=== PATIENT | male | born 1945 | race Caucasian/White ===

== ENCOUNTER 2024-03-16 20:40 | Inpatient (IN) | payer BC, MEDICARE ==
--- NOTE | 2024-03-16 20:56 | ED ---
Chest Pain HPI - General Stated Complaint: SOB Time Seen by Provider: 03/16/24 20:45 Source: patient Mode of arrival: EMS Limitations: no limitations - History of Present Illness Initial Comments: Patient is a 78-year-old man who states that he has not been feeling well going back probably about a week. Patient states that every year when the weather changes he tends to get sinus infection. Patient notes that about a week ago he began to have sinus drainage. Over the past 2 to 3 days he states that it felt like the drainage was going into his lungs. He has continued to have coughing. Patient also had some subjective fevers at home. Over the course of the past day he has had pains in the thoracic portion of the back on the left side. Patient was concerned because he had similar pains in the past that was diagnosed as myocardial infarction. The patient's prevailed upon him to be evaluated tonight. MD Complaint: chest pain -: days(s) Onset: during rest Pain Location: other (Left thoracic back) Pain Radiation: none Severity: moderate Quality: aching Consistency: constant Improves With: nothing Worsens With: nothing Other Symptoms: cough, fever Treatments Prior to Arrival: none - Related Data Home Medications Medication Instructions Recorded Confirmed Aspirin EC [Ecotrin Low Dose] 81 mg PO Q48H 03/17/24 03/17/24 Azelastine HCl [Astelin Nasal 1 - 2 spray EA NOSTRIL BID PRN 03/17/24 03/17/24 Ballinger] Calcium Carbonate [Calcium] 600 mg PO DAILY 03/17/24 03/17/24 Cholecalciferol (Vitamin D3) 50 mcg PO DAILY 03/17/24 03/17/24 [Vitamin D3 (50 Mcg = 2000 Iu)] Co Q-10 100mg 1 cap PO DAILY 03/17/24 03/17/24 Famotidine [Pepcid] 40 mg PO BID 03/17/24 03/17/24 Finasteride [Proscar] 5 mg PO DAILY 03/17/24 03/17/24 Loratadine [Claritin] 10 mg PO DAILY 03/17/24 03/17/24 Losartan Potassium [Cozaar] 100 mg PO DAILY 03/17/24 03/17/24 Multivitamins, Thera [Multivitamin 1 tab PO DAILY 03/17/24 03/17/24 (formulary)] Pravastatin Sodium [Pravachol] 80 mg PO DAILY 03/17/24 03/17/24 amLODIPine [Norvasc] 2.5 mg PO DAILY 03/17/24 03/17/24 Allergies Allergy/AdvReac Type Severity Reaction Status Date / Time Iodinated Contrast Media AdvReac Unknown Verified 03/20/24 13:02 iodine AdvReac Unknown Verified 03/20/24 13:02 Review of Systems ROS Statement: Those systems with pertinent positive or pertinent negative responses have been documented in the HPI. ROS Other: All systems not noted in ROS Statement are negative. Constitutional: Reports: fever. Denies: chills, weakness ENT: Reports: congestion Respiratory: Reports: as per HPI, cough, dyspnea. Denies: wheezes, hemoptysis, stridor Cardiovascular: Reports: as per HPI, chest pain. Denies: palpitations, orthopnea, edema, syncope Gastrointestinal: Denies: abdominal pain, nausea, vomiting, diarrhea Genitourinary: Denies: dysuria, hematuria Musculoskeletal: Reports: as per HPI, back pain Skin: Denies: rash Neurological: Denies: headache, weakness, numbness EKG Findings - EKG Results: EKG: interpreted by EMILED, sinus rhythm (Rate 102 bpm) EKG shows: tachycardia - Blocks, [place], Hypertrophy, ST Abn: AV and intraventricular conduction: right bundle branch block (fixed/inte rmittent, complete/incomplete) QRS axis and voltage: left axis deviation (-30 to -90) General Exam General appearance: alert, in no apparent distress Head exam: Present: atraumatic, normocephalic Eye exam: Present: normal appearance. Absent: scleral icterus, conjunctival injection ENT exam: Present: normal oropharynx Neck exam: Present: normal inspection Respiratory exam: Present: rhonchi. Absent: respiratory distress, wheezes, rales, stridor, chest wall tenderness, accessory muscle use, decreased breath sounds Cardiovascular Exam: Present: normal rhythm, tachycardia, normal heart sounds. Absent: systolic murmur, diastolic murmur, rubs, gallop GI/Abdominal exam: Present: soft. Absent: distended, tenderness, guarding, rebound, rigid, mass Extremities exam: Present: normal inspection, normal capillary refill. Absent: pedal edema, calf tenderness Back exam: Present: normal inspection. Absent: CVA tenderness (R), CVA tenderness (L) Neurological exam: Present: alert Skin exam: Present: warm, dry, intact, normal color. Absent: rash Course Vital Signs 03/16/24 03/16/24 03/17/24 20:50 21:00 00:17 Temperature 102.0 F H 97.6 F Pulse Rate 111 H 78 Respiratory 20 20 18 Rate Blood Pressure 139/70 130/69 O2 Sat by Pulse 91 L 90 L Oximetry 03/17/24 03/17/24 03/17/24 02:04 06:24 07:55 Temperature 100.3 F H 97.8 F Pulse Rate 67 55 L 48 L Respiratory 20 18 Rate Blood Pressure 124/60 104/63 O2 Sat by Pulse 96 96 Oximetry 03/17/24 03/17/24 03/17/24 07:56 07:57 08:00 Temperature 97.6 F Pulse Rate 49 L 63 Respiratory 18 17 Rate Blood Pressure 101/71 117/61 O2 Sat by Pulse 99 97 94 L Oximetry 03/17/24 03/17/24 03/17/24 08:03 10:21 11:43 Temperature Pulse Rate 53 L 55 L 52 L Respiratory 18 Rate Blood Pressure 116/60 O2 Sat by Pulse 94 L Oximetry 03/17/24 03/17/24 03/17/24 12:00 14:12 15:09 Temperature 98.8 F Pulse Rate 49 L 75 78 Respiratory 18 22 Rate Blood Pressure 132/73 141/64 O2 Sat by Pulse 92 L 98 Oximetry 03/17/24 03/17/24 03/17/24 15:36 15:46 18:31 Temperature 101.8 F H Pulse Rate 78 85 88 Respiratory 17 Rate Blood Pressure 154/72 O2 Sat by Pulse 93 L Oximetry Chest Pain MDM - MDM The patient had chest x-ray that I interpreted to show increased density left field consistent with pneumonia, no pneumothorax or congestive heart failure Was pt. sent in by a medical professional or institution (, PA, WASHER OFF, urgent care, hospital, or detention...) When possible be specific @ -[No] Did you speak to anyone other than the patient for history (EMS, parent, family, police, friend...)? What history was obtained from this source @ -[No] Did you review nursing and triage notes (agree or disagree)? Why? @ -[I reviewed and agree with nursing and triage notes] Were old charts reviewed (outside hosp., previous admission, EMS record, old EKG, old radiological studies, urgent care reports/EKG's, detention records)? Report findings @ -[No old charts were reviewed] Differential Diagnosis (chest pain, altered mental status, abdominal pain women, abdominal pain men, vaginal bleeding, weakness, fever, dyspnea, syncope, headache, dizziness, GI bleed, back pain, seizure, CVA, palpatations, mental health, musculoskeletal)? @ -[Differential Fever: Pneumonia, viral URI, endocarditis, myocarditis, pericarditis, otitis, sinusitis, peritonsillar Abscess, retropharyngeal Abscess, epiglottitis, peritonitis, appendicitis, Lisa cystitis, diverticulitis, hepatitis, colitis, UTI, PID, TOA, pyelonephritis, prostatitis, epididymitis, meningitis, encephalitis, pulmonary embolism, CVA, thyroid storm, pancreatitis, adrenal crisis, cavernous sinus thrombosis, this is not meant to be an all-inclusive list. EKG interpreted by me (3pts min.). @ -[I interpreted as above] X-rays interpreted by me (1pt min.). @ -[I interpreted as above CT interpreted by me (1pt min.). @ -[None done] U/S interpreted by me (1pt. min.). @ -[None done] What testing was considered but not performed or refused? (CT, X-rays, U/S, labs)? Why? @ -[None] What meds were considered but not given or refused? Why? @ -[None] Did you discuss the management of the patient with other professionals (professionals i.e. , PA, WASHER OFF, lab, RT, psych nurse, social insurance analyst, information management manager, teacher, us customs and border officer, family preservation caseworker)? Give summary @ -Case discussed with admitting physician and treatment recommendations incorporated Was smoking cessation discussed for >3mins.? @ -[No] Was critical care preformed (if so, how long)? @ -Yes, 30 minutes Were there social determinants of health that impacted care today? How? (Homelessness, low income, unemployed, alcoholism, drug addiction, transportation, low edu. Level, literacy, decrease access to med. care, retirement, rehab)? @ -[No] Was there de-escalation of care discussed even if they declined (Discuss DNR or withdrawal of care, Hospice)? DNR status @ -[No] What co-morbidities impacted this encounter? (DM, HTN, Smoking, COPD, CAD, Cancer, CVA, ARF, Chemo, Hep., AIDS, mental health diagnosis, sleep apnea, morbi d obesity)? @ -[None] Was patient admitted / discharged? Hospital course, mention meds given and route, prescriptions, significant lab abnormalities, going to OR and other pertinent info. @ -[Patient is 78-year-old man presenting with constellation of symptoms including fever, cough, dizziness, body aches. The patient does appear to have left-sided pneumonia. He also also has elevated D-dimer but due to acute kidney injury will not have CT to evaluate for pulmonary embolism. Patient will be admitted on antibiotic therapy with pulmonology consultation and to have VQ scan. Undiagnosed new problem with uncertain prognosis? @ -[No] Drug Therapy requiring intensive monitoring for toxicity (Heparin, Nitro, Insulin, Cardizem)? @ -[No] Were any procedures done? @ -[No] Diagnosis/symptom? @ -[ Acute pneumonia Acute kidney injury Acute, or Chronic, or Acute on Chronic? @ -[Acute Uncomplicated (without systemic symptoms) or Complicated (systemic symptoms)? @ -[Complicated by dyspnea Side effects of treatment? @ -[No] Exacerbation, Progression, or Severe Exacerbation? @ -[No] Poses a threat to life or bodily function? How? (Chest pain, [place], [place], pneumonia, PE, COPD, DKA, ARF, appy, cholecystitis, CVA, Diverticulitis, Homicidal, Suicidal, threat to staff... and all critical care pts) @ -[Yes there is risk of progression to respiratory failure/ All treatments are based on ideal body weight as in ED triage Disposition Clinical Impression: Pneumonia Disposition: ADMITTED IP TO THIS HOSP Condition: Fair Is patient prescribed a controlled substance at d/c from ED?: No
[2024-03-16 21:04] LABS: Basophils % (A) 0 %; Eosinophils # (A) 0.1 k/uL (0-0.7); Eosinophils % (A) 1 %; HCT 39.2 % (39.0-53.0); HGB 12.7 gm/dL (13.0-17.5); Lymphocytes # (A) 0.7 k/uL (1.0-4.8); Lymphocytes % (A) 8 %; MCH 29.6 pg (25.0-35.0); MCHC 32.3 g/dL (31.0-37.0); MCV 91.7 fL (80.0-100.0); Monocytes # (A) 0.4 k/uL (0-1.0); Monocytes % (A) 6 %; Neutrophils # (A) 6.5 k/uL (1.3-7.7); Neutrophils % (A) 82 %; Platelet Count 168 k/uL (150-450); RBC 4.28 m/uL (4.30-5.90); RDW 13.8 % (11.5-15.5); WBC 7.9 k/uL (3.8-10.6)
[2024-03-16 21:16] LABS: ALT 22 U/L (4-49); AST 36 U/L (17-59); African American GFR (CKD) 37 (>60 ml/min/1.73 sqM); Albumin 3.8 g/dL (3.5-5.0); Alkaline Phosphatase 113 U/L (38-126); Anion Gap 10 mmol/L; Blood Urea Nitrogen 32 mg/dL (9-20); Calcium 8.6 mg/dL (8.4-10.2); Carbon Dioxide 24 mmol/L (22-30); Chloride 102 mmol/L (98-107); Glucose 157 mg/dL (74-99); Magnesium 1.6 mg/dL (1.6-2.3); Non-African American GFR(CKD) 32 (>60 ml/min/1.73 sqM); Partial Thromboplastin Time 25.7 sec (22.0-30.0); Potassium 4.9 mmol/L (3.5-5.1); Prothrombin Time 11.4 sec (10.0-12.5); Sodium 136 mmol/L (137-145); Total Bilirubin 0.5 mg/dL (0.2-1.3); Total Protein 6.8 g/dL (6.3-8.2)
[2024-03-16] MEDS: ASPIRIN 81 MG PO STA (21:19)
--- NOTE | 2024-03-16 21:27 | XR ---
EXAMINATION TYPE: XR chest 2V DATE OF EXAM: 03/16/2024 9:21 PM COMPARISON: None. CLINICAL INDICATION: Male, 78 years old with history of Chest Pain, TECHNIQUE: Frontal and lateral views of the chest are obtained. FINDINGS: Chronic senescent parenchymal change and COPD. Reticulonodular infiltrate throughout the le ft lung may reflect atypical pneumonia. Correlate clinically. Mediastinum is unremarkable. The heart is not enlarged. IMPRESSION: Reticulonodular infiltrate throughout the left lung may reflect atypical pneumonia. Leonela elate clinically. [facility], , 03/16/2024 9:25 PM
[2024-03-16] MEDS: SODIUM CHLORIDE 0.9% 1,000 ML IV ONE (22:03)
[2024-03-16] MEDS: SODIUM CHLORIDE 0.9% 500 ML 500 ML IV STA (22:09)
[2024-03-16 22:21] LABS: Appearance,Urine Clear (Clear); Bilirubin,Urine Negative (Negative); Blood,Urine Negative (Negative); Color,Urine Yellow; Glucose,Urine (UA) Negative (Negative); Hyaline Casts,Urine 13 /lpf (0-2); Ketones,Urine Negative (Negative); Leukocyte Esterase,Urine Trace (Negative); Mucus,Urine Rare /hpf; Nitrite,Urine Negative (Negative); PH, Urine 5.5 (5.0-8.0); Protein,Urine 1+ (Negative); RBC,Urine 3 /hpf (0-5); Specific Gravity,Urine 1.025 (1.001-1.035); Urobilinogen,Urine <2.0 mg/dL (<2.0); WBC,Urine 1 /hpf (0-5)
[2024-03-17] MEDS ORDERED: ALBUTEROL NEBULIZED 2.5 MG/3 ML INHALATION PRN
[2024-03-17] MEDS ORDERED: PNEUMONIA PROTOCOL UTILIZED 1 EACH MISC PO PRN
[2024-03-17] MEDS: SODIUM CHLORIDE 0.9% 1,000 ML IV STA (00:14)
[2024-03-17] MEDS: AZITHROMYCIN 500 MG TAB PO SCH (00:14)
[2024-03-17] MEDS: ENOXAPARIN 80 MG/0.8 ML SYRINGE SQ STA ×2 (00:20→02:00)
--- NOTE | 2024-03-17 01:51 | P.HPIM ---
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 Patient reports that every year when the weather changes he tends to get sinus infections. However, previous sinus infections usually resolve on its own in 2 to 3 months and were not as severe as this time. Patient reported that about a month and half ago, he started having sinus drainage, congestion and over the past week patient started developing productive cough with clear sputum. Patient reports post- nasal drip. Earlier this evening, patient also noted chills, dizziness, lightheadedness and tremor. The patient's convinced the patient to come into the hospital for evaluation. In addition patient also reported over the past day patient has been having L sided chest pain, non-pleuritic, intermittent, with no clear alleviating or exacerbating features. Patient notes the last time this pain occured was several days ago and hasn't recurred. Sarah liu is concerned because he had similar pains in the past that was diagnosed as [place]. Patient currently endorses coughing, runny nose, sinus drainage, fever, chills. He denies shortness of breath, nausea/vomiting/diarrhea, dysuria, weakness or numbness sensation in the upper or lower extremity, no tingling. ED documentation reviewed. In the ED patient was treated with aspirin 324 mg x 1, 1 and half bolus of normal saline Vitals on admission temperature 102, heart rate 111, respiratory rate 20, blood pressure 139/70, O2 sat of 91% on nasal cannula at 3 L/min EKG independently interpreted as sinus tachycardia with a ventricular rate of 102 bpm, QTc interval of 386 ms, possible left atrial enlargement, left axis deviation, right bundle branch block CXR shows reticulonodular infiltrate throughout the left lung may reflect atypic al pneumonia Labs on admission show white blood cell count 7.9, hemoglobin 12.7, hematocrit 39.2, platelet 168, PT 11.4, PTT 25.7, INR 1.0, D-dimer 1.07, sodium 136, potassium 4.9, chloride 102, carbon dioxide 24, BUN 32, creatinine 1.97, glucose 157, troponin less than 0.012 UA shows 1+ protein, negative for nitrites, trace leukocyte esterase Review of systems: Pertinent positives and negatives as discussed in HPI, a complete review of systems was performed and all other systems are negative. PMH: Hyperlipidemia, hypertension, GERD, enlarged prostate, history of [place] in 2013 with 2 stents, peripheral neuropathy in lower extremity PSH: History of [place] in 2013 with 2 stents, meniscus surgery in left and right knee, deviated septum surgery in 2012, kyphoplasty T9-T10 in 2019, hernia surgery in 2023 FMH: Father has a history of heart disease with 5 bypass surgeries, aunt has a history of diabetes Allergies: No known drug allergies Social history: Tobacco: Former smoker, quit in 1979, used to smoke 1 and half pack a day Alcohol: Occasional alcohol use Recreational drugs: No recreational drug use Travel: No recent travel history Sick contacts: No recent sick contact Physical examination: Vital signs reviewed General: nontoxic, no distress, appears at stated age, well-appearing Derm: warm, dry, intact Head: atraumatic, normocephalic, symmetric Eyes: anicteric sclera Mouth: no lip lesion, mucus membranes moist Cardiovascular: S1 S2 reg, no murmur Lungs: Fine crackles in left upper lung field, no wheezing/stridor/rhonchi, no use of accessory muscle Abdominal: soft, non-tender to palpation, no signs of peritonitis, no rebound tenderness Extremities: No cyanosis, clubbing, or lower extremity edema. Neuro: Alert, Oriented to time/person/location, gross neurological examination did not reveal any focal deficits. Intact muscle strength in upper and lower extremity bilaterally. Intact sensation in bilateral upper and lower extremity. Cranial nerves II to XII grossly intact. Psych: well appearing, appropriate affect Assessment/Plan: Patient is a 78-year-old male with past medical history of hyperlipidemia, hype rtension, GERD, enlarged prostate, history of [place] in 2014 with 2 stents, peripheral neuropathy in lower extremity presented to the emergency department stating that he has not been feeling well over the past week. Patient will be admitted to inpatient medicine service. Active: #. Sepsis secondary to atypical pneumonia Chest x-ray shows reticulonodular infiltrate throughout the left lung which may reflect atypical pneumonia C/w normal saline at 130 cc an hour Initiate ceftriaxone 1 g IV every 24 hours C/w azithromycin 500 mg p.o. daily Obtain morning CBC Blood cultures, sputum culture, Legionella antigen and culture ordered by ED Order lactic acid #. Rule out acute coronary syndrome Troponin less than 0.012 C/w Cardiac monitoring Trend troponin x 1 Pain may be secondary to underlying pneumonia C/w home ASA dose #. Kidney injury, acute vs chronic, no baseline available for comparison BUN 32, creatinine 1.97 C/w normal saline at 130 cc an hour Obtain morning BMP #. Hyponatremia, mild Sodium 136 C/w normal saline at 130 cc an hour Monitor morning BMP #. Hyperglycemia, with no documented history of diabetes mellitus Blood sugar of 157 Initiate low-dose sliding scale insulin Obtain hemoglobin A1c #. Anemia Hemoglobin of 12.7 Recent colonoscopy was reportedly within the past 5 years with normal results Monitor morning CBC #. Rule out pulmonary embolism Elevated D-dimer at 1.07 Obtain VQ scan as patient has acute kidney injury Chronic: #. GERD Resume famotidine 40 mg twice daily #. BPH Resume finasteride 5 mg daily #. Hyperlipidemia Resume pravastatin 80 mg daily #. Hypertension Resume losartan 100 mg daily and amlodipine 2.5 mg daily #. Vitamin D deficiency Resume cholecalciferol 50 mcg daily F: No restrictions E: Replete as needed N: Heart healthy diet A: Ambulatory DVT prophylaxis: Lovenox 40 mg subcu daily as patient's calculated creatinine clearance is 34 The patient is admitted with an anticipated less than 2 midnight stay for evaluation of atypical pneumonia CODE STATUS: No code Discussed with: Patient Anticipated discharge place: Home Medications and Allergies Allergies Allergy/AdvReac Type Severity Reaction Status Date / Time No Known Allergies Allergy Verified 03/16/24 21:02 Physical Exam Vitals: Vital Signs Temp Pulse Resp BP Pulse Ox 03/16/24 20:50 102.0 F H 111 H 20 139/70 91 L Intake and Output 03/16/24 03/16/24 03/17/24 14:59 22:59 06:59 Other: Weight 74.843 kg Results CBC & Chem 7: 03/16/24 20:52 03/16/24 20:52 Labs: Abnormal Lab Results - Last 24 Hours (Table) 03/16/24 03/16/24 03/16/24 Range/Units 20:52 20:52 20:52 RBC 4.28 L (4.30-5.90) m/uL Hgb 12.7 L (13.0-17.5) gm/dL Lymphocytes # 0.7 L (1.0-4.8) k/uL D-Dimer 1.07 H (<0.60) mg/L FEU Sodium 136 L (137-145) mmol/L BUN 32 H (9-20) mg/dL Creatinine 1.97 H (0.66-1.25) mg/dL Glucose 157 H (74-99) mg/dL Urine Protein (Negative) Ur Leukocyte Esterase (Negative) Hyaline Casts (0-2) /lpf Urine Mucus (None) /hpf 03/16/24 Range/Units 22:10 RBC (4.30-5.90) m/uL Hgb (13.0-17.5) gm/dL Lymphocytes # (1.0-4.8) k/uL D-Dimer (<0.60) mg/L FEU Sodium (137-145) mmol/L BUN (9-20) mg/dL Creatinine (0.66-1.25) mg/dL Glucose (74-99) mg/dL Urine Protein 1+ H (Negative) Ur Leukocyte Esterase Trace H (Negative) Hyaline Casts 13 H (0-2) /lpf Urine Mucus Rare H (None) /hpf
[2024-03-17] MEDS: ACETAMINOPHEN TAB 500 MG TAB PO PRN (02:44)
[2024-03-17] MEDS ORDERED: DEXTROSE 50% SYRINGE 50 ML IVP PRN ×2 (02:45)
[2024-03-17 03:54] LABS: Glucose,Whole Blood 110 mg/dL (70-110)
--- NOTE | 2024-03-17 07:21 | XR ---
EXAMINATION TYPE: XR chest 2V DATE OF EXAM: 03/17/2024 6:43 AM COMPARISON: 03/16/2024 CLINICAL INDICATION: Male, 78 years old with history of pneumonia, TECHNIQUE: Frontal and lateral views of the chest are obtained. FINDINGS: Reticulonodular infiltrates throughout both lung fernandez compatible with pneumonia. Hyperinflation com patible with COPD. The cardiac silhouette size is within normal limits. The osseous structures are intact. IMPRESSION: Reticulonodular infiltrates throughout both lung fernandez compatible with pneumonia. [facility], , 03/17/2024 7:19 AM
[2024-03-17 07:39] LABS: Glucose,Whole Blood 90 mg/dL (70-110)
[2024-03-17] MEDS: INSULIN ASPART (NovoLOG) 100 UNIT/ML VIAL SQ SCH (07:39)
[2024-03-17] MEDS: IPRATROPIUM-ALBUTEROL 3 ML NEB INHALATION SCH (07:54)
[2024-03-17] MEDS: CHOLECALCIFEROL 25 MCG (1000 IU) TABLET PO SCH (08:29)
[2024-03-17] MEDS: ASPIRIN 81 MG PO SCH (08:29)
[2024-03-17] MEDS: ENOXAPARIN 40 MG/0.4 ML SYRINGE SQ SCH (08:29)
[2024-03-17] MEDS: LOSARTAN 50 MG TAB PO SCH (08:29)
[2024-03-17] MEDS: FAMOTIDINE 20 MG TAB PO SCH ×2 (08:29→20:55)
[2024-03-17] MEDS: PRAVASTATIN SODIUM 80 MG TAB PO SCH (08:29)
[2024-03-17] MEDS: amLODIPine 2.5 MG TAB PO SCH (08:30)
[2024-03-17] MEDS: FINASTERIDE 5 MG TAB PO SCH (08:30)
[2024-03-17 08:38] LABS: Basophils # (A) 0.03 X 10*3/uL (0.00-0.10); Basophils % (A) 0.5 %; Eosinophils # (A) 0.01 X 10*3/uL (0.04-0.35); Eosinophils % (A) 0.2 %; HGB 11.3 g/dL (13.0-17.0); Lymphocytes # (A) 0.91 X 10*3/uL (0.90-5.00); Lymphocytes % (A) 16.5 %; MCH 29.2 pg (27.0-32.0); MCHC 32.3 g/dL (32.0-37.0); MCV 90.4 FL (80.0-97.0); Mean Platelet Volume 8.5 FL (9.5-12.2); Monocytes # (A) 0.56 X 10*3/uL (0.20-1.00); Monocytes % (A) 10.1 %; NRBC Per 100 WBC 0 X 10*3/uL (0.00-0.01); Neutrophils % (A) 72.3 %; Platelet Count 143 X 10*3/uL (140-440); RBC 3.87 X 10*6/uL (4.40-5.60); RDW 14.7 % (11.5-14.5); WBC 5.53 X 10*3/uL (4.50-10.00)
[2024-03-17 08:53] LABS: BUN/Creat Ratio 16.06 Ratio (12.00-20.00); Blood Urea Nitrogen 28.9 mg/dL (9.0-27.0); Calcium 7.9 mg/dL (8.7-10.3); Chloride 108 mmol/L (96-109); Glucose 122 mg/dL (70-110); Potassium 4.5 mmol/L (3.5-5.5); Sodium 140 mmol/L (135-145)
[2024-03-17 11:28] LABS: Glucose,Whole Blood 92 mg/dL (70-110)
--- NOTE | 2024-03-17 12:23 | US ---
EXAMINATION TYPE: US kidneys/renal and bladder DATE OF EXAM: 03/17/2024 COMPARISON: NONE CLINICAL INDICATION: Male, 78 years old with history of josef; CKD stage 3. TECHNIQUE: Grayscale imaging of the bilateral kidneys and urinary bladder: FINDINGS: EXAM MEASUREMENTS: Right Kidney: 8.5 x 3.6 x 4.7 cm Left Kidney: 10.2 x 3.9 x 5.9 cm Right Kidney: Appears smaller in size compared to contralateral kidney. Left Kidney: No hydronephrosis or masses seen Bladder: mildly distended, anechoic Bilateral Jets not seen There is no evidence for hydronephrosis at this point in time. No nephrolithiasis is seen. No anne s are identified. The urinary bladder is anechoic. IMPRESSION: Atrophic changes right kidney. [facility], , 03/17/2024 12:21 PM
--- NOTE | 2024-03-17 14:04 | NM ---
EXAMINATION TYPE: NM pul vent and perfuse DATE OF EXAM: 03/17/2024 CLINICAL INDICATION: Male, 78 years old with history of R/O PE; COMPARISON: NONE TECHNIQUE: Utilizing inhalation of 42 mCi Tc 99m DTPA aerosol and intravenous injection of 5 mCi of Tc 99m MAA, ventilation and perfusion images are acquired post injection in multiple projections. FINDINGS: Multiple matched defects identified perfusion and ventilation imaging. No mismatch perfusion defects seen. Central accumulation likely compatible with COPD. IMPRESSION: Intermediate probability for pulmonary embolism. [facility], , 03/17/2024 2:01 PM
[2024-03-17] MEDS: LACTATED RINGERS 1,000 ML IV SCH (14:09)
[2024-03-17 18:26] LABS: Glucose,Whole Blood 106 mg/dL (70-110)
[2024-03-17 20:02] LABS: Glucose,Whole Blood 102 mg/dL (70-110)
[2024-03-18 04:29] LABS: Mycoplasma IgG Antibody (EIA) 2.79 INDEX (<=0.90); Mycoplasma IgM Antibody 0.18 INDEX (<=0.90)
[2024-03-18 06:34] LABS: Glucose,Whole Blood 95 mg/dL (70-110)
[2024-03-18 07:46] LABS: Basophils % (A) 0 %; Eosinophils # (A) 0.1 k/uL (0-0.7); Eosinophils % (A) 1 %; HCT 36.6 % (39.0-53.0); HGB 11.6 gm/dL (13.0-17.5); Hypochromasia Slight; Lymphocytes # (A) 1.2 k/uL (1.0-4.8); Lymphocytes % (A) 21 %; MCH 29.9 pg (25.0-35.0); MCHC 31.6 g/dL (31.0-37.0); MCV 94.4 fL (80.0-100.0); Mean Platelet Volume 6.8; Monocytes # (A) 0.3 k/uL (0-1.0); Monocytes % (A) 5 %; Neutrophils # (A) 3.9 k/uL (1.3-7.7); Neutrophils % (A) 71 %; Platelet Count 150 k/uL (150-450); RBC 3.88 m/uL (4.30-5.90); RDW 13.8 % (11.5-15.5); WBC 5.5 k/uL (3.8-10.6)
[2024-03-18 08:04] LABS: African American GFR (CKD) 61 (>60 ml/min/1.73 sqM); Anion Gap 5 mmol/L; Blood Urea Nitrogen 22 mg/dL (9-20); Calcium 8.1 mg/dL (8.4-10.2); Carbon Dioxide 23 mmol/L (22-30); Chloride 108 mmol/L (98-107); Glucose 92 mg/dL (74-99); Non-African American GFR(CKD) 53 (>60 ml/min/1.73 sqM); Potassium 4.6 mmol/L (3.5-5.1); Sodium 136 mmol/L (137-145)
[2024-03-18] MEDS: AZITHROMYCIN 500 MG TAB PO STA (11:59)
--- NOTE | 2024-03-18 13:21 | P.PN ---
Subjective Progress Note Date: 03/18/2403/18. Patient seen and examined at bedside. No acute events overnight. Endorses fever, cough productive of dark colored sputum, and mild dyspnea. Denies chest pain, abdominal pain, nausea/vomiting. Cepheid 4-plex: COVID-19 positive. Labs today: WBC 5.5, hemoglobin 11.6, platelets 150, sodium 136, p otassium 4.6, chloride 108, CO2 23, BUN 22, creatinine 1.3, glucose 92, calcium 8.1. Pertinent positives and negatives discussed above, a complete review of systems was performed and all the other systems were negative. Physical examination: Vital signs reviewed General: Nontoxic, no distress, appears stated age, well-appearing Derm: Warm, dry, intact Head: Atraumatic, normocephalic, symmetric Eyes: EOMI, anicteric sclera Mouth: No lip lesion, mucus membranes moist Cardiovascular: S1-S2 regular, no murmur Lungs: CTA bilateral, no rhonchi, no rales, no accessory muscle use Abdominal: Soft, non-tender to palpation Extremities: No cyanosis, clubbing, or pedal edema Neuro: Alert, oriented x 3, gross neurological examination did not reveal any focal deficits. Cranial nerves II to XII grossly intact. Psych: Appropriate affect and mood Assessment and Plan: Patient is a 78-year-old male with a past medical history of hypertension, hyperlipidemia, history of OR in 2013 with 2 stents, peripheral bilateral lower extremity neuropathy, BPH, GERD admitted for pneumonia. Active #. COVID-19 pneumonia #. Acute hypoxic respiratory failure Begin Decadron 6 mg daily IV Continue oxygen supplementation as needed to maintain oxygen saturation >94% Pulmonology consulted for possible remdesivir #. sepsis secondary to pneumonia On empiric ceftriaxone IV 1 g every 12 hours, status post azithromycin, consider discontinuing antibiotics Pending procalcitonin #. Prerenal acute kidney injury Improving with fluids, lactated Ringer 125 cc an hour Continue to monitor BMP Resolved #. Hyperglycemia Chronic #. Hypertension Hold amlodipine and losartan due to systolic blood pressures in the 110s #. History of OR in 2013 with 2 stents Aspirin 81 mg PO daily #. BPH Finasteride 5 mg PO daily F: Lactated Ringer's at 125 cc /h E: Replete if required N: Regular diet A: Ambulatory DVT prophylaxis: Lovenox 40 mg subcutaneous daily GI prophylaxis: Pepcid 20 mg twice daily Code status: No code Anticipated discharge place: Home I have seen and evaluated the patient today. Discussed with the resident and agree with the residents finding and plan as documented in the resident's note. Changes highlighted in blue font. Objective - Vital Signs Vital signs: Vital Signs Temp 98.8 F 03/18/24 06:11 Pulse 80 03/18/24 02:50 Resp 18 03/18/24 02:50 BP 115/61 03/18/24 02:50 Pulse Ox 90 L 03/18/24 02:50 FiO2 Intake & Output 03/17/24 03/18/24 03/18/24 18:59 06:59 18:59 Weight 74.843 kg Other: Voiding Method Toilet # Voids 2 - Labs CBC & Chem 7: 03/18/24 07:34 03/18/24 07:34 Labs: Abnormal Lab Results - Last 24 Hours (Table) 03/17/24 03/17/24 03/17/24 Range/Units 03:07 03:07 03:07 RBC 3.87 L (4.40-5.60) X 10*6/uL Hgb 11.3 L (13.0-17.0) g/dL Hct 35.0 L (39.6-50.0) % RDW 14.7 H (11.5-14.5) % MPV 8.5 L (9.5-12.2) FL Eosinophils # 0.01 L (0.04-0.35) X 10*3/uL Sodium (137-145) mmol/L Chloride (98-107) mmol/L Carbon Dioxide 20.0 L (21.6-31.8) mmol/L BUN 28.9 H (9.0-27.0) mg/dL Creatinine 1.8 H (0.6-1.5) mg/dL Est GFR (CKD-EPI) 39 L (>=60) Glucose 122 H (70-110) mg/dL Hemoglobin A1c 6.2 H (<=6.0) % Calcium 7.9 L (8.7-10.3) mg/dL Mycoplasma pneumon IgG (<=0.90) INDEX 03/17/24 03/18/24 03/18/24 Range/Units 11:52 07:34 07:34 RBC 3.88 L (4.40-5.60) X 10*6/uL Hgb 11.6 L (13.0-17.0) g/dL Hct 36.6 L (39.6-50.0) % RDW (11.5-14.5) % MPV (9.5-12.2) FL Eosinophils # (0.04-0.35) X 10*3/uL Sodium 136 L (137-145) mmol/L Chloride 108 H (98-107) mmol/L Carbon Dioxide (21.6-31.8) mmol/L BUN 22 H (9.0-27.0) mg/dL Creatinine 1.30 H (0.6-1.5) mg/dL Est GFR (CKD-EPI) (>=60) Glucose (70-110) mg/dL Hemoglobin A1c (<=6.0) % Calcium 8.1 L (8.7-10.3) mg/dL Mycoplasma pneumon IgG 2.79 H (<=0.90) INDEX
[2024-03-18] MEDS: DEXAMETHASONE SOD PHOSPHATE 10 MG/ML 1 ML VIAL IVP SCH (14:13)
--- NOTE | 2024-03-18 14:46 | XR ---
EXAMINATION TYPE: XR chest 1V portable DATE OF EXAM: 03/18/2024 COMPARISON: 03/17/2024 CLINICAL INDICATION: Male, 78 years old with history of SOB; TECHNIQUE: Single frontal view of the chest is obtained. FINDINGS: Patchy infiltrate throughout both lung fernandez compatible with pneumonia. Cardiomediastinal silhouette is stable. No pleural effusion. Bony thorax is intact. IMPRESSION: Patchy infiltrate throughout both lung fernandez compatible with pneumonia. [facility], , 03/18/2024 2:44 PM
[2024-03-18] MEDS ORDERED: ALBUTEROL HFA INHALER INHALATION PRN ×2 (14:59→15:00)
[2024-03-18] MEDS: ALBUTEROL HFA INHALER INHALATION SCH (15:41)
[2024-03-18] MEDS ORDERED: guaiFENesin-DM 100-10MG/5ML 10 ML CUP PO PRN (17:32)
[2024-03-18 18:27] LABS: Glucose,Whole Blood 156 mg/dL (70-110)
[2024-03-18] MEDS: methylPREDNISolone SOD SUCCI 125 MG/2 ML VIAL IV SCH (18:49)
[2024-03-18 21:26] LABS: Glucose,Whole Blood 149 mg/dL (70-110)
[2024-03-19 06:25] LABS: Glucose,Whole Blood 139 mg/dL (70-110)
[2024-03-19 10:55] LABS: Basophils # (A) 0.01 X 10*3/uL (0.00-0.10); Basophils % (A) 0.2 %; Eosinophils # (A) 0 X 10*3/uL (0.04-0.35); Eosinophils % (A) 0 %; HCT 41.8 % (39.6-50.0); HGB 12.7 g/dL (13.0-17.0); Lymphocytes # (A) 0.52 X 10*3/uL (0.90-5.00); Lymphocytes % (A) 8.9 %; MCH 28.3 pg (27.0-32.0); MCHC 30.4 g/dL (32.0-37.0); MCV 93.3 FL (80.0-97.0); Mean Platelet Volume 9.1 FL (9.5-12.2); Monocytes # (A) 0.19 X 10*3/uL (0.20-1.00); Monocytes % (A) 3.3 %; NRBC Per 100 WBC 0 X 10*3/uL (0.00-0.01); Neutrophils # (A) 5.08 X 10*3/uL (1.80-7.70); Neutrophils % (A) 87.3 %; Platelet Count 154 X 10*3/uL (140-440); RBC 4.48 X 10*6/uL (4.40-5.60); RDW 14.6 % (11.5-14.5); WBC 5.82 X 10*3/uL (4.50-10.00)
[2024-03-19 11:42] LABS: Glucose,Whole Blood 133 mg/dL (70-110)
--- NOTE | 2024-03-19 11:49 | XR ---
EXAMINATION TYPE: XR chest 1V DATE OF EXAM: 03/19/2024 10:54 AM COMPARISON: Chest radiographs from 03/18/2024 CLINICAL INDICATION: Male, 78 years old with history of COVID 19; [facility] TECHNIQUE: XR chest 1V Frontal view of the chest. FINDINGS: Lungs/Pleura: Scattered subtle reticular and hazy opacities. No evidence of pneumothorax, focal conso lidation or pleural effusion. Pulmonary vascularity: Unremarkable. Heart/mediastinum: Cardiomediastinal silhouette is unremarkable. Musculoskeletal: No acute osseous pathology. IMPRESSION: Subtle scattered opacities which may represent an atypical pneumonia. Correlate for covid 19. [facility], , 03/19/2024 11:46 AM
[2024-03-19 12:28] LABS: BUN/Creat Ratio 17.09 Ratio (12.00-20.00); Blood Urea Nitrogen 18.8 mg/dL (9.0-27.0); Calcium 8.4 mg/dL (8.7-10.3); Carbon Dioxide 22.1 mmol/L (21.6-31.8); Chloride 106 mmol/L (96-109); Glucose 171 mg/dL (70-110); Potassium 4.7 mmol/L (3.5-5.5); Sodium 139 mmol/L (135-145)
--- NOTE | 2024-03-19 13:19 | P.PN ---
Subjective Progress Note Date: 03/19/2403/18. Patient seen and examined at bedside. No acute events overnight. Endorses fever, cough productive of dark colored sputum, and mild dyspnea. Denies chest pain, abdominal pain, nausea/vomiting. Cepheid 4-plex: COVID-19 positive. Labs today: WBC 5.5, hemoglobin 11.6, platelets 150, sodium 136, p otassium 4.6, chloride 108, CO2 23, BUN 22, creatinine 1.3, glucose 92, calcium 8.1. 03/19. Patient seen laying comfortably in bed. No acute events overnight. Endorses cough minimally productive of dark-colored sputum, mild dyspnea with exertion. Denies fever, chest pain, abdominal pain, palpitations, nausea/vomiting. Labs today: WBC 5.82, hemoglobin 12.7, platelets 154, sodium 139, potassium 4.7, chloride 106, CO2 22.1, BUN 18.8, creatinine 1.1, glucose 171, LDH 600. Chest x-ray independently interpreted, shows bilateral interstitial opacities Pertinent positives and negatives discussed above, a complete review of systems was performed and all the other systems were negative. Physical examination: Vital signs reviewed. Afebrile, hypertensive, 97% O2 on Airvo 45 at 60% FiO2. General: Nontoxic, no distress, appears stated age, well-appearing Derm: Warm, dry, intact Head: Atraumatic, normocephalic, symmetric Eyes: EOMI, anicteric sclera Mouth: No lip lesion, mucus membranes moist Cardiovascular: S1-S2 regular, no murmur Lungs: Bilateral rhonchi, no rales, no accessory muscle use Abdominal: Soft, non-tender to palpation Extremities: No cyanosis, clubbing, or pedal edema Neuro: Alert, oriented x 3, gross neurological examination did not reveal any focal deficits. Cranial nerves II to XII grossly intact. Psych: Appropriate affect and mood Assessment and Plan: Patient is a 78-year-old male with a past medical history of hypertension, hyperlipidemia, history of AR in 2014 with 2 stents, peripheral bilateral lower extremity neuropathy, BPH, GERD admitted for pneumonia. Patient is severely ill, needs close monitoring. Prognosis guarded. Active #. COVID-19 pneumonia #. Acute hypoxic respiratory failure IV Solu-Medrol 60 mg every 6 hours Robitussin DM 10 ml PO every 6 hours as needed for cough Continue oxygen supplementation as needed to maintain oxygen saturation >94% Wean Airvo as tolerated Pulmonology following #. Sepsis, secondary to pneumonia On empiric ceftriaxone IV 1 g every 12 hours, status post azithromycin Procalcitonin 0.73 #. Prerenal acute kidney injury Improved with fluids Continue to monitor BMP Resolved #. Hyperglycemia Chronic #. Hypertension Hold amlodipine and losartan due to systolic blood pressures in the 110s #. History of AR in 2013 with 2 stents Aspirin 81 mg PO daily #. BPH Finasteride 5 mg PO daily F: None E: Replete if required N: Regular diet A: Ambulatory DVT prophylaxis: Lovenox 40 mg subcutaneous daily GI prophylaxis: Pepcid 20 mg twice daily Code status: No code Anticipated discharge place: Home I have seen and evaluated the patient today. Discussed with the resident and agree with the residents finding and plan as documented in the resident's note. Changes highlighted in blue font. Objective - Vital Signs Vital signs: Vital Signs Temp 97.4 F L 03/19/24 00:27 Pulse 65 03/19/24 00:27 Resp 20 03/19/24 00:27 BP 138/67 03/19/24 00:27 Pulse Ox 97 03/19/24 04:33 FiO2 60 03/19/24 04:33 Intake & Output 03/18/24 03/18/24 03/19/24 06:59 18:59 06:59 Intake Total 450 240 Balance 450 240 Intake: Intake, IV Titration 50 Amount cefTRIAXone 1 gm In 50 Sodium Chloride 0.9% 50 ml @ 100 mls/hr IVPB Q24H [facility] Rx#:[id number] Oral 400 240 Other: Voiding Method Toilet Toilet # Voids 2 3 2 - Labs CBC & Chem 7: 03/19/24 03:53 03/19/24 03:53 Labs: Abnormal Lab Results - Last 24 Hours (Table) 03/18/24 03/18/24 03/18/24 Range/Units 07:34 07:34 07:34 RBC 3.88 L (4.30-5.90) m/uL Hgb 11.6 L (13.0-17.5) gm/dL Hct 36.6 L (39.0-53.0) % Sodium 136 L (137-145) mmol/L Chloride 108 H (98-107) mmol/L BUN 22 H (9-20) mg/dL Creatinine 1.30 H (0.66-1.25) mg/dL POC Glucose (mg/dL) (70-110) mg/dL Calcium 8.1 L (8.4-10.2) mg/dL Procalcitonin 0.73 H (0.02-0.50) ng/mL SARS-CoV-2 (PCR) (Not Detectd) 03/18/24 03/18/24 03/18/24 Range/Units 11:30 18:26 21:24 RBC (4.30-5.90) m/uL Hgb (13.0-17.5) gm/dL Hct (39.0-53.0) % Sodium (137-145) mmol/L Chloride (98-107) mmol/L BUN (9-20) mg/dL Creatinine (0.66-1.25) mg/dL POC Glucose (mg/dL) 156 H 149 H (70-110) mg/dL Calcium (8.4-10.2) mg/dL Procalcitonin (0.02-0.50) ng/mL SARS-CoV-2 (PCR) Detected A (Not Detectd) 03/19/24 Range/Units 06:24 RBC (4.30-5.90) m/uL Hgb (13.0-17.5) gm/dL Hct (39.0-53.0) % Sodium (137-145) mmol/L Chloride (98-107) mmol/L BUN (9-20) mg/dL Creatinine (0.66-1.25) mg/dL POC Glucose (mg/dL) 139 H (70-110) mg/dL Calcium (8.4-10.2) mg/dL Procalcitonin (0.02-0.50) ng/mL SARS-CoV-2 (PCR) (Not Detectd) Microbiology - Last 24 Hours (Table) 03/16/24 22:25 Blood Culture - Preliminary Blood 03/16/24 22:10 Blood Culture - Preliminary Blood
--- NOTE | 2024-03-19 13:58 | US ---
EXAMINATION TYPE: US venous doppler duplex LE BI DATE OF EXAM: 03/19/2024 1:33 PM COMPARISON: NONE CLINICAL INDICATION: Male, 78 years old with history of rule out blood clot; d-dimer is positive for Covid, Pain TECHNIQUE: The lower extremity deep venous system is examined utilizing real time linear array sonog maximo with graded compression, color doppler sonography, and spectral doppler. SIDE PERFORMED: Bilateral FINDINGS: VESSELS IMAGED: Common Femoral Vein Deep Femoral Vein Greater Saphenous Vein * Femoral Vein Popliteal Vein Small Saphenous Vein * Proximal Calf Veins (* superficial vessels) Right Leg: Negative for DVT, Color Doppler imaging shows patency of the vessels. Spectral waveforms are within normal limits. Left Leg: Negative for DVT, Color Doppler imaging shows patency of the vessels. Spectral waveforms a re within normal limits. IMPRESSION: No ultrasound evidence for deep venous thrombosis. [facility], , 03/19/2024 1:56 PM
--- NOTE | 2024-03-19 14:24 | P.CNPUL ---
History of Present Illness Consult date: 03/19/24 Reason for consult: dyspnea, pneumonia History of present illness: This is a 78-year-old male patient who is currently hospitalized for an acute hypoxic respiratory failure and COVID-19 related pneumonia. The patient is currently on Airvo at 45 L with an FiO2 of 60%. I reviewed the series of chest x-ray that was done on this patient during this current admission. The patient may have underlying chronic ILD. Nevertheless, the patient developed progressive worsening in the bilateral pulmonary filtrates and the patient has developed some increased hazy opacities bilaterally consistent with COVID-19 related pneumonia. Noted his symptoms started around 2 days prior to his current admission and the patient's is also infected with the same virus. His D-dimer was mildly elevated at 1.07. Doppler of the lower extremities done today was negative. Perfusion scan was up and intermediate probability. He has seen Dr. Terrence Maynard and the patient has undergone a bronchoscopy few months back which I am assuming was done as part of investigation for chronic interstitial lung disease. The patient is on no immunosuppressant. 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 No coronary artery disease. No active smoking. The white cell count of 5.8 with a hemoglobin 12.7 and a platelet count of 154. Sodium is at 139, BUN is 18 with a creatinine of 1.1 and a potassium level of 4.7. The viral screen was positive for COVID-19. His procalcitonin level was at 0.7. His CRP is at 14.5 with an LDH of 600. The patient has received vaccination in the past. No previous history of COVID-19 infection. No reported aspiration. He is currently on IV steroids and the patient is receiving Solu-Medrol 60 mg every 6 hours. The patient is also on Lovenox 40 mg subcu for DVT prophylaxis. Antibiotic coverage is essentially empiric. He is afebrile. No significant tachycardia or tachypnea. Review of Systems Constitutional: Reports fatigue, Reports weakness Eyes: denies as per HPI, denies blurred vision, denies bulging eye, denies decreased vision, denies diplopia, denies discharge, denies dry eye, denies irritation, denies itching, denies pain, denies photophobia, denies loss of peripheral vision, denies loss of vision, denies tunnel vision/blind spots Ears: deny: decreased hearing, ear discharge, earache, tinnitus Ears, nose, mouth and throat: Reports as per HPI Breasts: absent: as per HPI, gynecomastia Cardiovascular: Reports decreased exercise tolerance, Reports dyspnea on exertion Respiratory: Reports dyspnea Gastrointestinal: Reports as per HPI Genitourinary: Reports as per HPI Musculoskeletal: Reports as per HPI Musculoskeletal: absent: ankle pain, ankle stiffness, ankle swelling, as per HPI, elbow pain, elbow stiffness, elbow swelling, foot pain, foot stiffness, foot swelling, hand pain, hand stiffness, hand swelling, hip pain, hip stiffness, hip swelling, knee pain, knee stiffness, knee swelling, shoulder pain, shoulder stiffness, shoulder swelling, wrist pain, wrist stiffness, wrist swelling Integumentary: Reports as per HPI Neurological: Reports as per HPI Endocrine: Reports as per HPI Allergic/Immunologic: Reports as per HPI Past Medical History Past Medical History: GERD/Reflux, Hyperlipidemia, Hypertension, Myocardial Infarction (SD) Last Myocardial Infarction Date:: 2021 History of Any Multi-Drug Resistant Organisms: None Reported Past Surgical History: Heart Catheterization With Stent, Orthopedic Surgery Additional Past Surgical History / Comment(s): Stent x2. Date of Last Stent Placement:: 2021 Smoking Status: Former smoker Past Alcohol Use History: Occasional Past Drug Use History: None Reported Medications and Allergies Home Medications Medication Instructions Recorded Confirmed Type Aspirin EC [Ecotrin Low Dose] 81 mg PO Q48H 03/17/24 03/17/24 History Azelastine HCl [Astelin Nasal 1 - 2 spray EA NOSTRIL BID PRN 03/17/24 03/17/24 History [place]] Calcium Carbonate [Calcium] 600 mg PO DAILY 03/17/24 03/17/24 History Cholecalciferol (Vitamin D3) 50 mcg PO DAILY 03/17/24 03/17/24 History [Vitamin D3 (50 Mcg = 2000 Iu)] Co Q-10 100mg 1 cap PO DAILY 03/17/24 03/17/24 History Famotidine [Pepcid] 40 mg PO BID 03/17/24 03/17/24 History Finasteride [Proscar] 5 mg PO DAILY 03/17/24 03/17/24 History Loratadine [Claritin] 10 mg PO DAILY 03/17/24 03/17/24 History Losartan Potassium [Cozaar] 100 mg PO DAILY 03/17/24 03/17/24 History Multivitamins, Thera [Multivitamin 1 tab PO DAILY 03/17/24 03/17/24 History (formulary)] Pravastatin Sodium [Pravachol] 80 mg PO DAILY 03/17/24 03/17/24 History amLODIPine [Norvasc] 2.5 mg PO DAILY 03/17/24 03/17/24 History Allergies Allergy/AdvReac Type Severity Reaction Status Date / Time No Known Allergies Allergy Verified 03/17/24 07:10 Physical Exam Vitals: Vital Signs Temp Pulse Pulse Resp BP Pulse Ox FiO2 03/19/24 09:35 93 L 60 03/19/24 07:15 97.5 F L 69 19 123/66 90 L 03/19/24 04:33 97 60 03/19/24 00:44 95 70 03/19/24 00:27 97.4 F L 65 20 138/67 98 03/18/24 20:50 97 70 03/18/24 19:35 98.0 F 70 18 146/68 97 03/18/24 18:00 96 03/18/24 15:45 97 70 03/18/24 14:32 98 70 03/18/24 13:53 100.3 F H 100 19 158/62 100 03/18/24 12:00 80 03/18/24 11:50 77 Intake and Output 03/18/24 03/19/24 03/19/24 22:59 06:59 14:59 Intake Total 450 240 Balance 450 240 Intake: Intake, IV Titration 50 Amount cefTRIAXone 1 gm In 50 Sodium Chloride 0.9% 50 ml @ 100 mls/hr IVPB Q24H [facility] Rx#:[id number] Oral 400 240 Other: # Voids 3 2 The patient appeared well nourished and normally developed. Vital signs as documented. The patient does not demonstrate any significant respiratory distress. The patient is currently on Airvo at 45 L with FiO2 of 60%. Head exam is unremarkable. No scleral icterus or corneal arcus noted. Neck is without jugular venous distension, thyromegaly, or carotid bruits. Carotid upstrokes are brisk bilaterally. Lungs show scattered rhonchi and crackles bilaterally.. Cardiac exam reveals the PMI to be normally sized and situated. Rhythm is regular. First and second heart sounds normal. No murmurs, rubs or gallops. Abdominal exam reveals normal bowel sounds, no masses, no organomegaly and no aortic enlargement. Extremities are nonedematous and both femoral and pedal pulses are normal. Examination of the skin revealed no evidence of significant rashes, suspicious appearing nevi or other concerning lesions. Neurologically, the patient is awake and alert and the patient does not have any focal neurological deficit. Cranial nerves are essentially intact. Results - Laboratory Findings CBC and BMP: 03/19/24 03:53 03/19/24 03:53 PT/INR, D-dimer PT 11.4 sec (10.0-12.5) 03/16/24 20:52 INR 1.0 (<1.2) 03/16/24 20:52 D-Dimer 1.07 mg/L FEU (<0.60) H 03/16/24 20:52 Abnormal lab findings: Abnormal Labs 03/16/24 03/16/24 03/16/24 20:52 20:52 20:52 RBC 4.28 L Hgb 12.7 L Hct RDW MPV Lymphocytes # 0.7 L Eosinophils # D-Dimer 1.07 H Sodium 136 L Chloride Carbon Dioxide BUN 32 H Creatinine 1.97 H Est GFR (CKD-EPI) Glucose 157 H POC Glucose (mg/dL) Hemoglobin A1c Calcium Procalcitonin Urine Protein Ur Leukocyte Esterase Hyaline Casts Urine Mucus Mycoplasma pneumon IgG SARS-CoV-2 (PCR) 03/16/24 03/17/24 03/17/24 22:10 03:07 03:07 RBC 3.87 L Hgb 11.3 L Hct 35.0 L RDW 14.7 H MPV 8.5 L Lymphocytes # Eosinophils # 0.01 L D-Dimer Sodium Chloride Carbon Dioxide 20.0 L BUN 28.9 H Creatinine 1.8 H Est GFR (CKD-EPI) 39 L Glucose 122 H POC Glucose (mg/dL) Hemoglobin A1c Calcium 7.9 L Procalcitonin Urine Protein 1+ H Ur Leukocyte Esterase Trace H Hyaline Casts 13 H Urine Mucus Rare H Mycoplasma pneumon IgG SARS-CoV-2 (PCR) 03/17/24 03/17/24 03/18/24 03:07 11:52 07:34 RBC 3.88 L Hgb 11.6 L Hct 36.6 L RDW MPV Lymphocytes # Eosinophils # D-Dimer Sodium Chloride Carbon Dioxide BUN Creatinine Est GFR (CKD-EPI) Glucose POC Glucose (mg/dL) Hemoglobin A1c 6.2 H Calcium Procalcitonin Urine Protein Ur Leukocyte Esterase Hyaline Casts Urine Mucus Mycoplasma pneumon IgG 2.79 H SARS-CoV-2 (PCR) 03/18/24 03/18/24 03/18/24 07:34 07:34 11:30 RBC Hgb Hct RDW MPV Lymphocytes # Eosinophils # D-Dimer Sodium 136 L Chloride 108 H Carbon Dioxide BUN 22 H Creatinine 1.30 H Est GFR (CKD-EPI) Glucose POC Glucose (mg/dL) Hemoglobin A1c Calcium 8.1 L Procalcitonin 0.73 H Urine Protein Ur Leukocyte Esterase Hyaline Casts Urine Mucus Mycoplasma pneumon IgG SARS-CoV-2 (PCR) Detected A 03/18/24 03/18/24 03/19/24 18:26 21:24 06:24 RBC Hgb Hct RDW MPV Lymphocytes # Eosinophils # D-Dimer Sodium Chloride Carbon Dioxide BUN Creatinine Est GFR (CKD-EPI) Glucose POC Glucose (mg/dL) 156 H 149 H 139 H Hemoglobin A1c Calcium Procalcitonin Urine Protein Ur Leukocyte Esterase Hyaline Casts Urine Mucus Mycoplasma pneumon IgG SARS-CoV-2 (PCR) - Diagnostic Findings Chest x-ray: image reviewed Assessment and Plan Plan: Acute hypoxic respiratory failure most likely secondary to COVID-19 related pneumonia. The patient may have an underlying chronic interstitial lung disease. Nevertheless, he was not oxygen dependent and his decompensation was rather acute as the patient was diagnosed having a COVID-19 infection. He is currently on Airvo 45 L with an FiO2 of 60%. He is also on IV Solu-Medrol. Acute COVID-19 infection/pneumonia. LDH is elevated. Procalcitonin is at 0.7. He has received previous vaccination. No previous COVID-19 infections. Interstitial lung disease, being worked up on an outpatient basis through [facility] under the care of Dr. Terrence Maynard. He has undergone recent bronchoscopy and bronchial lavage. No biopsies were obtained. The patient was not oxygen dependent. Shortness of breath secondary to above Hypertension Hyperlipidemia History of coronary disease with remote history of myocardial infarction. The patient has 2 coronary stents inserted post SD back in 2013 Plan Keep Airvo and titrate oxygen flow to maintain saturation above 90% Continue IV Solu-Medrol Lovenox 40 mg subcu for DVT prophylaxis Doppler of lower extremities were negative No clinical suspicion for pulmonary embolism Would like to obtain records on his previous ILD workup May be a candidate for tocilizumab or baricitinib should there be any further decompensation of respiratory status. Currently stable and the chest x-ray findings have also been stable over the past 24 hours. Will continue to follow.
[2024-03-19 16:43] LABS: Glucose,Whole Blood 155 mg/dL (70-110)
[2024-03-19 19:54] LABS: Glucose,Whole Blood 164 mg/dL (70-110)
[2024-03-20 06:19] LABS: Glucose,Whole Blood 145 mg/dL (70-110)
--- NOTE | 2024-03-20 08:21 | XR ---
EXAMINATION TYPE: XR chest 1V portable DATE OF EXAM: 03/20/2024 COMPARISON: 03/18/2024 CLINICAL INDICATION: Male, 78 years old with history of dyspnea; TECHNIQUE: Single frontal view of the chest is obtained. FINDINGS: There is diffuse interstitial and alveolar opacification. Compared to the prior study there is mild d ecrease in the right upper lobe: A marked increase in the left mid and lower lung zone. The heart size is normal. There is no pleural effusion or pneumothorax. There is been vertebroplasty of the T9 and T10 thoracic vertebral segments otherwise the osseous stru ctures are intact. IMPRESSION: Marked acute cardiopulmonary disease with mild improvement in the right upper lobe and moderate to ma rked worsening in the left mid and lower lung zone. [facility], , 03/20/2024 8:19 AM
[2024-03-20 08:44] LABS: Glucose,Whole Blood 163 mg/dL (70-110)
[2024-03-20 08:49] LABS: C Reactive Protein 6.5 mg/dL (<1.0); Magnesium 1.8 mg/dL (1.6-2.3)
[2024-03-20 09:27] LABS: HCT 37.8 % (39.6-50.0); HGB 12.2 g/dL (13.0-17.0); MCH 29.2 pg (27.0-32.0); MCHC 32.3 g/dL (32.0-37.0); MCV 90.4 FL (80.0-97.0); Mean Platelet Volume 9.2 FL (9.5-12.2); NRBC Per 100 WBC 0 X 10*3/uL (0.00-0.01); Platelet Count 162 X 10*3/uL (140-440); RBC 4.18 X 10*6/uL (4.40-5.60); RDW 14.1 % (11.5-14.5); WBC 10.19 X 10*3/uL (4.50-10.00)
[2024-03-20 09:28] LABS: Basophils # (A) 0.01 X 10*3/uL (0.00-0.10); Basophils % (A) 0.1 %; Eosinophils # (A) 0 X 10*3/uL (0.04-0.35); Eosinophils % (A) 0 %; Lymphocytes # (A) 0.59 X 10*3/uL (0.90-5.00); Lymphocytes % (A) 5.8 %; Monocytes # (A) 0.48 X 10*3/uL (0.20-1.00); Monocytes % (A) 4.7 %; Neutrophils # (A) 8.89 X 10*3/uL (1.80-7.70); Neutrophils % (A) 87.2 %
[2024-03-20] MEDS: BARICITINIB 1 MG TABLET PO SCH (09:48)
[2024-03-20 11:12] LABS: Glucose,Whole Blood 145 mg/dL (70-110)
--- NOTE | 2024-03-20 11:17 | P.PN ---
Subjective Progress Note Date: 03/20/24 This is a 78-year-old male patient who is currently hospitalized for an acute hypoxic respiratory failure and COVID-19 related pneumonia. The patient is currently on Airvo at 45 L with an FiO2 of 60%. I reviewed the series of chest x-ray that was done on this patient during this current admission. The patient may have underlying chronic ILD. Nevertheless, the patient developed progressive worsening in the bilateral pulmonary filtrates and the patient has developed some increased hazy opacities bilaterally consistent with COVID-19 related pneumonia. Noted his symptoms started around 2 days prior to his current admission and the patient's is also infected with the same virus. His D-dimer was mildly elevated at 1.07. Doppler of the lower extremities done today was negative. Perfusion scan was up and intermediate probability. He has seen Dr. Terrence Maynard and the patient has undergone a bronchoscopy few months back which I am assuming was done as part of investigation for chronic i nterstitial lung disease. The patient is on no immunosuppressant. 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 No coronary artery disease. No active smoking. The white cell count of 5.8 with a hemoglobin 12.7 and a platelet count of 154. Sodium is at 139, BUN is 18 with a creatinine of 1.1 and a potassium level of 4.7. The viral screen was positive for COVID-19. His procalcitonin level was at 0.7. His CRP is at 14.5 with an LDH of 600. The patient has received vaccination in the past. No previous history of COVID-19 infection. No reported aspiration. He is currently on IV steroids and the patient is receiving Solu-Medrol 60 mg every 6 hours. The patient is also on Lovenox 40 mg subcu for DVT prophylaxis. Antibiotic coverage is essentially empiric. He is afebrile. No significant tachycardia or tachypnea. On 03/20/2024, the patient is comfortable. Slightly more short of breath. Nevertheless, he is having episodes of oxygen desaturations with limited amount of mobility. Earlier this morning, while having his x-ray, the patient's pulse ox dropped down to the 60s. The chest x-ray showed diffuse interstitial and alveolar opacification consistent with COVID-19 related pneumonia. The patient remains on IV Solu-Medrol. The patient remains on Airvo and this was adjusted to 60 L and FiO2 of 90%. LDH level was elevated in the 600 range. Doppler of the lower extremities were negative. D-dimer is at 1.07. Electrolytes are all stable and sodium levels at 139, potassium is at 4.7, BUN is 18 with a creatinine of 1.1. The white cell count is currently at 10.1 with a hemoglobin 12.2 and a platelet count is at 162. Hemodynamically stable. Cardiac rhythm is sinus. Denies having any other significant complaints. Awake and alert and communicating. Objective - Vital Signs Vital signs: Vital Signs Temp 98.1 F 03/20/24 07:18 Pulse 85 03/20/24 07:18 Resp 22 03/20/24 07:18 BP 113/61 03/20/24 07:18 Pulse Ox 87 L 03/20/24 07:45 FiO2 90 03/20/24 07:45 Intake & Output 03/19/24 03/20/24 03/20/24 18:59 06:59 18:59 Intake Total 240 Balance 240 Intake: Oral 240 Other: # Voids 3 4 # Bowel Movements 2 - Exam The patient appeared well nourished and normally developed. Vital signs as documented. The patient does not demonstrate any significant respiratory distress. The patient is currently on Airvo at 60 L and FiO2 of 90% Head exam is unremarkable. No scleral icterus or corneal arcus noted. Neck is without jugular venous distension, thyromegaly, or carotid bruits. Carotid upstrokes are brisk bilaterally. Lungs show scattered rhonchi and crackles bilaterally.. Cardiac exam reveals the PMI to be normally sized and situated. Rhythm is regular. First and second heart sounds normal. No murmurs, rubs or gallops. Abdominal exam reveals normal bowel sounds, no masses, no organomegaly and no ao rtic enlargement. Extremities are nonedematous and both femoral and pedal pulses are normal. Examination of the skin revealed no evidence of significant rashes, suspicious appearing nevi or other concerning lesions. Neurologically, the patient is awake and alert and the patient does not have any focal neurological deficit. Cranial nerves are essentially intact. - Labs CBC & Chem 7: 03/20/24 05:57 03/19/24 03:53 Labs: Abnormal Lab Results - Last 24 Hours (Table) 03/19/24 03/19/24 03/19/24 Range/Units 03:53 03:53 11:41 Hgb 12.7 L (13.0-17.0) g/dL MCHC 30.4 L (32.0-37.0) g/dL RDW 14.6 H (11.5-14.5) % MPV 9.1 L (9.5-12.2) FL Lymphocytes # 0.52 L (0.90-5.00) X 10*3/uL Monocytes # 0.19 L (0.20-1.00) X 10*3/uL Eosinophils # 0 L (0.04-0.35) X 10*3/uL Glucose 171 H (70-110) mg/dL POC Glucose (mg/dL) 133 H (70-110) mg/dL Calcium 8.4 L (8.7-10.3) mg/dL Lactate Dehydrogenase (120-246) U/L C-Reactive Protein (<1.0) mg/dL 03/19/24 03/19/24 03/19/24 Range/Units 12:08 12:08 16:41 Hgb (13.0-17.0) g/dL MCHC (32.0-37.0) g/dL RDW (11.5-14.5) % MPV (9.5-12.2) FL Lymphocytes # (0.90-5.00) X 10*3/uL Monocytes # (0.20-1.00) X 10*3/uL Eosinophils # (0.04-0.35) X 10*3/uL Glucose (70-110) mg/dL POC Glucose (mg/dL) 155 H (70-110) mg/dL Calcium (8.7-10.3) mg/dL Lactate Dehydrogenase 600 H (120-246) U/L C-Reactive Protein 14.5 H (<1.0) mg/dL 03/19/24 03/20/24 03/20/24 Range/Units 19:53 06:18 08:06 Hgb (13.0-17.0) g/dL MCHC (32.0-37.0) g/dL RDW (11.5-14.5) % MPV (9.5-12.2) FL Lymphocytes # (0.90-5.00) X 10*3/uL Monocytes # (0.20-1.00) X 10*3/uL Eosinophils # (0.04-0.35) X 10*3/uL Glucose (70-110) mg/dL POC Glucose (mg/dL) 164 H 145 H (70-110) mg/dL Calcium (8.7-10.3) mg/dL Lactate Dehydrogenase (120-246) U/L C-Reactive Protein 6.5 H (<1.0) mg/dL 03/20/24 Range/Units 08:42 Hgb (13.0-17.0) g/dL MCHC (32.0-37.0) g/dL RDW (11.5-14.5) % MPV (9.5-12.2) FL Lymphocytes # (0.90-5.00) X 10*3/uL Monocytes # (0.20-1.00) X 10*3/uL Eosinophils # (0.04-0.35) X 10*3/uL Glucose (70-110) mg/dL POC Glucose (mg/dL) 163 H (70-110) mg/dL Calcium (8.7-10.3) mg/dL Lactate Dehydrogenase (120-246) U/L C-Reactive Protein (<1.0) mg/dL Microbiology - Last 24 Hours (Table) 03/18/24 08:46 Gram Stain - Preliminary Sputum Sputum Culture - Preliminary 03/18/24 03:05 Gram Stain - Preliminary Sputum Sputum Culture - Preliminary 03/16/24 22:25 Blood Culture - Preliminary Blood 03/16/24 22:10 Blood Culture - Preliminary Blood Assessment and Plan Plan: Acute hypoxic respiratory failure most likely secondary to COVID-19 related pneumonia. The patient may have an underlying chronic interstitial lung di sease. Nevertheless, he was not oxygen dependent and his decompensation was rather acute as the patient was diagnosed having a COVID-19 infection. He is currently on Airvo 60 L with FiO2 of 90%. There has been interval decompensation the patient's oxygenation. Based on that, transfer the patient to the ICU for closer monitoring. Chest x-ray was noted and shows diffuse interstitial and alveolar infiltrates. The patient remains on Rocephin and IV Solu-Medrol. LDH level is elevated. Acute COVID-19 infection/pneumonia. LDH is elevated. Procalcitonin is at 0.7. He has received previous vaccination. No previous COVID-19 infections. Interstitial lung disease, being worked up on an outpatient basis through [facility] under the care of Dr. Terrence Maynard. He has undergone re cent bronchoscopy and bronchial lavage. No biopsies were obtained. The patient was not oxygen dependent. Shortness of breath secondary to above Hypertension Hyperlipidemia History of coronary disease with remote history of myocardial infarction. The patient has 2 coronary stents inserted post [place] back in 2013 Plan Keep Airvo and titrate oxygen flow to maintain saturation above 90% Continue IV Solu-Medrol 60 mg IV push every 6 hours Start baricitinib 4 mg p.o. daily Lovenox 40 mg subcu for DVT prophylaxis Doppler of lower extremities were negative No clinical suspicion for pulmonary embolism Would like to obtain records on his previous ILD workup Reviewed the chest x-ray Condition is critical and the patient got moved to the intensive care unit will continue to follow.
[2024-03-20 11:58] LABS: BUN/Creat Ratio 23.27 Ratio (12.00-20.00); Blood Urea Nitrogen 25.6 mg/dL (9.0-27.0); Calcium 8.4 mg/dL (8.7-10.3); Carbon Dioxide 24.4 mmol/L (21.6-31.8); Chloride 105 mmol/L (96-109); Glucose 155 mg/dL (70-110); Potassium 4.1 mmol/L (3.5-5.5); Sodium 141 mmol/L (135-145)
--- NOTE | 2024-03-20 13:06 | P.PN ---
Subjective Progress Note Date: 03/20/24 Subjective: Patient seen and examined at bedside. Patient continued to require higher amounts of oxygen now transferred to medical ICU. Pertinent positives and negatives as discussed above, a complete review of systems was performed and all other systems are negative. Vitals Signs Reviewed. General: Nontoxic, no distress, appears at stated age Derm: Warm, dry Head: Atraumatic, normocephalic, symmetric Eyes: EOMI, no lid lag, anicteric sclera Mouth: No lip lesion, mucus membranes moist Cardiovascular: S1S2 reg, no murmur Lungs: Bilateral rhonchi, no accessory muscle use, supplemental oxygen Abdominal: Soft, nontender to palpation, no guarding, no appreciable organomegaly Ext: No gross muscle atrophy, no edema, no contractures Neuro: CN II-XI grossly intact, no focal neuro deficits Psych: Alert, oriented, appropriate affect Data Reviewed Today: Pertinent Labs: WBC 10.19, hemoglobin 12.2, creatinine 1.1, magnesium 1.8, blood sugars range between 1 45-1 64 Imaging: Chest x-ray independently interpreted, shows bilateral interstitial opacities. Lower extremity Dopplers negative for DVT Assessment and Plan: Active: Acute COVID-19 pneumonia Acute hypoxic respiratory failure Sepsis secondary to suspected bacterial pneumonia Questionable history of ILD -Pulmonology note reviewed, started on baricitinib -Continue Solu-Medrol 60 IV every 6 hours, albuterol 4 times daily as well as every 4 hours as needed, IV ceftriaxone 1 g every 24 hours, status post azithromycin Prediabetes Hyperglycemia, steroid-induced -Scale insulin, monitor for hypoglycemia Resolved: JUANCARLOS Chronic: Dyslipidemia BPH History of CAD Hypertension-holding antihypertensives DVT ppx: Lovenox Code status: Full code Anticipated discharge place: Pending clinical course Anticipated discharge time: Pending clinical course Objective - Vital Signs Vital signs: Vital Signs Temp 98.1 F 03/20/24 07:18 Pulse 70 03/20/24 11:45 Resp 16 03/20/24 11:58 BP 153/77 03/20/24 11:45 Pulse Ox 94 L 03/20/24 11:45 FiO2 90 03/20/24 11:36 Intake & Output 03/19/24 03/20/24 03/20/24 18:59 06:59 18:59 Intake Total 240 Output Total 0 Balance 240 0 Intake: Oral 240 Output: Urine 0 Other: Voiding Method External Catheter # Voids 3 4 # Bowel Movements 2 - Labs CBC & Chem 7: 03/20/24 05:57 03/20/24 05:57 Labs: Abnormal Lab Results - Last 24 Hours (Table) 03/19/24 03/19/24 03/19/24 Range/Units 12:08 16:41 19:53 WBC (4.50-10.00) X 10*3/uL RBC (4.40-5.60) X 10*6/uL Hgb (13.0-17.0) g/dL Hct (39.6-50.0) % MPV (9.5-12.2) FL Immature Gran # (0.00-0.04) X 10*3/uL Neutrophils # (1.80-7.70) X 10*3/uL Lymphocytes # (0.90-5.00) X 10*3/uL Eosinophils # (0.04-0.35) X 10*3/uL BUN/Creatinine Ratio (12.00-20.00) Ratio Glucose (70-110) mg/dL POC Glucose (mg/dL) 155 H 164 H (70-110) mg/dL Calcium (8.7-10.3) mg/dL C-Reactive Protein 14.5 H (<1.0) mg/dL 03/20/24 03/20/24 03/20/24 Range/Units 05:57 05:57 06:18 WBC 10.19 H (4.50-10.00) X 10*3/uL RBC 4.18 L (4.40-5.60) X 10*6/uL Hgb 12.2 L (13.0-17.0) g/dL Hct 37.8 L (39.6-50.0) % MPV 9.2 L (9.5-12.2) FL Immature Gran # 0.22 H (0.00-0.04) X 10*3/uL Neutrophils # 8.89 H (1.80-7.70) X 10*3/uL Lymphocytes # 0.59 L (0.90-5.00) X 10*3/uL Eosinophils # 0 L (0.04-0.35) X 10*3/uL BUN/Creatinine Ratio 23.27 H (12.00-20.00) Ratio Glucose 155 H (70-110) mg/dL POC Glucose (mg/dL) 145 H (70-110) mg/dL Calcium 8.4 L (8.7-10.3) mg/dL C-Reactive Protein (<1.0) mg/dL 03/20/24 03/20/24 03/20/24 Range/Units 08:06 08:42 11:11 WBC (4.50-10.00) X 10*3/uL RBC (4.40-5.60) X 10*6/uL Hgb (13.0-17.0) g/dL Hct (39.6-50.0) % MPV (9.5-12.2) FL Immature Gran # (0.00-0.04) X 10*3/uL Neutrophils # (1.80-7.70) X 10*3/uL Lymphocytes # (0.90-5.00) X 10*3/uL Eosinophils # (0.04-0.35) X 10*3/uL BUN/Creatinine Ratio (12.00-20.00) Ratio Glucose (70-110) mg/dL POC Glucose (mg/dL) 163 H 145 H (70-110) mg/dL Calcium (8.7-10.3) mg/dL C-Reactive Protein 6.5 H (<1.0) mg/dL Microbiology - Last 24 Hours (Table) 03/16/24 22:25 Blood Culture - Preliminary Blood 03/16/24 22:10 Blood Culture - Preliminary Blood 03/18/24 03:05 Gram Stain - Final Sputum Sputum Culture - Final 03/18/24 08:46 Gram Stain - Final Sputum Sputum Culture - Final
[2024-03-20 13:47] LABS: African American GFR (CKD) 82 (>60 ml/min/1.73 sqM); Anion Gap 5 mmol/L; Blood Urea Nitrogen 29 mg/dL (9-20); Calcium 8.6 mg/dL (8.4-10.2); Carbon Dioxide 29 mmol/L (22-30); Chloride 104 mmol/L (98-107); Glucose 171 mg/dL (74-99); Non-African American GFR(CKD) 71 (>60 ml/min/1.73 sqM); Potassium 3.8 mmol/L (3.5-5.1); Sodium 138 mmol/L (137-145)
[2024-03-20 16:31] LABS: Glucose,Whole Blood 151 mg/dL (70-110)
[2024-03-20] MEDS ORDERED: Magnesium Replacement Protocol 1 EACH MISC MISCELLANE PRN (18:45)
[2024-03-20] MEDS: MAGNESIUM SULFATE-D5W PMX 1 GM in DEXTROSE/WATER 1 100ML.BAG IVPB ONE (19:03)
[2024-03-20 20:09] LABS: Glucose,Whole Blood 166 mg/dL (70-110)
[2024-03-20] MEDS ORDERED: Potassium Replacement Protocol 1 EACH MISC MISCELLANE PRN (20:26)
[2024-03-21 06:03] LABS: Basophils % (A) 0 %; Eosinophils % (A) 0 %; HCT 35.2 % (39.0-53.0); HGB 11.6 gm/dL (13.0-17.5); Lymphocytes # (A) 0.6 k/uL (1.0-4.8); Lymphocytes % (A) 7 %; MCH 29.9 pg (25.0-35.0); MCV 90.4 fL (80.0-100.0); Mean Platelet Volume 7.6; Monocytes # (A) 0.3 k/uL (0-1.0); Monocytes % (A) 4 %; Neutrophils # (A) 7.3 k/uL (1.3-7.7); Neutrophils % (A) 89 %; Platelet Count 180 k/uL (150-450); RBC 3.89 m/uL (4.30-5.90); RDW 13.9 % (11.5-15.5); WBC 8.2 k/uL (3.8-10.6)
[2024-03-21 06:11] LABS: Glucose,Whole Blood 167 mg/dL (70-110)
[2024-03-21 06:28] LABS: African American GFR (CKD) 78 (>60 ml/min/1.73 sqM); Anion Gap 4 mmol/L; Blood Urea Nitrogen 36 mg/dL (9-20); Calcium 8.2 mg/dL (8.4-10.2); Carbon Dioxide 30 mmol/L (22-30); Chloride 105 mmol/L (98-107); Glucose 149 mg/dL (74-99); Magnesium 2.1 mg/dL (1.6-2.3); Non-African American GFR(CKD) 68 (>60 ml/min/1.73 sqM); Sodium 139 mmol/L (137-145)
--- NOTE | 2024-03-21 08:08 | XR ---
EXAMINATION TYPE: XR chest 1V portable DATE OF EXAM: 03/21/2024 5:08 AM COMPARISON: 03/20/2024 CLINICAL INDICATION: Male, 78 years old with shortness of breath, history of airvo, , FINDINGS: Heart normal size. Diffuse interstitial and patchy bilateral opacities persist without significant ch nicole. Vertebroplasty change in the lower thoracic spine. No sizable pleural effusion on the frontal v iew. IMPRESSION: Ongoing diffuse interstitial and bilateral airspace disease without significant change. [facility], , 03/21/2024 8:05 AM
[2024-03-21 11:29] LABS: Glucose,Whole Blood 202 mg/dL (70-110)
--- NOTE | 2024-03-21 11:48 | P.PN ---
Subjective Progress Note Date: 03/21/24 Principal diagnosis: Acute hypoxic respiratory failure secondary to acute COVID-19 pneumonia and underlying chronic interstitial lung disease This is a 78-year-old male patient who is currently hospitalized for an acute hypoxic respiratory failure and COVID-19 related pneumonia. The patient is currently on Airvo at 45 L with an FiO2 of 60%. I reviewed the series of chest x-ray that was done on this patient during this current admission. The patient may have underlying chronic ILD. Nevertheless, the patient developed progressive worsening in the bilateral pulmonary filtrates and the patient has developed some increased hazy opacities bilaterally consistent with COVID-19 related pneumonia. Noted his symptoms started around 2 days prior to his current admission and the patient's is also infected with the same virus. His D-dimer was mildly elevated at 1.07. Doppler of the lower extremities done today was negative. Perfusion scan was up and intermediate probability. He has seen Dr. Terrence Maynard and the patient has undergone a bronchoscopy few months back which I am assuming was done as part of investigation for chronic interstitial lung disease. The patient is on no immunosuppressant. 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 No coronary artery disease. No active smoking. The white cell count of 5.8 with a hemoglobin 12.7 and a platelet count of 154. Sodium is at 139, BUN is 18 with a creatinine of 1.1 and a potassium level of 4.7. The viral screen was positive for COVID-19. His procalcitonin level was at 0.7. His CRP is at 14.5 with an LDH of 600. The patient has received vaccination in the past. No previous history of COVID-19 infection. No reported aspiration. He is currently on IV steroids and the patient is receiving Solu-Medrol 60 mg every 6 hours. The patient is also on Lovenox 40 mg subcu for DVT prophylaxis. Antibiotic coverage is essentially empiric. He is afebrile. No significant tachycardia or tachypnea. On 03/20/2024, the patient is comfortable. Slightly more short of breath. Nevertheless, he is having episodes of oxygen desaturations with limited amount of mobility. Earlier this morning, while having his x-ray, the patient's pulse ox dropped down to the 60s. The chest x-ray showed diffuse interstitial and alveolar opacification consistent with COVID-19 related pneumonia. The patient remains on IV Solu-Medrol. The patient remains on Airvo and this was adjusted to 60 L and FiO2 of 90%. LDH level was elevated in the 600 range. Doppler of the lower extremities were negative. D-dimer is at 1.07. Electrolytes are all stable and sodium levels at 139, potassium is at 4.7, BUN is 18 with a creat inine of 1.1. The white cell count is currently at 10.1 with a hemoglobin 12.2 and a platelet count is at 162. Hemodynamically stable. Cardiac rhythm is sinus. Denies having any other significant complaints. Awake and alert and communicating. Patient was seen today on 03/21/2024, remains in the icu, remains on Airvo, patient is on 60 L flow 90% FiO2, he is also on baricitinib day #2, patient is marginal at best. O2 saturation is in the 80s and sometimes in the 70s patient is doing well, and I am aware that he may end up requiring intubation mechanical ventilation, I recommended BiPAP 03/04/100% and will transition from Airvo to BiPAP. Chest x-ray shows bilateral interstitial infiltrates. Looking at the previous CT of the chest, patient did have underlying interstitial lung disease which was relatively mild to begin with in 2019. But nonetheless he did have findings of interstitial lung disease and bronchiectasis noted on previous CT of the chest done at [facility]. His labs today WBC is 8.2 hemoglobin is 11.6, electrolytes are normal BUN is 36 creatinine 1.07, last procalcitonin was 0.41 the 1 prior was 0.73. LDH is high 600. Objective - Vital Signs Vital signs: Vital Signs Temp 97.5 F L 03/21/24 08:00 Pulse 72 03/21/24 09:00 Resp 29 H 03/21/24 09:00 BP 147/69 03/21/24 08:00 Pulse Ox 91 L 03/21/24 09:00 FiO2 100 03/21/24 11:23 Intake & Output 03/20/24 03/21/24 03/21/24 18:59 06:59 18:59 Intake Total 820 760 30 Output Total 750 800 195 Balance 70 -40 -165 Weight 79.7 kg Intake: IV 110 30 .9 kvo 110 30 Intake, IV Titration 150 Amount Magnesium Sulfate-D5w Pmx 100 1 gm In Dextrose/Water 1 100ml.bag @ 100 mls/hr IVPB ONCE ONE Rx#: [id number] cefTRIAXone 1 gm In 50 Sodium Chloride 0.9% 50 ml @ 100 mls/hr IVPB Q24H [facility] Rx#:[id number] Oral 820 500 Output: Urine 750 800 195 Other: Voiding Method External Catheter External Catheter External Catheter - Exam General: Revealed 78-year-old white male in moderate respiratory distress on Airvo Derm: Warm, dry Head: Atraumatic, normocephalic, symmetric Eyes: PERRLA, EOMI, anicteric, no JVD. Mouth: Moist mucous membranes, no thrush. Distant S1-S2, no S3 gallop, no murmur Cardiovascular: S1S2 reg, no murmur Lungs: Symmetrical expansion rhonchi noted bilaterally patient is quite tachypneic Abdominal: Soft nontender no MAG no rebound no guarding Ext: Mild clubbing no edema no cyanosis Neuro: alert oriented x 3, no gross focal neurologic deficit Psych: Normal mood, affect and no mental status examination - Labs CBC & Chem 7: 03/21/24 05:17 03/21/24 05:17 Labs: Abnormal Lab Results - Last 24 Hours (Table) 03/20/24 03/20/24 03/20/24 Range/Units 05:57 12:57 16:30 RBC (4.30-5.90) m/uL Hgb (13.0-17.5) gm/dL Hct (39.0-53.0) % Lymphocytes # (1.0-4.8) k/uL BUN 29 H (9-20) mg/dL BUN/Creatinine Ratio 23.27 H (12.00-20.00) Ratio Glucose 155 H 171 H (70-110) mg/dL POC Glucose (mg/dL) 151 H (70-110) mg/dL Calcium 8.4 L (8.7-10.3) mg/dL 03/20/24 03/21/24 03/21/24 Range/Units 20:07 05:17 05:17 RBC 3.89 L (4.30-5.90) m/uL Hgb 11.6 L (13.0-17.5) gm/dL Hct 35.2 L (39.0-53.0) % Lymphocytes # 0.6 L (1.0-4.8) k/uL BUN 36 H (9-20) mg/dL BUN/Creatinine Ratio (12.00-20.00) Ratio Glucose 149 H (70-110) mg/dL POC Glucose (mg/dL) 166 H (70-110) mg/dL Calcium 8.2 L (8.7-10.3) mg/dL 03/21/24 03/21/24 Range/Units 06:10 11:27 RBC (4.30-5.90) m/uL Hgb (13.0-17.5) gm/dL Hct (39.0-53.0) % Lymphocytes # (1.0-4.8) k/uL BUN (9-20) mg/dL BUN/Creatinine Ratio (12.00-20.00) Ratio Glucose (70-110) mg/dL POC Glucose (mg/dL) 167 H 202 H (70-110) mg/dL Calcium (8.7-10.3) mg/dL Microbiology - Last 24 Hours (Table) 03/16/24 22:25 Blood Culture - Preliminary Blood 03/16/24 22:10 Blood Culture - Preliminary Blood 03/18/24 03:05 Gram Stain - Final Sputum Sputum Culture - Final 03/18/24 08:46 Gram Stain - Final Sputum Sputum Culture - Final Assessment and Plan Assessment: Impression: Acute severe hypoxic respiratory failure most likely secondary to COVID-19 r elated pneumonia. Patient is marginal at best, not doing well with Airvo, and transitioning him to BiPAP 12/6/100% and patient made aware that his condition is critical, and he may end up requiring intubation mechanical ventilation. Acute COVID-19 infection/pneumonia. LDH is elevated. Repeat procalcitonin level is trending down. Interstitial lung disease, patient had previous CT of the chest from 2019 showing mild interstitial lung disease and bronchiectasis/traction bronchiectasis Shortness of breath secondary to above Hypertension Hyperlipidemia History of coronary disease with remote history of myocardial infarction. The patient has 2 coronary stents inserted post [place] back in 2013 Plan Change Airvo to BiPAP Continue steroids/Solu-Medrol 60 mg IV push 4 times daily Continue baricitinib Lovenox 40 mg subcu for DVT prophylaxis Doppler of lower extremities were negative Chest x-ray was reviewed and the findings were discussed with the patient CT of the chest from 2019 was noted Patient condition is critical Critical care time is over 30 minutes will continue to follow. Time with Patient: Greater than 30
--- NOTE | 2024-03-21 12:44 | P.PN ---
Subjective Progress Note Date: 03/21/2403/18. Patient seen and examined at bedside. No acute events overnight. Reports fever, cough productive of dark colored sputum, and mild dyspnea. Denies chest pain, abdominal pain, nausea/vomiting. Cepheid 4-plex: COVID-19 positive. Labs today: WBC 5.5, hemoglobin 11.6, platelets 150, sodium 136, po tassium 4.6, chloride 108, CO2 23, BUN 22, creatinine 1.3, glucose 92, calcium 8.1. 03/19. Patient seen laying comfortably in bed. No acute events overnight. Reports cough minimally productive of dark-colored sputum, mild dyspnea with exertion. Denies fever, chest pain, abdominal pain, palpitations, nausea/vomiting. Labs today: WBC 5.82, hemoglobin 12.7, platelets 154, sodium 139, potassium 4.7, chloride 106, CO2 22.1, BUN 18.8, creatinine 1.1, glucose 171, LDH 600 03/21. Patient seen and examined at bedside. Patient transferred to medical ICU yesterday due to increased oxygen requirements. Reports unchanged cough minimally productive of dark-colored sputum as well as dyspnea with exertion. Denies fever, chest pain, abdominal pain, palpitations, nausea/vomiting. Labs today: WBC 8.2, hemoglobin 11.6, platelets 180, sodium 139, potassium 4.0, chloride 105, CO2 30, BUN 36, creatinine 1.07, glucose 149, calcium 8.2, magnesium 2.1. Chest x-ray today independently interpreted: Bilateral interstitial opacities unchanged. Patient oxygen requirement has increased. Currently on BiPAP 12/6 100% FiO2. Pertinent positives and negatives discussed above, a complete review of systems was performed and all the other systems were negative. Physical examination: Vital signs reviewed. Afebrile, tachypneic, hypertensive, 96% saturation on BiPAP 12/6 100% FiO2. General: Nontoxic, no distress, appears stated age, well-appearing Derm: Warm, dry, intact Head: Atraumatic, normocephalic, symmetric Eyes: EOMI, anicteric sclera Mouth: No lip lesion, mucus membranes moist Cardiovascular: S1-S2 regular, no murmur Lungs: Bilateral rhonchi, no rales, no accessory muscle use Abdominal: Soft, non-tender to palpation Extremities: No cyanosis, clubbing, or pedal edema Neuro: Alert, oriented x 3, gross neurological examination did not reveal any focal deficits. Cranial nerves II to XII grossly intact. Psych: Appropriate affect and mood Assessment and Plan: Patient is a 78-year-old male with a past medical history of hypertension, hyperlipidemia, history of [place] in 2013 with 2 stents, peripheral bilateral lower extremity neuropathy, BPH, GERD admitted for pneumonia. Active #. COVID-19 pneumonia #. Acute hypoxic respiratory failure #. Questionable history of ILD Continue baricitinib per pulmonology IV Solu-Medrol 60 mg every 6 hours Albuterol 4 times daily and every 4 hours as needed IV ceftriaxone 1 g every 24 hours Status post azithromycin Robitussin DM 10 ml PO every 6 hours as needed for cough Continue oxygen supplementation as needed to maintain oxygen saturation >94%- currently on BiPAP 03/04 100% FiO2 Pulmonology following #. Prediabetes #. Hyperglycemia, steroid-induced Insulin sliding scale Monitor for hypoglycemia Resolved #. Prerenal acute kidney injury Chronic #. Hypertension Hold amlodipine and losartan due to systolic blood pressures in the 110s #. History of [place] in 2013 with 2 stents Aspirin 81 mg PO daily #. BPH Finasteride 5 mg PO daily F: None E: Replete if required N: Regular diet DVT prophylaxis: Lovenox 40 mg subcutaneous daily GI prophylaxis: Pepcid 20 mg twice daily Code status: Full code Anticipated discharge place: Home I have seen and evaluated the patient today. Discussed with the resident and agree with the residents finding and plan as documented in the resident's note. Changes highlighted in blue font. Objective - Vital Signs Vital signs: Vital Signs Temp 97.9 F 03/21/24 04:00 Pulse 77 03/21/24 06:00 Resp 33 H 03/21/24 06:00 BP 152/74 03/21/24 06:00 Pulse Ox 88 L 03/21/24 06:00 FiO2 90 03/21/24 06:00 Intake & Output 03/20/24 03/20/24 03/21/24 06:59 18:59 06:59 Intake Total 240 820 760 Output Total 750 800 Balance 240 70 -40 Weight 79.7 kg Intake: IV 110 .9 kvo 110 Intake, IV Titration 150 Amount Magnesium Sulfate-D5w Pmx 100 1 gm In Dextrose/Water 1 100ml.bag @ 100 mls/hr IVPB ONCE ONE Rx#: [id number] cefTRIAXone 1 gm In 50 Sodium Chloride 0.9% 50 ml @ 100 mls/hr IVPB Q24H [facility] Rx#:[id number] Oral 240 820 500 Output: Urine 750 800 Other: Voiding Method External Catheter External Catheter # Voids 4 - Labs CBC & Chem 7: 03/21/24 05:17 03/21/24 05:17 Labs: Abnormal Lab Results - Last 24 Hours (Table) 03/20/24 03/20/24 03/20/24 Range/Units 05:57 05:57 08:06 WBC 10.19 H (4.50-10.00) X 10*3/uL RBC 4.18 L (4.40-5.60) X 10*6/uL Hgb 12.2 L (13.0-17.0) g/dL Hct 37.8 L (39.6-50.0) % MPV 9.2 L (9.5-12.2) FL Immature Gran # 0.22 H (0.00-0.04) X 10*3/uL Neutrophils # 8.89 H (1.80-7.70) X 10*3/uL Lymphocytes # 0.59 L (0.90-5.00) X 10*3/uL Eosinophils # 0 L (0.04-0.35) X 10*3/uL BUN (9-20) mg/dL BUN/Creatinine Ratio 23.27 H (12.00-20.00) Ratio Glucose 155 H (70-110) mg/dL POC Glucose (mg/dL) (70-110) mg/dL Calcium 8.4 L (8.7-10.3) mg/dL C-Reactive Protein 6.5 H (<1.0) mg/dL 03/20/24 03/20/24 03/20/24 Range/Units 08:42 11:11 12:57 WBC (4.50-10.00) X 10*3/uL RBC (4.40-5.60) X 10*6/uL Hgb (13.0-17.0) g/dL Hct (39.6-50.0) % MPV (9.5-12.2) FL Immature Gran # (0.00-0.04) X 10*3/uL Neutrophils # (1.80-7.70) X 10*3/uL Lymphocytes # (0.90-5.00) X 10*3/uL Eosinophils # (0.04-0.35) X 10*3/uL BUN 29 H (9-20) mg/dL BUN/Creatinine Ratio (12.00-20.00) Ratio Glucose 171 H (70-110) mg/dL POC Glucose (mg/dL) 163 H 145 H (70-110) mg/dL Calcium (8.7-10.3) mg/dL C-Reactive Protein (<1.0) mg/dL 03/20/24 03/20/24 03/21/24 Range/Units 16:30 20:07 05:17 WBC (4.50-10.00) X 10*3/uL RBC 3.89 L (4.40-5.60) X 10*6/uL Hgb 11.6 L (13.0-17.0) g/dL Hct 35.2 L (39.6-50.0) % MPV (9.5-12.2) FL Immature Gran # (0.00-0.04) X 10*3/uL Neutrophils # (1.80-7.70) X 10*3/uL Lymphocytes # 0.6 L (0.90-5.00) X 10*3/uL Eosinophils # (0.04-0.35) X 10*3/uL BUN (9-20) mg/dL BUN/Creatinine Ratio (12.00-20.00) Ratio Glucose (70-110) mg/dL POC Glucose (mg/dL) 151 H 166 H (70-110) mg/dL Calcium (8.7-10.3) mg/dL C-Reactive Protein (<1.0) mg/dL 03/21/24 03/21/24 Range/Units 05:17 06:10 WBC (4.50-10.00) X 10*3/uL RBC (4.40-5.60) X 10*6/uL Hgb (13.0-17.0) g/dL Hct (39.6-50.0) % MPV (9.5-12.2) FL Immature Gran # (0.00-0.04) X 10*3/uL Neutrophils # (1.80-7.70) X 10*3/uL Lymphocytes # (0.90-5.00) X 10*3/uL Eosinophils # (0.04-0.35) X 10*3/uL BUN 36 H (9-20) mg/dL BUN/Creatinine Ratio (12.00-20.00) Ratio Glucose 149 H (70-110) mg/dL POC Glucose (mg/dL) 167 H (70-110) mg/dL Calcium 8.2 L (8.7-10.3) mg/dL C-Reactive Protein (<1.0) mg/dL Microbiology - Last 24 Hours (Table) 03/16/24 22:25 Blood Culture - Preliminary Blood 03/16/24 22:10 Blood Culture - Preliminary Blood 03/18/24 03:05 Gram Stain - Final Sputum Sputum Culture - Final 03/18/24 08:46 Gram Stain - Final Sputum Sputum Culture - Final
[2024-03-21 16:18] LABS: Glucose,Whole Blood 156 mg/dL (70-110)
[2024-03-21] MEDS: LOSARTAN 50 MG TAB PO SCH (19:46)
[2024-03-21] MEDS: amLODIPine 2.5 MG TAB PO SCH (19:46)
[2024-03-21 19:50] LABS: Glucose,Whole Blood 166 mg/dL (70-110)
[2024-03-22 05:43] LABS: HCT 38.8 % (39.0-53.0); MCH 28.7 pg (25.0-35.0); MCV 92.6 fL (80.0-100.0); Platelet Count 219 k/uL (150-450); RDW 13.4 % (11.5-15.5); WBC 10.4 k/uL (3.8-10.6)
[2024-03-22 05:55] LABS: African American GFR (CKD) 82 (>60 ml/min/1.73 sqM); Anion Gap 0 mmol/L; Blood Urea Nitrogen 41 mg/dL (9-20); Calcium 8.5 mg/dL (8.4-10.2); Carbon Dioxide 33 mmol/L (22-30); Chloride 106 mmol/L (98-107); Glucose 147 mg/dL (74-99); Magnesium 2.2 mg/dL (1.6-2.3); Non-African American GFR(CKD) 71 (>60 ml/min/1.73 sqM); Potassium 4.3 mmol/L (3.5-5.1); Sodium 139 mmol/L (137-145)
[2024-03-22 06:21] LABS: Glucose,Whole Blood 133 mg/dL (70-110)
[2024-03-22 06:46] LABS: Glucose,Whole Blood 143 mg/dL (70-110)
--- NOTE | 2024-03-22 08:10 | XR ---
EXAMINATION TYPE: XR chest 1V portable DATE OF EXAM: 03/22/2024 5:08 AM COMPARISON: 03/21/2024 CLINICAL INDICATION: Male, 78 years old with history of SOB on BiPap, , FINDINGS: Heart upper limits of normal in size. Diffuse interstitial and patchy bilateral airspace opacities pe rsist, similar to possibly minimally improved. No pleural effusion. Vertebroplasty change noted lower thoracic spine. IMPRESSION: Diffuse interstitial and patchy bilateral airspace disease persists, similar to minimally improved. [facility], , 03/22/2024 8:07 AM
[2024-03-22 10:58] LABS: Glucose,Whole Blood 141 mg/dL (70-110)
--- NOTE | 2024-03-22 11:20 | P.PN ---
Subjective Progress Note Date: 03/22/24 Principal diagnosis: Acute hypoxic respiratory failure secondary to acute COVID-19 pneumonia and underlying chronic interstitial lung disease This is a 78-year-old male patient who is currently hospitalized for an acute hypoxic respiratory failure and COVID-19 related pneumonia. The patient is currently on Airvo at 45 L with an FiO2 of 60%. I reviewed the series of chest x-ray that was done on this patient during this current admission. The patient may have underlying chronic ILD. Nevertheless, the patient developed progressive worsening in the bilateral pulmonary filtrates and the patient has developed some increased hazy opacities bilaterally consistent with COVID-19 related pneumonia. Noted his symptoms started around 2 days prior to his current admission and the patient's is also infected with the same virus. His D-dimer was mildly elevated at 1.07. Doppler of the lower extremities done today was negative. Perfusion scan was up and intermediate probability. He has seen Dr. Terrence Maynard and the patient has undergone a bronchoscopy few months back which I am assuming was done as part of investigation for chronic interstitial lung disease. The patient is on no immunosuppressant. 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 No coronary artery disease. No active smoking. The white cell count of 5.8 with a hemoglobin 12.7 and a platelet count of 154. Sodium is at 139, BUN is 18 with a creatinine of 1.1 and a potassium level of 4.7. The viral screen was positive for COVID-19. His procalcitonin level was at 0.7. His CRP is at 14.5 with an LDH of 600. The patient has received vaccination in the past. No previous history of COVID-19 infection. No reported aspiration. He is currently on IV steroids and the patient is receiving Solu-Medrol 60 mg every 6 hours. The patient is also on Lovenox 40 mg subcu for DVT prophylaxis. Antibiotic coverage is essentially empiric. He is afebrile. No significant tachycardia or tachypnea. On 03/20/2024, the patient is comfortable. Slightly more short of breath. Nevertheless, he is having episodes of oxygen desaturations with limited amount of mobility. Earlier this morning, while having his x-ray, the patient's pulse ox dropped down to the 60s. The chest x-ray showed diffuse interstitial and alveolar opacification consistent with COVID-19 related pneumonia. The patient remains on IV Solu-Medrol. The patient remains on Airvo and this was adjusted to 60 L and FiO2 of 90%. LDH level was elevated in the 600 range. Doppler of the lower extremities were negative. D-dimer is at 1.07. Electrolytes are all stable and sodium levels at 139, potassium is at 4.7, BUN is 18 with a creat inine of 1.1. The white cell count is currently at 10.1 with a hemoglobin 12.2 and a platelet count is at 162. Hemodynamically stable. Cardiac rhythm is sinus. Denies having any other significant complaints. Awake and alert and communicating. Patient was seen today on 03/21/2024, remains in the icu, remains on Airvo, patient is on 60 L flow 90% FiO2, he is also on baricitinib day #2, patient is marginal at best. O2 saturation is in the 80s and sometimes in the 70s patient is doing well, and I am aware that he may end up requiring intubation mechanical ventilation, I recommended BiPAP 03/04/100% and will transition from Airvo to BiPAP. Chest x-ray shows bilateral interstitial infiltrates. Looking at the previous CT of the chest, patient did have underlying interstitial lung disease which was relatively mild to begin with in 2019. But nonetheless he did have findings of interstitial lung disease and bronchiectasis noted on previous CT of the chest done at [facility]. His labs today WBC is 8.2 hemoglobin is 11.6, electrolytes are normal BUN is 36 creatinine 1.07, last procalcitonin was 0.41 the 1 prior was 0.73. LDH is high 600. Seen today on 03/22/2024, patient is feeling better today compared to yesterday, maintaining adequate O2 saturations he is on 60 L flow and 90% FiO2 he was on BiPAP last night 03/04/100%. Chest x-ray is showing improvement O2 saturation is improved he is now in the 90s remains on baricitinib day number 3 out of 14 remains on Solu-Medrol 60 every 6 remains on Lovenox. Chest x-ray is showing slight improvement clinically the patient is slightly improved hence we will continue the same and I will continue to monitor the patient in the ICU. CBC is relatively normal basic metabolic profile is normal BUN is 41 creatinine 1.03 Objective - Vital Signs Vital signs: Vital Signs Temp 97.8 F 03/22/24 08:00 Pulse 62 03/22/24 10:00 Resp 26 H 03/22/24 10:00 BP 140/76 03/22/24 10:00 Pulse Ox 96 03/22/24 10:00 FiO2 90 03/22/24 08:00 Intake & Output 03/21/24 03/22/24 03/22/24 18:59 06:59 18:59 Intake Total 330 500 500 Output Total 745 1200 300 Balance -415 -700 200 Weight 79.5 kg Intake: IV 80 0 .9 kvo 80 0 Oral 250 500 500 Output: Urine 745 1200 300 Other: Voiding Method External Catheter External Catheter External Catheter - Exam General: Revealed 78-year-old white male in no distress on Airvo Derm: Warm, dry Head: Atraumatic, normocephalic, symmetric Eyes: PERRLA, EOMI, anicteric, no JVD. Mouth: Moist mucous membranes, no thrush. Distant S1-S2, no S3 gallop, no murmur Cardiovascular: S1S2 reg, no murmur Lungs: Symmetrical expansion crackles noted bilaterally and scattered rhonchi Abdominal: Soft nontender no MAG no rebound no guarding Ext: Mild clubbing no edema no cyanosis Neuro: alert oriented x 3, no gross focal neurologic deficit Psych: Normal mood, affect and no mental status examination - Labs CBC & Chem 7: 03/22/24 05:21 03/22/24 05:21 Labs: Abnormal Lab Results - Last 24 Hours (Table) 03/21/24 03/21/24 03/21/24 Range/Units 11:27 16:17 19:48 RBC (4.30-5.90) m/uL Hgb (13.0-17.5) gm/dL Hct (39.0-53.0) % Carbon Dioxide (22-30) mmol/L BUN (9-20) mg/dL Glucose (74-99) mg/dL POC Glucose (mg/dL) 202 H 156 H 166 H (70-110) mg/dL 03/22/24 03/22/24 03/22/24 Range/Units 05:21 05:21 06:20 RBC 4.20 L (4.30-5.90) m/uL Hgb 12.0 L (13.0-17.5) gm/dL Hct 38.8 L (39.0-53.0) % Carbon Dioxide 33 H (22-30) mmol/L BUN 41 H (9-20) mg/dL Glucose 147 H (74-99) mg/dL POC Glucose (mg/dL) 133 H (70-110) mg/dL 03/22/24 03/22/24 Range/Units 06:44 10:55 RBC (4.30-5.90) m/uL Hgb (13.0-17.5) gm/dL Hct (39.0-53.0) % Carbon Dioxide (22-30) mmol/L BUN (9-20) mg/dL Glucose (74-99) mg/dL POC Glucose (mg/dL) 143 H 141 H (70-110) mg/dL Microbiology - Last 24 Hours (Table) 03/18/24 03:05 Legionella Culture - Preliminary Sputum Assessment and Plan Assessment: Impression: Acute severe hypoxic respiratory failure most likely secondary to COVID-19 related pneumonia. Improvement in the last 24 hours Acute COVID-19 infection/pneumonia. LDH is elevated. Repeat procalcitonin level is trending down. Interstitial lung disease, patient had previous CT of the chest from 2019 showing mild interstitial lung disease and bronchiectasis/traction bronchiectasis Shortness of breath secondary to above Hypertension Hyperlipidemia History of coronary disease with remote history of myocardial infarction. The patient has 2 coronary stents inserted post AR back in 2013 Plan Continue oxygen and titrate accordingly Continue steroids/Solu-Medrol 60 mg IV push 4 times daily Continue baricitinib Lovenox 40 mg subcu for DVT prophylaxis Doppler of lower extremities were negative Chest x-ray was reviewed and the findings were discussed with the patient, again slight improvement noted today Patient condition is critical Will continue to follow Time with Patient: Less than 30
--- NOTE | 2024-03-22 11:49 | P.PN ---
Subjective Progress Note Date: 03/22/24 Subjective: Patient seen and examined at bedside. No acute events overnight. Remains on high flow nasal cannula at 60 L, 90% FiO2. Pertinent positives and negatives as discussed above, a complete review of systems was performed and all other systems are negative. Vitals Signs Reviewed. General: Nontoxic, no distress, appears at stated age Derm: Warm, dry Head: Atraumatic, normocephalic, symmetric Eyes: EOMI, no lid lag, anicteric sclera Mouth: No lip lesion, mucus membranes moist Cardiovascular: S1S2 reg, no murmur Lungs: Bilateral rhonchi, no accessory muscle use, on supplemental oxygen Abdominal: Soft, nontender to palpation, no guarding, no appreciable organomegaly Ext: No gross muscle atrophy, no edema, no contractures Neuro: CN II-XI grossly intact, no focal neuro deficits Psych: Alert, oriented, appropriate affect Data Reviewed Today: Pertinent Labs: Hemoglobin 12, platelet 219, creatinine 1.03, glucose range between 1 33-1 47 Imaging: Chest x-ray independently interpreted, shows bilateral interstitial opacities Assessment and Plan: Patient is critically ill, in medical ICU. Prognosis guarded. Active #. Acute COVID-19 pneumonia #. Acute hypoxic respiratory failure #. Questionable history of ILD Continue baricitinib per pulmonology IV Solu-Medrol 60 mg every 6 hours Albuterol 4 times daily and every 4 hours as needed Status post azithromycin and ceftriaxone Robitussin DM 10 ml PO every 6 hours as needed for cough Continue oxygen supplementation as needed to maintain oxygen saturation >94%- currently on BiPAP 03/04 100% FiO2 Pulmonology following #. Prediabetes #. Hyperglycemia, steroid-induced Insulin sliding scale, q. ACHS Monitor for hypoglycemia Resolved #. Prerenal acute kidney injury Chronic #. Hypertension #. History of [place] in 2013 with 2 stents Aspirin 81 mg PO daily #. BPH Finasteride 5 mg PO daily DVT ppx: lovenox Code status: full code Anticipated discharge place: pending clinical course Anticipated discharge time: pending clinical course Objective - Vital Signs Vital signs: Vital Signs Temp 97.8 F 03/22/24 08:00 Pulse 58 L 03/22/24 11:00 Resp 22 03/22/24 11:00 BP 148/76 03/22/24 11:00 Pulse Ox 95 12/24/24 11:00 FiO2 90 03/22/24 11:35 Intake & Output 03/21/24 03/22/24 03/22/24 18:59 06:59 18:59 Intake Total 330 500 500 Output Total 745 1200 300 Balance -415 -700 200 Weight 79.5 kg Intake: IV 80 0 .9 kvo 80 0 Oral 250 500 500 Output: Urine 745 1200 300 Other: Voiding Method External Catheter External Catheter External Catheter - Labs CBC & Chem 7: 03/22/24 05:21 03/22/24 05:21 Labs: Abnormal Lab Results - Last 24 Hours (Table) 03/21/24 03/21/24 03/22/24 Range/Units 16:17 19:48 05:21 RBC 4.20 L (4.30-5.90) m/uL Hgb 12.0 L (13.0-17.5) gm/dL Hct 38.8 L (39.0-53.0) % Carbon Dioxide (22-30) mmol/L BUN (9-20) mg/dL Glucose (74-99) mg/dL POC Glucose (mg/dL) 156 H 166 H (70-110) mg/dL 03/22/24 03/22/24 03/22/24 Range/Units 05:21 06:20 06:44 RBC (4.30-5.90) m/uL Hgb (13.0-17.5) gm/dL Hct (39.0-53.0) % Carbon Dioxide 33 H (22-30) mmol/L BUN 41 H (9-20) mg/dL Glucose 147 H (74-99) mg/dL POC Glucose (mg/dL) 133 H 143 H (70-110) mg/dL 03/22/24 Range/Units 10:55 RBC (4.30-5.90) m/uL Hgb (13.0-17.5) gm/dL Hct (39.0-53.0) % Carbon Dioxide (22-30) mmol/L BUN (9-20) mg/dL Glucose (74-99) mg/dL POC Glucose (mg/dL) 141 H (70-110) mg/dL Microbiology - Last 24 Hours (Table) 03/18/24 03:05 Legionella Culture - Preliminary Sputum
[2024-03-22 16:01] LABS: Glucose,Whole Blood 190 mg/dL (70-110)
[2024-03-22 20:05] LABS: Glucose,Whole Blood 179 mg/dL (70-110)
[2024-03-23 06:19] LABS: Basophils % (A) 0 %; Eosinophils % (A) 0 %; HCT 37.6 % (39.0-53.0); HGB 11.9 gm/dL (13.0-17.5); Hypochromasia Slight; Lymphocytes # (A) 0.5 k/uL (1.0-4.8); Lymphocytes % (A) 6 %; MCH 29.3 pg (25.0-35.0); MCHC 31.6 g/dL (31.0-37.0); MCV 92.8 fL (80.0-100.0); Monocytes # (A) 0.4 k/uL (0-1.0); Monocytes % (A) 4 %; Neutrophils # (A) 8.2 k/uL (1.3-7.7); Neutrophils % (A) 89 %; Platelet Count 231 k/uL (150-450); RBC 4.06 m/uL (4.30-5.90); RDW 13.2 % (11.5-15.5); WBC 9.2 k/uL (3.8-10.6)
[2024-03-23 06:27] LABS: African American GFR (CKD) 85 (>60 ml/min/1.73 sqM); Anion Gap 4 mmol/L; Blood Urea Nitrogen 47 mg/dL (9-20); Calcium 8.3 mg/dL (8.4-10.2); Carbon Dioxide 29 mmol/L (22-30); Chloride 104 mmol/L (98-107); Glucose 145 mg/dL (74-99); Non-African American GFR(CKD) 74 (>60 ml/min/1.73 sqM); Potassium 4.2 mmol/L (3.5-5.1); Sodium 137 mmol/L (137-145)
--- NOTE | 2024-03-23 07:06 | XR ---
EXAMINATION TYPE: XR chest 1V portable DATE OF EXAM: 03/23/2024 COMPARISON: 03/22/2024 CLINICAL INDICATION: Male, 78 years old with history of COVID/SOB/on AirVo; TECHNIQUE: Single frontal view of the chest is obtained. FINDINGS: There is diffuse interstitial and fluffy airspace disease unchanged compared to the prior study. Find ings are consistent with diffuse pneumonia. There is no pleural effusion or pneumothorax. Heart size is normal. There has been vertebroplasty of 2 segments in the lower thoracic spine otherwise the osseous structu res are intact. IMPRESSION: No change in the marked acute cardiopulmonary disease most consistent with pneumonia. [facility], Workstation: [facility], 03/23/2024 7:04 AM
[2024-03-23] MEDS: BARICITINIB 1 MG TABLET PO SCH (08:57)
--- NOTE | 2024-03-23 09:36 | P.PN ---
Subjective Progress Note Date: 03/23/24 No new complaints. Oxygen slowly being weaned down. Pt reports improvement overall. Gen: In NAD, non-toxic HEENT: normocephalic, atraumatic, hearing acuity is intant, mucous membranes moist CVS: perfusing all extremities well, no pitting edema, Respiratory: symmetric chest expansion, no accessory muscle use, GI: soft, NTTP, ND, : no suprapubic tenderness, no CVA tenderness MSK/Derm: no rashes, cyanosis Neuro: CN II-XII intact, no motor weakness, Psych: cooperative, euthymic mood, judgment and insight is intact Hospital course: Assessment and Plan: Patient is critically ill, in medical ICU. Prognosis guarded. Active #. Acute COVID-19 pneumonia #. Acute hypoxic respiratory failure #. Questionable history of ILD Continue baricitinib per pulmonology IV Solu-Medrol 60 mg every 6 hours Albuterol 4 times daily and every 4 hours as needed Status post azithromycin and ceftriaxone Robitussin DM 10 ml PO every 6 hours as needed for cough Continue oxygen supplementation as needed to maintain oxygen saturation >94%- currently on AirVo Pulmonology following #. Prediabetes #. Hyperglycemia, steroid-induced Insulin sliding scale, q. ACHS Monitor for hypoglycemia Resolved #. Prerenal acute kidney injury Chronic #. Hypertension #. History of [place] in 2013 with 2 stents Aspirin 81 mg PO daily #. BPH Finasteride 5 mg PO daily DVT ppx: lovenox Code status: full code Anticipated discharge place: pending clinical course Anticipated discharge time: pending clinical course Objective - Vital Signs Vital signs: Vital Signs Temp 98.2 F 03/23/24 08:00 Pulse 65 03/23/24 08:00 Resp 24 03/23/24 08:00 BP 154/81 03/23/24 08:00 Pulse Ox 96 03/23/24 08:00 FiO2 80 03/23/24 09:06 Intake & Output 03/22/24 03/23/24 03/23/24 18:59 06:59 18:59 Intake Total 1050 640 Output Total 800 700 Balance 250 -60 Weight 80.5 kg Intake: Oral 1050 640 Output: Urine 800 700 Other: Voiding Method External Catheter External Catheter - Labs CBC & Chem 7: 03/23/24 05:46 03/23/24 05:46 Labs: Abnormal Lab Results - Last 24 Hours (Table) 03/22/24 03/22/24 03/22/24 Range/Units 10:55 15:59 20:03 RBC (4.30-5.90) m/uL Hgb (13.0-17.5) gm/dL Hct (39.0-53.0) % Neutrophils # (1.3-7.7) k/uL Lymphocytes # (1.0-4.8) k/uL BUN (9-20) mg/dL Glucose (74-99) mg/dL POC Glucose (mg/dL) 141 H 190 H 179 H (70-110) mg/dL Calcium (8.4-10.2) mg/dL 03/23/24 03/23/24 Range/Units 05:46 05:46 RBC 4.06 L (4.30-5.90) m/uL Hgb 11.9 L (13.0-17.5) gm/dL Hct 37.6 L (39.0-53.0) % Neutrophils # 8.2 H (1.3-7.7) k/uL Lymphocytes # 0.5 L (1.0-4.8) k/uL BUN 47 H (9-20) mg/dL Glucose 145 H (74-99) mg/dL POC Glucose (mg/dL) (70-110) mg/dL Calcium 8.3 L (8.4-10.2) mg/dL Microbiology - Last 24 Hours (Table) 03/16/24 22:25 Blood Culture - Final Blood 03/16/24 22:10 Blood Culture - Final Blood
--- NOTE | 2024-03-23 10:05 | P.PN ---
Subjective Progress Note Date: 03/23/24 Principal diagnosis: Acute hypoxic respiratory failure secondary to acute COVID-19 pneumonia and underlying chronic interstitial lung disease This is a 78-year-old male patient who is currently hospitalized for an acute hypoxic respiratory failure and COVID-19 related pneumonia. The patient is currently on Airvo at 45 L with an FiO2 of 60%. I reviewed the series of chest x-ray that was done on this patient during this current admission. The patient may have underlying chronic ILD. Nevertheless, the patient developed progressive worsening in the bilateral pulmonary filtrates and the patient has developed some increased hazy opacities bilaterally consistent with COVID-19 related pneumonia. Noted his symptoms started around 2 days prior to his current admission and the patient's is also infected with the same virus. His D-dimer was mildly elevated at 1.07. Doppler of the lower extremities done today was negative. Perfusion scan was up and intermediate probability. He has seen Dr. Terrence Maynard and the patient has undergone a bronchoscopy few months back which I am assuming was done as part of investigation for chronic interstitial lung disease. The patient is on no immunosuppressant. 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 No coronary artery disease. No active smoking. The white cell count of 5.8 with a hemoglobin 12.7 and a platelet count of 154. Sodium is at 139, BUN is 18 with a creatinine of 1.1 and a potassium level of 4.7. The viral screen was positive for COVID-19. His procalcitonin level was at 0.7. His CRP is at 14.5 with an LDH of 600. The patient has received vaccination in the past. No previous history of COVID-19 infection. No reported aspiration. He is currently on IV steroids and the patient is receiving Solu-Medrol 60 mg every 6 hours. The patient is also on Lovenox 40 mg subcu for DVT prophylaxis. Antibiotic coverage is essentially empiric. He is afebrile. No significant tachycardia or tachypnea. On 03/20/2024, the patient is comfortable. Slightly more short of breath. Nevertheless, he is having episodes of oxygen desaturations with limited amount of mobility. Earlier this morning, while having his x-ray, the patient's pulse ox dropped down to the 60s. The chest x-ray showed diffuse interstitial and alveolar opacification consistent with COVID-19 related pneumonia. The patient remains on IV Solu-Medrol. The patient remains on Airvo and this was adjusted to 60 L and FiO2 of 90%. LDH level was elevated in the 600 range. Doppler of the lower extremities were negative. D-dimer is at 1.07. Electrolytes are all stable and sodium levels at 139, potassium is at 4.7, BUN is 18 with a creat inine of 1.1. The white cell count is currently at 10.1 with a hemoglobin 12.2 and a platelet count is at 162. Hemodynamically stable. Cardiac rhythm is sinus. Denies having any other significant complaints. Awake and alert and communicating. Patient was seen today on 03/21/2024, remains in the icu, remains on Airvo, patient is on 60 L flow 90% FiO2, he is also on baricitinib day #2, patient is marginal at best. O2 saturation is in the 80s and sometimes in the 70s patient is doing well, and I am aware that he may end up requiring intubation mechanical ventilation, I recommended BiPAP 03/04/100% and will transition from Airvo to BiPAP. Chest x-ray shows bilateral interstitial infiltrates. Looking at the previous CT of the chest, patient did have underlying interstitial lung disease which was relatively mild to begin with in 2019. But nonetheless he did have findings of interstitial lung disease and bronchiectasis noted on previous CT of the chest done at [facility]. His labs today WBC is 8.2 hemoglobin is 11.6, electrolytes are normal BUN is 36 creatinine 1.07, last procalcitonin was 0.41 the 1 prior was 0.73. LDH is high 600. Seen today on 03/22/2024, patient is feeling better today compared to yesterday, maintaining adequate O2 saturations he is on 60 L flow and 90% FiO2 he was on BiPAP last night 03/04/100%. Chest x-ray is showing improvement O2 saturation is improved he is now in the 90s remains on baricitinib day number 3 out of 14 remains on Solu-Medrol 60 every 6 remains on Lovenox. Chest x-ray is showing slight improvement clinically the patient is slightly improved hence we will continue the same and I will continue to monitor the patient in the ICU. CBC is relatively normal basic metabolic profile is normal BUN is 41 creatinine 1.03 Patient was seen today on 03/23/2024, slight improvement clinically chest x-ray slightly improved remains on 90% FiO2 and 60 L flow via Airvo. Patient has no cough, chest pain no fever no chills no hemoptysis. Improvement clinically and radiographically noted, hence we will titrate his FiO2 down from 90% to the 80% or maybe 70% if possible. CBC is normal basic metabolic profile is normal BUN is 47 creatinine 0.99 Objective - Vital Signs Vital signs: Vital Signs Temp 98.2 F 03/23/24 08:00 Pulse 65 03/23/24 08:00 Resp 24 03/23/24 08:00 BP 154/81 03/23/24 08:00 Pulse Ox 96 03/23/24 08:00 FiO2 80 03/23/24 09:06 Intake & Output 03/22/24 03/23/24 03/23/24 18:59 06:59 18:59 Intake Total 1050 640 Output Total 800 700 Balance 250 -60 Weight 80.5 kg Intake: Oral 1050 640 Output: Urine 800 700 Other: Voiding Method External Catheter External Catheter - Exam General: Revealed 78-year-old white male in no distress on Airvo 90% FiO2 and 60 L flow hoping to titrate down today Derm: Warm, dry Head: Atraumatic, normocephalic, symmetric Eyes: PERRLA, EOMI, anicteric, no JVD. Mouth: Moist mucous membranes, no thrush. Distant S1-S2, no S3 gallop, no murmur Cardiovascular: S1S2 reg, no murmur Lungs: Symmetrical expansion crackles noted bilaterally and scattered rhonchi Abdominal: Soft nontender no megaly, no rebound no guarding Ext: Mild clubbing no edema no cyanosis Neuro: alert oriented x 3, no gross focal neurologic deficit Psych: Normal mood, affect and no mental status examination - Labs CBC & Chem 7: 03/23/24 05:46 03/23/24 05:46 Labs: Abnormal Lab Results - Last 24 Hours (Table) 03/22/24 03/22/24 03/22/24 Range/Units 10:55 15:59 20:03 RBC (4.30-5.90) m/uL Hgb (13.0-17.5) gm/dL Hct (39.0-53.0) % Neutrophils # (1.3-7.7) k/uL Lymphocytes # (1.0-4.8) k/uL BUN (9-20) mg/dL Glucose (74-99) mg/dL POC Glucose (mg/dL) 141 H 190 H 179 H (70-110) mg/dL Calcium (8.4-10.2) mg/dL 03/23/24 03/23/24 Range/Units 05:46 05:46 RBC 4.06 L (4.30-5.90) m/uL Hgb 11.9 L (13.0-17.5) gm/dL Hct 37.6 L (39.0-53.0) % Neutrophils # 8.2 H (1.3-7.7) k/uL Lymphocytes # 0.5 L (1.0-4.8) k/uL BUN 47 H (9-20) mg/dL Glucose 145 H (74-99) mg/dL POC Glucose (mg/dL) (70-110) mg/dL Calcium 8.3 L (8.4-10.2) mg/dL Microbiology - Last 24 Hours (Table) 03/16/24 22:25 Blood Culture - Final Blood 03/16/24 22:10 Blood Culture - Final Blood Assessment and Plan Assessment: Impression: Acute severe hypoxic respiratory failure most likely secondary to COVID-19 related pneumonia. Slight improvement noted continues to slightly improve hopefully we can titrate FiO2 down. Acute COVID-19 infection/pneumonia. LDH is elevated. Repeat procalcitonin level is trending down. Interstitial lung disease, patient had previous CT of the chest from 2019 showing mild interstitial lung disease and bronchiectasis/traction bronchiectas is Shortness of breath secondary to above Hypertension Hyperlipidemia History of coronary disease with remote history of myocardial infarction. The patient has 2 coronary stents inserted post [facility] back in 2013 Plan Continue present supportive care measures, continue to monitor in the ICU for now, Continue oxygen and titrate accordingly Continue steroids/Solu-Medrol 60 mg IV push 4 times daily Continue baricitinib Lovenox 40 mg subcu for DVT prophylaxis Doppler of lower extremities were negative Patient condition remains guarded Will continue to follow Time with Patient: Less than 30
[2024-03-23 11:17] LABS: Glucose,Whole Blood 245 mg/dL (70-110)
[2024-03-23 16:27] LABS: Glucose,Whole Blood 135 mg/dL (70-110)
[2024-03-23 20:15] LABS: Glucose,Whole Blood 225 mg/dL (70-110)
[2024-03-24 05:51] LABS: Basophils % (A) 0 %; Eosinophils % (A) 0 %; HCT 36.3 % (39.0-53.0); Lymphocytes # (A) 0.5 k/uL (1.0-4.8); Lymphocytes % (A) 5 %; MCH 29.7 pg (25.0-35.0); MCV 90.1 fL (80.0-100.0); Mean Platelet Volume 7.5; Monocytes # (A) 0.4 k/uL (0-1.0); Monocytes % (A) 4 %; Neutrophils # (A) 9.4 k/uL (1.3-7.7); Neutrophils % (A) 90 %; Platelet Count 261 k/uL (150-450); RBC 4.03 m/uL (4.30-5.90); RDW 13.3 % (11.5-15.5); WBC 10.4 k/uL (3.8-10.6)
[2024-03-24 05:59] LABS: African American GFR (CKD) >90 (>60 ml/min/1.73 sqM); Anion Gap 1 mmol/L; Blood Urea Nitrogen 43 mg/dL (9-20); Calcium 8.2 mg/dL (8.4-10.2); Carbon Dioxide 29 mmol/L (22-30); Chloride 103 mmol/L (98-107); Glucose 136 mg/dL (74-99); Non-African American GFR(CKD) 80 (>60 ml/min/1.73 sqM); Sodium 133 mmol/L (137-145)
[2024-03-24 06:34] LABS: Glucose,Whole Blood 130 mg/dL (70-110)
--- NOTE | 2024-03-24 07:50 | XR ---
EXAMINATION TYPE: XR chest 1V portable DATE OF EXAM: 03/24/2024 5:20 AM COMPARISON: 03/23/2024 CLINICAL INDICATION: Male, 78 years old with history of covid, , FINDINGS: Heart normal size. Diffuse medium and coarse interstitial and patchy opacities persist. Overall uncha nged. No pleural effusion. Vertebroplasty change 2 levels in the lower thoracic spine. IMPRESSION: Bilateral diffuse interstitial infiltrates persist. [facility], , 03/24/2024 7:48 AM
--- NOTE | 2024-03-24 11:02 | P.PN ---
Subjective Progress Note Date: 03/24/24 Principal diagnosis: Acute hypoxic respiratory failure secondary to acute COVID-19 pneumonia and underlying chronic interstitial lung disease This is a 78-year-old male patient who is currently hospitalized for an acute hypoxic respiratory failure and COVID-19 related pneumonia. The patient is currently on Airvo at 45 L with an FiO2 of 60%. I reviewed the series of chest x-ray that was done on this patient during this current admission. The patient may have underlying chronic ILD. Nevertheless, the patient developed progressive worsening in the bilateral pulmonary filtrates and the patient has developed some increased hazy opacities bilaterally consistent with COVID-19 related pneumonia. Noted his symptoms started around 2 days prior to his current admission and the patient's is also infected with the same virus. His D-dimer was mildly elevated at 1.07. Doppler of the lower extremities done today was negative. Perfusion scan was up and intermediate probability. He has seen Dr. Terrence Maynard and the patient has undergone a bronchoscopy few months back which I am assuming was done as part of investigation for chronic interstitial lung disease. The patient is on no immunosuppressant. 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 No coronary artery disease. No active smoking. The white cell count of 5.8 with a hemoglobin 12.7 and a platelet count of 154. Sodium is at 139, BUN is 18 with a creatinine of 1.1 and a potassium level of 4.7. The viral screen was positive for COVID-19. His procalcitonin level was at 0.7. His CRP is at 14.5 with an LDH of 600. The patient has received vaccination in the past. No previous history of COVID-19 infection. No reported aspiration. He is currently on IV steroids and the patient is receiving Solu-Medrol 60 mg every 6 hours. The patient is also on Lovenox 40 mg subcu for DVT prophylaxis. Antibiotic coverage is essentially empiric. He is afebrile. No significant tachycardia or tachypnea. On 03/20/2024, the patient is comfortable. Slightly more short of breath. Nevertheless, he is having episodes of oxygen desaturations with limited amount of mobility. Earlier this morning, while having his x-ray, the patient's pulse ox dropped down to the 60s. The chest x-ray showed diffuse interstitial and alveolar opacification consistent with COVID-19 related pneumonia. The patient remains on IV Solu-Medrol. The patient remains on Airvo and this was adjusted to 60 L and FiO2 of 90%. LDH level was elevated in the 600 range. Doppler of the lower extremities were negative. D-dimer is at 1.07. Electrolytes are all stable and sodium levels at 139, potassium is at 4.7, BUN is 18 with a creat inine of 1.1. The white cell count is currently at 10.1 with a hemoglobin 12.2 and a platelet count is at 162. Hemodynamically stable. Cardiac rhythm is sinus. Denies having any other significant complaints. Awake and alert and communicating. Patient was seen today on 03/21/2024, remains in the icu, remains on Airvo, patient is on 60 L flow 90% FiO2, he is also on baricitinib day #2, patient is marginal at best. O2 saturation is in the 80s and sometimes in the 70s patient is doing well, and I am aware that he may end up requiring intubation mechanical ventilation, I recommended BiPAP 03/04/100% and will transition from Airvo to BiPAP. Chest x-ray shows bilateral interstitial infiltrates. Looking at the previous CT of the chest, patient did have underlying interstitial lung disease which was relatively mild to begin with in 2019. But nonetheless he did have findings of interstitial lung disease and bronchiectasis noted on previous CT of the chest done at [facility]. His labs today WBC is 8.2 hemoglobin is 11.6, electrolytes are normal BUN is 36 creatinine 1.07, last procalcitonin was 0.41 the 1 prior was 0.73. LDH is high 600. Seen today on 03/22/2024, patient is feeling better today compared to yesterday, maintaining adequate O2 saturations he is on 60 L flow and 90% FiO2 he was on BiPAP last night 03/04/100%. Chest x-ray is showing improvement O2 saturation is improved he is now in the 90s remains on baricitinib day number 3 out of 14 remains on Solu-Medrol 60 every 6 remains on Lovenox. Chest x-ray is showing slight improvement clinically the patient is slightly improved hence we will continue the same and I will continue to monitor the patient in the ICU. CBC is relatively normal basic metabolic profile is normal BUN is 41 creatinine 1.03 Patient was seen today on 03/23/2024, slight improvement clinically chest x-ray slightly improved remains on 90% FiO2 and 60 L flow via Airvo. Patient has no cough, chest pain no fever no chills no hemoptysis. Improvement clinically and radiographically noted, hence we will titrate his FiO2 down from 90% to the 80% or maybe 70% if possible. CBC is normal basic metabolic profile is normal BUN is 47 creatinine 0.99 Patient was seen today on 03/24/2024, patient remains in the ICU, remains on Airvo at 70% FiO2 and 40 L flow. Remains on Solu-Medrol, he is also on baricitinib and he is on Lovenox. Slight improvement chest x-ray is basically about the same, minimal improvement clinically but nonetheless the patient is not getting any worse WBC count is 10.4 hemoglobin is 12 electrolytes are normal renal profile is normal Objective - Vital Signs Vital signs: Vital Signs Temp 97.8 F 03/24/24 08:00 Pulse 60 03/24/24 10:00 Resp 17 03/24/24 10:00 BP 165/81 03/24/24 10:00 Pulse Ox 94 L 03/24/24 10:00 FiO2 70 03/24/24 08:59 Intake & Output 03/23/24 03/24/24 03/24/24 18:59 06:59 18:59 Intake Total 1040 500 Output Total 200 850 100 Balance 840 -850 400 Weight 78.3 kg Intake: Oral 1040 500 Output: Urine 200 850 100 Other: Voiding Method External Catheter External Catheter External Catheter # Bowel Movements 1 - Exam General: Revealed 78-year-old white male in no distress on Airvo 70% FiO2 and 4 0 L flow Derm: Warm, dry Head: Atraumatic, normocephalic, symmetric Eyes: PERRLA, EOMI, anicteric, no JVD. Mouth: Moist mucous membranes, no thrush. Distant S1-S2, no S3 gallop, no murmur Cardiovascular: S1S2 reg, no murmur Lungs: Symmetrical expansion crackles persist bilaterally. Abdominal: Soft nontender no megaly, no rebound no guarding Ext: Mild clubbing no edema no cyanosis Neuro: alert oriented x 3, no gross focal neurologic deficit Psych: Normal mood, affect and no mental status examination - Labs CBC & Chem 7: 03/24/24 05:36 03/24/24 05:36 Labs: Abnormal Lab Results - Last 24 Hours (Table) 03/23/24 03/23/24 03/23/24 Range/Units 11:16 16:26 20:13 RBC (4.30-5.90) m/uL Hgb (13.0-17.5) gm/dL Hct (39.0-53.0) % Neutrophils # (1.3-7.7) k/uL Lymphocytes # (1.0-4.8) k/uL Sodium (137-145) mmol/L BUN (9-20) mg/dL Glucose (74-99) mg/dL POC Glucose (mg/dL) 245 H 135 H 225 H (70-110) mg/dL Calcium (8.4-10.2) mg/dL 03/24/24 03/24/24 03/24/24 Range/Units 05:36 05:36 06:32 RBC 4.03 L (4.30-5.90) m/uL Hgb 12.0 L (13.0-17.5) gm/dL Hct 36.3 L (39.0-53.0) % Neutrophils # 9.4 H (1.3-7.7) k/uL Lymphocytes # 0.5 L (1.0-4.8) k/uL Sodium 133 L (137-145) mmol/L BUN 43 H (9-20) mg/dL Glucose 136 H (74-99) mg/dL POC Glucose (mg/dL) 130 H (70-110) mg/dL Calcium 8.2 L (8.4-10.2) mg/dL Assessment and Plan Assessment: Impression: Acute severe hypoxic respiratory failure most likely secondary to COVID-19 related pneumonia. . Acute COVID-19 infection/pneumonia Interstitial lung disease, patient had previous CT of the chest from 2019 showing mild interstitial lung disease and bronchiectasis/traction bronchiectasi s Shortness of breath secondary to above Hypertension Hyperlipidemia History of coronary disease with remote history of myocardial infarction. The patient has 2 coronary stents inserted post CT back in 2013 Plan Continue present supportive care measures, continue to monitor in the ICU for now, patient remains very marginal Continue oxygen and titrate accordingly Continue Solu-Medrol 60 mg IV push 4 times daily Continue baricitinib, patient to receive a total of 14 days course of treatment DVT prophylaxis/Lovenox Doppler of lower extremities were negative Patient condition remains guarded Will continue to follow Time with Patient: Less than 30
--- NOTE | 2024-03-24 11:59 | P.PN ---
Subjective Progress Note Date: 03/24/2403/18. Patient seen and examined at bedside. No acute events overnight. Reports fever, cough productive of dark colored sputum, and mild dyspnea. Denies chest pain, abdominal pain, nausea/vomiting. Cepheid 4-plex: COVID-19 positive. Labs today: WBC 5.5, hemoglobin 11.6, platelets 150, sodium 136, po tassium 4.6, chloride 108, CO2 23, BUN 22, creatinine 1.3, glucose 92, calcium 8.1. 03/19. Patient seen laying comfortably in bed. No acute events overnight. Reports cough minimally productive of dark-colored sputum, mild dyspnea with exertion. Denies fever, chest pain, abdominal pain, palpitations, nausea/vomiting. Labs today: WBC 5.82, hemoglobin 12.7, platelets 154, sodium 139, potassium 4.7, chloride 106, CO2 22.1, BUN 18.8, creatinine 1.1, glucose 171, LDH 600 03/21. Patient seen and examined at bedside. Patient transferred to medical ICU yesterday due to increased oxygen requirements. Reports unchanged cough minimally productive of dark-colored sputum as well as dyspnea with exertion. Denies fever, chest pain, abdominal pain, palpitations, nausea/vomiting. Labs today: WBC 8.2, hemoglobin 11.6, platelets 180, sodium 139, potassium 4.0, chloride 105, CO2 30, BUN 36, creatinine 1.07, glucose 149, calcium 8.2, magnesium 2.1. Chest x-ray today independently interpreted: Bilateral interstitial opacities unchanged. Patient oxygen requirement has increased. Currently on BiPAP 03/04 100% FiO2. 03/24. Patient seen laying in bed. No acute events overnight. Still coughing dark-colored sputum. Denies fever, chest pain, abdominal pain, palpitaitons, nausea/vomiting. Labs today: WBC 10.4, hemoglobin 12, platelets 261, sodium 133, potassium 4, CO2 29, BUN 43, creatinine 0.93, glucose 136, calcium 8.2. Chest x-ray independently interpreted: Unchanged bilateral interstitial infiltrates. Pertinent positives and negatives discussed above, a complete review of systems was performed and all the other systems were negative. Physical examination: Vital signs reviewed. Afebrile, tachypneic, bradycardic, hypertensive, 90% saturation on high flow 40 72% FiO2. General: Nontoxic, no distress, appears stated age, well-appearing Derm: Warm, dry, intact Head: Atraumatic, normocephalic, symmetric Eyes: EOMI, anicteric sclera Mouth: No lip lesion, mucus membranes moist Cardiovascular: S1-S2 regular, no murmur Lungs: Bilateral rhonchi, no rales, no accessory muscle use Abdominal: Soft, non-tender to palpation Extremities: No cyanosis, clubbing, or pedal edema Neuro: Alert, oriented x 3, gross neurological examination did not reveal any focal deficits. Cranial nerves II to XII grossly intact. Psych: Appropriate affect and mood Assessment and Plan: Patient is a 78-year-old male with a past medical history of hypertension, hyperlipidemia, history of LA in 2013 with 2 stents, peripheral bilateral lower extremity neuropathy, BPH, GERD admitted for pneumonia. Active #. COVID-19 pneumonia #. Acute hypoxic respiratory failure #. Questionable history of ILD Baricitinib IV Solu-Medrol 60 mg every 6 hours Albuterol 4 times daily and every 4 hours as needed IV ceftriaxone 1 g every 24 hours Status post azithromycin Robitussin DM 10 ml PO every 6 hours as needed for cough Continue oxygen supplementation as needed to maintain oxygen saturation >94%-currently on high flow 40 72% FiO2 Pulmonology following #. Prediabetes #. Hyperglycemia, steroid-induced Insulin sliding scale Accu-Cheks ACHS Monitor for hypoglycemia Resolved #. Prerenal acute kidney injury Chronic #. Hypertension Amlodipine 2.5 mg PO daily Losartan 100 mg PO daily #. History of LA in 2013 with 2 stents Aspirin 81 mg PO daily Pravastatin 80 mg PO daily #. BPH Finasteride 5 mg PO daily F: None E: Replete if required N: Regular diet DVT prophylaxis: Lovenox 40 mg subcutaneous daily GI prophylaxis: Pepcid 20 mg twice daily Code status: Full code Anticipated discharge place: Home I saw and evaluated the patient during the ness and critical portions of this encounter, and discussed the case in detail with the resident author of this note, I agree with the Assessment and Plan, and my changes, if any, are highlighted in blue. Objective - Vital Signs Vital signs: Vital Signs Temp 97.6 F 03/24/24 00:00 Pulse 54 L 03/24/24 06:00 Resp 38 H 03/24/24 06:00 BP 146/89 03/24/24 06:00 Pulse Ox 89 L 03/24/24 06:00 FiO2 72 03/24/24 04:00 Intake & Output 03/23/24 03/23/24 03/24/24 06:59 18:59 06:59 Intake Total 640 1040 Output Total 700 200 850 Balance -60 840 -850 Weight 80.5 kg 78.3 kg Intake: Oral 640 1040 Output: Urine 700 200 850 Other: Voiding Method External Catheter External Catheter External Catheter # Bowel Movements 1 - Labs CBC & Chem 7: 03/24/24 05:36 03/24/24 05:36 Labs: Abnormal Lab Results - Last 24 Hours (Table) 03/23/24 03/23/24 03/23/24 Range/Units 11:16 16:26 20:13 RBC (4.30-5.90) m/uL Hgb (13.0-17.5) gm/dL Hct (39.0-53.0) % Neutrophils # (1.3-7.7) k/uL Lymphocytes # (1.0-4.8) k/uL Sodium (137-145) mmol/L BUN (9-20) mg/dL Glucose (74-99) mg/dL POC Glucose (mg/dL) 245 H 135 H 225 H (70-110) mg/dL Calcium (8.4-10.2) mg/dL 03/24/24 03/24/24 03/24/24 Range/Units 05:36 05:36 06:32 RBC 4.03 L (4.30-5.90) m/uL Hgb 12.0 L (13.0-17.5) gm/dL Hct 36.3 L (39.0-53.0) % Neutrophils # 9.4 H (1.3-7.7) k/uL Lymphocytes # 0.5 L (1.0-4.8) k/uL Sodium 133 L (137-145) mmol/L BUN 43 H (9-20) mg/dL Glucose 136 H (74-99) mg/dL POC Glucose (mg/dL) 130 H (70-110) mg/dL Calcium 8.2 L (8.4-10.2) mg/dL
[2024-03-24 12:22] LABS: Glucose,Whole Blood 139 mg/dL (70-110)
--- NOTE | 2024-03-24 15:49 | CDI ---
Documentation Clarification Form Date: 03/24/2024 03:17:57 PM From: May Wilson RN CCDS Phone: [phone] Admit Date: 03/17/2024 09:14:00 AM Patient Name: Al Gutierrez Visit Number: [id number] Discharge Date: ATTENTION: The Clinical Documentation Specialists (CDI) and [facility] Coding Staff appreciate your assistance in clarifying documentation. Please respond to the clarification below the line at the bottom and electronically sign. The CDI & [facility] Coding staff will review the response and follow-up if needed. Please note: Queries are made part of the Legal Health Record. If you have any questions, please contact the author of this message via ITS. Doctor Jose Silva MD Sepsis is documented in the HP 03/17 and Medicine progress notes 03/18 03/20 but is not noted in subsequent documentation. Clarification is requested. History/Risk Factors: 78 year old male presents to the ED for productive cough and clear sputum, it started about a month and a half ago with sinus drainage and congestion. Medical History: GERD, BPH, HTN, Vitamin D deficiency and TN. 03/19. Clinical Indicators: 03/16, VSS: B/P 139/70; HR 111; Temp 102.0F Oral; RR 20, SpO2 03/17, HP: Sepsis secondary to atypical pneumonia. 03/16, CXR: Reticulonodular infiltrate throughout the left lung may reflect atypical pneumonia 03/16, Labs: Wbc 7.9, Hgb 12.7, Lymphocytes 0.7, D dimer 1.07 03/17, Mycoplasma pneumon IgG 2.79; 03/18, SARS-CoV-2 (PCR) Detected A Treatment: Aspirin po x 1 03/16 03/17 0.9NS IV 130cc/hr, 03/16 0.9NS 1.5L IV Bolus, 03/16 Zithromax PO Daily x 2 doses, 03/16 Ceftriaxone IVPB x 1; 03/17 Vitamin D3 PO Daily, 03/17 03/20 Ceftriaxone IVPB Q24H; 03/18 Zithromax PO x 1; 03/18 Ventolin Hfa Inhaler QID GEORGINA; 03/18 Solumedrol IV Q6H; 03/20 Barictinib PO Daily Please clarify if the Sepsis is: [ x ] Sepsis confirmed, remains under treatment [ ] Sepsis confirmed, resolved [ ] Sepsis ruled out [ ] Other condition, please specify [ ] Unable to determine SIRS Criteria: 2 or more of the following may indicate SIRS Temperature < 96.8F (36C) or > 101.0F (38.3C) Heart Rate > 90 bpm Respiratory Rate > 20 breaths/min or PaCO2 < 32 mmHg White Blood Cell Count > 12,000 or < 4,000 cells/mm3 or > 10% bands (Template Last Revised: May 2020) MTDD
[2024-03-24 16:48] LABS: Glucose,Whole Blood 227 mg/dL (70-110)
[2024-03-24 19:38] LABS: LD Isoenzymes 1 22 % (18-32); LD Isoenzymes 2 30 % (29-42); LD Isoenzymes 3 24 % (14-30); LD Isoenzymes 4 12 % (6-13); LD Isoenzymes 5 12 % (5-18); Lactacte Dehydrogenase(LD) ISO 568 U/L (120-250)
[2024-03-24 19:40] LABS: Glucose,Whole Blood 159 mg/dL (70-110)
[2024-03-25 05:40] LABS: Basophils % (A) 0 %; Eosinophils % (A) 0 %; HCT 37.7 % (39.0-53.0); HGB 12.3 gm/dL (13.0-17.5); Lymphocytes # (A) 0.5 k/uL (1.0-4.8); Lymphocytes % (A) 4 %; MCH 29.3 pg (25.0-35.0); MCHC 32.5 g/dL (31.0-37.0); MCV 90.1 fL (80.0-100.0); Mean Platelet Volume 7.2; Monocytes # (A) 0.4 k/uL (0-1.0); Monocytes % (A) 4 %; Neutrophils # (A) 11.4 k/uL (1.3-7.7); Neutrophils % (A) 92 %; Platelet Count 302 k/uL (150-450); RBC 4.19 m/uL (4.30-5.90); RDW 13.4 % (11.5-15.5); WBC 12.3 k/uL (3.8-10.6)
[2024-03-25 06:00] LABS: African American GFR (CKD) 73 (>60 ml/min/1.73 sqM); Anion Gap 4 mmol/L; Blood Urea Nitrogen 45 mg/dL (9-20); Carbon Dioxide 30 mmol/L (22-30); Chloride 100 mmol/L (98-107); Glucose 149 mg/dL (74-99); Non-African American GFR(CKD) 63 (>60 ml/min/1.73 sqM); Potassium 4.3 mmol/L (3.5-5.1); Sodium 134 mmol/L (137-145)
[2024-03-25 06:05] LABS: Glucose,Whole Blood 141 mg/dL (70-110)
--- NOTE | 2024-03-25 08:30 | XR ---
EXAMINATION TYPE: XR chest 1V portable DATE OF EXAM: 03/25/2024 5:28 AM COMPARISON: 03/24/2024 CLINICAL INDICATION: Male, 78 years old with history of covid, high 02 demand, , FINDINGS: Low lung volumes with medium reticular opacities throughout the lungs persisting without significant change. Heart upper limits of normal in size. A couple levels with vertebroplasty lower thoracic spin e. IMPRESSION: Similar bilateral interstitial infiltrates. [facility], , 03/25/2024 8:27 AM
[2024-03-25] MEDS: BARICITINIB 2 MG TABLET PO SCH (09:30)
--- NOTE | 2024-03-25 11:45 | P.PN ---
Subjective Progress Note Date: 03/25/24 Principal diagnosis: Acute hypoxic respiratory failure secondary to acute COVID-19 pneumonia and underlying chronic interstitial lung disease This is a 78-year-old male patient who is currently hospitalized for an acute hypoxic respiratory failure and COVID-19 related pneumonia. The patient is currently on Airvo at 45 L with an FiO2 of 60%. I reviewed the series of chest x-ray that was done on this patient during this current admission. The patient may have underlying chronic ILD. Nevertheless, the patient developed progressive worsening in the bilateral pulmonary filtrates and the patient has developed some increased hazy opacities bilaterally consistent with COVID-19 related pneumonia. Noted his symptoms started around 2 days prior to his current admission and the patient's is also infected with the same virus. His D-dimer was mildly elevated at 1.07. Doppler of the lower extremities done today was negative. Perfusion scan was up and intermediate probability. He has seen Dr. Terrence Maynard and the patient has undergone a bronchoscopy few months back which I am assuming was done as part of investigation for chronic interstitial lung disease. The patient is on no immunosuppressant. 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 No coronary artery disease. No active smoking. The white cell count of 5.8 with a hemoglobin 12.7 and a platelet count of 154. Sodium is at 139, BUN is 18 with a creatinine of 1.1 and a potassium level of 4.7. The viral screen was positive for COVID-19. His procalcitonin level was at 0.7. His CRP is at 14.5 with an LDH of 600. The patient has received vaccination in the past. No previous history of COVID-19 infection. No reported aspiration. He is currently on IV steroids and the patient is receiving Solu-Medrol 60 mg every 6 hours. The patient is also on Lovenox 40 mg subcu for DVT prophylaxis. Antibiotic coverage is essentially empiric. He is afebrile. No significant tachycardia or tachypnea. On 03/20/2024, the patient is comfortable. Slightly more short of breath. Nevertheless, he is having episodes of oxygen desaturations with limited amount of mobility. Earlier this morning, while having his x-ray, the patient's pulse ox dropped down to the 60s. The chest x-ray showed diffuse interstitial and alveolar opacification consistent with COVID-19 related pneumonia. The patient remains on IV Solu-Medrol. The patient remains on Airvo and this was adjusted to 60 L and FiO2 of 90%. LDH level was elevated in the 600 range. Doppler of the lower extremities were negative. D-dimer is at 1.07. Electrolytes are all stable and sodium levels at 139, potassium is at 4.7, BUN is 18 with a creat inine of 1.1. The white cell count is currently at 10.1 with a hemoglobin 12.2 and a platelet count is at 162. Hemodynamically stable. Cardiac rhythm is sinus. Denies having any other significant complaints. Awake and alert and communicating. Patient was seen today on 03/21/2024, remains in the icu, remains on Airvo, patient is on 60 L flow 90% FiO2, he is also on baricitinib day #2, patient is marginal at best. O2 saturation is in the 80s and sometimes in the 70s patient is doing well, and I am aware that he may end up requiring intubation mechanical ventilation, I recommended BiPAP 03/04/100% and will transition from Airvo to BiPAP. Chest x-ray shows bilateral interstitial infiltrates. Looking at the previous CT of the chest, patient did have underlying interstitial lung disease which was relatively mild to begin with in 2019. But nonetheless he did have findings of interstitial lung disease and bronchiectasis noted on previous CT of the chest done at [facility]. His labs today WBC is 8.2 hemoglobin is 11.6, electrolytes are normal BUN is 36 creatinine 1.07, last procalcitonin was 0.41 the 1 prior was 0.73. LDH is high 600. Seen today on 03/22/2024, patient is feeling better today compared to yesterday, maintaining adequate O2 saturations he is on 60 L flow and 90% FiO2 he was on BiPAP last night 03/04/100%. Chest x-ray is showing improvement O2 saturation is improved he is now in the 90s remains on baricitinib day number 3 out of 14 remains on Solu-Medrol 60 every 6 remains on Lovenox. Chest x-ray is showing slight improvement clinically the patient is slightly improved hence we will continue the same and I will continue to monitor the patient in the ICU. CBC is relatively normal basic metabolic profile is normal BUN is 41 creatinine 1.03 Patient was seen today on 03/23/2024, slight improvement clinically chest x-ray slightly improved remains on 90% FiO2 and 60 L flow via Airvo. Patient has no cough, chest pain no fever no chills no hemoptysis. Improvement clinically and radiographically noted, hence we will titrate his FiO2 down from 90% to the 80% or maybe 70% if possible. CBC is normal basic metabolic profile is normal BUN is 47 creatinine 0.99 Patient was seen today on 03/24/2024, patient remains in the ICU, remains on Airvo at 70% FiO2 and 40 L flow. Remains on Solu-Medrol, he is also on baricitinib and he is on Lovenox. Slight improvement chest x-ray is basically about the same, minimal improvement clinically but nonetheless the patient is not getting any worse WBC count is 10.4 hemoglobin is 12 electrolytes are normal renal profile is normal Patient is was seen today on 03/25/2024, patient remains in the ICU, remains on Airvo at 80% FiO2 45 L flow, patient is noticing some improvement chest x-ray is basically about the same physical examination is about the same. Patient overall is about the same. Patient remains on baricitinib and he remains on steroids. WBC count is 12.3 hemoglobin 12.3 basic metabolic profile is normal BUN is 45 creatinine 1.13 Objective - Vital Signs Vital signs: Vital Signs Temp 97.9 F 03/25/24 08:00 Pulse 67 03/25/24 11:00 Resp 25 H 03/25/24 11:00 BP 140/71 03/25/24 11:00 Pulse Ox 92 L 03/25/24 11:00 FiO2 80 03/25/24 10:52 Intake & Output 03/24/24 03/25/24 03/25/24 18:59 06:59 18:59 Intake Total 1500 Output Total 600 1050 450 Balance 900 -1050 -450 Weight 78.3 kg 78.5 kg Intake: Oral 1000 Tube Feeding 500 Output: Urine 600 1050 450 Other: Voiding Method External Catheter External Catheter External Catheter - Exam General: Revealed 78-year-old white male in no distress on Airvo 80% FiO2 and 45 L flow Derm: Warm, dry Head: Atraumatic, normocephalic, symmetric Eyes: PERRLA, EOMI, anicteric, no JVD. Mouth: Moist mucous membranes, no thrush. Distant S1-S2, no S3 gallop, no murmur Cardiovascular: S1S2 reg, no murmur Lungs: Symmetrical expansion crackles persist bilaterally. Abdominal: Soft nontender no megaly, no rebound no guarding Ext: Mild clubbing no edema no cyanosis Neuro: alert oriented x 3, no gross focal neurologic deficit Psych: Normal mood, affect and no mental status examination - Labs CBC & Chem 7: 03/25/24 05:19 03/25/24 05:19 Labs: Abnormal Lab Results - Last 24 Hours (Table) 03/20/24 03/24/24 03/24/24 Range/Units 08:06 12:21 16:47 WBC (3.8-10.6) k/uL RBC (4.30-5.90) m/uL Hgb (13.0-17.5) gm/dL Hct (39.0-53.0) % Neutrophils # (1.3-7.7) k/uL Lymphocytes # (1.0-4.8) k/uL Sodium (137-145) mmol/L BUN (9-20) mg/dL Glucose (74-99) mg/dL POC Glucose (mg/dL) 139 H 227 H (70-110) mg/dL Calcium (8.4-10.2) mg/dL LD Isoenzymes 568 H (120-250) U/L 03/24/24 03/25/24 03/25/24 Range/Units 19:39 05:19 05:19 WBC 12.3 H (3.8-10.6) k/uL RBC 4.19 L (4.30-5.90) m/uL Hgb 12.3 L (13.0-17.5) gm/dL Hct 37.7 L (39.0-53.0) % Neutrophils # 11.4 H (1.3-7.7) k/uL Lymphocytes # 0.5 L (1.0-4.8) k/uL Sodium 134 L (137-145) mmol/L BUN 45 H (9-20) mg/dL Glucose 149 H (74-99) mg/dL POC Glucose (mg/dL) 159 H (70-110) mg/dL Calcium 8.0 L (8.4-10.2) mg/dL LD Isoenzymes (120-250) U/L 12/27/24 Range/Units 06:03 WBC (3.8-10.6) k/uL RBC (4.30-5.90) m/uL Hgb (13.0-17.5) gm/dL Hct (39.0-53.0) % Neutrophils # (1.3-7.7) k/uL Lymphocytes # (1.0-4.8) k/uL Sodium (137-145) mmol/L BUN (9-20) mg/dL Glucose (74-99) mg/dL POC Glucose (mg/dL) 141 H (70-110) mg/dL Calcium (8.4-10.2) mg/dL LD Isoenzymes (120-250) U/L Assessment and Plan Assessment: Impression: Acute severe hypoxic respiratory failure most likely secondary to COVID-19 related pneumonia. . Acute COVID-19 infection/pneumonia Interstitial lung disease, patient had previous CT of the chest from 2019 showing mild interstitial lung disease and bronchiectasis/traction bronchiectasis Shortness of breath secondary to above Hypertension Hyperlipidemia History of coronary disease with remote history of myocardial infarction. The patient has 2 coronary stents inserted post CO back in 2013 Plan Continue present supportive care measures, remains marginal at best. He will remain in the ICU Continue oxygen and titrate accordingly Continue Solu-Medrol Continue baricitinib DVT prophylaxis/Lovenox Doppler of lower extremities were negative Patient condition remains guarded Will continue to follow Time with Patient: Less than 30
[2024-03-25 11:55] LABS: Glucose,Whole Blood 140 mg/dL (70-110)
--- NOTE | 2024-03-25 12:14 | P.PN ---
Subjective Progress Note Date: 03/25/2403/18. Patient seen and examined at bedside. No acute events overnight. Reports fever, cough productive of dark colored sputum, and mild dyspnea. Denies chest pain, abdominal pain, nausea/vomiting. Cepheid 4-plex: COVID-19 positive. Labs today: WBC 5.5, hemoglobin 11.6, platelets 150, sodium 136, po tassium 4.6, chloride 108, CO2 23, BUN 22, creatinine 1.3, glucose 92, calcium 8.1. 03/19. Patient seen laying comfortably in bed. No acute events overnight. Reports cough minimally productive of dark-colored sputum, mild dyspnea with exertion. Denies fever, chest pain, abdominal pain, palpitations, nausea/vomiting. Labs today: WBC 5.82, hemoglobin 12.7, platelets 154, sodium 139, potassium 4.7, chloride 106, CO2 22.1, BUN 18.8, creatinine 1.1, glucose 171, LDH 600 03/21. Patient seen and examined at bedside. Patient transferred to medical ICU yesterday due to increased oxygen requirements. Reports unchanged cough minimally productive of dark-colored sputum as well as dyspnea with exertion. Denies fever, chest pain, abdominal pain, palpitations, nausea/vomiting. Labs today: WBC 8.2, hemoglobin 11.6, platelets 180, sodium 139, potassium 4.0, chloride 105, CO2 30, BUN 36, creatinine 1.07, glucose 149, calcium 8.2, magnesium 2.1. Chest x-ray today independently interpreted: Bilateral interstitial opacities unchanged. Patient oxygen requirement has increased. Currently on BiPAP 03/04 100% FiO2. 03/24. Patient seen laying in bed. No acute events overnight. Still coughing dark-colored sputum. Denies fever, chest pain, abdominal pain, palpitations, nausea/vomiting. Labs today: WBC 10.4, hemoglobin 12, platelets 261, sodium 133, potassium 4, CO2 29, BUN 43, creatinine 0.93, glucose 136, calcium 8.2. Chest x-ray independently interpreted: Unchanged bilateral interstitial infiltrates. 03/25. Patient seen and examined sitting up comfortably in bed. No acute events overnight. No significant complaints today. Notes improved cough productive of dark-colored sputum. Denies fever, chills, nausea/vomiting, chest pain, abdominal pain. Chest x-ray remains unchanged. Labs today: WBC 12.3, hemoglobin 12.3, platelets 302, sodium 134, potassium 4.3, chloride 100, CO2 30, BUN 45, creatinine 1.13, glucose 149, calcium 8. Pertinent positives and negatives discussed above, a complete review of systems was performed and all the other systems were negative. Physical examination: Vital signs reviewed. Afebrile, tachypneic, bradycardic, hypertensive, 92% sat uration on high flow 45 80% FiO2. General: Nontoxic, no distress, appears stated age, well-appearing Derm: Warm, dry, intact Head: Atraumatic, normocephalic, symmetric Eyes: EOMI, anicteric sclera Mouth: No lip lesion, mucus membranes moist Cardiovascular: S1-S2 regular, no murmur Lungs: Bilateral rhonchi, no rales, no accessory muscle use Abdominal: Soft, non-tender to palpation Extremities: No cyanosis, clubbing, or pedal edema Neuro: Alert, oriented x 3, gross neurological examination did not reveal any focal deficits. Cranial nerves II to XII grossly intact. Psych: Appropriate affect and mood Assessment and Plan: Patient is a 78-year-old male with a past medical history of hypertension, hyperlipidemia, history of PA in 2013 with 2 stents, peripheral bilateral lower extremity neuropathy, BPH, GERD admitted for pneumonia. Active #. COVID-19 pneumonia #. Acute hypoxic respiratory failure #. Questionable history of ILD Baricitinib IV Solu-Medrol 60 mg every 6 hours Albuterol 4 times daily and every 4 hours as needed IV ceftriaxone 1 g every 24 hours Status post azithromycin Robitussin DM 10 ml PO every 6 hours as needed for cough Continue oxygen supplementation as needed to maintain oxygen saturation >94%- currently on high flow 40 72% FiO2 Pulmonology following #. Prediabetes #. Hyperglycemia, steroid-induced Insulin sliding scale Accu-Cheks ACHS Monitor for hypoglycemia Resolved #. Prerenal acute kidney injury Chronic #. Hypertension Amlodipine 2.5 mg PO daily Losartan 100 mg PO daily #. History of PA in 2013 with 2 stents Aspirin 81 mg PO daily Pravastatin 80 mg PO daily #. BPH Finasteride 5 mg PO daily F: None E: Replete if required N: Regular diet DVT prophylaxis: Lovenox 40 mg subcutaneous daily GI prophylaxis: Pepcid 20 mg twice daily Code status: Full code Anticipated discharge place: Home I saw and evaluated the patient during the ness and critical portions of this encounter, and discussed the case in detail with the resident author of this note, I agree with the Assessment and Plan, and my changes, if any, are highlighted in blue. Objective - Vital Signs Vital signs: Vital Signs Temp 97.5 F L 03/25/24 04:00 Pulse 52 L 03/25/24 06:00 Resp 21 03/25/24 06:00 BP 154/89 03/25/24 06:00 Pulse Ox 92 L 03/25/24 06:00 FiO2 70 03/25/24 04:00 Intake & Output 03/24/24 03/24/24 03/25/24 06:59 18:59 06:59 Intake Total 1500 Output Total 709 277 6713 Balance -850 900 -1050 Weight 78.3 kg 78.3 kg 78.5 kg Intake: Oral 1000 Tube Feeding 500 Output: Urine 088 570 2190 Other: Voiding Method External Catheter External Catheter External Catheter - Labs CBC & Chem 7: 03/25/24 05:19 03/25/24 05:19 Labs: Abnormal Lab Results - Last 24 Hours (Table) 03/20/24 03/24/24 03/24/24 Range/Units 08:06 12:21 16:47 WBC (3.8-10.6) k/uL RBC (4.30-5.90) m/uL Hgb (13.0-17.5) gm/dL Hct (39.0-53.0) % Neutrophils # (1.3-7.7) k/uL Lymphocytes # (1.0-4.8) k/uL Sodium (137-145) mmol/L BUN (9-20) mg/dL Glucose (74-99) mg/dL POC Glucose (mg/dL) 139 H 227 H (70-110) mg/dL Calcium (8.4-10.2) mg/dL LD Isoenzymes 568 H (120-250) U/L 03/24/24 03/25/24 03/25/24 Range/Units 19:39 05:19 05:19 WBC 12.3 H (3.8-10.6) k/uL RBC 4.19 L (4.30-5.90) m/uL Hgb 12.3 L (13.0-17.5) gm/dL Hct 37.7 L (39.0-53.0) % Neutrophils # 11.4 H (1.3-7.7) k/uL Lymphocytes # 0.5 L (1.0-4.8) k/uL Sodium 134 L (137-145) mmol/L BUN 45 H (9-20) mg/dL Glucose 149 H (74-99) mg/dL POC Glucose (mg/dL) 159 H (70-110) mg/dL Calcium 8.0 L (8.4-10.2) mg/dL LD Isoenzymes (120-250) U/L 03/25/24 Range/Units 06:03 WBC (3.8-10.6) k/uL RBC (4.30-5.90) m/uL Hgb (13.0-17.5) gm/dL Hct (39.0-53.0) % Neutrophils # (1.3-7.7) k/uL Lymphocytes # (1.0-4.8) k/uL Sodium (137-145) mmol/L BUN (9-20) mg/dL Glucose (74-99) mg/dL POC Glucose (mg/dL) 141 H (70-110) mg/dL Calcium (8.4-10.2) mg/dL LD Isoenzymes (120-250) U/L
[2024-03-25 16:20] LABS: Glucose,Whole Blood 215 mg/dL (70-110)
[2024-03-25 19:44] LABS: Glucose,Whole Blood 163 mg/dL (70-110)
[2024-03-26 06:41] LABS: Glucose,Whole Blood 136 mg/dL (70-110)
[2024-03-26 07:12] LABS: Basophils % (A) 0 %; Eosinophils % (A) 0 %; HCT 38.8 % (39.0-53.0); HGB 12.7 gm/dL (13.0-17.5); Lymphocytes # (A) 0.4 k/uL (1.0-4.8); Lymphocytes % (A) 3 %; MCH 29.4 pg (25.0-35.0); MCHC 32.8 g/dL (31.0-37.0); MCV 89.6 fL (80.0-100.0); Mean Platelet Volume 7.1; Monocytes # (A) 0.3 k/uL (0-1.0); Monocytes % (A) 3 %; Neutrophils # (A) 11.1 k/uL (1.3-7.7); Neutrophils % (A) 94 %; Platelet Count 302 k/uL (150-450); RBC 4.33 m/uL (4.30-5.90); RDW 13.2 % (11.5-15.5); WBC 11.9 k/uL (3.8-10.6)
[2024-03-26 07:35] LABS: ALT 297 U/L (4-49); AST 138 U/L (17-59); African American GFR (CKD) 84 (>60 ml/min/1.73 sqM); Albumin 2.9 g/dL (3.5-5.0); Alkaline Phosphatase 132 U/L (38-126); Anion Gap 1 mmol/L; Bilirubin, Delta 0.2 mg/dL (0.0-0.2); Bilirubin,Unconjugated 0.9 mg/dL (0.0-1.1); Blood Urea Nitrogen 43 mg/dL (9-20); C Reactive Protein 0.7 mg/dL (<1.0); Carbon Dioxide 30 mmol/L (22-30); Chloride 101 mmol/L (98-107); Glucose 138 mg/dL (74-99); Non-African American GFR(CKD) 73 (>60 ml/min/1.73 sqM); Potassium 4.1 mmol/L (3.5-5.1); Sodium 132 mmol/L (137-145); Total Bilirubin 1.1 mg/dL (0.2-1.3); Total Protein 5.6 g/dL (6.3-8.2)
[2024-03-26 07:53] LABS: LDH 1003 U/L (120-246)
--- NOTE | 2024-03-26 09:34 | XR ---
EXAMINATION TYPE: XR chest 1V portable DATE OF EXAM: 03/26/2024 9:25 AM COMPARISON: Chest radiographs from 03/25/2024 CLINICAL INDICATION: Male, 78 years old with history of SOB/on airvo; TECHNIQUE: XR chest 1V portable Frontal view of the chest. FINDINGS: Lungs/Pleura: There is no evidence of pleural effusion, focal consolidation, or pneumothorax. Pulmonary vascularity: Unremarkable. Heart/mediastinum: Cardiomediastinal silhouette is enlarged. Musculoskeletal: No acute osseous pathology. IMPRESSION: Diffuse interstitial opacities correlate for pulmonary edema versus atypical pneumonia versus chronic changes without findings have slowly improved from 03/18/2024. [facility], , 03/26/2024 9:32 AM
--- NOTE | 2024-03-26 10:34 | P.PN ---
Subjective Progress Note Date: 03/26/2403/18. Patient seen and examined at bedside. No acute events overnight. Reports fever, cough productive of dark colored sputum, and mild dyspnea. Denies chest pain, abdominal pain, nausea/vomiting. Cepheid 4-plex: COVID-19 positive. Labs today: WBC 5.5, hemoglobin 11.6, platelets 150, sodium 136, po tassium 4.6, chloride 108, CO2 23, BUN 22, creatinine 1.3, glucose 92, calcium 8.1. 03/19. Patient seen laying comfortably in bed. No acute events overnight. Reports cough minimally productive of dark-colored sputum, mild dyspnea with exertion. Denies fever, chest pain, abdominal pain, palpitations, nausea/vomiting. Labs today: WBC 5.82, hemoglobin 12.7, platelets 154, sodium 139, potassium 4.7, chloride 106, CO2 22.1, BUN 18.8, creatinine 1.1, glucose 171, LDH 600 03/21. Patient seen and examined at bedside. Patient transferred to medical ICU yesterday due to increased oxygen requirements. Reports unchanged cough minimally productive of dark-colored sputum as well as dyspnea with exertion. Denies fever, chest pain, abdominal pain, palpitations, nausea/vomiting. Labs today: WBC 8.2, hemoglobin 11.6, platelets 180, sodium 139, potassium 4.0, chloride 105, CO2 30, BUN 36, creatinine 1.07, glucose 149, calcium 8.2, magnesium 2.1. Chest x-ray today independently interpreted: Bilateral interstitial opacities unchanged. Patient oxygen requirement has increased. Currently on BiPAP 03/04 100% FiO2. 03/24. Patient seen laying in bed. No acute events overnight. Still coughing dark-colored sputum. Denies fever, chest pain, abdominal pain, palpitations, nausea/vomiting. Labs today: WBC 10.4, hemoglobin 12, platelets 261, sodium 133, potassium 4, CO2 29, BUN 43, creatinine 0.93, glucose 136, calcium 8.2. Chest x-ray independently interpreted: Unchanged bilateral interstitial infiltrates. 03/25. Patient seen and examined sitting up comfortably in bed. No acute events overnight. No significant complaints today. Notes improved cough productive of dark-colored sputum. Denies fever, chills, nausea/vomiting, chest pain, abdominal pain. Chest x-ray remains unchanged. Labs today: WBC 12.3, hemoglobin 12.3, platelets 302, sodium 134, potassium 4.3, chloride 100, CO2 30, BUN 45, creatinine 1.13, glucose 149, calcium 8. 12/28. Patient seen sitting comfortably in bed. No acute events overnight. No significant complaints today. Chest x-ray: Diffuse interstitial opacities correlate for pulmonary edema versus atypical pneumonia versus chronic changes without findings, slowly improved from 03/18/2024. Labs today: WBC 11.9, hemoglobin 12.7, platelets 302, sodium 132, potassium 4.1, chloride 101, CO2 30, BUN 43, creatinine 1, glucose 138, AST 138, ALT 297, alkaline phosphatase 132, lactate dehydrogenase 1003, CRP 0.7. Pertinent positives and negatives discussed above, a complete review of systems was performed and all the other systems were negative. Physical examination: Vital signs reviewed. Afebrile, tachypneic, bradycardic, hypertensive, 94% saturation on high flow 40 80% FiO2. General: Nontoxic, no distress, appears stated age, well-appearing Derm: Warm, dry, intact Head: Atraumatic, normocephalic, symmetric Eyes: EOMI, anicteric sclera Mouth: No lip lesion, mucus membranes moist Cardiovascular: S1-S2 regular, no murmur Lungs: Bilateral rhonchi, no rales, no accessory muscle use Abdominal: Soft, non-tender to palpation Extremities: No cyanosis, clubbing, or pedal edema Neuro: Alert, oriented x 3, gross neurological examination did not reveal any focal deficits. Cranial nerves II to XII grossly intact. Psych: Appropriate affect and mood Assessment and Plan: Patient is a 78-year-old male with a past medical history of hypertension, hyperlipidemia, history of [place] in 2014 with 2 stents, peripheral bilateral lower extremity neuropathy, BPH, GERD admitted for pneumonia. Active #. COVID-19 pneumonia #. Acute hypoxic respiratory failure #. Questionable history of ILD Baricitinib IV Solu-Medrol 60 mg every 6 hours Albuterol 4 times daily and every 4 hours as needed Status post azithromycin, IV ceftriaxone 1 g every 24 hours Robitussin DM 10 ml PO every 6 hours as needed for cough Continue oxygen supplementation as needed to maintain oxygen saturation >94%- currently on high flow 40 80% FiO2 Pulmonology following, recommending CTA chest #. Transaminitis, possibly due to congestive hepatopathy Pending coagulation panel assembler CMP Echo ordered #. Hyponatremia, possibly due to hypervolemia Monitor electrolytes #. Prediabetes #. Hyperglycemia, steroid-induced Insulin sliding scale Accu-Cheks ACHS Monitor for hypoglycemia #. Leukocytosis, likely reactive to steroids Monitor CBC Resolved #. Prerenal acute kidney injury Chronic #. Hypertension Amlodipine 2.5 mg PO daily Losartan 100 mg PO daily #. History of TN in 2013 with 2 stents Aspirin 81 mg PO daily Pravastatin 80 mg PO daily #. BPH Finasteride 5 mg PO daily F: None E: Replete if required N: Regular diet DVT prophylaxis: Lovenox 40 mg subcutaneous daily GI prophylaxis: Pepcid 20 mg twice daily Code status: Full code Anticipated discharge place: Home Anticipated discharge time: Pending clinical course I saw and evaluated the patient during the ness and critical portions of this encounter, and discussed the case in detail with the resident author of this note, I agree with the Assessment and Plan, and my changes, if any, are highlighted in blue. Objective - Vital Signs Vital signs: Vital Signs Temp 97.7 F 03/26/24 04:00 Pulse 54 L 03/26/24 06:00 Resp 40 H 03/26/24 06:00 BP 148/71 03/26/24 06:00 Pulse Ox 94 L 03/26/24 06:00 FiO2 80 03/26/24 04:00 Intake & Output 03/25/24 03/25/24 03/26/24 06:59 18:59 06:59 Intake Total 1480 Output Total 7357 703 9833 Balance -1050 -950 -215 Weight 78.5 kg 78 kg Intake: Oral 1480 Output: Urine 3747 454 2113 Other: Voiding Method External Catheter External Catheter External Catheter # Bowel Movements 1 - Labs CBC & Chem 7: 03/26/24 06:40 03/26/24 06:40 Labs: Abnormal Lab Results - Last 24 Hours (Table) 03/25/24 03/25/24 03/25/24 Range/Units 11:54 16:18 19:43 POC Glucose (mg/dL) 140 H 215 H 163 H (70-110) mg/dL 03/26/24 Range/Units 06:40 POC Glucose (mg/dL) 136 H (70-110) mg/dL
[2024-03-26 11:01] LABS: INR 1.1 (<1.2); Partial Thromboplastin Time 23.9 sec (22.0-30.0); Prothrombin Time 11.6 sec (10.0-12.5)
[2024-03-26] MEDS: SODIUM CHLORIDE 0.9% 1,000 ML IV ONE (12:00)
--- NOTE | 2024-03-26 13:56 | P.PN ---
Subjective Progress Note Date: 03/26/24 Principal diagnosis: Acute hypoxic respiratory failure secondary to acute COVID-19 pneumonia and underlying chronic interstitial lung disease This is a 78-year-old male patient who is currently hospitalized for an acute hypoxic respiratory failure and COVID-19 related pneumonia. The patient is currently on Airvo at 45 L with an FiO2 of 60%. I reviewed the series of chest x-ray that was done on this patient during this current admission. The patient may have underlying chronic ILD. Nevertheless, the patient developed progressive worsening in the bilateral pulmonary filtrates and the patient has developed some increased hazy opacities bilaterally consistent with COVID-19 related pneumonia. Noted his symptoms started around 2 days prior to his current admission and the patient's is also infected with the same virus. His D-dimer was mildly elevated at 1.07. Doppler of the lower extremities done today was negative. Perfusion scan was up and intermediate probability. He has seen Dr. Terrence Maynard and the patient has undergone a bronchoscopy few months back which I am assuming was done as part of investigation for chronic interstitial lung disease. The patient is on no immunosuppressant. 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 No coronary artery disease. No active smoking. The white cell count of 5.8 with a hemoglobin 12.7 and a platelet count of 154. Sodium is at 139, BUN is 18 with a creatinine of 1.1 and a potassium level of 4.7. The viral screen was positive for COVID-19. His procalcitonin level was at 0.7. His CRP is at 14.5 with an LDH of 600. The patient has received vaccination in the past. No previous history of COVID-19 infection. No reported aspiration. He is currently on IV steroids and the patient is receiving Solu-Medrol 60 mg every 6 hours. The patient is also on Lovenox 40 mg subcu for DVT prophylaxis. Antibiotic coverage is essentially empiric. He is afebrile. No significant tachycardia or tachypnea. On 03/20/2024, the patient is comfortable. Slightly more short of breath. Nevertheless, he is having episodes of oxygen desaturations with limited amount of mobility. Earlier this morning, while having his x-ray, the patient's pulse ox dropped down to the 60s. The chest x-ray showed diffuse interstitial and alveolar opacification consistent with COVID-19 related pneumonia. The patient remains on IV Solu-Medrol. The patient remains on Airvo and this was adjusted to 60 L and FiO2 of 90%. LDH level was elevated in the 600 range. Doppler of the lower extremities were negative. D-dimer is at 1.07. Electrolytes are all stable and sodium levels at 139, potassium is at 4.7, BUN is 18 with a creat inine of 1.1. The white cell count is currently at 10.1 with a hemoglobin 12.2 and a platelet count is at 162. Hemodynamically stable. Cardiac rhythm is sinus. Denies having any other significant complaints. Awake and alert and communicating. Patient was seen today on 03/21/2024, remains in the icu, remains on Airvo, patient is on 60 L flow 90% FiO2, he is also on baricitinib day #2, patient is marginal at best. O2 saturation is in the 80s and sometimes in the 70s patient is doing well, and I am aware that he may end up requiring intubation mechanical ventilation, I recommended BiPAP 03/04/100% and will transition from Airvo to BiPAP. Chest x-ray shows bilateral interstitial infiltrates. Looking at the previous CT of the chest, patient did have underlying interstitial lung disease which was relatively mild to begin with in 2019. But nonetheless he did have findings of interstitial lung disease and bronchiectasis noted on previous CT of the chest done at [facility]. His labs today WBC is 8.2 hemoglobin is 11.6, electrolytes are normal BUN is 36 creatinine 1.07, last procalcitonin was 0.41 the 1 prior was 0.73. LDH is high 600. Seen today on 03/22/2024, patient is feeling better today compared to yesterday, maintaining adequate O2 saturations he is on 60 L flow and 90% FiO2 he was on BiPAP last night 03/04/100%. Chest x-ray is showing improvement O2 saturation is improved he is now in the 90s remains on baricitinib day number 3 out of 14 remains on Solu-Medrol 60 every 6 remains on Lovenox. Chest x-ray is showing slight improvement clinically the patient is slightly improved hence we will continue the same and I will continue to monitor the patient in the ICU. CBC is relatively normal basic metabolic profile is normal BUN is 41 creatinine 1.03 Patient was seen today on 03/23/2024, slight improvement clinically chest x-ray slightly improved remains on 90% FiO2 and 60 L flow via Airvo. Patient has no cough, chest pain no fever no chills no hemoptysis. Improvement clinically and radiographically noted, hence we will titrate his FiO2 down from 90% to the 80% or maybe 70% if possible. CBC is normal basic metabolic profile is normal BUN is 47 creatinine 0.99 Patient was seen today on 03/24/2024, patient remains in the ICU, remains on Airvo at 70% FiO2 and 40 L flow. Remains on Solu-Medrol, he is also on baricitinib and he is on Lovenox. Slight improvement chest x-ray is basically about the same, minimal improvement clinically but nonetheless the patient is not getting any worse WBC count is 10.4 hemoglobin is 12 electrolytes are normal renal profile is normal Patient is was seen today on 03/25/2024, patient remains in the ICU, remains on Airvo at 80% FiO2 45 L flow, patient is noticing some improvement chest x-ray is basically about the same physical examination is about the same. Patient overall is about the same. Patient remains on baricitinib and he remains on steroids. WBC count is 12.3 hemoglobin 12.3 basic metabolic profile is normal BUN is 45 creatinine 1.13 Patient seen today , still requiring relatively high FiO2 with Airvo at 75% FiO2 and 50 L flow, patient is about the same, continues to desaturate with any activity. His chest x-ray is showing slight improvement in his atypical pneumonia, hence I am recommending today a CT angiogram on this patient to rule out underlying thromboembolic disease. In the meantime patient remains on baricitinib, remains on steroids, and improvement is rather extremely minimal. Objective - Vital Signs Vital signs: Vital Signs Temp 97.8 F 03/26/24 12:00 Pulse 70 03/26/24 13:00 Resp 15 03/26/24 13:00 BP 152/80 03/26/24 13:00 Pulse Ox 94 L 03/26/24 13:00 FiO2 80 03/26/24 12:00 Intake & Output 03/25/24 03/26/24 03/26/24 18:59 06:59 18:59 Intake Total 1480 1500 Output Total 950 1695 250 Balance -950 -215 1250 Weight 78 kg Intake: IV 1000 Sodium Chloride 0.9% 1, 1000 000 ml @ 999 mls/hr IV . Q1H1M ONE Rx#:[id number] Oral 1480 500 Output: Urine 950 1695 250 Other: Voiding Method External Catheter External Catheter External Catheter # Bowel Movements 1 - Exam General: Revealed 78-year-old white male in no distress on Airvo 5% FiO2 and 50 L flow Derm: Warm, dry Head: Atraumatic, normocephalic, symmetric Eyes: PERRLA, EOMI, anicteric, no JVD. Mouth: Moist mucous membranes, no thrush. Distant S1-S2, no S3 gallop, no murmur Cardiovascular: S1S2 reg, no murmur Lungs: Symmetrical expansion crackles persist bilaterally. Abdominal: Soft nontender no megaly, no rebound no guarding Ext: Mild clubbing no edema no cyanosis Neuro: alert oriented x 3, no gross focal neurologic deficit Psych: Normal mood, affect and no mental status examination - Labs CBC & Chem 7: 03/26/24 06:40 03/26/24 06:40 Labs: Abnormal Lab Results - Last 24 Hours (Table) 03/25/24 03/25/24 03/26/24 Range/Units 16:18 19:43 06:40 WBC (3.8-10.6) k/uL Hgb (13.0-17.5) gm/dL Hct (39.0-53.0) % Neutrophils # (1.3-7.7) k/uL Lymphocytes # (1.0-4.8) k/uL Sodium 132 L (137-145) mmol/L BUN 43 H (9-20) mg/dL Glucose 138 H (74-99) mg/dL POC Glucose (mg/dL) 215 H 163 H (70-110) mg/dL Calcium 8.0 L (8.4-10.2) mg/dL Ferritin 1140.0 H (22.0-322.0) ng/mL AST 138 H (17-59) U/L ALT 297 H (4-49) U/L Alkaline Phosphatase 132 H (38-126) U/L Lactate Dehydrogenase 1003 H (120-246) U/L Total Protein 5.6 L (6.3-8.2) g/dL Albumin 2.9 L (3.5-5.0) g/dL 03/26/24 03/26/24 Range/Units 06:40 06:40 WBC 11.9 H (3.8-10.6) k/uL Hgb 12.7 L (13.0-17.5) gm/dL Hct 38.8 L (39.0-53.0) % Neutrophils # 11.1 H (1.3-7.7) k/uL Lymphocytes # 0.4 L (1.0-4.8) k/uL Sodium (137-145) mmol/L BUN (9-20) mg/dL Glucose (74-99) mg/dL POC Glucose (mg/dL) 136 H (70-110) mg/dL Calcium (8.4-10.2) mg/dL Ferritin (22.0-322.0) ng/mL AST (17-59) U/L ALT (4-49) U/L Alkaline Phosphatase (38-126) U/L Lactate Dehydrogenase (120-246) U/L Total Protein (6.3-8.2) g/dL Albumin (3.5-5.0) g/dL Assessment and Plan Assessment: Impression: Acute severe hypoxic respiratory failure most likely secondary to COVID-19 related pneumonia. . Acute COVID-19 infection/pneumonia Interstitial lung disease, patient had previous CT of the chest from 2019 showing mild interstitial lung disease and bronchiectasis/traction bronchiectasis Shortness of breath secondary to above Hypertension Hyperlipidemia History of coronary disease with remote history of myocardial infarction. The patient has 2 coronary stents inserted post NV back in 2013 Plan Continue present supportive care measures Arrange for CT angiogram of the chest, Continue oxygen and titrate accordingly Continue Solu-Medrol Continue baricitinib DVT prophylaxis/Lovenox Doppler of lower extremities were negative Patient condition remains guarded Will continue to follow Time with Patient: Less than 30
--- NOTE | 2024-03-26 19:40 | CT ---
EXAMINATION TYPE: CT angio chest DATE OF EXAM: 03/26/2024 6:40 PM COMPARISON: Chest radiograph from same day. CLINICAL INDICATION: Male, 78 years old with history of Hypoxemia, CoVID; Hypoxemia, COVID. TECHNIQUE/CONTRAST: CTA scan of the thorax is performed with IV Contrast, patient injected with 100cc mL of Isovue 370, M IP images are created and reviewed these are created on a separate workstation.. CT DLP: 475.8 mGycm, Automated exposure control for dose reduction was used. FINDINGS: Lungs/Pleura: No evidence of focal consolidation, pleural effusion or pneumothorax. Airway: Large airways are patent. Heart: Heart is within normal limits for size. Vasculature: There is no evidence for a filling defect within the pulmonary vasculature to suggest ac solomon pulmonary embolism. The pulmonary artery is of normal size. Mediastinum: No gross evidence of adenopathy. Musculoskeletal: Moderate degenerative disc disease changes are present throughout the thoracolumbar spine. Kyphoplasty changes in the midthoracic spine. Soft Tissues/lymph nodes: Unremarkable. Lower neck: No significant findings. Upper Abdomen: Scattered colonic diverticula. IMPRESSION: 1. Motion limited exam no evidence for a filling defect to suggest pulmonary embolus. Multifocal airspace opacities superimposed on emphysema. 2. Ground glass airspace and interstitial pulmonary opacities correlate for infectious/inflammatory p rocess. 3. Colonic diverticulosis. [facility], , 03/26/2024 7:38 PM
[2024-03-26] MEDS: SODIUM CHLORIDE 0.9% 1,000 ML IV SCH (21:12)
[2024-03-27 06:27] LABS: Basophils % (A) 0 %; Eosinophils % (A) 0 %; HCT 36.5 % (39.0-53.0); HGB 11.7 gm/dL (13.0-17.5); Lymphocytes # (A) 0.3 k/uL (1.0-4.8); Lymphocytes % (A) 3 %; MCHC 32.1 g/dL (31.0-37.0); MCV 90.4 fL (80.0-100.0); Mean Platelet Volume 7.2; Monocytes # (A) 0.3 k/uL (0-1.0); Monocytes % (A) 3 %; Neutrophils # (A) 11.7 k/uL (1.3-7.7); Neutrophils % (A) 95 %; Platelet Count 302 k/uL (150-450); RBC 4.04 m/uL (4.30-5.90); RDW 13.6 % (11.5-15.5); WBC 12.4 k/uL (3.8-10.6)
[2024-03-27 06:48] LABS: ALT 328 U/L (4-49); AST 149 U/L (17-59); African American GFR (CKD) 84 (>60 ml/min/1.73 sqM); Albumin 2.7 g/dL (3.5-5.0); Alkaline Phosphatase 120 U/L (38-126); Anion Gap 5 mmol/L; Blood Urea Nitrogen 44 mg/dL (9-20); Calcium 7.7 mg/dL (8.4-10.2); Carbon Dioxide 27 mmol/L (22-30); Chloride 101 mmol/L (98-107); Glucose 150 mg/dL (74-99); Non-African American GFR(CKD) 73 (>60 ml/min/1.73 sqM); Potassium 4.4 mmol/L (3.5-5.1); Sodium 133 mmol/L (137-145); Total Bilirubin 0.9 mg/dL (0.2-1.3); Total Protein 5.2 g/dL (6.3-8.2)
--- NOTE | 2024-03-27 07:37 | CA ---
Transthoracic Echo Report Name: Al Gutierrez Age: 78 Gender: M : 1945 Exam Date: 03/26/2024 16:15 Exam Location: [facility] Ht (in): 68 Wt (lb): 171 Ordering Physician: Lucina Morgan MD Attending/Referring Phys: Lottery Sales Clerk Karol Wilson RDCS Procedure CPT: Indications: LV function Cardiac Hx: Technical Quality: Technically difficult study Contrast 1: Definity Total Dose (mL): 2 Contrast 2: Total Dose (mL): MEASUREMENTS (Male / Female) Normal Values 2D ECHO LV Diastolic Diameter PLAX 4.3 cm 4.2 - 5.9 / 3.9 - 5.3 cm LV Systolic Diameter PLAX 3.7 cm IVS Diastolic Thickness 0.8 cm 0.6 - 1.0 / 0.6 - 0.9 cm LVPW Diastolic Thickness 0.9 cm 0.6 - 1.0 / 0.6 - 0.9 cm LV Relative Wall Thickness 0.4 RV Internal Dim ED PLAX 3.2 cm LA Systolic Diameter LX 3.6 cm 3.0 - 4.0 / 2.7 - 3.8 cm LA Volume 87.7 cm??? 18 - 58 / 22 - 52 cm??? LA Volume Index 45.2 cm???/m??? 16 - 28 cm???/m??? M-MODE Aortic Root Diameter MM 3.9 cm AV Cusp Separation MM 2.0 cm DOPPLER AV Peak Velocity 146.5 cm/s AV Peak Gradient 8.6 mmHg MV Area PHT 2.2 cm??? Mitral E Point Velocity 82.3 cm/s Mitral A Point Velocity 134.8 cm/s Mitral E to A Ratio 0.6 MV Deceleration Time 342.5 ms TR Peak Velocity 308.8 cm/s TR Peak Gradient 38.2 mmHg Right Ventricular Systolic Press 43.1 mmHg FINDINGS Left Ventricle Left ventricular ejection fraction is estimated at 50-55 %. Left ventricular cavity size normal. Left ventricular wall thickness normal. No obvious regional wall motion abnormalities. Right Ventricle Normal right ventricular size. Mild pulmonary hypertension. Right Atrium Right atrium not well visualized. Left Atrium Severely increased left atrial volume. Mildly increased left atrial area. Mitral Valve Structurally normal mitral valve. No mitral stenosis, regurgitation or prolapse. Aortic Valve Trileaflet aortic valve. No aortic valve stenosis or regurgitation. Tricuspid Valve Structurally normal tricuspid valve. Mild tricuspid regurgitation. Pulmonic Valve Pulmonic valve not well visualized. Pericardium No pericardial effusion. Aorta Moderate aortic dilatation at the level of the sinuses of valsalva 39 mm CONCLUSIONS LV function is normal Mild pulmonary hypertension Previewed by: Dr. Valeriy Uribe MD (Electronically Signed) Final Date: 27 March 2024 07:36
--- NOTE | 2024-03-27 10:45 | P.PN ---
Subjective Progress Note Date: 03/27/24 Subjective: Pt feels good today, no complaints. Still desats with minimal exertion, but at rest Airvo is being downtitrated. CT Chest was negative for PE, showed diffused interstitial opacities c/w infectious/inflammatory process. Echo showed mild pHTN, no reduction of EF. Hospital Course: 03/18. Patient seen and examined at bedside. No acute events overnight. Reports fever, cough productive of dark colored sputum, and mild dyspnea. Denies chest pain, abdominal pain, nausea/vomiting. Cepheid 4-plex: COVID-19 positive. Labs today: WBC 5.5, hemoglobin 11.6, platelets 150, sodium 136, p otassium 4.6, chloride 108, CO2 23, BUN 22, creatinine 1.3, glucose 92, calcium 8.1. 03/19. Patient seen laying comfortably in bed. No acute events overnight. Reports cough minimally productive of dark-colored sputum, mild dyspnea with exertion. Denies fever, chest pain, abdominal pain, palpitations, nausea/vomiting. Labs today: WBC 5.82, hemoglobin 12.7, platelets 154, sodium 139, potassium 4.7, chloride 106, CO2 22.1, BUN 18.8, creatinine 1.1, glucose 171, LDH 600 03/21. Patient seen and examined at bedside. Patient transferred to medical ICU yesterday due to increased oxygen requirements. Reports unchanged cough minimally productive of dark-colored sputum as well as dyspnea with exertion. Denies fever, chest pain, abdominal pain, palpitations, nausea/vomiting. Labs today: WBC 8.2, hemoglobin 11.6, platelets 180, sodium 139, potassium 4.0, chloride 105, CO2 30, BUN 36, creatinine 1.07, glucose 149, calcium 8.2, magnesium 2.1. Chest x-ray today independently interpreted: Bilateral interstitial opacities unchanged. Patient oxygen requirement has increased. Currently on BiPAP 03/04 100% FiO2. 03/24. Patient seen laying in bed. No acute events overnight. Still coughing dark-colored sputum. Denies fever, chest pain, abdominal pain, palpitations, nausea/vomiting. Labs today: WBC 10.4, hemoglobin 12, platelets 261, sodium 133, potassium 4, CO2 29, BUN 43, creatinine 0.93, glucose 136, calcium 8.2. Chest x-ray independently interpreted: Unchanged bilateral interstitial infiltrates. 03/25. Patient seen and examined sitting up comfortably in bed. No acute events overnight. No significant complaints today. Notes improved cough productive of dark-colored sputum. Denies fever, chills, nausea/vomiting, chest pain, abdominal pain. Chest x-ray remains unchanged. Labs today: WBC 12.3, hemoglobin 12.3, platelets 302, sodium 134, potassium 4.3, chloride 100, CO2 30, BUN 45, creatinine 1.13, glucose 149, calcium 8. 03/26. Patient seen sitting comfortably in bed. No acute events overnight. No significant complaints today. Chest x-ray: Diffuse interstitial opacities corre late for pulmonary edema versus atypical pneumonia versus chronic changes without findings, slowly improved from 03/18/2024. Labs today: WBC 11.9, hemoglobin 12.7, platelets 302, sodium 132, potassium 4.1, chloride 101, CO2 30, BUN 43, creatinine 1, glucose 138, AST 138, ALT 297, alkaline phosphatase 132, lactate dehydrogenase 1003, CRP 0.7. Physical examination: Vital signs reviewed. Afebrile, tachypneic, bradycardic, hypertensive, 94% saturation on high flow 40 80% FiO2. General: Nontoxic, no distress, appears stated age, well-appearing Derm: Warm, dry, intact Head: Atraumatic, normocephalic, symmetric Eyes: EOMI, anicteric sclera Mouth: No lip lesion, mucus membranes moist Cardiovascular: S1-S2 regular, no murmur Lungs: Bilateral rhonchi, no rales, no accessory muscle use Abdominal: Soft, non-tender to palpation Extremities: No cyanosis, clubbing, or pedal edema Neuro: Alert, oriented x 3, gross neurological examination did not reveal any focal deficits. Cranial nerves II to XII grossly intact. Psych: Appropriate affect and mood Assessment and Plan: Patient is a 78-year-old male with a past medical history of hypertension, hyperlipidemia, history of [place] in [place] with 2 stents, peripheral bilateral lower extremity neuropathy, BPH, GERD admitted for pneumonia. Active #. COVID-19 pneumonia #. Acute hypoxic respiratory failure #. Questionable history of ILD Baricitinib IV Solu-Medrol 60 mg every 6 hours Albuterol 4 times daily and every 4 hours as needed Status post azithromycin, IV ceftriaxone 1 g every 24 hours Robitussin DM 10 ml PO every 6 hours as needed for cough Continue oxygen supplementation as needed to maintain oxygen saturation >94%- currently on high flow 40 80% FiO2 Pulmonology following, recommending CTA chest, see subjective above for my interpretation #. 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 Hyponatremia, possibly due to hypervolemia Monitor electrolytes #. Prediabetes #. Hyperglycemia, steroid-induced Insulin sliding scale Accu-Cheks ACHS Monitor for hypoglycemia #. Leukocytosis, likely reactive to steroids Monitor CBC Resolved #. Prerenal acute kidney injury Chronic #. Hypertension Amlodipine 2.5 mg PO daily Losartan 100 mg PO daily #. History of [place] in 2013 with 2 stents Aspirin 81 mg PO daily Pravastatin 80 mg PO daily #. BPH Finasteride 5 mg PO daily F: None E: Replete if required N: Regular diet DVT prophylaxis: Lovenox 40 mg subcutaneous daily GI prophylaxis: Pepcid 20 mg twice daily Code status: Full code Anticipated discharge place: Home Anticipated discharge time: Pending clinical course Objective - Vital Signs Vital signs: Vital Signs Temp 97.9 F 03/27/24 04:00 Pulse 62 03/27/24 10:00 Resp 25 H 03/27/24 10:00 BP 137/70 03/27/24 10:00 Pulse Ox 95 03/27/24 10:00 FiO2 65 03/27/24 09:17 Intake & Output 03/26/24 03/27/24 03/27/24 18:59 06:59 18:59 Intake Total 1500 750 225 Output Total 800 400 100 Balance 700 350 125 Weight 77.8 kg Intake: IV 1000 750 225 Sodium Chloride 0.9% 1, 750 225 000 ml @ 10 mls/hr IV . Q24H [facility] Rx#:[id number] Sodium Chloride 0.9% 1, 1000 000 ml @ 999 mls/hr IV . Q1H1M [facility] Rx#:[id number] Oral 500 Output: Urine 800 400 100 Other: Voiding Method External Catheter External Catheter External Catheter - Labs CBC & Chem 7: 03/27/24 05:29 03/27/24 05:29 Labs: Abnormal Lab Results - Last 24 Hours (Table) 03/26/24 03/27/24 03/27/24 Range/Units 06:40 05:29 05:29 WBC 12.4 H (3.8-10.6) k/uL RBC 4.04 L (4.30-5.90) m/uL Hgb 11.7 L (13.0-17.5) gm/dL Hct 36.5 L (39.0-53.0) % Neutrophils # 11.7 H (1.3-7.7) k/uL Lymphocytes # 0.3 L (1.0-4.8) k/uL Sodium 133 L (137-145) mmol/L BUN 44 H (9-20) mg/dL Glucose 150 H (74-99) mg/dL Calcium 7.7 L (8.4-10.2) mg/dL Ferritin 1140.0 H (22.0-322.0) ng/mL AST 149 H (17-59) U/L ALT 328 H (4-49) U/L Total Protein 5.2 L (6.3-8.2) g/dL Albumin 2.7 L (3.5-5.0) g/dL
--- NOTE | 2024-03-27 12:14 | P.PN ---
Subjective Progress Note Date: 03/27/24 Principal diagnosis: Acute hypoxic respiratory failure secondary to acute COVID-19 pneumonia and underlying chronic interstitial lung disease This is a 78-year-old male patient who is currently hospitalized for an acute hypoxic respiratory failure and COVID-19 related pneumonia. The patient is currently on Airvo at 45 L with an FiO2 of 60%. I reviewed the series of chest x-ray that was done on this patient during this current admission. The patient may have underlying chronic ILD. Nevertheless, the patient developed progressive worsening in the bilateral pulmonary filtrates and the patient has developed some increased hazy opacities bilaterally consistent with COVID-19 related pneumonia. Noted his symptoms started around 2 days prior to his current admission and the patient's is also infected with the same virus. His D-dimer was mildly elevated at 1.07. Doppler of the lower extremities done today was negative. Perfusion scan was up and intermediate probability. He has seen Dr. Terrence Maynard and the patient has undergone a bronchoscopy few months back which I am assuming was done as part of investigation for chronic interstitial lung disease. The patient is on no immunosuppressant. 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 No coronary artery disease. No active smoking. The white cell count of 5.8 with a hemoglobin 12.7 and a platelet count of 154. Sodium is at 139, BUN is 18 with a creatinine of 1.1 and a potassium level of 4.7. The viral screen was positive for COVID-19. His procalcitonin level was at 0.7. His CRP is at 14.5 with an LDH of 600. The patient has received vaccination in the past. No previous history of COVID-19 infection. No reported aspiration. He is currently on IV steroids and the patient is receiving Solu-Medrol 60 mg every 6 hours. The patient is also on Lovenox 40 mg subcu for DVT prophylaxis. Antibiotic coverage is essentially empiric. He is afebrile. No significant tachycardia or tachypnea. On 03/20/2024, the patient is comfortable. Slightly more short of breath. Nevertheless, he is having episodes of oxygen desaturations with limited amount of mobility. Earlier this morning, while having his x-ray, the patient's pulse ox dropped down to the 60s. The chest x-ray showed diffuse interstitial and alveolar opacification consistent with COVID-19 related pneumonia. The patient remains on IV Solu-Medrol. The patient remains on Airvo and this was adjusted to 60 L and FiO2 of 90%. LDH level was elevated in the 600 range. Doppler of the lower extremities were negative. D-dimer is at 1.07. Electrolytes are all stable and sodium levels at 139, potassium is at 4.7, BUN is 18 with a creat inine of 1.1. The white cell count is currently at 10.1 with a hemoglobin 12.2 and a platelet count is at 162. Hemodynamically stable. Cardiac rhythm is sinus. Denies having any other significant complaints. Awake and alert and communicating. Patient was seen today on 03/21/2024, remains in the icu, remains on Airvo, patient is on 60 L flow 90% FiO2, he is also on baricitinib day #2, patient is marginal at best. O2 saturation is in the 80s and sometimes in the 70s patient is doing well, and I am aware that he may end up requiring intubation mechanical ventilation, I recommended BiPAP 03/04/100% and will transition from Airvo to BiPAP. Chest x-ray shows bilateral interstitial infiltrates. Looking at the previous CT of the chest, patient did have underlying interstitial lung disease which was relatively mild to begin with in 2019. But nonetheless he did have findings of interstitial lung disease and bronchiectasis noted on previous CT of the chest done at [facility]. His labs today WBC is 8.2 hemoglobin is 11.6, electrolytes are normal BUN is 36 creatinine 1.07, last procalcitonin was 0.41 the 1 prior was 0.73. LDH is high 600. Seen today on 03/22/2024, patient is feeling better today compared to yesterday, maintaining adequate O2 saturations he is on 60 L flow and 90% FiO2 he was on BiPAP last night 03/04/100%. Chest x-ray is showing improvement O2 saturation is improved he is now in the 90s remains on baricitinib day number 3 out of 14 remains on Solu-Medrol 60 every 6 remains on Lovenox. Chest x-ray is showing slight improvement clinically the patient is slightly improved hence we will continue the same and I will continue to monitor the patient in the ICU. CBC is relatively normal basic metabolic profile is normal BUN is 41 creatinine 1.03 Patient was seen today on 03/23/2024, slight improvement clinically chest x-ray slightly improved remains on 90% FiO2 and 60 L flow via Airvo. Patient has no cough, chest pain no fever no chills no hemoptysis. Improvement clinically and radiographically noted, hence we will titrate his FiO2 down from 90% to the 80% or maybe 70% if possible. CBC is normal basic metabolic profile is normal BUN is 47 creatinine 0.99 Patient was seen today on 03/24/2024, patient remains in the ICU, remains on Airvo at 70% FiO2 and 40 L flow. Remains on Solu-Medrol, he is also on baricitinib and he is on Lovenox. Slight improvement chest x-ray is basically about the same, minimal improvement clinically but nonetheless the patient is not getting any worse WBC count is 10.4 hemoglobin is 12 electrolytes are normal renal profile is normal Patient is was seen today on 03/25/2024, patient remains in the ICU, remains on Airvo at 80% FiO2 45 L flow, patient is noticing some improvement chest x-ray is basically about the same physical examination is about the same. Patient overall is about the same. Patient remains on baricitinib and he remains on steroids. WBC count is 12.3 hemoglobin 12.3 basic metabolic profile is normal BUN is 45 creatinine 1.13 Patient seen today , still requiring relatively high FiO2 with Airvo at 75% FiO2 and 50 L flow, patient is about the same, continues to desaturate with any activity. His chest x-ray is showing slight improvement in his atypical pneumonia, hence I am recommending today a CT angiogram on this patient to rule out underlying thromboembolic disease. In the meantime patient remains on baricitinib, remains on steroids, and improvement is rather extremely minimal. Patient was seen today on 03/27/2024, remains in the ICU, remains on Airvo at 70% FiO2 and 50 L flow O2 sat remains in the low 90s up to 95%. IV fluid is now to KVO, CT angiogram of the chest showed no evidence of pulmonary embolism. Patient remains on Solu-Medrol, Lovenox, bosutinib, and his echocardiogram showed good LV function, I plan to transfer the patient out of the ICU today to [facility]. Today showed relatively normal CBC, normal electrolytes, normal renal profile, Objective - Vital Signs Vital signs: Vital Signs Temp 97.9 F 03/27/24 04:00 Pulse 68 03/27/24 11:00 Resp 13 03/27/24 11:00 BP 148/77 03/27/24 11:00 Pulse Ox 94 L 03/27/24 11:00 FiO2 60 03/27/24 11:16 Intake & Output 03/26/24 03/27/24 03/27/24 18:59 06:59 18:59 Intake Total 1500 750 225 Output Total 800 400 100 Balance 700 350 125 Weight 77.8 kg Intake: IV 1000 750 225 Sodium Chloride 0.9% 1, 750 225 000 ml @ 10 mls/hr IV . Q24H [facility] Rx#:[id number] Sodium Chloride 0.9% 1, 1000 000 ml @ 999 mls/hr IV . Q1H1M [facility] Rx#:[id number] Oral 500 Output: Urine 800 400 100 Other: Voiding Method External Catheter External Catheter External Catheter - Exam General: Revealed 78-year-old white male in no distress on Airvo 70% FiO2 and 50 L flow Derm: Warm, dry Head: Atraumatic, normocephalic, symmetric Eyes: PERRLA, EOMI, anicteric, no JVD. Mouth: Moist mucous membranes, no thrush. Distant S1-S2, no S3 gallop, no murmur Cardiovascular: S1S2 reg, no murmur Lungs: Symmetrical expansion crackles persist bilaterally. Abdominal: Soft nontender no megaly, no rebound no guarding Ext: Mild clubbing no edema no cyanosis Neuro: alert oriented x 3, no gross focal neurologic deficit Psych: Normal mood, affect and no mental status examination - Labs CBC & Chem 7: 03/27/24 05:29 03/27/24 05:29 Labs: Abnormal Lab Results - Last 24 Hours (Table) 03/26/24 03/27/24 03/27/24 Range/Units 06:40 05:29 05:29 WBC 12.4 H (3.8-10.6) k/uL RBC 4.04 L (4.30-5.90) m/uL Hgb 11.7 L (13.0-17.5) gm/dL Hct 36.5 L (39.0-53.0) % Neutrophils # 11.7 H (1.3-7.7) k/uL Lymphocytes # 0.3 L (1.0-4.8) k/uL Sodium 133 L (137-145) mmol/L BUN 44 H (9-20) mg/dL Glucose 150 H (74-99) mg/dL Calcium 7.7 L (8.4-10.2) mg/dL Ferritin 1140.0 H (22.0-322.0) ng/mL AST 149 H (17-59) U/L ALT 328 H (4-49) U/L Total Protein 5.2 L (6.3-8.2) g/dL Albumin 2.7 L (3.5-5.0) g/dL Assessment and Plan Assessment: Impression: Acute hypoxic respiratory failure secondary to COVID-19 related pneumonia. . Acute COVID-19 infection/pneumonia Interstitial lung disease, patient had previous CT of the chest from 2019 showing mild interstitial lung disease associated with traction bronchiectasis Shortness of breath secondary to above Hypertension Hyperlipidemia History of coronary disease with remote history of myocardial infarction. The patient has 2 coronary stents inserted post MA back in 2013 Plan Bud of the chest yesterday showed no evidence of pulmonary embolism Patient remains on high flow oxygen but being titrated down, remains on baricitinib, remains on steroids/Solu-Medrol. Continue present supportive care measures Continue Solu-Medrol Continue baricitinib DVT prophylaxis/Lovenox During the improvement I will transfer the patient out of the ICU today to 3 S. Patient condition remains guarded Will continue to follow Time with Patient: Less than 30
[2024-03-27 16:41] LABS: Glucose,Whole Blood 204 mg/dL (70-110)
[2024-03-27 20:39] LABS: Glucose,Whole Blood 202 mg/dL (70-110)
[2024-03-28 06:05] LABS: Glucose,Whole Blood 174 mg/dL (70-110)
[2024-03-28 09:17] LABS: Basophils % (A) 0 %; Eosinophils % (A) 0 %; HCT 36.3 % (39.0-53.0); HGB 12.1 gm/dL (13.0-17.5); Lymphocytes # (A) 0.4 k/uL (1.0-4.8); Lymphocytes % (A) 2 %; MCHC 33.4 g/dL (31.0-37.0); MCV 89.9 fL (80.0-100.0); Mean Platelet Volume 7.4; Monocytes # (A) 0.5 k/uL (0-1.0); Monocytes % (A) 3 %; Neutrophils # (A) 15.3 k/uL (1.3-7.7); Neutrophils % (A) 95 %; Platelet Count 339 k/uL (150-450); RBC 4.04 m/uL (4.30-5.90); RDW 13.4 % (11.5-15.5); WBC 16.2 k/uL (3.8-10.6)
--- NOTE | 2024-03-28 09:20 | P.PN ---
Subjective Progress Note Date: 03/28/24 Subjective: Pt feels good today, no complaints. Still desats with minimal exertion, but at rest Airvo is being downtitrated. Hospital Course: 03/18. Patient seen and examined at bedside. No acute events overnight. Reports fever, cough productive of dark colored sputum, and mild dyspnea. De nies chest pain, abdominal pain, nausea/vomiting. Cepheid 4-plex: COVID-19 positive. Labs today: WBC 5.5, hemoglobin 11.6, platelets 150, sodium 136, potassium 4.6, chloride 108, CO2 23, BUN 22, creatinine 1.3, glucose 92, calcium 8.1. 03/19. Patient seen laying comfortably in bed. No acute events overnight. Reports cough minimally productive of dark-colored sputum, mild dyspnea with exertion. Denies fever, chest pain, abdominal pain, palpitations, nausea/vomiting. Labs today: WBC 5.82, hemoglobin 12.7, platelets 154, sodium 139, potassium 4.7, chloride 106, CO2 22.1, BUN 18.8, creatinine 1.1, glucose 171, LDH 600 03/21. Patient seen and examined at bedside. Patient transferred to medical ICU yesterday due to increased oxygen requirements. Reports unchanged cough minimally productive of dark-colored sputum as well as dyspnea with exertion. Denies fever, chest pain, abdominal pain, palpitations, nausea/vomiting. Labs today: WBC 8.2, hemoglobin 11.6, platelets 180, sodium 139, potassium 4.0, chl oride 105, CO2 30, BUN 36, creatinine 1.07, glucose 149, calcium 8.2, magnesium 2.1. Chest x-ray today independently interpreted: Bilateral interstitial opacities unchanged. Patient oxygen requirement has increased. Currently on BiPAP 03/04 100% FiO2. 03/24. Patient seen laying in bed. No acute events overnight. Still coughing dark-colored sputum. Denies fever, chest pain, abdominal pain, palpitations, nausea/vomiting. Labs today: WBC 10.4, hemoglobin 12, platelets 261, sodium 133, potassium 4, CO2 29, BUN 43, creatinine 0.93, glucose 136, calcium 8.2. Chest x-ray independently interpreted: Unchanged bilateral interstitial infiltrates. 03/25. Patient seen and examined sitting up comfortably in bed. No acute events overnight. No significant complaints today. Notes improved cough productive of dark-colored sputum. Denies fever, chills, nausea/vomiting, chest pain, abdominal pain. Chest x-ray remains unchanged. Labs today: WBC 12.3, hemoglobin 12.3, platelets 302, sodium 134, potassium 4.3, chloride 100, CO2 30, BUN 45, creatinine 1.13, glucose 149, calcium 8. 12/28. Patient seen sitting comfortably in bed. No acute events overnight. No significant complaints today. Chest x-ray: Diffuse interstitial opacities correlate for pulmonary edema versus atypical pneumonia versus chronic changes without findings, slowly improved from 03/18/2024. Labs today: WBC 11.9, hemoglobin 12.7, platelets 302, sodium 132, potassium 4.1, chloride 101, CO2 30, BUN 43, creatinine 1, glucose 138, AST 138, ALT 297, alkaline phosphatase 132, lactate dehydrogenase 1003, CRP 0.7. -CT Chest was negative for PE, showed diffused interstitial opacities c/w infectious/inflammatory process. -Echo showed mild pHTN, no reduction of EF. Physical examination: Vital signs reviewed. Afebrile, tachypneic, bradycardic, hypertensive, 94% saturation on high flow 40 80% FiO2. General: Nontoxic, no distress, appears stated age, well-appearing Derm: Warm, dry, intact Head: Atraumatic, normocephalic, symmetric Eyes: EOMI, anicteric sclera Mouth: No lip lesion, mucus membranes moist Cardiovascular: S1-S2 regular, no murmur Lungs: Bilateral rhonchi, no rales, no accessory muscle use Abdominal: Soft, non-tender to palpation Extremities: No cyanosis, clubbing, or pedal edema Neuro: Alert, oriented x 3, gross neurological examination did not reveal any focal deficits. Cranial nerves II to XII grossly intact. Psych: Appropriate affect and mood Assessment and Plan: Patient is a 78-year-old male with a past medical history of hypertension, hyperlipidemia, history of [place] in 2014 with 2 stents, peripheral bilateral lower extremity neuropathy, BPH, GERD admitted for pneumonia. Active #. COVID-19 pneumonia #. Acute hypoxic respiratory failure #. Questionable history of ILD Baricitinib IV Solu-Medrol 60 mg every 6 hours Albuterol 4 times daily and every 4 hours as needed Status post azithromycin, IV ceftriaxone 1 g every 24 hours Robitussin DM 10 ml PO every 6 hours as needed for cough Continue oxygen supplementation as needed to maintain oxygen saturation >94%- currently on high flow 40 80% FiO2 Pulmonology following, recommending CTA chest, see hospital course above for my interpretation #. 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 Hyponatremia, possibly due to hypervolemia Monitor electrolytes #. Prediabetes #. Hyperglycemia, steroid-induced Insulin sliding scale Accu-Cheks ACHS Monitor for hypoglycemia #. Leukocytosis, likely reactive to steroids Monitor CBC Resolved #. Prerenal acute kidney injury Chronic #. Hypertension Amlodipine 2.5 mg PO daily Losartan 100 mg PO daily #. History of [place] in 2013 with 2 stents Aspirin 81 mg PO daily Pravastatin 80 mg PO daily #. BPH Finasteride 5 mg PO daily F: None E: Replete if required N: Regular diet DVT prophylaxis: Lovenox 40 mg subcutaneous daily GI prophylaxis: Pepcid 20 mg twice daily Code status: Full code Anticipated discharge place: Home Anticipated discharge time: Pending clinical course Objective - Vital Signs Vital signs: Vital Signs Temp 97.7 F 03/28/24 03:15 Pulse 57 L 03/28/24 03:15 Resp 15 03/28/24 03:15 BP 134/66 03/28/24 03:15 Pulse Ox 91 L 03/28/24 09:12 FiO2 60 03/28/24 09:12 Intake & Output 03/27/24 03/28/24 03/28/24 18:59 06:59 18:59 Intake Total 225 240 Output Total 550 1200 Balance -325 -1200 240 Weight 77.2 kg Intake: IV 225 Sodium Chloride 0.9% 1, 225 000 ml @ 10 mls/hr IV . Q24H [facility] Rx#:[id number] Oral 240 Output: Urine 550 1200 Other: Voiding Method External Catheter External Catheter - Labs CBC & Chem 7: 03/28/24 08:15 03/27/24 05:29 Labs: Abnormal Lab Results - Last 24 Hours (Table) 03/27/24 03/27/24 03/28/24 Range/Units 16:40 20:38 06:03 WBC (3.8-10.6) k/uL RBC (4.30-5.90) m/uL Hgb (13.0-17.5) gm/dL Hct (39.0-53.0) % Neutrophils # (1.3-7.7) k/uL Lymphocytes # (1.0-4.8) k/uL POC Glucose (mg/dL) 204 H 202 H 174 H (70-110) mg/dL 03/28/24 Range/Units 08:15 WBC 16.2 H (3.8-10.6) k/uL RBC 4.04 L (4.30-5.90) m/uL Hgb 12.1 L (13.0-17.5) gm/dL Hct 36.3 L (39.0-53.0) % Neutrophils # 15.3 H (1.3-7.7) k/uL Lymphocytes # 0.4 L (1.0-4.8) k/uL POC Glucose (mg/dL) (70-110) mg/dL
[2024-03-28 09:30] LABS: African American GFR (CKD) 79 (>60 ml/min/1.73 sqM); Anion Gap 3 mmol/L; Blood Urea Nitrogen 43 mg/dL (9-20); Calcium 7.8 mg/dL (8.4-10.2); Carbon Dioxide 29 mmol/L (22-30); Chloride 102 mmol/L (98-107); Glucose 133 mg/dL (74-99); Non-African American GFR(CKD) 68 (>60 ml/min/1.73 sqM); Potassium 3.8 mmol/L (3.5-5.1); Sodium 134 mmol/L (137-145)
[2024-03-28 11:41] LABS: Glucose,Whole Blood 226 mg/dL (70-110)
--- NOTE | 2024-03-28 15:53 | P.PN ---
Subjective Progress Note Date: 03/28/24 This is a 78-year-old male patient who is currently hospitalized for an acute hypoxic respiratory failure and COVID-19 related pneumonia. The patient is currently on Airvo at 45 L with an FiO2 of 60%. I reviewed the series of chest x-ray that was done on this patient during this current admission. The patient may have underlying chronic ILD. Nevertheless, the patient developed progressive worsening in the bilateral pulmonary filtrates and the patient has developed some increased hazy opacities bilaterally consistent with COVID-19 related pneumonia. Noted his symptoms started around 2 days prior to his current admission and the patient's is also infected with the same virus. His D-dimer was mildly elevated at 1.07. Doppler of the lower extremities done today was negative. Perfusion scan was up and intermediate probability. He has seen Dr. Terrence Maynard and the patient has undergone a bronchoscopy few months back which I am assuming was done as part of investigation for chronic in terstitial lung disease. The patient is on no immunosuppressant. 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 No coronary artery disease. No active smoking. The white cell count of 5.8 with a hemoglobin 12.7 and a platelet count of 154. Sodium is at 139, BUN is 18 with a creatinine of 1.1 and a potassium level of 4.7. The viral screen was positive for COVID-19. His procalcitonin level was at 0.7. His CRP is at 14.5 with an LDH of 600. The patient has received vaccination in the past. No previous history of COVID-19 infection. No reported aspiration. He is currently on IV steroids and the patient is receiving Solu-Medrol 60 mg every 6 hours. The patient is also on Lovenox 40 mg subcu for DVT prophylaxis. Antibiotic coverage is essentially empiric. He is afebrile. No significant tachycardia or tachypnea. On 03/20/2024, the patient is comfortable. Slightly more short of breath. N evertheless, he is having episodes of oxygen desaturations with limited amount of mobility. Earlier this morning, while having his x-ray, the patient's pulse ox dropped down to the 60s. The chest x-ray showed diffuse interstitial and alveolar opacification consistent with COVID-19 related pneumonia. The patient remains on IV Solu-Medrol. The patient remains on Airvo and this was adjusted to 60 L and FiO2 of 90%. LDH level was elevated in the 600 range. Doppler of the lower extremities were negative. D-dimer is at 1.07. Electrolytes are all stable and sodium levels at 139, potassium is at 4.7, BUN is 18 with a creatinine of 1.1. The white cell count is currently at 10.1 with a hemoglobin 12.2 and a platelet count is at 162. Hemodynamically stable. Cardiac rhythm is sinus. Denies having any other significant complaints. Awake and alert and communicating. Patient was seen today on 03/21/2024, remains in the icu, remains on Airvo, patient is on 60 L flow 90% FiO2, he is also on baricitinib day #2, patient is marginal at best. O2 saturation is in the 80s and sometimes in the 70s patient is doing well, and I am aware that he may end up requiring intubation mechanical ventilation, I recommended BiPAP 03/04/100% and will transition from Airvo to BiPAP. Chest x-ray shows bilateral interstitial infiltrates. Looking at the previous CT of the chest, patient did have underlying interstitial lung disease which was relatively mild to begin with in 2019. But nonetheless he did have findings of interstitial lung disease and bronchiectasis noted on previous CT of the chest done at [facility]. His labs today WBC is 8.2 hemoglobin is 11.6, electrolytes are normal BUN is 36 creatinine 1.07, last procalcitonin was 0.41 the 1 prior was 0.73. LDH is high 600. Seen today on 03/22/2024, patient is feeling better today compared to yesterday, maintaining adequate O2 saturations he is on 60 L flow and 90% FiO2 he was on BiPAP last night 03/04/100%. Chest x-ray is showing improvement O2 saturation is improved he is now in the 90s remains on baricitinib day number 3 out of 14 remains on Solu-Medrol 60 every 6 remains on Lovenox. Chest x-ray is showing slight improvement clinically the patient is slightly improved hence we will continue the same and I will continue to monitor the patient in the ICU. CBC is relatively normal basic metabolic profile is normal BUN is 41 creatinine 1.03 Patient was seen today on 03/23/2024, slight improvement clinically chest x-ray slightly improved remains on 90% FiO2 and 60 L flow via Airvo. Patient has no cough, chest pain no fever no chills no hemoptysis. Improvement clinically and radiographically noted, hence we will titrate his FiO2 down from 90% to the 80% or maybe 70% if possible. CBC is normal basic metabolic profile is normal BUN is 47 creatinine 0.99 Patient was seen today on 03/24/2024, patient remains in the ICU, remains on Airvo at 70% FiO2 and 40 L flow. Remains on Solu-Medrol, he is also on russel citinib and he is on Lovenox. Slight improvement chest x-ray is basically about the same, minimal improvement clinically but nonetheless the patient is not getting any worse WBC count is 10.4 hemoglobin is 12 electrolytes are normal renal profile is normal Patient is was seen today on 03/25/2024, patient remains in the ICU, remains on Airvo at 80% FiO2 45 L flow, patient is noticing some improvement chest x-ray is basically about the same physical examination is about the same. Patient overal l is about the same. Patient remains on baricitinib and he remains on steroids. WBC count is 12.3 hemoglobin 12.3 basic metabolic profile is normal BUN is 45 creatinine 1.13 Patient seen today , still requiring relatively high FiO2 with Airvo at 75% FiO2 and 50 L flow, patient is about the same, continues to desaturate with any activity. His chest x-ray is showing slight improvement in his atypical pneumonia, hence I am recommending today a CT angiogram on this patient to rule out underlying thromboembolic disease. In the meantime patient remains on baricitinib, remains on steroids, and improvement is rather extremely minimal. Patient was seen today on 03/27/2024, remains in the ICU, remains on Airvo at 70% FiO2 and 50 L flow O2 sat remains in the low 90s up to 95%. IV fluid is now to KVO, CT angiogram of the chest showed no evidence of pulmonary embolism. Patient remains on Solu-Medrol, Lovenox, bosutinib, and his echocardiogram showed good LV function, I plan to transfer the patient out of the ICU today to 3 S. Today showed relatively normal CBC, normal electrolytes, normal renal profile, The patient is seen today March 28, 2024 in follow-up on the selective care unit. He was transferred out of the intensive care unit yesterday. He is currently sitting up in a chair at the bedside. Awake and alert in mild respiratory distress. He is continued on Airvo high flow oxygen at 50 L and 60% FiO2. He is continued on baricitinib. Remains on vitamin supplements. Lovenox for DVT prophylaxis. Remains on bronchodilators and Solu-Medrol. White count 16.2. Hemoglobin 12.1. Platelets 339. Sodium 134. Potassium 3.8. Bicarb 29. BUN 43. Creatinine 1.06. Glucose 133. Objective - Vital Signs Vital signs: Vital Signs Temp 97.6 F 03/28/24 08:00 Pulse 70 03/28/24 12:00 Resp 16 03/28/24 08:00 BP 128/59 03/28/24 12:00 Pulse Ox 92 L 03/28/24 12:00 FiO2 60 03/28/24 12:31 Intake & Output 03/27/24 03/28/24 03/28/24 18:59 06:59 18:59 Intake Total 225 480 Output Total 550 1200 600 Balance -325 -1200 -120 Weight 77.2 kg Intake: IV 225 Sodium Chloride 0.9% 1, 225 000 ml @ 10 mls/hr IV . Q24H [facility] Rx#:[id number] Oral 480 Output: Urine 550 1200 600 Other: Voiding Method External Catheter External Catheter External Catheter # Bowel Movements 1 - Exam GENERAL EXAM: Alert, pleasant 78-year-old male, up in a chair, on Airvo high flow oxygen, fairly comfortable in no apparent distress. HEAD: Normocephalic. EYES: Normal reaction of pupils, equal size. NOSE: Clear with pink turbinates. THROAT: No erythema or exudates. NECK: No masses, no JVD. CHEST: No chest wall deformity. LUNGS: Equal air entry with coarse crackles in the bilateral bases. CVS: S1 and S2 normal with no audible murmur, regular rhythm. ABDOMEN: No hepatosplenomegaly, normal bowel sounds, no guarding or rigidity. SPINE: No scoliosis or deformity SKIN: No rashes CENTRAL NERVOUS SYSTEM: No focal deficits, tone is normal in all 4 extremities. EXTREMITIES: There is no peripheral edema. No clubbing, no cyanosis. Peripheral pulses are intact. - Labs CBC & Chem 7: 03/28/24 08:15 03/28/24 08:15 Labs: Abnormal Lab Results - Last 24 Hours (Table) 03/27/24 03/27/24 03/28/24 Range/Units 16:40 20:38 06:03 WBC (3.8-10.6) k/uL RBC (4.30-5.90) m/uL Hgb (13.0-17.5) gm/dL Hct (39.0-53.0) % Neutrophils # (1.3-7.7) k/uL Lymphocytes # (1.0-4.8) k/uL Sodium (137-145) mmol/L BUN (9-20) mg/dL Glucose (74-99) mg/dL POC Glucose (mg/dL) 204 H 202 H 174 H (70-110) mg/dL Calcium (8.4-10.2) mg/dL 03/28/24 03/28/24 03/28/24 Range/Units 08:15 08:15 11:40 WBC 16.2 H (3.8-10.6) k/uL RBC 4.04 L (4.30-5.90) m/uL Hgb 12.1 L (13.0-17.5) gm/dL Hct 36.3 L (39.0-53.0) % Neutrophils # 15.3 H (1.3-7.7) k/uL Lymphocytes # 0.4 L (1.0-4.8) k/uL Sodium 134 L (137-145) mmol/L BUN 43 H (9-20) mg/dL Glucose 133 H (74-99) mg/dL POC Glucose (mg/dL) 226 H (70-110) mg/dL Calcium 7.8 L (8.4-10.2) mg/dL Assessment and Plan Assessment: Acute hypoxic respiratory failure secondary to COVID-19 related pneumonia Acute COVID-19 infection/pneumonia Interstitial lung disease, patient had previous CT of the chest from 2019 showing mild interstitial lung disease associated with traction bronchiectasis Shortness of breath secondary to above Hypertension Hyperlipidemia History of coronary disease with remote history of myocardial infarction. The patient has 2 coronary stents inserted post [place] back in 2013 Plan: The patient was seen and evaluated Labs and medications reviewed Currently on Airvo high flow oxygen at 50 L and 60% FiO2 Continue to titrate down the FiO2 as tolerated Continue to increase his activity as tolerated Continue baricitinib Continue bronchodilators and steroids Lovenox for DVT prophylaxis We will continue to follow I have personally seen and examined the patient, performed the documentation and the assessment and plan as written. Number of minutes spent on the visit: 10 Dictation was produced using [employer] dictation software. Please excuse any grammatical, word or spelling errors.
[2024-03-28 16:57] LABS: Glucose,Whole Blood 153 mg/dL (70-110)
[2024-03-28 20:09] LABS: Glucose,Whole Blood 256 mg/dL (70-110)
[2024-03-29 06:26] LABS: Glucose,Whole Blood 153 mg/dL (70-110)
[2024-03-29 11:28] LABS: Glucose,Whole Blood 139 mg/dL (70-110)
--- NOTE | 2024-03-29 15:43 | P.PN ---
Subjective Progress Note Date: 03/29/24 This is a 78-year-old male patient who is currently hospitalized for an acute hypoxic respiratory failure and COVID-19 related pneumonia. The patient is currently on Airvo at 45 L with an FiO2 of 60%. I reviewed the series of chest x-ray that was done on this patient during this current admission. The patient may have underlying chronic ILD. Nevertheless, the patient developed progressive worsening in the bilateral pulmonary filtrates and the patient has developed some increased hazy opacities bilaterally consistent with COVID-19 related pneumonia. Noted his symptoms started around 2 days prior to his current admission and the patient's is also infected with the same virus. His D-dimer was mildly elevated at 1.07. Doppler of the lower extremities done today was negative. Perfusion scan was up and intermediate probability. He has seen Dr. Terrence Maynard and the patient has undergone a bronchoscopy few months back which I am assuming was done as part of investigation for chronic in terstitial lung disease. The patient is on no immunosuppressant. 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 No coronary artery disease. No active smoking. The white cell count of 5.8 with a hemoglobin 12.7 and a platelet count of 154. Sodium is at 139, BUN is 18 with a creatinine of 1.1 and a potassium level of 4.7. The viral screen was positive for COVID-19. His procalcitonin level was at 0.7. His CRP is at 14.5 with an LDH of 600. The patient has received vaccination in the past. No previous history of COVID-19 infection. No reported aspiration. He is currently on IV steroids and the patient is receiving Solu-Medrol 60 mg every 6 hours. The patient is also on Lovenox 40 mg subcu for DVT prophylaxis. Antibiotic coverage is essentially empiric. He is afebrile. No significant tachycardia or tachypnea. On 03/20/2024, the patient is comfortable. Slightly more short of breath. N evertheless, he is having episodes of oxygen desaturations with limited amount of mobility. Earlier this morning, while having his x-ray, the patient's pulse ox dropped down to the 60s. The chest x-ray showed diffuse interstitial and alveolar opacification consistent with COVID-19 related pneumonia. The patient remains on IV Solu-Medrol. The patient remains on Airvo and this was adjusted to 60 L and FiO2 of 90%. LDH level was elevated in the 600 range. Doppler of the lower extremities were negative. D-dimer is at 1.07. Electrolytes are all stable and sodium levels at 139, potassium is at 4.7, BUN is 18 with a creatinine of 1.1. The white cell count is currently at 10.1 with a hemoglobin 12.2 and a platelet count is at 162. Hemodynamically stable. Cardiac rhythm is sinus. Denies having any other significant complaints. Awake and alert and communicating. Patient was seen today on 03/21/2024, remains in the icu, remains on Airvo, patient is on 60 L flow 90% FiO2, he is also on baricitinib day #2, patient is marginal at best. O2 saturation is in the 80s and sometimes in the 70s patient is doing well, and I am aware that he may end up requiring intubation mechanical ventilation, I recommended BiPAP 03/04/100% and will transition from Airvo to BiPAP. Chest x-ray shows bilateral interstitial infiltrates. Looking at the previous CT of the chest, patient did have underlying interstitial lung disease which was relatively mild to begin with in 2019. But nonetheless he did have findings of interstitial lung disease and bronchiectasis noted on previous CT of the chest done at [facility]. His labs today WBC is 8.2 hemoglobin is 11.6, electrolytes are normal BUN is 36 creatinine 1.07, last procalcitonin was 0.41 the 1 prior was 0.73. LDH is high 600. Seen today on 03/22/2024, patient is feeling better today compared to yesterday, maintaining adequate O2 saturations he is on 60 L flow and 90% FiO2 he was on BiPAP last night 03/04/100%. Chest x-ray is showing improvement O2 saturation is improved he is now in the 90s remains on baricitinib day number 3 out of 14 remains on Solu-Medrol 60 every 6 remains on Lovenox. Chest x-ray is showing slight improvement clinically the patient is slightly improved hence we will continue the same and I will continue to monitor the patient in the ICU. CBC is relatively normal basic metabolic profile is normal BUN is 41 creatinine 1.03 Patient was seen today on 03/23/2024, slight improvement clinically chest x-ray slightly improved remains on 90% FiO2 and 60 L flow via Airvo. Patient has no cough, chest pain no fever no chills no hemoptysis. Improvement clinically and radiographically noted, hence we will titrate his FiO2 down from 90% to the 80% or maybe 70% if possible. CBC is normal basic metabolic profile is normal BUN is 47 creatinine 0.99 Patient was seen today on 03/24/2024, patient remains in the ICU, remains on Airvo at 70% FiO2 and 40 L flow. Remains on Solu-Medrol, he is also on russel citinib and he is on Lovenox. Slight improvement chest x-ray is basically about the same, minimal improvement clinically but nonetheless the patient is not getting any worse WBC count is 10.4 hemoglobin is 12 electrolytes are normal renal profile is normal Patient is was seen today on 03/25/2024, patient remains in the ICU, remains on Airvo at 80% FiO2 45 L flow, patient is noticing some improvement chest x-ray is basically about the same physical examination is about the same. Patient overal l is about the same. Patient remains on baricitinib and he remains on steroids. WBC count is 12.3 hemoglobin 12.3 basic metabolic profile is normal BUN is 45 creatinine 1.13 Patient seen today , still requiring relatively high FiO2 with Airvo at 75% FiO2 and 50 L flow, patient is about the same, continues to desaturate with any activity. His chest x-ray is showing slight improvement in his atypical pneumonia, hence I am recommending today a CT angiogram on this patient to rule out underlying thromboembolic disease. In the meantime patient remains on baricitinib, remains on steroids, and improvement is rather extremely minimal. Patient was seen today on 03/27/2024, remains in the ICU, remains on Airvo at 70% FiO2 and 50 L flow O2 sat remains in the low 90s up to 95%. IV fluid is now to KVO, CT angiogram of the chest showed no evidence of pulmonary embolism. Patient remains on Solu-Medrol, Lovenox, bosutinib, and his echocardiogram showed good LV function, I plan to transfer the patient out of the ICU today to 3 S. Today showed relatively normal CBC, normal electrolytes, normal renal profile, The patient is seen today March 28, 2024 in follow-up on the selective care unit. He was transferred out of the intensive care unit yesterday. He is currently sitting up in a chair at the bedside. Awake and alert in mild respiratory distress. He is continued on Airvo high flow oxygen at 50 L and 60% FiO2. He is continued on baricitinib. Remains on vitamin supplements. Lovenox for DVT prophylaxis. Remains on bronchodilators and Solu-Medrol. White count 16.2. Hemoglobin 12.1. Platelets 339. Sodium 134. Potassium 3.8. Bicarb 29. BUN 43. Creatinine 1.06. Glucose 133. The patient is seen today March 29, 2024 in follow-up on the selective care unit. He is currently sitting up in a chair. Awake and alert in no acute distress. Feeling a bit better each day. He has been slow to progress. He is still on Airvo high flow oxygen at 50 L and 60% FiO2. He remains on baricitinib. Blood and sputum cultures remained with no growth. Glucose 139. On albuterol and Solu-Medrol. Lovenox for DVT prophylaxis. Objective - Vital Signs Vital signs: Vital Signs Temp 97.9 F 03/29/24 15:20 Pulse 81 03/29/24 15:20 Resp 22 03/29/24 15:20 BP 145/67 03/29/24 15:20 Pulse Ox 96 03/29/24 15:20 FiO2 60 03/29/24 15:20 Intake & Output 03/28/24 03/29/24 03/29/24 18:59 06:59 18:59 Intake Total 598 236 Output Total 600 800 600 Balance -2 -800 -364 Weight 77.2 kg Intake: Oral 598 236 Output: Urine 600 800 600 Other: Voiding Method External Catheter External Catheter External Catheter # Bowel Movements 1 - Exam GENERAL EXAM: Alert, 78-year-old male, up in a chair, having breakfast, on Airvo high flow oxygen, currently 50 L and 60% FiO2, comfortable in no apparent distress. HEAD: Normocephalic. EYES: Normal reaction of pupils, equal size. NOSE: Clear with pink turbinates. THROAT: No erythema or exudates. NECK: No masses, no JVD. CHEST: No chest wall deformity. LUNGS: Equal air entry with coarse crackles in the bilateral bases. CVS: S1 and S2 normal with no audible murmur, regular rhythm. ABDOMEN: No hepatosplenomegaly, normal bowel sounds, no guarding or rigidity. SPINE: No scoliosis or deformity SKIN: No rashes CENTRAL NERVOUS SYSTEM: No focal deficits, tone is normal in all 4 extremities. EXTREMITIES: There is no peripheral edema. No clubbing, no cyanosis. Per ipheral pulses are intact. - Labs CBC & Chem 7: 03/28/24 08:15 03/28/24 08:15 Labs: Abnormal Lab Results - Last 24 Hours (Table) 03/28/24 03/28/24 03/29/24 Range/Units 16:55 20:07 06:23 POC Glucose (mg/dL) 153 H 256 H 153 H (70-110) mg/dL 03/29/24 Range/Units 11:27 POC Glucose (mg/dL) 139 H (70-110) mg/dL Assessment and Plan Assessment: Acute hypoxic respiratory failure secondary to COVID-19 related pneumonia Acute COVID-19 infection/pneumonia Interstitial lung disease, patient had previous CT of the chest from 2019 showing mild interstitial lung disease associated with traction bronchiectasis Shortness of breath secondary to above Hypertension Hyperlipidemia History of coronary disease with remote history of myocardial infarction. The p nahun has 2 coronary stents inserted post [place] back in 2013 Plan: The patient was seen and evaluated Medications reviewed Currently on Airvo high flow oxygen at 50 L and 60% FiO2 Continue to titrate down the FiO2 as tolerated Continue the current treatment plan We will continue to follow I have personally seen and examined the patient, performed the documentation and the assessment and plan as written. Dictation was produced using [employer] dictation software. Please excuse any grammatical, word or spelling errors. This patient was seen in coordination with the pulmonary/critical care physi gabrielleDr. Diana junior. He did spend greater than 50% of the time evaluating, examining and developing the plan of care. He agrees to the above HPI, physical exam, assessment and plan of care as dictated by the nurse practitioner.
--- NOTE | 2024-03-29 15:44 | P.PN ---
Subjective Progress Note Date: 03/29/24 78 year old M with PMH of pulmonary fibrosis, GERD, BPH, HLD, HTN, CAD with stent presented to the ED on 03/16 for URI symptoms. In the ED he underwent extensive evaluation. T 102F, BP 139/70, HR 111, RR 20, 91% on 3L NC. Labs on admission show white blood cell count 7.9, hemoglobin 12.7, hematocrit 39.2, platelet 168, PT 11.4, PTT 25.7, INR 1.0, D-dimer 1.07, sodium 136, potassium 4.9, chloride 102, carbon dioxide 24, BUN 32, creatinine 1.97, glucose 157, troponin less than 0.012. EKG showed sinus tachycardia with a ventricular rate of 102 bpm, QTc interval of 386 ms, possible left atrial enlargement, left axis deviation, right bundle branch block. CXR showed reticulonodular infiltrate throughout the left lung may reflect atypical pneumonia. UA showed 1+ protein, negative for nitrites, trace leukocyte esterase. Initially admitted for sepsis due to atypical PNA, started on Rocephin/Azithromycin. COVID 19 test was positive. Started on Decadron. Pulmonary consulted, started on Baricitinib. Res piratory status worsened and he was transferred to ICU on BiPAP which was eventually transitioned to AirVo. Echo showed EF 50-55% with no regional wall motion abnormalities. CTA chest shows no PE, multifocal airspace opacities. 03/29 Patient was seen and examined. Patient reports improved breathing. He is on 50L NFNC FiO2 60. No new labs done today. General: not toxic, no distress, appears at stated age Derm: warm, dry Head: atraumatic, normocephalic, symmetric Eyes: EOMI, no lid lag, anicteric sclera Mouth: no lip lesion, mucus membranes moist Cardiovascular: S1S2 reg, no murmur Lungs: Decreased BS BL Ext: no gross muscle atrophy, no edema, no contractures Neuro: no focal neuro deficits Psych: Alert, oriented, appropriate affect Based on my assessment of this patient, this patient meets a high complexity level of care. Acute hypoxic respiratory failure secondary to COVID 19 PNA with history of pulmonary fibrosis: Completed course of Rocephin/Azithromycin. Albuterol INH QID + Q4H PRN. Baricitinib 4 mg PO QD. Robitussin DM 10 cc PO Q6H PRN. SoluMedrol 60 mg IV Q6H. Sepsis secondary to above Steroid induced hyperglycemia with Pre-DM: ISS. Accuchecks ACHS. Hypoglycemic precautions. Transaminitis: Possible related to COVID? Monitor. Recommend outpatient workup. Prerenal azotemia: Improved. Encourage hydration by mouth. Normocytic anemia: Stable with no signs of bleeding. Monitor. GERD: Pepcid 20 mg PO BID. BPH: Proscar 5 mg PO QD. Hypertenion: Amlodipine 2.5 mg PO QD. Losartan 100 mg PO QD. CAD: ASA 81 mg PO QD. Pravastatin 80 mg PO QD. CODE STATUS: FULL CODE DVT Prophylaxis: Lovenox SQ GI Prophylaxis: Pepcid BID Designated medical POA if patient is not able to make medical decisions for themselves: I have reviewed the following home care consultant notes: I have reviewed the results of the following tests: I have ordered the following tests: I have discussed the care of this patient with the following independent historian: I have independently interpreted the following test below: I have discussed the management of this patient with the following physician: Objective - Vital Signs Vital signs: Vital Signs Temp 97.9 F 03/29/24 15:20 Pulse 81 03/29/24 15:20 Resp 22 03/29/24 15:20 BP 145/67 03/29/24 15:20 Pulse Ox 96 03/29/24 15:20 FiO2 60 03/29/24 15:20 Intake & Output 03/28/24 03/29/24 03/29/24 18:59 06:59 18:59 Intake Total 598 236 Output Total 600 800 600 Balance -2 -800 -364 Weight 77.2 kg Intake: Oral 598 236 Output: Urine 600 800 600 Other: Voiding Method External Catheter External Catheter External Catheter # Bowel Movements 1 - Labs CBC & Chem 7: 03/28/24 08:15 03/28/24 08:15 Labs: Abnormal Lab Results - Last 24 Hours (Table) 03/28/24 03/28/24 03/29/24 Range/Units 16:55 20:07 06:23 POC Glucose (mg/dL) 153 H 256 H 153 H (70-110) mg/dL 03/29/24 Range/Units 11:27 POC Glucose (mg/dL) 139 H (70-110) mg/dL
[2024-03-29 16:52] LABS: Glucose,Whole Blood 261 mg/dL (70-110)
[2024-03-29 20:20] LABS: Glucose,Whole Blood 231 mg/dL (70-110)
[2024-03-30 05:53] LABS: Glucose,Whole Blood 158 mg/dL (70-110)
[2024-03-30 08:47] LABS: HCT 34.5 % (39.0-53.0); HGB 11.2 gm/dL (13.0-17.5); MCH 29.4 pg (25.0-35.0); MCHC 32.4 g/dL (31.0-37.0); Mean Platelet Volume 7.3; Platelet Count 328 k/uL (150-450); RDW 13.6 % (11.5-15.5); WBC 15.1 k/uL (3.8-10.6)
[2024-03-30 08:52] LABS: ALT 231 U/L (4-49); AST 70 U/L (17-59); African American GFR (CKD) 79 (>60 ml/min/1.73 sqM); Albumin 2.6 g/dL (3.5-5.0); Alkaline Phosphatase 121 U/L (38-126); Anion Gap 3 mmol/L; Blood Urea Nitrogen 42 mg/dL (9-20); Calcium 7.7 mg/dL (8.4-10.2); Carbon Dioxide 29 mmol/L (22-30); Chloride 102 mmol/L (98-107); Glucose 141 mg/dL (74-99); Non-African American GFR(CKD) 68 (>60 ml/min/1.73 sqM); Potassium 4.6 mmol/L (3.5-5.1); Sodium 134 mmol/L (137-145); Total Bilirubin 0.9 mg/dL (0.2-1.3); Total Protein 4.9 g/dL (6.3-8.2)
--- NOTE | 2024-03-30 10:21 | P.PN ---
Subjective Progress Note Date: 03/30/24 78 year old M with PMH of pulmonary fibrosis, GERD, BPH, HLD, HTN, CAD with stent presented to the ED on 03/16 for URI symptoms. In the ED he underwent extensive evaluation. T 102F, BP 139/70, HR 111, RR 20, 91% on 3L NC. Labs on admission show white blood cell count 7.9, hemoglobin 12.7, hematocrit 39.2, platelet 168, PT 11.4, PTT 25.7, INR 1.0, D-dimer 1.07, sodium 136, potassium 4.9, chloride 102, carbon dioxide 24, BUN 32, creatinine 1.97, glucose 157, troponin less than 0.012. EKG showed sinus tachycardia with a ventricular rate of 102 bpm, QTc interval of 386 ms, possible left atrial enlargement, left axis deviation, right bundle branch block. CXR showed reticulonodular infiltrate throughout the left lung may reflect atypical pneumonia. UA showed 1+ protein, negative for nitrites, trace leukocyte esterase. Initially admitted for sepsis due to atypical PNA, started on Rocephin/Azithromycin. COVID 19 test was positive. Started on Decadron. Pulmonary consulted, started on Baricitinib. Res piratory status worsened and he was transferred to ICU on BiPAP which was eventually transitioned to AirVo. Echo showed EF 50-55% with no regional wall motion abnormalities. CTA chest shows no PE, multifocal airspace opacities. 03/29 Patient was seen and examined. Patient reports improved breathing. He is on 50L NFNC FiO2 60. No new labs done today. 03/30 Patient was seen and examined. Breathing is stable. He is on 50L Airvo FiO2 60%. CBC and CMP significant for WBC 15.1, RBC 3.8, Hg 11.2, Hct 34.5, Na 134, BUN 42, glu 141, Ca 7.7, AST 70, ALT 231, alb 2.6. General: not toxic, no distress, appears at stated age Derm: warm, dry Head: atraumatic, normocephalic, symmetric Eyes: EOMI, no lid lag, anicteric sclera Mouth: no lip lesion, mucus membranes moist Cardiovascular: S1S2 reg, no murmur Lungs: Decreased BS BL Ext: no gross muscle atrophy, no edema, no contractures Neuro: no focal neuro deficits Psych: Alert, oriented, appropriate affect Based on my assessment of this patient, this patient meets a high complexity level of care. Acute hypoxic respiratory failure secondary to COVID 19 PNA with history of pulmonary fibrosis: Completed course of Rocephin/Azithromycin. Albuterol INH QID + Q4H PRN. Baricitinib 4 mg PO QD (09/05). Robitussin DM 10 cc PO Q6H PRN. SoluMedrol 60 mg IV Q6H. Sepsis secondary to above Steroid induced hyperglycemia with Pre-DM: ISS. Accuchecks ACHS. Hypoglycemic precautions. Transaminitis: Possible related to COVID? Monitor. Recommend outpatient workup. Prerenal azotemia: Improved. Encourage hydration by mouth. Normocytic anemia: Stable with no signs of bleeding. Monitor. GERD: Pepcid 20 mg PO BID. BPH: Proscar 5 mg PO QD. Hypertenion: Amlodipine 2.5 mg PO QD. Losartan 100 mg PO QD. CAD: ASA 81 mg PO QD. Pravastatin 80 mg PO QD. CODE STATUS: FULL CODE DVT Prophylaxis: Lovenox SQ GI Prophylaxis: Pepcid BID Designated medical POA if patient is not able to make medical decisions for themselves: I have reviewed the following provider relations consultant notes: Pulmonary note. I have reviewed the results of the following tests: CBC, CMP. I have ordered the following tests: I have discussed the care of this patient with the following independent historian: I have independently interpreted the following test below: I have discussed the management of this patient with the following physician: Objective - Vital Signs Vital signs: Vital Signs Temp 97.8 F 03/30/24 07:34 Pulse 61 03/30/24 07:34 Resp 24 03/30/24 07:34 BP 161/76 03/30/24 07:34 Pulse Ox 94 L 03/30/24 07:34 FiO2 60 03/30/24 07:58 Intake & Output 03/29/24 03/30/24 03/30/24 18:59 06:59 18:59 Intake Total 354 120 Output Total 600 1300 450 Balance -246 1180 -450 Weight 77.2 kg Intake: Oral 354 120 Output: Urine 600 1300 450 Other: Voiding Method External Catheter External Catheter External Catheter - Labs CBC & Chem 7: 03/30/24 07:12 03/30/24 07:12 Labs: Abnormal Lab Results - Last 24 Hours (Table) 12/31/24 12/31/24 12/31/24 Range/Units 11:27 16:48 20:18 WBC (3.8-10.6) k/uL RBC (4.30-5.90) m/uL Hgb (13.0-17.5) gm/dL Hct (39.0-53.0) % Sodium (137-145) mmol/L BUN (9-20) mg/dL Glucose (74-99) mg/dL POC Glucose (mg/dL) 139 H 261 H 231 H (70-110) mg/dL Calcium (8.4-10.2) mg/dL AST (17-59) U/L ALT (4-49) U/L Total Protein (6.3-8.2) g/dL Albumin (3.5-5.0) g/dL 03/30/24 03/30/24 03/30/24 Range/Units 05:51 07:12 07:12 WBC 15.1 H (3.8-10.6) k/uL RBC 3.80 L (4.30-5.90) m/uL Hgb 11.2 L (13.0-17.5) gm/dL Hct 34.5 L (39.0-53.0) % Sodium 134 L (137-145) mmol/L BUN 42 H (9-20) mg/dL Glucose 141 H (74-99) mg/dL POC Glucose (mg/dL) 158 H (70-110) mg/dL Calcium 7.7 L (8.4-10.2) mg/dL AST 70 H (17-59) U/L ALT 231 H (4-49) U/L Total Protein 4.9 L (6.3-8.2) g/dL Albumin 2.6 L (3.5-5.0) g/dL
[2024-03-30 11:39] LABS: Glucose,Whole Blood 284 mg/dL (70-110)
--- NOTE | 2024-03-30 14:47 | P.PN ---
Subjective Progress Note Date: 03/30/24 Principal diagnosis: Pneumonia. This is a 78-year-old male patient who is currently hospitalized for an acute hypoxic respiratory failure and COVID-19 related pneumonia. The patient is currently on Airvo at 45 L with an FiO2 of 60%. I reviewed the series of chest x-ray that was done on this patient during this current admission. The patient may have underlying chronic ILD. Nevertheless, the patient developed progressive worsening in the bilateral pulmonary filtrates and the patient has developed some increased hazy opacities bilaterally consistent with COVID-19 related pneumonia. Noted his symptoms started around 2 days prior to his current admission and the patient's is also infected with the same virus. His D-dimer was mildly elevated at 1.07. Doppler of the lower extremities done today was negative. Perfusion scan was up and intermediate probability. He has seen Dr. Terrence Maynard and the patient has undergone a bronchoscopy few months back which I am assuming was done as part of investigation for chronic interstitial lung disease. The patient is on no immunosuppressant. 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 No coronary artery disease. No active smoking. The white cell count of 5.8 with a hemoglobin 12.7 and a platelet count of 154. Sodium is at 139, BUN is 18 with a creatinine of 1.1 and a potassium level of 4.7. The viral screen was positive for COVID-19. His procalcitonin level was at 0.7. His CRP is at 14.5 with an LDH of 600. The patient has received vaccination in the past. No previous history of COVID-19 infection. No rep orted aspiration. He is currently on IV steroids and the patient is receiving Solu-Medrol 60 mg every 6 hours. The patient is also on Lovenox 40 mg subcu for DVT prophylaxis. Antibiotic coverage is essentially empiric. He is afebrile. No significant tachycardia or tachypnea. On 03/20/2024, the patient is comfortable. Slightly more short of breath. Nevertheless, he is having episodes of oxygen desaturations with limited amount of mobility. Earlier this morning, while having his x-ray, the patient's pulse ox dropped down to the 60s. The chest x-ray showed diffuse interstitial and alveolar opacification consistent with COVID-19 related pneumonia. The patient remains on IV Solu-Medrol. The patient remains on Airvo and this was adjusted to 60 L and FiO2 of 90%. LDH level was elevated in the 600 range. Doppler of the lower extremities were negative. D-dimer is at 1.07. Electrolytes are all stable and sodium levels at 139, potassium is at 4.7, BUN is 18 with a creatinine of 1.1. The white cell count is currently at 10.1 with a hemoglobin 12.2 and a platelet count is at 162. Hemodynamically stable. Cardiac rhythm is sinus. Denies having any other significant complaints. Awake and alert and communicating. Patient was seen today on 03/21/2024, remains in the icu, remains on Airvo, patient is on 60 L flow 90% FiO2, he is also on baricitinib day #2, patient is marginal at best. O2 saturation is in the 80s and sometimes in the 70s patient is doing well, and I am aware that he may end up requiring intubation mechanical ventilation, I recommended BiPAP 03/04/100% and will transition from Airvo to BiPAP. Chest x-ray shows bilateral interstitial infiltrates. Looking at the previous CT of the chest, patient did have underlying interstitial lung disease which was relatively mild to begin with in 2019. But nonetheless he did have findings of interstitial lung disease and bronchiectasis noted on previous CT of the chest done at [facility]. His labs today WBC is 8.2 hemoglobin is 11.6, electrolytes are normal BUN is 36 creatinine 1.07, last procalcitonin was 0.41 the 1 prior was 0.73. LDH is high 600. Seen today on 03/22/2024, patient is feeling better today compared to yesterday, maintaining adequate O2 saturations he is on 60 L flow and 90% FiO2 he was on BiPAP last night 03/04/100%. Chest x-ray is showing improvement O2 saturation is improved he is now in the 90s remains on baricitinib day number 3 out of 14 remains on Solu-Medrol 60 every 6 remains on Lovenox. Chest x-ray is showing slight improvement clinically the patient is slightly improved hence we will continue the same and I will continue to monitor the patient in the ICU. CBC is relatively normal basic metabolic profile is normal BUN is 41 creatinine 1.03 Patient was seen today on 03/23/2024, slight improvement clinically chest x-ray slightly improved remains on 90% FiO2 and 60 L flow via Airvo. Patient has no cough, chest pain no fever no chills no hemoptysis. Improvement clinically and radiographically noted, hence we will titrate his FiO2 down from 90% to the 80% or maybe 70% if possible. CBC is normal basic metabolic profile is normal BUN is 47 creatinine 0.99 Patient was seen today on 03/24/2024, patient remains in the ICU, remains on Airvo at 70% FiO2 and 40 L flow. Remains on Solu-Medrol, he is also on baricitinib and he is on Lovenox. Slight improvement chest x-ray is basically about the same, minimal improvement clinically but nonetheless the patient is not getting any worse WBC count is 10.4 hemoglobin is 12 electrolytes are normal renal profile is normal Patient is was seen today on 03/25/2024, patient remains in the ICU, remains on Airvo at 80% FiO2 45 L flow, patient is noticing some improvement chest x-ray is basically about the same physical examination is about the same. Patient overall is about the same. Patient remains on baricitinib and he remains on steroids. WBC count is 12.3 hemoglobin 12.3 basic metabolic profile is normal BUN is 45 creatinine 1.13 Patient seen today , still requiring relatively high FiO2 with Airvo at 75% FiO2 and 50 L flow, patient is about the same, continues to desaturate with any activity. His chest x-ray is showing slight improvement in his atypical pneumonia, hence I am recommending today a CT angiogram on this patient to rule out underlying thromboembolic disease. In the meantime patient remains on baricitinib, remains on steroids, and improvement is rather extremely minimal. Patient was seen today on 03/27/2024, remains in the ICU, remains on Airvo at 70% FiO2 and 50 L flow O2 sat remains in the low 90s up to 95%. IV fluid is now to KVO, CT angiogram of the chest showed no evidence of pulmonary embolism. Patient remains on Solu-Medrol, Lovenox, bosutinib, and his echocardiogram showed good LV function, I plan to transfer the patient out of the ICU today to 3 S. Today showed relatively normal CBC, normal electrolytes, normal renal profile, The patient is seen today March 28, 2024 in follow-up on the selective care unit. He was transferred out of the intensive care unit yesterday. He is currently sitting up in a chair at the bedside. Awake and alert in mild respiratory distress. He is continued on Airvo high flow oxygen at 50 L and 60% FiO2. He is continued on baricitinib. Remains on vitamin supplements. Lovenox for DVT prophylaxis. Remains on bronchodilators and Solu-Medrol. White count 16.2. Hemoglobin 12.1. Platelets 339. Sodium 134. Potassium 3.8. Bicarb 29. BUN 43. Creatinine 1.06. Glucose 133. The patient is seen today March 29, 2024 in follow-up on the selective care unit. He is currently sitting up in a chair. Awake and alert in no acute distress. Feeling a bit better each day. He has been slow to progress. He is still on Airvo high flow oxygen at 50 L and 60% FiO2. He remains on baricitinib. Blood and sputum cultures remained with no growth. Glucose 139. On albuterol and Solu-Medrol. Lovenox for DVT prophylaxis. Progress note dated March 30, 2024. 78-year-old male seen today in room 381. The patient was admitted with the diagnosis of pneumonia. The patient is currently on Airvo, at 50 L/min with an FiO2 of 55%. He is not receiving any IV fluids. He is resting comfortably in the room, sitting in the chair next to his hospital bed. The patient states that he is doing better. He denies any significant or worsening shortness of breath, cough, wheezing, chest tightness, or phlegm production. Current laboratory data includes a white count 15.1, hemoglobin 9.2, hematocrit 34.5, p latelet count of 328,000. Sodium 134, potassium 4.6, chlorides 102, CO2 29, BUN 42, creatinine 1.06. Glucose 284. Calcium 7.7. Albumin 2.6. Him and blood sampling, has been negative. Objective - Vital Signs Vital signs: Vital Signs Temp 97.8 F 03/30/24 07:34 Pulse 77 03/30/24 13:14 Resp 22 03/30/24 11:31 BP 139/63 03/30/24 11:31 Pulse Ox 90 L 03/30/24 11:41 FiO2 55 03/30/24 11:41 Intake & Output 03/29/24 03/30/24 03/30/24 18:59 06:59 18:59 Intake Total 354 120 118 Output Total 600 1300 450 Balance -308 -1180 -332 Weight 77.2 kg Intake: Oral 354 120 118 Output: Urine 600 1300 450 Other: Voiding Method External Catheter External Catheter External Catheter - Exam No acute distress, oriented 3. Airvo in place. HEENT examination is grossly unremarkable. Mucous membranes are moist. No oral lesions. Neck supple. Full range of motion. No adenopathy thyromegaly or neck vein distention. Cardiovascular examination reveals regular rhythm rate. S1-S2 normal. No S3 or S4. No discernible murmur noted. Lungs reveal basilar rhonchi and crackles. No wheezes. Breath sounds equal bilaterally. Abdomen soft bowel sounds are heard. No masses or tenderness. Extremities are intact. No cyanosis clubbing or edema. Skin is without rash or lesion. Neurologic examination is brief but nonfocal. - Labs CBC & Chem 7: 03/30/24 07:12 03/30/24 07:12 Labs: Abnormal Lab Results - Last 24 Hours (Table) 03/29/24 03/29/24 03/30/24 Range/Units 16:48 20:18 05:51 WBC (3.8-10.6) k/uL RBC (4.30-5.90) m/uL Hgb (13.0-17.5) gm/dL Hct (39.0-53.0) % Sodium (137-145) mmol/L BUN (9-20) mg/dL Glucose (74-99) mg/dL POC Glucose (mg/dL) 261 H 231 H 158 H (70-110) mg/dL Calcium (8.4-10.2) mg/dL AST (17-59) U/L ALT (4-49) U/L Total Protein (6.3-8.2) g/dL Albumin (3.5-5.0) g/dL 03/30/24 03/30/24 03/30/24 Range/Units 07:12 07:12 11:31 WBC 15.1 H (3.8-10.6) k/uL RBC 3.80 L (4.30-5.90) m/uL Hgb 11.2 L (13.0-17.5) gm/dL Hct 34.5 L (39.0-53.0) % Sodium 134 L (137-145) mmol/L BUN 42 H (9-20) mg/dL Glucose 141 H (74-99) mg/dL POC Glucose (mg/dL) 284 H (70-110) mg/dL Calcium 7.7 L (8.4-10.2) mg/dL AST 70 H (17-59) U/L ALT 231 H (4-49) U/L Total Protein 4.9 L (6.3-8.2) g/dL Albumin 2.6 L (3.5-5.0) g/dL Assessment and Plan Assessment: Acute hypoxic respiratory failure secondary to COVID-19 related pneumonia. Acute COVID-19 infection/pneumonia. Interstitial lung disease, patient had previous CT of the chest from 2019 showing mild interstitial lung disease associated with traction bronchiectasis. Shortness of breath secondary to above. Hypertension. Hyperlipidemia. Prior history of PCI/stents. History of coronary disease with remote history of myocardial infarction. Plan: Plan dated March 30, 2024. The patient is seen today in room 381. Labs, x-rays, and medications are reviewed. The patient continues on Airvo, with settings of 50 L/min and an FiO2 of 55%. He is not receiving any IV fluids. Labs, x-rays, and all medications are reviewed. The patient continues on albuterol inhaler, as well as corticosteroids. We will continue to follow. Prognosis is guarded. The patient remains a full code. Time with Patient: Less than 30
[2024-03-30 16:21] LABS: Glucose,Whole Blood 142 mg/dL (70-110)
[2024-03-30 20:01] LABS: Glucose,Whole Blood 267 mg/dL (70-110)
[2024-03-31 05:42] LABS: Glucose,Whole Blood 181 mg/dL (70-110)
[2024-03-31 11:21] LABS: Glucose,Whole Blood 190 mg/dL (70-110)
--- NOTE | 2024-03-31 13:11 | P.PN ---
Subjective Progress Note Date: 03/31/24 78 year old M with PMH of pulmonary fibrosis, GERD, BPH, HLD, HTN, CAD with stent presented to the ED on 03/16 for URI symptoms. In the ED he underwent extensive evaluation. T 102F, BP 139/70, HR 111, RR 20, 91% on 3L NC. Labs on admission show white blood cell count 7.9, hemoglobin 12.7, hematocrit 39.2, platelet 168, PT 11.4, PTT 25.7, INR 1.0, D-dimer 1.07, sodium 136, potassium 4.9, chloride 102, carbon dioxide 24, BUN 32, creatinine 1.97, glucose 157, troponin less than 0.012. EKG showed sinus tachycardia with a ventricular rate of 102 bpm, QTc interval of 386 ms, possible left atrial enlargement, left axis deviation, right bundle branch block. CXR showed reticulonodular infiltrate throughout the left lung may reflect atypical pneumonia. UA showed 1+ protein, negative for nitrites, trace leukocyte esterase. Initially admitted for sepsis due to atypical PNA, started on Rocephin/Azithromycin. COVID 19 test was positive. Started on Decadron. Pulmonary consulted, started on Baricitinib. Res piratory status worsened and he was transferred to ICU on BiPAP which was eventually transitioned to AirVo. Echo showed EF 50-55% with no regional wall motion abnormalities. CTA chest shows no PE, multifocal airspace opacities. 03/29 Patient was seen and examined. Patient reports improved breathing. He is on 50L NFNC FiO2 60. No new labs done today. 03/30 Patient was seen and examined. Breathing is stable. He is on 50L Airvo FiO2 60%. CBC and CMP significant for WBC 15.1, RBC 3.8, Hg 11.2, Hct 34.5, Na 134, BUN 42, glu 141, Ca 7.7, AST 70, ALT 231, alb 2.6. 03/31 Patient was seen and examined. Breathing is stable. He is on 50L Airvo FiO2 45%. POC glucose 142-284 over the past 24H. No new labs done today. General: not toxic, no distress, appears at stated age Derm: warm, dry Head: atraumatic, normocephalic, symmetric Eyes: EOMI, no lid lag, anicteric sclera Mouth: no lip lesion, mucus membranes moist Cardiovascular: S1S2 reg, no murmur Lungs: Decreased BS BL Ext: no gross muscle atrophy, no edema, no contractures Neuro: no focal neuro deficits Psych: Alert, oriented, appropriate affect Based on my assessment of this patient, this patient meets a high complexity level of care. Acute hypoxic respiratory failure secondary to COVID 19 PNA with history of pulmonary fibrosis: Completed course of Rocephin/Azithromycin. Albuterol INH QID + Q4H PRN. Baricitinib 4 mg PO QD (10/05). Robitussin DM 10 cc PO Q6H PRN. SoluMedrol 60 mg IV Q6H. Sepsis secondary to above Steroid induced hyperglycemia with Pre-DM: ISS. Accuchecks ACHS. Hypoglycemic precautions. Transaminitis: Possible related to COVID? Monitor. Recommend outpatient workup. Prerenal azotemia: Improved. Encourage hydration by mouth. Normocytic anemia: Stable with no signs of bleeding. Monitor. GERD: Pepcid 20 mg PO BID. BPH: Proscar 5 mg PO QD. Hypertenion: Amlodipine 2.5 mg PO QD. Losartan 100 mg PO QD. CAD: ASA 81 mg PO QD. Pravastatin 80 mg PO QD. CODE STATUS: FULL CODE DVT Prophylaxis: Lovenox SQ GI Prophylaxis: Pepcid BID Designated medical POA if patient is not able to make medical decisions for themselves: I have reviewed the following publicity consultant notes: Pulmonary note. I have reviewed the results of the following tests: POC glucose. I have ordered the following tests: I have discussed the care of this patient with the following independent historian: I have independently interpreted the following test below: I have discussed the management of this patient with the following physician: Objective - Vital Signs Vital signs: Vital Signs Temp 97.9 F 03/31/24 09:27 Pulse 93 03/31/24 12:21 Resp 25 H 03/31/24 12:21 BP 175/79 03/31/24 12:21 Pulse Ox 90 L 03/31/24 12:21 FiO2 45 03/31/24 12:21 Intake & Output 03/30/24 03/31/24 03/31/24 18:59 06:59 18:59 Intake Total 354 120 180 Output Total 1016 203 4214 Balance - Weight 77.4 kg Intake: Oral 354 120 180 Output: Urine 8254 260 7193 Other: Voiding Method External Catheter External Catheter External Catheter # Bowel Movements 1 1 - Labs CBC & Chem 7: 03/30/24 07:12 03/30/24 07:12 Labs: Abnormal Lab Results - Last 24 Hours (Table) 03/30/24 03/30/24 03/31/24 Range/Units 16:19 19:57 05:40 POC Glucose (mg/dL) 142 H 267 H 181 H (70-110) mg/dL 03/31/24 Range/Units 11:20 POC Glucose (mg/dL) 190 H (70-110) mg/dL
--- NOTE | 2024-03-31 14:17 | P.PN ---
Subjective Progress Note Date: 03/31/24 Principal diagnosis: Pneumonia. This is a 78-year-old male patient who is currently hospitalized for an acute hypoxic respiratory failure and COVID-19 related pneumonia. The patient is currently on Airvo at 45 L with an FiO2 of 60%. I reviewed the series of chest x-ray that was done on this patient during this current admission. The patient may have underlying chronic ILD. Nevertheless, the patient developed progressive worsening in the bilateral pulmonary filtrates and the patient has developed some increased hazy opacities bilaterally consistent with COVID-19 related pneumonia. Noted his symptoms started around 2 days prior to his current admission and the patient's is also infected with the same virus. His D-dimer was mildly elevated at 1.07. Doppler of the lower extremities done today was negative. Perfusion scan was up and intermediate probability. He has seen Dr. Terrence Maynard and the patient has undergone a bronchoscopy few months back which I am assuming was done as part of investigation for chronic interstitial lung disease. The patient is on no immunosuppressant. 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 No coronary artery disease. No active smoking. The white cell count of 5.8 with a hemoglobin 12.7 and a platelet count of 154. Sodium is at 139, BUN is 18 with a creatinine of 1.1 and a potassium level of 4.7. The viral screen was positive for COVID-19. His procalcitonin level was at 0.7. His CRP is at 14.5 with an LDH of 600. The patient has received vaccination in the past. No previous history of COVID-19 infection. No rep orted aspiration. He is currently on IV steroids and the patient is receiving Solu-Medrol 60 mg every 6 hours. The patient is also on Lovenox 40 mg subcu for DVT prophylaxis. Antibiotic coverage is essentially empiric. He is afebrile. No significant tachycardia or tachypnea. On 03/20/2024, the patient is comfortable. Slightly more short of breath. Nevertheless, he is having episodes of oxygen desaturations with limited amount of mobility. Earlier this morning, while having his x-ray, the patient's pulse ox dropped down to the 60s. The chest x-ray showed diffuse interstitial and alveolar opacification consistent with COVID-19 related pneumonia. The patient remains on IV Solu-Medrol. The patient remains on Airvo and this was adjusted to 60 L and FiO2 of 90%. LDH level was elevated in the 600 range. Doppler of the lower extremities were negative. D-dimer is at 1.07. Electrolytes are all stable and sodium levels at 139, potassium is at 4.7, BUN is 18 with a creatinine of 1.1. The white cell count is currently at 10.1 with a hemoglobin 12.2 and a platelet count is at 162. Hemodynamically stable. Cardiac rhythm is sinus. Denies having any other significant complaints. Awake and alert and communicating. Patient was seen today on 03/21/2024, remains in the icu, remains on Airvo, patient is on 60 L flow 90% FiO2, he is also on baricitinib day #2, patient is marginal at best. O2 saturation is in the 80s and sometimes in the 70s patient is doing well, and I am aware that he may end up requiring intubation mechanical ventilation, I recommended BiPAP 03/04/100% and will transition from Airvo to BiPAP. Chest x-ray shows bilateral interstitial infiltrates. Looking at the previous CT of the chest, patient did have underlying interstitial lung disease which was relatively mild to begin with in 2019. But nonetheless he did have findings of interstitial lung disease and bronchiectasis noted on previous CT of the chest done at [facility]. His labs today WBC is 8.2 hemoglobin is 11.6, electrolytes are normal BUN is 36 creatinine 1.07, last procalcitonin was 0.41 the 1 prior was 0.73. LDH is high 600. Seen today on 03/22/2024, patient is feeling better today compared to yesterday, maintaining adequate O2 saturations he is on 60 L flow and 90% FiO2 he was on BiPAP last night 03/04/100%. Chest x-ray is showing improvement O2 saturation is improved he is now in the 90s remains on baricitinib day number 3 out of 14 remains on Solu-Medrol 60 every 6 remains on Lovenox. Chest x-ray is showing slight improvement clinically the patient is slightly improved hence we will continue the same and I will continue to monitor the patient in the ICU. CBC is relatively normal basic metabolic profile is normal BUN is 41 creatinine 1.03 Patient was seen today on 03/23/2024, slight improvement clinically chest x-ray slightly improved remains on 90% FiO2 and 60 L flow via Airvo. Patient has no cough, chest pain no fever no chills no hemoptysis. Improvement clinically and radiographically noted, hence we will titrate his FiO2 down from 90% to the 80% or maybe 70% if possible. CBC is normal basic metabolic profile is normal BUN is 47 creatinine 0.99 Patient was seen today on 03/24/2024, patient remains in the ICU, remains on Airvo at 70% FiO2 and 40 L flow. Remains on Solu-Medrol, he is also on baricitinib and he is on Lovenox. Slight improvement chest x-ray is basically about the same, minimal improvement clinically but nonetheless the patient is not getting any worse WBC count is 10.4 hemoglobin is 12 electrolytes are normal renal profile is normal Patient is was seen today on 03/25/2024, patient remains in the ICU, remains on Airvo at 80% FiO2 45 L flow, patient is noticing some improvement chest x-ray is basically about the same physical examination is about the same. Patient overall is about the same. Patient remains on baricitinib and he remains on steroids. WBC count is 12.3 hemoglobin 12.3 basic metabolic profile is normal BUN is 45 creatinine 1.13 Patient seen today , still requiring relatively high FiO2 with Airvo at 75% FiO2 and 50 L flow, patient is about the same, continues to desaturate with any activity. His chest x-ray is showing slight improvement in his atypical pneumonia, hence I am recommending today a CT angiogram on this patient to rule out underlying thromboembolic disease. In the meantime patient remains on baricitinib, remains on steroids, and improvement is rather extremely minimal. Patient was seen today on 03/27/2024, remains in the ICU, remains on Airvo at 70% FiO2 and 50 L flow O2 sat remains in the low 90s up to 95%. IV fluid is now to KVO, CT angiogram of the chest showed no evidence of pulmonary embolism. Patient remains on Solu-Medrol, Lovenox, bosutinib, and his echocardiogram showed good LV function, I plan to transfer the patient out of the ICU today to 3 S. Today showed relatively normal CBC, normal electrolytes, normal renal profile, The patient is seen today March 28, 2024 in follow-up on the selective care unit. He was transferred out of the intensive care unit yesterday. He is currently sitting up in a chair at the bedside. Awake and alert in mild respiratory distress. He is continued on Airvo high flow oxygen at 50 L and 60% FiO2. He is continued on baricitinib. Remains on vitamin supplements. Lovenox for DVT prophylaxis. Remains on bronchodilators and Solu-Medrol. White count 16.2. Hemoglobin 12.1. Platelets 339. Sodium 134. Potassium 3.8. Bicarb 29. BUN 43. Creatinine 1.06. Glucose 133. The patient is seen today March 29, 2024 in follow-up on the selective care unit. He is currently sitting up in a chair. Awake and alert in no acute distress. Feeling a bit better each day. He has been slow to progress. He is still on Airvo high flow oxygen at 50 L and 60% FiO2. He remains on baricitinib. Blood and sputum cultures remained with no growth. Glucose 139. On albuterol and Solu-Medrol. Lovenox for DVT prophylaxis. Progress note dated March 30, 2024. 78-year-old male seen today in room 381. The patient was admitted with the diagnosis of pneumonia. The patient is currently on Airvo, at 50 L/min with an FiO2 of 55%. He is not receiving any IV fluids. He is resting comfortably in the room, sitting in the chair next to his hospital bed. The patient states that he is doing better. He denies any significant or worsening shortness of breath, cough, wheezing, chest tightness, or phlegm production. Current laboratory data includes a white count 15.1, hemoglobin 9.2, hematocrit 34.5, p latelet count of 328,000. Sodium 134, potassium 4.6, chlorides 102, CO2 29, BUN 42, creatinine 1.06. Glucose 284. Calcium 7.7. Albumin 2.6. Him and blood sampling, has been negative. Progress note dated March 31, 2024. 78-year-old male seen today in room 381. The patient is sitting in a chair next to the hospital bed. He remains on Airvo. He is at 50 L/min with an FiO2 50%. He is not receiving any IV fluids. His Solu-Medrol can be converted to prednisone 40 mg today. He continues on baricitinib at 4 mg a day. No new labs today other than a glucose of 190. Objective - Vital Signs Vital signs: Vital Signs Temp 97.9 F 03/31/24 09:27 Pulse 93 03/31/24 12:21 Resp 25 H 03/31/24 12:21 BP 175/79 03/31/24 12:21 Pulse Ox 90 L 03/31/24 12:21 FiO2 45 03/31/24 12:21 Intake & Output 03/30/24 03/31/24 03/31/24 18:59 06:59 18:59 Intake Total 354 120 360 Output Total 0485 724 8966 Balance -996 -80 -840 Weight 77.4 kg Intake: Oral 354 120 360 Output: Urine 9267 108 9296 Other: Voiding Method External Catheter External Catheter External Catheter # Bowel Movements 1 1 - Exam No acute distress, oriented 3. Airvo in place. HEENT examination is grossly unremarkable. Mucous membranes are moist. No oral lesions. Neck supple. Full range of motion. No adenopathy thyromegaly or neck vein distention. Cardiovascular examination reveals regular rhythm rate. S1-S2 normal. No S3 or S4. No discernible murmur noted. Lungs reveal basilar rhonchi and crackles. No wheezes. Breath sounds equal bilaterally. Abdomen soft bowel sounds are heard. No masses or tenderness. Extremities are intact. No cyanosis clubbing or edema. Skin is without rash or lesion. Neurologic examination is brief but nonfocal. - Labs CBC & Chem 7: 03/30/24 07:12 03/30/24 07:12 Labs: Abnormal Lab Results - Last 24 Hours (Table) 03/30/24 03/30/24 03/31/24 Range/Units 16:19 19:57 05:40 POC Glucose (mg/dL) 142 H 267 H 181 H (70-110) mg/dL 03/31/24 Range/Units 11:20 POC Glucose (mg/dL) 190 H (70-110) mg/dL Assessment and Plan Assessment: Acute hypoxic respiratory failure secondary to COVID-19 related pneumonia. Acute COVID-19 infection/pneumonia. Interstitial lung disease, patient had previous CT of the chest from 2019 showing mild interstitial lung disease associated with traction bronchiectasis. Shortness of breath secondary to above. Hypertension. Hyperlipidemia. Prior history of PCI/stents. History of coronary disease with remote history of myocardial infarction. Plan: Plan dated March 30, 2024. The patient is seen today in room 381. Labs, x-rays, and medications are reviewed. The patient continues on Airvo, with settings of 50 L/min and an FiO2 of 55%. He is not receiving any IV fluids. Labs, x-rays, and all medications are reviewed. The patient continues on albuterol inhaler, as well as co rticosteroids. We will continue to follow. Prognosis is guarded. The patient remains a full code. Plan dated March 31, 2024. The patient is seen today in room 381. He is sitting in a chair next to his hospital bed. The patient continues on Airvo. His settings include 50 L/min with an FiO2 of 45%. He is not receiving any IV fluids. We switch his Solu- Medrol to prednisone 40 mg a day. He continues on baricitinib 4 mg a day. Labs, x-rays, and medications are reviewed. Clinically, the patient appears to be improving. We will continue to follow the patient, and make recommendations where appropriate. Time with Patient: Less than 30
[2024-03-31 16:22] LABS: Glucose,Whole Blood 222 mg/dL (70-110)
[2024-03-31 20:16] LABS: Glucose,Whole Blood 203 mg/dL (70-110)
[2024-04-01 06:17] LABS: Glucose,Whole Blood 168 mg/dL (70-110)
[2024-04-01 07:09] LABS: African American GFR (CKD) 72 (>60 ml/min/1.73 sqM); Non-African American GFR(CKD) 63 (>60 ml/min/1.73 sqM)
[2024-04-01] MEDS: predniSONE 20 MG TAB PO SCH (09:14)
[2024-04-01 11:33] LABS: Glucose,Whole Blood 123 mg/dL (70-110)
--- NOTE | 2024-04-01 13:55 | P.PN ---
Subjective Progress Note Date: 04/01/24 78 year old M with PMH of pulmonary fibrosis, GERD, BPH, HLD, HTN, CAD with stent presented to the ED on 03/16 for URI symptoms. In the ED he underwent extensive evaluation. T 102F, BP 139/70, HR 111, RR 20, 91% on 3L NC. Labs on admission show white blood cell count 7.9, hemoglobin 12.7, hematocrit 39.2, platelet 168, PT 11.4, PTT 25.7, INR 1.0, D-dimer 1.07, sodium 136, potassium 4.9, chloride 102, carbon dioxide 24, BUN 32, creatinine 1.97, glucose 157, troponin less than 0.012. EKG showed sinus tachycardia with a ventricular rate of 102 bpm, QTc interval of 386 ms, possible left atrial enlargement, left axis deviation, right bundle branch block. CXR showed reticulonodular infiltrate throughout the left lung may reflect atypical pneumonia. UA showed 1+ protein, negative for nitrites, trace leukocyte esterase. Initially admitted for sepsis due to atypical PNA, started on Rocephin/Azithromycin. COVID 19 test was positive. Started on Decadron. Pulmonary consulted, started on Baricitinib. Res piratory status worsened and he was transferred to ICU on BiPAP which was eventually transitioned to AirVo. Echo showed EF 50-55% with no regional wall motion abnormalities. CTA chest shows no PE, multifocal airspace opacities. 03/29 Patient was seen and examined. Patient reports improved breathing. He is on 50L NFNC FiO2 60. No new labs done today. 03/30 Patient was seen and examined. Breathing is stable. He is on 50L Airvo FiO2 60%. CBC and CMP significant for WBC 15.1, RBC 3.8, Hg 11.2, Hct 34.5, Na 134, BUN 42, glu 141, Ca 7.7, AST 70, ALT 231, alb 2.6. 03/31 Patient was seen and examined. Breathing is stable. He is on 50L Airvo FiO2 45%. POC glucose 142-284 over the past 24H. No new labs done today. 04/01 Patient was seen and examined. Breathing is stable. He is on 45L Airvo FiO2 45%. POC glucose 123-222 over the past 24H. Renal function is within normal limits. General: not toxic, no distress, appears at stated age Derm: warm, dry Head: atraumatic, normocephalic, symmetric Eyes: EOMI, no lid lag, anicteric sclera Mouth: no lip lesion, mucus membranes moist Cardiovascular: S1S2 reg, no murmur Lungs: Decreased BS BL Ext: no gross muscle atrophy, no edema, no contractures Neuro: no focal neuro deficits Psych: Alert, oriented, appropriate affect Based on my assessment of this patient, this patient meets a high complexity level of care. Acute hypoxic respiratory failure secondary to COVID 19 PNA with history of pulmonary fibrosis: Completed course of Rocephin/Azithromycin. Albuterol INH QID + Q4H PRN. Baricitinib 4 mg PO QD (11/05). Robitussin DM 10 cc PO Q6H PRN. SoluMedrol switched to Prednisone 40 mg PO QD. Sepsis secondary to above Steroid induced hyperglycemia with Pre-DM: ISS. Accuchecks ACHS. Hypoglycemic precautions. Transaminitis: Possible related to COVID? Monitor. Recommend outpatient workup. Prerenal azotemia: Improved. Encourage hydration by mouth. Normocytic anemia: Stable with no signs of bleeding. Monitor. GERD: Pepcid 20 mg PO BID. BPH: Proscar 5 mg PO QD. Hypertenion: Amlodipine 2.5 mg PO QD. Losartan 100 mg PO QD. CAD: ASA 81 mg PO QD. Pravastatin 80 mg PO QD. CODE STATUS: FULL CODE DVT Prophylaxis: Lovenox SQ GI Prophylaxis: Pepcid BID Designated medical POA if patient is not able to make medical decisions for themselves: I have reviewed the following travel consultant notes: Pulmonary note. I have reviewed the results of the following tests: POC glucose. Renal function. I have ordered the following tests: I have discussed the care of this patient with the following independent historian: I have independently interpreted the following test below: I have discussed the management of this patient with the following physician: Objective - Vital Signs Vital signs: Vital Signs Temp 97.9 F 04/01/24 11:55 Pulse 65 04/01/24 11:55 Resp 18 04/01/24 11:55 BP 146/70 04/01/24 11:55 Pulse Ox 100 04/01/24 11:55 FiO2 45 04/01/24 12:58 Intake & Output 03/31/24 04/01/24 04/01/24 18:59 06:59 18:59 Intake Total 540 1140 476 Output Total 1999 1100 800 Balance -1460 40 -324 Weight 77.5 kg Intake: Oral 540 1140 476 Output: Urine 1999 1100 800 Other: Voiding Method External Catheter External Catheter External Catheter # Bowel Movements 1 - Labs CBC & Chem 7: 03/30/24 07:12 04/01/24 06:30 Labs: Abnormal Lab Results - Last 24 Hours (Table) 03/31/24 03/31/24 04/01/24 Range/Units 16:21 20:14 06:15 POC Glucose (mg/dL) 222 H 203 H 168 H (70-110) mg/dL 04/01/24 Range/Units 11:29 POC Glucose (mg/dL) 123 H (70-110) mg/dL
--- NOTE | 2024-04-01 15:12 | P.PN ---
Subjective Progress Note Date: 04/01/24 Principal diagnosis: Pneumonia. This is a 78-year-old male patient who is currently hospitalized for an acute hypoxic respiratory failure and COVID-19 related pneumonia. The patient is currently on Airvo at 45 L with an FiO2 of 60%. I reviewed the series of chest x-ray that was done on this patient during this current admission. The patient may have underlying chronic ILD. Nevertheless, the patient developed progressive worsening in the bilateral pulmonary filtrates and the patient has developed some increased hazy opacities bilaterally consistent with COVID-19 related pneumonia. Noted his symptoms started around 2 days prior to his current admission and the patient's is also infected with the same virus. His D-dimer was mildly elevated at 1.07. Doppler of the lower extremities done today was negative. Perfusion scan was up and intermediate probability. He has seen Dr. Terrence Maynard and the patient has undergone a bronchoscopy few months back which I am assuming was done as part of investigation for chronic interstitial lung disease. The patient is on no immunosuppressant. 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 No coronary artery disease. No active smoking. The white cell count of 5.8 with a hemoglobin 12.7 and a platelet count of 154. Sodium is at 139, BUN is 18 with a creatinine of 1.1 and a potassium level of 4.7. The viral screen was positive for COVID-19. His procalcitonin level was at 0.7. His CRP is at 14.5 with an LDH of 600. The patient has received vaccination in the past. No previous history of COVID-19 infection. No rep orted aspiration. He is currently on IV steroids and the patient is receiving Solu-Medrol 60 mg every 6 hours. The patient is also on Lovenox 40 mg subcu for DVT prophylaxis. Antibiotic coverage is essentially empiric. He is afebrile. No significant tachycardia or tachypnea. On 03/20/2024, the patient is comfortable. Slightly more short of breath. Nevertheless, he is having episodes of oxygen desaturations with limited amount of mobility. Earlier this morning, while having his x-ray, the patient's pulse ox dropped down to the 60s. The chest x-ray showed diffuse interstitial and alveolar opacification consistent with COVID-19 related pneumonia. The patient remains on IV Solu-Medrol. The patient remains on Airvo and this was adjusted to 60 L and FiO2 of 90%. LDH level was elevated in the 600 range. Doppler of the lower extremities were negative. D-dimer is at 1.07. Electrolytes are all stable and sodium levels at 139, potassium is at 4.7, BUN is 18 with a creatinine of 1.1. The white cell count is currently at 10.1 with a hemoglobin 12.2 and a platelet count is at 162. Hemodynamically stable. Cardiac rhythm is sinus. Denies having any other significant complaints. Awake and alert and communicating. Patient was seen today on 03/21/2024, remains in the icu, remains on Airvo, patient is on 60 L flow 90% FiO2, he is also on baricitinib day #2, patient is marginal at best. O2 saturation is in the 80s and sometimes in the 70s patient is doing well, and I am aware that he may end up requiring intubation mechanical ventilation, I recommended BiPAP 03/04/100% and will transition from Airvo to BiPAP. Chest x-ray shows bilateral interstitial infiltrates. Looking at the previous CT of the chest, patient did have underlying interstitial lung disease which was relatively mild to begin with in 2019. But nonetheless he did have findings of interstitial lung disease and bronchiectasis noted on previous CT of the chest done at [facility]. His labs today WBC is 8.2 hemoglobin is 11.6, electrolytes are normal BUN is 36 creatinine 1.07, last procalcitonin was 0.41 the 1 prior was 0.73. LDH is high 600. Seen today on 03/22/2024, patient is feeling better today compared to yesterday, maintaining adequate O2 saturations he is on 60 L flow and 90% FiO2 he was on BiPAP last night 03/04/100%. Chest x-ray is showing improvement O2 saturation is improved he is now in the 90s remains on baricitinib day number 3 out of 14 remains on Solu-Medrol 60 every 6 remains on Lovenox. Chest x-ray is showing slight improvement clinically the patient is slightly improved hence we will continue the same and I will continue to monitor the patient in the ICU. CBC is relatively normal basic metabolic profile is normal BUN is 41 creatinine 1.03 Patient was seen today on 03/23/2024, slight improvement clinically chest x-ray slightly improved remains on 90% FiO2 and 60 L flow via Airvo. Patient has no cough, chest pain no fever no chills no hemoptysis. Improvement clinically and radiographically noted, hence we will titrate his FiO2 down from 90% to the 80% or maybe 70% if possible. CBC is normal basic metabolic profile is normal BUN is 47 creatinine 0.99 Patient was seen today on 03/24/2024, patient remains in the ICU, remains on Airvo at 70% FiO2 and 40 L flow. Remains on Solu-Medrol, he is also on baricitinib and he is on Lovenox. Slight improvement chest x-ray is basically about the same, minimal improvement clinically but nonetheless the patient is not getting any worse WBC count is 10.4 hemoglobin is 12 electrolytes are normal renal profile is normal Patient is was seen today on 03/25/2024, patient remains in the ICU, remains on Airvo at 80% FiO2 45 L flow, patient is noticing some improvement chest x-ray is basically about the same physical examination is about the same. Patient overall is about the same. Patient remains on baricitinib and he remains on steroids. WBC count is 12.3 hemoglobin 12.3 basic metabolic profile is normal BUN is 45 creatinine 1.13 Patient seen today , still requiring relatively high FiO2 with Airvo at 75% FiO2 and 50 L flow, patient is about the same, continues to desaturate with any activity. His chest x-ray is showing slight improvement in his atypical pneumonia, hence I am recommending today a CT angiogram on this patient to rule out underlying thromboembolic disease. In the meantime patient remains on baricitinib, remains on steroids, and improvement is rather extremely minimal. Patient was seen today on 03/27/2024, remains in the ICU, remains on Airvo at 70% FiO2 and 50 L flow O2 sat remains in the low 90s up to 95%. IV fluid is now to KVO, CT angiogram of the chest showed no evidence of pulmonary embolism. Patient remains on Solu-Medrol, Lovenox, bosutinib, and his echocardiogram showed good LV function, I plan to transfer the patient out of the ICU today to 3 S. Today showed relatively normal CBC, normal electrolytes, normal renal profile, The patient is seen today March 28, 2024 in follow-up on the selective care unit. He was transferred out of the intensive care unit yesterday. He is currently sitting up in a chair at the bedside. Awake and alert in mild respiratory distress. He is continued on Airvo high flow oxygen at 50 L and 60% FiO2. He is continued on baricitinib. Remains on vitamin supplements. Lovenox for DVT prophylaxis. Remains on bronchodilators and Solu-Medrol. White count 16.2. Hemoglobin 12.1. Platelets 339. Sodium 134. Potassium 3.8. Bicarb 29. BUN 43. Creatinine 1.06. Glucose 133. The patient is seen today March 29, 2024 in follow-up on the selective care unit. He is currently sitting up in a chair. Awake and alert in no acute distress. Feeling a bit better each day. He has been slow to progress. He is still on Airvo high flow oxygen at 50 L and 60% FiO2. He remains on baricitinib. Blood and sputum cultures remained with no growth. Glucose 139. On albuterol and Solu-Medrol. Lovenox for DVT prophylaxis. Progress note dated March 30, 2024. 78-year-old male seen today in room 381. The patient was admitted with the diagnosis of pneumonia. The patient is currently on Airvo, at 50 L/min with an FiO2 of 55%. He is not receiving any IV fluids. He is resting comfortably in the room, sitting in the chair next to his hospital bed. The patient states that he is doing better. He denies any significant or worsening shortness of breath, cough, wheezing, chest tightness, or phlegm production. Current laboratory data includes a white count 15.1, hemoglobin 9.2, hematocrit 34.5, p latelet count of 328,000. Sodium 134, potassium 4.6, chlorides 102, CO2 29, BUN 42, creatinine 1.06. Glucose 284. Calcium 7.7. Albumin 2.6. Him and blood sampling, has been negative. Progress note dated March 31, 2024. 78-year-old male seen today in room 381. The patient is sitting in a chair next to the hospital bed. He remains on Airvo. He is at 50 L/min with an FiO2 50%. He is not receiving any IV fluids. His Solu-Medrol can be converted to prednisone 40 mg today. He continues on baricitinib at 4 mg a day. No new labs today other than a glucose of 190. Progress note dated April 01, 2024. 78-year-old male who is seen again in room 381. The patient continues on Airvo at 45 L/min, with an FiO2 45%. He is not receiving any IV fluids. Each day when he asked the patient how he is doing, he states that he is doing fine, and feeling better. No new labs today other than a glucose of 123, and a creatinine of 1.14. Objective - Vital Signs Vital signs: Vital Signs Temp 97.9 F 04/01/24 11:55 Pulse 65 04/01/24 11:55 Resp 18 04/01/24 11:55 BP 146/70 04/01/24 11:55 Pulse Ox 100 04/01/24 11:55 FiO2 45 04/01/24 12:58 Intake & Output 03/31/24 04/01/24 04/01/24 18:59 06:59 18:59 Intake Total 540 1140 476 Output Total 2000 1100 800 Balance -1460 40 -324 Weight 77.5 kg Intake: Oral 540 1140 476 Output: Urine 1999 1100 800 Other: Voiding Method External Catheter External Catheter External Catheter # Bowel Movements 1 - Exam No acute distress, oriented 3. Airvo in place. HEENT examination is grossly unremarkable. Mucous membranes are moist. No oral lesions. Neck supple. Full range of motion. No adenopathy thyromegaly or neck vein distention. Cardiovascular examination reveals regular rhythm rate. S1-S2 normal. No S3 or S4. No discernible murmur noted. Lungs reveal basilar rhonchi and crackles. No wheezes. Breath sounds equal bilaterally. Abdomen soft bowel sounds are heard. No masses or tenderness. Extremities are intact. No cyanosis clubbing or edema. Skin is without rash or lesion. Neurologic examination is brief but nonfocal. - Labs CBC & Chem 7: 03/30/24 07:12 04/01/24 06:30 Labs: Abnormal Lab Results - Last 24 Hours (Table) 03/31/24 03/31/24 04/01/24 Range/Units 16:21 20:14 06:15 POC Glucose (mg/dL) 222 H 203 H 168 H (70-110) mg/dL 04/01/24 Range/Units 11:29 POC Glucose (mg/dL) 123 H (70-110) mg/dL Microbiology - Last 24 Hours (Table) 03/18/24 03:05 Legionella Culture - Final Sputum Assessment and Plan Assessment: Acute hypoxic respiratory failure secondary to COVID-19 related pneumonia. Acute COVID-19 infection/pneumonia. Interstitial lung disease, patient had previous CT of the chest from 2019 showing mild interstitial lung disease associated with traction bronchiectasis. Shortness of breath secondary to above. Hypertension. Hyperlipidemia. Prior history of PCI/stents. History of coronary disease with remote history of myocardial infarction. Plan: Plan dated March 30, 2024. The patient is seen today in room 381. Labs, x-rays, and medications are reviewed. The patient continues on Airvo, with settings of 50 L/min and an FiO2 of 55%. He is not receiving any IV fluids. Labs, x-rays, and all medications are reviewed. The patient continues on albuterol inhaler, as well as corticosteroids. We will continue to follow. Prognosis is guarded. The patient remains a full code. Plan dated March 31, 2024. The patient is seen today in room 381. He is sitting in a chair next to his hospital bed. The patient continues on Airvo. His settings include 50 L/min with an FiO2 of 45%. He is not receiving any IV fluids. We switch his Solu- Medrol to prednisone 40 mg a day. He continues on baricitinib 4 mg a day. Labs, x-rays, and medications are reviewed. Clinically, the patient appears to be improving. We will continue to follow the patient, and make recommendations where appropriate. Plan dated April 01, 2024. The patient appears to be doing relatively well. He continues on Airvo. He is down to 45% oxygen. Labs, x-rays, and medications are reviewed. The patient is overall prognosis remains guarded. His Solu-Medrol was changed to prednisone 40 mg a day. He continues on baricitinib, 4 mg a day. We will continue to follow make recommendations along the way. Prognosis is guarded but clinically, speaking, the patient is doing much better. Time with Patient: Less than 30
[2024-04-01 16:29] LABS: Glucose,Whole Blood 250 mg/dL (70-110)
[2024-04-01 19:57] LABS: Glucose,Whole Blood 271 mg/dL (70-110)
[2024-04-02 06:21] LABS: Glucose,Whole Blood 228 mg/dL (70-110)
[2024-04-02 11:34] LABS: Glucose,Whole Blood 217 mg/dL (70-110)
--- NOTE | 2024-04-02 12:38 | P.PN ---
Subjective Progress Note Date: 04/02/24 78 year old M with PMH of pulmonary fibrosis, GERD, BPH, HLD, HTN, CAD with stent presented to the ED on 03/16 for URI symptoms. In the ED he underwent extensive evaluation. T 102F, BP 139/70, HR 111, RR 20, 91% on 3L NC. Labs on admission show white blood cell count 7.9, hemoglobin 12.7, hematocrit 39.2, platelet 168, PT 11.4, PTT 25.7, INR 1.0, D-dimer 1.07, sodium 136, potassium 4.9, chloride 102, carbon dioxide 24, BUN 32, creatinine 1.97, glucose 157, troponin less than 0.012. EKG showed sinus tachycardia with a ventricular rate of 102 bpm, QTc interval of 386 ms, possible left atrial enlargement, left axis deviation, right bundle branch block. CXR showed reticulonodular infiltrate throughout the left lung may reflect atypical pneumonia. UA showed 1+ protein, negative for nitrites, trace leukocyte esterase. Initially admitted for sepsis due to atypical PNA, started on Rocephin/Azithromycin. COVID 19 test was positive. Started on Decadron. Pulmonary consulted, started on Baricitinib. Res piratory status worsened and he was transferred to ICU on BiPAP which was eventually transitioned to AirVo. Echo showed EF 50-55% with no regional wall motion abnormalities. CTA chest shows no PE, multifocal airspace opacities. 03/29 Patient was seen and examined. Patient reports improved breathing. He is on 50L NFNC FiO2 60. No new labs done today. 03/30 Patient was seen and examined. Breathing is stable. He is on 50L Airvo FiO2 60%. CBC and CMP significant for WBC 15.1, RBC 3.8, Hg 11.2, Hct 34.5, Na 134, BUN 42, glu 141, Ca 7.7, AST 70, ALT 231, alb 2.6. 03/31 Patient was seen and examined. Breathing is stable. He is on 50L Airvo FiO2 45%. POC glucose 142-284 over the past 24H. No new labs done today. 04/01 Patient was seen and examined. Breathing is stable. He is on 45L Airvo FiO2 45%. POC glucose 123-222 over the past 24H. Renal function is within normal limits. 04/02 Patient was seen and examined. Breathing is stable. He is on 40L Airvo FiO2 40%. POC glucose 123-271 over the past 24H. No new labs done today. BP 133/74, HR 66, RR 16, 93% on 40L Airvo FiO2 40. General: not toxic, no distress, appears at stated age Derm: warm, dry Head: atraumatic, normocephalic, symmetric Eyes: EOMI, no lid lag, anicteric sclera Mouth: no lip lesion, mucus membranes moist Cardiovascular: S1S2 reg, no murmur Lungs: Decreased BS BL Ext: no gross muscle atrophy, no edema, no contractures Neuro: no focal neuro deficits Psych: Alert, oriented, appropriate affect Based on my assessment of this patient, this patient meets a high complexity level of care. Acute hypoxic respiratory failure secondary to COVID 19 PNA with history of pulmonary fibrosis: Completed course of Rocephin/Azithromycin. Albuterol INH QID + Q4H PRN. Completed course of Baricitinib. Robitussin DM 10 cc PO Q6H PRN. Prednisone 40 mg PO QD. Pulmonary on board. Sepsis secondary to above Steroid induced hyperglycemia with Pre-DM: A1c 6.2. ISS. Accuchecks ACHS. Hypoglycemic precautions. Transaminitis: Possible related to COVID or use of Baricitinib? Monitor. Recommend outpatient workup. Prerenal azotemia: Improved. Encourage hydration by mouth. Normocytic anemia: Stable with no signs of bleeding. Monitor. GERD: Pepcid 20 mg PO BID. BPH: Proscar 5 mg PO QD. Hypertenion: Amlodipine 2.5 mg PO QD. Losartan 100 mg PO QD. CAD: ASA 81 mg PO QD. Pravastatin 80 mg PO QD. CODE STATUS: FULL CODE DVT Prophylaxis: Lovenox SQ GI Prophylaxis: Pepcid BID Designated medical POA if patient is not able to make medical decisions for themselves: I have reviewed the following small business consultant notes: Pulmonary note. I have reviewed the results of the following tests: POC glucose. I have ordered the following tests: I have discussed the care of this patient with the following independent historian: I have independently interpreted the following test below: I have discussed the management of this patient with the following physician: Objective - Vital Signs Vital signs: Vital Signs Temp 98.1 F 04/01/24 20:00 Pulse 66 04/02/24 04:00 Resp 16 04/02/24 04:00 BP 133/74 04/02/24 04:00 Pulse Ox 93 L 04/02/24 04:00 FiO2 45 04/02/24 04:06 Intake & Output 04/01/24 04/02/24 04/02/24 18:59 06:59 18:59 Intake Total 716 350 Output Total 1100 1000 Balance -384 -1000 350 Weight 76.8 kg Intake: Oral 716 350 Output: Urine 1100 1000 Other: Voiding Method External Catheter External Catheter - Labs CBC & Chem 7: 03/30/24 07:12 04/01/24 06:30 Labs: Abnormal Lab Results - Last 24 Hours (Table) 04/01/24 04/01/24 04/01/24 Range/Units 11:29 16:24 19:55 POC Glucose (mg/dL) 123 H 250 H 271 H (70-110) mg/dL 04/02/24 Range/Units 06:20 POC Glucose (mg/dL) 228 H (70-110) mg/dL Microbiology - Last 24 Hours (Table) 03/18/24 03:05 Legionella Culture - Final Sputum
--- NOTE | 2024-04-02 13:44 | P.PN ---
Subjective Progress Note Date: 04/02/24 Principal diagnosis: Pneumonia. This is a 78-year-old male patient who is currently hospitalized for an acute hypoxic respiratory failure and COVID-19 related pneumonia. The patient is currently on Airvo at 45 L with an FiO2 of 60%. I reviewed the series of chest x-ray that was done on this patient during this current admission. The patient may have underlying chronic ILD. Nevertheless, the patient developed progressive worsening in the bilateral pulmonary filtrates and the patient has developed some increased hazy opacities bilaterally consistent with COVID-19 related pneumonia. Noted his symptoms started around 2 days prior to his current admission and the patient's is also infected with the same virus. His D-dimer was mildly elevated at 1.07. Doppler of the lower extremities done today was negative. Perfusion scan was up and intermediate probability. He has seen Dr. Terrence Maynard and the patient has undergone a bronchoscopy few months back which I am assuming was done as part of investigation for chronic interstitial lung disease. The patient is on no immunosuppressant. 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 No coronary artery disease. No active smoking. The white cell count of 5.8 with a hemoglobin 12.7 and a platelet count of 154. Sodium is at 139, BUN is 18 with a creatinine of 1.1 and a potassium level of 4.7. The viral screen was positive for COVID-19. His procalcitonin level was at 0.7. His CRP is at 14.5 with an LDH of 600. The patient has received vaccination in the past. No previous history of COVID-19 infection. No rep orted aspiration. He is currently on IV steroids and the patient is receiving Solu-Medrol 60 mg every 6 hours. The patient is also on Lovenox 40 mg subcu for DVT prophylaxis. Antibiotic coverage is essentially empiric. He is afebrile. No significant tachycardia or tachypnea. On 03/20/2024, the patient is comfortable. Slightly more short of breath. Nevertheless, he is having episodes of oxygen desaturations with limited amount of mobility. Earlier this morning, while having his x-ray, the patient's pulse ox dropped down to the 60s. The chest x-ray showed diffuse interstitial and alveolar opacification consistent with COVID-19 related pneumonia. The patient remains on IV Solu-Medrol. The patient remains on Airvo and this was adjusted to 60 L and FiO2 of 90%. LDH level was elevated in the 600 range. Doppler of the lower extremities were negative. D-dimer is at 1.07. Electrolytes are all stable and sodium levels at 139, potassium is at 4.7, BUN is 18 with a creatinine of 1.1. The white cell count is currently at 10.1 with a hemoglobin 12.2 and a platelet count is at 162. Hemodynamically stable. Cardiac rhythm is sinus. Denies having any other significant complaints. Awake and alert and communicating. Patient was seen today on 03/21/2024, remains in the icu, remains on Airvo, patient is on 60 L flow 90% FiO2, he is also on baricitinib day #2, patient is marginal at best. O2 saturation is in the 80s and sometimes in the 70s patient is doing well, and I am aware that he may end up requiring intubation mechanical ventilation, I recommended BiPAP 03/04/100% and will transition from Airvo to BiPAP. Chest x-ray shows bilateral interstitial infiltrates. Looking at the previous CT of the chest, patient did have underlying interstitial lung disease which was relatively mild to begin with in 2019. But nonetheless he did have findings of interstitial lung disease and bronchiectasis noted on previous CT of the chest done at [facility]. His labs today WBC is 8.2 hemoglobin is 11.6, electrolytes are normal BUN is 36 creatinine 1.07, last procalcitonin was 0.41 the 1 prior was 0.73. LDH is high 600. Seen today on 03/22/2024, patient is feeling better today compared to yesterday, maintaining adequate O2 saturations he is on 60 L flow and 90% FiO2 he was on BiPAP last night 03/04/100%. Chest x-ray is showing improvement O2 saturation is improved he is now in the 90s remains on baricitinib day number 3 out of 14 remains on Solu-Medrol 60 every 6 remains on Lovenox. Chest x-ray is showing slight improvement clinically the patient is slightly improved hence we will continue the same and I will continue to monitor the patient in the ICU. CBC is relatively normal basic metabolic profile is normal BUN is 41 creatinine 1.03 Patient was seen today on 03/23/2024, slight improvement clinically chest x-ray slightly improved remains on 90% FiO2 and 60 L flow via Airvo. Patient has no cough, chest pain no fever no chills no hemoptysis. Improvement clinically and radiographically noted, hence we will titrate his FiO2 down from 90% to the 80% or maybe 70% if possible. CBC is normal basic metabolic profile is normal BUN is 47 creatinine 0.99 Patient was seen today on 03/24/2024, patient remains in the ICU, remains on Airvo at 70% FiO2 and 40 L flow. Remains on Solu-Medrol, he is also on baricitinib and he is on Lovenox. Slight improvement chest x-ray is basically about the same, minimal improvement clinically but nonetheless the patient is not getting any worse WBC count is 10.4 hemoglobin is 12 electrolytes are normal renal profile is normal Patient is was seen today on 03/25/2024, patient remains in the ICU, remains on Airvo at 80% FiO2 45 L flow, patient is noticing some improvement chest x-ray is basically about the same physical examination is about the same. Patient overall is about the same. Patient remains on baricitinib and he remains on steroids. WBC count is 12.3 hemoglobin 12.3 basic metabolic profile is normal BUN is 45 creatinine 1.13 Patient seen today , still requiring relatively high FiO2 with Airvo at 75% FiO2 and 50 L flow, patient is about the same, continues to desaturate with any activity. His chest x-ray is showing slight improvement in his atypical pneumonia, hence I am recommending today a CT angiogram on this patient to rule out underlying thromboembolic disease. In the meantime patient remains on baricitinib, remains on steroids, and improvement is rather extremely minimal. Patient was seen today on 03/27/2024, remains in the ICU, remains on Airvo at 70% FiO2 and 50 L flow O2 sat remains in the low 90s up to 95%. IV fluid is now to KVO, CT angiogram of the chest showed no evidence of pulmonary embolism. Patient remains on Solu-Medrol, Lovenox, bosutinib, and his echocardiogram showed good LV function, I plan to transfer the patient out of the ICU today to 3 S. Today showed relatively normal CBC, normal electrolytes, normal renal profile, The patient is seen today March 28, 2024 in follow-up on the selective care unit. He was transferred out of the intensive care unit yesterday. He is currently sitting up in a chair at the bedside. Awake and alert in mild respiratory distress. He is continued on Airvo high flow oxygen at 50 L and 60% FiO2. He is continued on baricitinib. Remains on vitamin supplements. Lovenox for DVT prophylaxis. Remains on bronchodilators and Solu-Medrol. White count 16.2. Hemoglobin 12.1. Platelets 339. Sodium 134. Potassium 3.8. Bicarb 29. BUN 43. Creatinine 1.06. Glucose 133. The patient is seen today March 29, 2024 in follow-up on the selective care unit. He is currently sitting up in a chair. Awake and alert in no acute distress. Feeling a bit better each day. He has been slow to progress. He is still on Airvo high flow oxygen at 50 L and 60% FiO2. He remains on baricitinib. Blood and sputum cultures remained with no growth. Glucose 139. On albuterol and Solu-Medrol. Lovenox for DVT prophylaxis. Progress note dated March 30, 2024. 78-year-old male seen today in room 381. The patient was admitted with the diagnosis of pneumonia. The patient is currently on Airvo, at 50 L/min with an FiO2 of 55%. He is not receiving any IV fluids. He is resting comfortably in the room, sitting in the chair next to his hospital bed. The patient states that he is doing better. He denies any significant or worsening shortness of breath, cough, wheezing, chest tightness, or phlegm production. Current laboratory data includes a white count 15.1, hemoglobin 9.2, hematocrit 34.5, p latelet count of 328,000. Sodium 134, potassium 4.6, chlorides 102, CO2 29, BUN 42, creatinine 1.06. Glucose 284. Calcium 7.7. Albumin 2.6. Him and blood sampling, has been negative. Progress note dated March 31, 2024. 78-year-old male seen today in room 381. The patient is sitting in a chair next to the hospital bed. He remains on Airvo. He is at 50 L/min with an FiO2 50%. He is not receiving any IV fluids. His Solu-Medrol can be converted to prednisone 40 mg today. He continues on baricitinib at 4 mg a day. No new labs today other than a glucose of 190. Progress note dated April 01, 2024. 78-year-old male who is seen again in room 381. The patient continues on Airvo at 45 L/min, with an FiO2 45%. He is not receiving any IV fluids. Each day when he asked the patient how he is doing, he states that he is doing fine, and feeling better. No new labs today other than a glucose of 123, and a creatinine of 1.14. Progress note dated April 02, 2024. 78-year-old male seen in room 381. The patient continues on Airvo, with settings of 40 L/min, and FiO2 40%. The patient is not receiving any IV fluids. The patient is sitting up in a chair next to his hospital bed. The patient states that he feels great. No new labs today other than a glucose of 217. Objective - Vital Signs Vital signs: Vital Signs Temp 97.6 F 04/02/24 11:58 Pulse 68 04/02/24 11:58 Resp 16 04/02/24 11:58 BP 133/66 04/02/24 11:58 Pulse Ox 92 L 04/02/24 13:03 FiO2 40 04/02/24 09:08 Intake & Output 04/01/24 04/02/24 04/02/24 18:59 06:59 18:59 Intake Total 716 750 Output Total 1100 1000 1200 Balance -384 -1000 -450 Weight 76.8 kg Intake: Oral 716 750 Output: Urine 1100 1000 1200 Other: Voiding Method External Catheter External Catheter External Catheter # Bowel Movements 1 - Exam No acute distress, oriented 3. Airvo in place. HEENT examination is grossly unremarkable. Mucous membranes are moist. No oral lesions. Neck supple. Full range of motion. No adenopathy thyromegaly or neck vein distention. Cardiovascular examination reveals regular rhythm rate. S1-S2 normal. No S3 or S4. No discernible murmur noted. Lungs reveal basilar rhonchi and crackles. No wheezes. Breath sounds equal bilaterally. Abdomen soft bowel sounds are heard. No masses or tenderness. Extremities are intact. No cyanosis clubbing or edema. Skin is without rash or lesion. Neurologic examination is brief but nonfocal. - Labs CBC & Chem 7: 03/30/24 07:12 04/01/24 06:30 Labs: Abnormal Lab Results - Last 24 Hours (Table) 04/01/24 04/01/24 04/02/24 Range/Units 16:24 19:55 06:20 POC Glucose (mg/dL) 250 H 271 H 228 H (70-110) mg/dL 04/02/24 Range/Units 11:33 POC Glucose (mg/dL) 217 H (70-110) mg/dL Microbiology - Last 24 Hours (Table) 03/18/24 03:05 Legionella Culture - Final Sputum Assessment and Plan Assessment: Acute hypoxic respiratory failure secondary to COVID-19 related pneumonia. Acute COVID-19 infection/pneumonia. Interstitial lung disease, patient had previous CT of the chest from 2019 showing mild interstitial lung disease associated with traction bronchiectasis. Shortness of breath secondary to above. Hypertension. Hyperlipidemia. Prior history of PCI/stents. History of coronary disease with remote history of myocardial infarction. Plan: Plan dated March 30, 2024. The patient is seen today in room 381. Labs, x-rays, and medications are rev iewed. The patient continues on Airvo, with settings of 50 L/min and an FiO2 of 55%. He is not receiving any IV fluids. Labs, x-rays, and all medications are reviewed. The patient continues on albuterol inhaler, as well as corticosteroids. We will continue to follow. Prognosis is guarded. The patient remains a full code. Plan dated March 31, 2024. The patient is seen today in room 381. He is sitting in a chair next to his hospital bed. The patient continues on Airvo. His settings include 50 L/min with an FiO2 of 45%. He is not receiving any IV fluids. We switch his Solu- Medrol to prednisone 40 mg a day. He continues on baricitinib 4 mg a day. Labs, x-rays, and medications are reviewed. Clinically, the patient appears to be improving. We will continue to follow the patient, and make recommendations where appropriate. Plan dated April 01, 2024. The patient appears to be doing relatively well. He continues on Airvo. He is down to 45% oxygen. Labs, x-rays, and medications are reviewed. The patient is overall prognosis remains guarded. His Solu-Medrol was changed to prednisone 40 mg a day. He continues on baricitinib, 4 mg a day. We will continue to follow make recommendations along the way. Prognosis is guarded but clinically, speaking, the patient is doing much better. Plan dated April 02, 2024. The patient is seen again in room 381. Clinically, the patient appears to be doing well. He is sitting in the chair next to his hospital bed. He continues on Airvo at 40 L/min with an FiO2 40%. He is not receiving any IV fluids. When asked how he is feeling, the patient states that he is feeling "very good". Labs, x-rays, and all medications are reviewed. The only lab today was a glucose of 217. We will continue to follow make recommendations. Time with Patient: Less than 30
[2024-04-02 16:42] LABS: Glucose,Whole Blood 221 mg/dL (70-110)
[2024-04-02 20:30] LABS: Glucose,Whole Blood 207 mg/dL (70-110)
[2024-04-03 06:22] LABS: Glucose,Whole Blood 87 mg/dL (70-110)
[2024-04-03 11:32] LABS: Glucose,Whole Blood 113 mg/dL (70-110)
--- NOTE | 2024-04-03 11:46 | P.PN ---
Subjective Progress Note Date: 04/03/24 78 year old M with PMH of pulmonary fibrosis, GERD, BPH, HLD, HTN, CAD with stent presented to the ED on 03/16 for URI symptoms. In the ED he underwent extensive evaluation. T 102F, BP 139/70, HR 111, RR 20, 91% on 3L NC. Labs on admission show white blood cell count 7.9, hemoglobin 12.7, hematocrit 39.2, platelet 168, PT 11.4, PTT 25.7, INR 1.0, D-dimer 1.07, sodium 136, potassium 4.9, chloride 102, carbon dioxide 24, BUN 32, creatinine 1.97, glucose 157, troponin less than 0.012. EKG showed sinus tachycardia with a ventricular rate of 102 bpm, QTc interval of 386 ms, possible left atrial enlargement, left axis deviation, right bundle branch block. CXR showed reticulonodular infiltrate throughout the left lung may reflect atypical pneumonia. UA showed 1+ protein, negative for nitrites, trace leukocyte esterase. Initially admitted for sepsis due to atypical PNA, started on Rocephin/Azithromycin. COVID 19 test was positive. Started on Decadron. Pulmonary consulted, started on Baricitinib. Res piratory status worsened and he was transferred to ICU on BiPAP which was eventually transitioned to AirVo. Echo showed EF 50-55% with no regional wall motion abnormalities. CTA chest shows no PE, multifocal airspace opacities. 03/29 Patient was seen and examined. Patient reports improved breathing. He is on 50L NFNC FiO2 60. No new labs done today. 03/30 Patient was seen and examined. Breathing is stable. He is on 50L Airvo FiO2 60%. CBC and CMP significant for WBC 15.1, RBC 3.8, Hg 11.2, Hct 34.5, Na 134, BUN 42, glu 141, Ca 7.7, AST 70, ALT 231, alb 2.6. 03/31 Patient was seen and examined. Breathing is stable. He is on 50L Airvo FiO2 45%. POC glucose 142-284 over the past 24H. No new labs done today. 04/01 Patient was seen and examined. Breathing is stable. He is on 45L Airvo FiO2 45%. POC glucose 123-222 over the past 24H. Renal function is within normal limits. 04/02 Patient was seen and examined. Breathing is stable. He is on 40L Airvo FiO2 40%. POC glucose 123-271 over the past 24H. No new labs done today. 04/03 Patient was seen and examined. Breathing is stable. Currently on 10L HFNC saturating 95%. Feels winded walking short distances. POC glucose 87-228 over the past 24H. No new labs done today. BP 148/68, HR 75, RR 14, 95% on 10L HFNC. General: not toxic, no distress, appears at stated age Derm: warm, dry Head: atraumatic, normocephalic, symmetric Eyes: EOMI, no lid lag, anicteric sclera Mouth: no lip lesion, mucus membranes moist Cardiovascular: S1S2 reg, no murmur Lungs: Decreased BS BL Ext: no gross muscle atrophy, no edema, no contractures Neuro: no focal neuro deficits Psych: Alert, oriented, appropriate affect Based on my assessment of this patient, this patient meets a high complexity level of care. Acute hypoxic respiratory failure secondary to COVID 19 PNA with history of pulmonary fibrosis: Completed course of Rocephin/Azithromycin. Albuterol INH QID + Q4H PRN. Completed course of Baricitinib. Robitussin DM 10 cc PO Q6H PRN. Prednisone 40 mg PO QD. Pulmonary on board. Sepsis secondary to above Steroid induced hyperglycemia with Pre-DM: A1c 6.2. ISS. Accuchecks ACHS. Hypoglycemic precautions. Transaminitis: Possible related to COVID or use of Baricitinib? Monitor. Recommend outpatient workup. Prerenal azotemia: Improved. Encourage hydration by mouth. Normocytic anemia: Stable with no signs of bleeding. Monitor. GERD: Pepcid 20 mg PO BID. BPH: Proscar 5 mg PO QD. Hypertenion: Amlodipine 2.5 mg PO QD. Losartan 100 mg PO QD. CAD: ASA 81 mg PO QD. Pravastatin 80 mg PO QD. CODE STATUS: FULL CODE DVT Prophylaxis: Lovenox SQ GI Prophylaxis: Pepcid BID Designated medical POA if patient is not able to make medical decisions for themselves: I have reviewed the following diet consultant notes: Pulmonary note. I have reviewed the results of the following tests: POC glucose. I have ordered the following tests: I have discussed the care of this patient with the following independent historian: I have independently interpreted the following test below: I have discussed the management of this patient with the following physician: Objective - Vital Signs Vital signs: Vital Signs Temp 97.9 F 04/03/24 08:37 Pulse 75 04/03/24 08:37 Resp 14 04/03/24 08:37 BP 148/68 04/03/24 08:37 Pulse Ox 95 04/03/24 08:37 FiO2 40 04/02/24 09:08 Intake & Output 04/02/24 04/03/24 04/03/24 18:59 06:59 18:59 Intake Total 1300 250 Output Total 1200 1850 Balance 100 -1850 250 Weight 76.7 kg Intake: Oral 1300 250 Output: Urine 1200 1850 Other: Voiding Method External Catheter External Catheter # Bowel Movements 1 - Labs CBC & Chem 7: 03/30/24 07:12 04/01/24 06:30 Labs: Abnormal Lab Results - Last 24 Hours (Table) 04/02/24 04/02/24 04/02/24 Range/Units 11:33 16:41 20:28 POC Glucose (mg/dL) 217 H 221 H 207 H (70-110) mg/dL
--- NOTE | 2024-04-03 13:18 | P.PN ---
Subjective Progress Note Date: 04/03/24 Principal diagnosis: Pneumonia. This is a 78-year-old male patient who is currently hospitalized for an acute hypoxic respiratory failure and COVID-19 related pneumonia. The patient is currently on Airvo at 45 L with an FiO2 of 60%. I reviewed the series of chest x-ray that was done on this patient during this current admission. The patient may have underlying chronic ILD. Nevertheless, the patient developed progressive worsening in the bilateral pulmonary filtrates and the patient has developed some increased hazy opacities bilaterally consistent with COVID-19 related pneumonia. Noted his symptoms started around 2 days prior to his current admission and the patient's is also infected with the same virus. His D-dimer was mildly elevated at 1.07. Doppler of the lower extremities done today was negative. Perfusion scan was up and intermediate probability. He has seen Dr. Terrence Maynard and the patient has undergone a bronchoscopy few months back which I am assuming was done as part of investigation for chronic interstitial lung disease. The patient is on no immunosuppressant. 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 No coronary artery disease. No active smoking. The white cell count of 5.8 with a hemoglobin 12.7 and a platelet count of 154. Sodium is at 139, BUN is 18 with a creatinine of 1.1 and a potassium level of 4.7. The viral screen was positive for COVID-19. His procalcitonin level was at 0.7. His CRP is at 14.5 with an LDH of 600. The patient has received vaccination in the past. No previous history of COVID-19 infection. No rep orted aspiration. He is currently on IV steroids and the patient is receiving Solu-Medrol 60 mg every 6 hours. The patient is also on Lovenox 40 mg subcu for DVT prophylaxis. Antibiotic coverage is essentially empiric. He is afebrile. No significant tachycardia or tachypnea. On 03/20/2024, the patient is comfortable. Slightly more short of breath. Nevertheless, he is having episodes of oxygen desaturations with limited amount of mobility. Earlier this morning, while having his x-ray, the patient's pulse ox dropped down to the 60s. The chest x-ray showed diffuse interstitial and alveolar opacification consistent with COVID-19 related pneumonia. The patient remains on IV Solu-Medrol. The patient remains on Airvo and this was adjusted to 60 L and FiO2 of 90%. LDH level was elevated in the 600 range. Doppler of the lower extremities were negative. D-dimer is at 1.07. Electrolytes are all stable and sodium levels at 139, potassium is at 4.7, BUN is 18 with a creatinine of 1.1. The white cell count is currently at 10.1 with a hemoglobin 12.2 and a platelet count is at 162. Hemodynamically stable. Cardiac rhythm is sinus. Denies having any other significant complaints. Awake and alert and communicating. Patient was seen today on 03/21/2024, remains in the icu, remains on Airvo, patient is on 60 L flow 90% FiO2, he is also on baricitinib day #2, patient is marginal at best. O2 saturation is in the 80s and sometimes in the 70s patient is doing well, and I am aware that he may end up requiring intubation mechanical ventilation, I recommended BiPAP 03/04/100% and will transition from Airvo to BiPAP. Chest x-ray shows bilateral interstitial infiltrates. Looking at the previous CT of the chest, patient did have underlying interstitial lung disease which was relatively mild to begin with in 2019. But nonetheless he did have findings of interstitial lung disease and bronchiectasis noted on previous CT of the chest done at [facility]. His labs today WBC is 8.2 hemoglobin is 11.6, electrolytes are normal BUN is 36 creatinine 1.07, last procalcitonin was 0.41 the 1 prior was 0.73. LDH is high 600. Seen today on 03/22/2024, patient is feeling better today compared to yesterday, maintaining adequate O2 saturations he is on 60 L flow and 90% FiO2 he was on BiPAP last night 03/04/100%. Chest x-ray is showing improvement O2 saturation is improved he is now in the 90s remains on baricitinib day number 3 out of 14 remains on Solu-Medrol 60 every 6 remains on Lovenox. Chest x-ray is showing slight improvement clinically the patient is slightly improved hence we will continue the same and I will continue to monitor the patient in the ICU. CBC is relatively normal basic metabolic profile is normal BUN is 41 creatinine 1.03 Patient was seen today on 03/23/2024, slight improvement clinically chest x-ray slightly improved remains on 90% FiO2 and 60 L flow via Airvo. Patient has no cough, chest pain no fever no chills no hemoptysis. Improvement clinically and radiographically noted, hence we will titrate his FiO2 down from 90% to the 80% or maybe 70% if possible. CBC is normal basic metabolic profile is normal BUN is 47 creatinine 0.99 Patient was seen today on 03/24/2024, patient remains in the ICU, remains on Airvo at 70% FiO2 and 40 L flow. Remains on Solu-Medrol, he is also on baricitinib and he is on Lovenox. Slight improvement chest x-ray is basically about the same, minimal improvement clinically but nonetheless the patient is not getting any worse WBC count is 10.4 hemoglobin is 12 electrolytes are normal renal profile is normal Patient is was seen today on 03/25/2024, patient remains in the ICU, remains on Airvo at 80% FiO2 45 L flow, patient is noticing some improvement chest x-ray is basically about the same physical examination is about the same. Patient overall is about the same. Patient remains on baricitinib and he remains on steroids. WBC count is 12.3 hemoglobin 12.3 basic metabolic profile is normal BUN is 45 creatinine 1.13 Patient seen today , still requiring relatively high FiO2 with Airvo at 75% FiO2 and 50 L flow, patient is about the same, continues to desaturate with any activity. His chest x-ray is showing slight improvement in his atypical pneumonia, hence I am recommending today a CT angiogram on this patient to rule out underlying thromboembolic disease. In the meantime patient remains on baricitinib, remains on steroids, and improvement is rather extremely minimal. Patient was seen today on 03/27/2024, remains in the ICU, remains on Airvo at 70% FiO2 and 50 L flow O2 sat remains in the low 90s up to 95%. IV fluid is now to KVO, CT angiogram of the chest showed no evidence of pulmonary embolism. Patient remains on Solu-Medrol, Lovenox, bosutinib, and his echocardiogram showed good LV function, I plan to transfer the patient out of the ICU today to 3 S. Today showed relatively normal CBC, normal electrolytes, normal renal profile, The patient is seen today March 28, 2024 in follow-up on the selective care unit. He was transferred out of the intensive care unit yesterday. He is currently sitting up in a chair at the bedside. Awake and alert in mild respiratory distress. He is continued on Airvo high flow oxygen at 50 L and 60% FiO2. He is continued on baricitinib. Remains on vitamin supplements. Lovenox for DVT prophylaxis. Remains on bronchodilators and Solu-Medrol. White count 16.2. Hemoglobin 12.1. Platelets 339. Sodium 134. Potassium 3.8. Bicarb 29. BUN 43. Creatinine 1.06. Glucose 133. The patient is seen today March 29, 2024 in follow-up on the selective care unit. He is currently sitting up in a chair. Awake and alert in no acute distress. Feeling a bit better each day. He has been slow to progress. He is still on Airvo high flow oxygen at 50 L and 60% FiO2. He remains on baricitinib. Blood and sputum cultures remained with no growth. Glucose 139. On albuterol and Solu-Medrol. Lovenox for DVT prophylaxis. Progress note dated March 30, 2024. 78-year-old male seen today in room 381. The patient was admitted with the diagnosis of pneumonia. The patient is currently on Airvo, at 50 L/min with an FiO2 of 55%. He is not receiving any IV fluids. He is resting comfortably in the room, sitting in the chair next to his hospital bed. The patient states that he is doing better. He denies any significant or worsening shortness of breath, cough, wheezing, chest tightness, or phlegm production. Current laboratory data includes a white count 15.1, hemoglobin 9.2, hematocrit 34.5, p latelet count of 328,000. Sodium 134, potassium 4.6, chlorides 102, CO2 29, BUN 42, creatinine 1.06. Glucose 284. Calcium 7.7. Albumin 2.6. Him and blood sampling, has been negative. Progress note dated March 31, 2024. 78-year-old male seen today in room 381. The patient is sitting in a chair next to the hospital bed. He remains on Airvo. He is at 50 L/min with an FiO2 50%. He is not receiving any IV fluids. His Solu-Medrol can be converted to prednisone 40 mg today. He continues on baricitinib at 4 mg a day. No new labs today other than a glucose of 190. Progress note dated April 01, 2024. 78-year-old male who is seen again in room 381. The patient continues on Airvo at 45 L/min, with an FiO2 45%. He is not receiving any IV fluids. Each day when he asked the patient how he is doing, he states that he is doing fine, and feeling better. No new labs today other than a glucose of 123, and a creatinine of 1.14. Progress note dated April 02, 2024. 78-year-old male seen in room 381. The patient continues on Airvo, with settings of 40 L/min, and FiO2 40%. The patient is not receiving any IV fluids. The patient is sitting up in a chair next to his hospital bed. The patient states that he feels great. No new labs today other than a glucose of 217. Progress note dated April 03, 2024. 78-year-old male seen today in room 381. The patient had been on Airvo, but today, he is on 9 L high flow O2. He is not receiving any IV fluids. He is sitting in a chair next to his hospital bed. The patient is feeling much better. Glucose is 113 today. No additional labs are noted. Objective - Vital Signs Vital signs: Vital Signs Temp 98.9 F 04/03/24 12:23 Pulse 75 04/03/24 12:23 Resp 14 04/03/24 12:23 BP 145/69 04/03/24 12:23 Pulse Ox 93 L 04/03/24 12:23 FiO2 40 04/02/24 09:08 Intake & Output 04/02/24 04/03/24 04/03/24 18:59 06:59 18:59 Intake Total 1300 250 Output Total 1200 1850 900 Balance 100 -1850 -650 Weight 76.7 kg Intake: Oral 1300 250 Output: Urine 1200 1850 900 Other: Voiding Method External Catheter External Catheter External Catheter # Bowel Movements 1 - Exam No acute distress, oriented 3. Currently on high flow nasal O2 at 9 L. HEENT examination is grossly unremarkable. Mucous membranes are moist. No oral lesions. Neck supple. Full range of motion. No adenopathy thyromegaly or neck vein distention. Cardiovascular examination reveals regular rhythm rate. S1-S2 normal. No S3 or S4. No discernible murmur noted. Lungs reveal basilar rhonchi and crackles. No wheezes. Breath sounds equal bilaterally. Abdomen soft bowel sounds are heard. No masses or tenderness. Extremities are intact. No cyanosis clubbing or edema. Skin is without rash or lesion. Neurologic examination is brief but nonfocal. - Labs CBC & Chem 7: 03/30/24 07:12 04/01/24 06:30 Labs: Abnormal Lab Results - Last 24 Hours (Table) 04/02/24 04/02/24 04/03/24 Range/Units 16:41 20:28 11:31 POC Glucose (mg/dL) 221 H 207 H 113 H (70-110) mg/dL Assessment and Plan Assessment: Acute hypoxic respiratory failure secondary to COVID-19 related pneumonia. Acute COVID-19 infection/pneumonia. Interstitial lung disease, patient had previous CT of the chest from 2019 showing mild interstitial lung disease associated with traction bronchiectasis. Shortness of breath secondary to above. Hypertension. Hyperlipidemia. Prior history of PCI/stents. History of coronary disease with remote history of myocardial infarction. Plan: Plan dated March 30, 2024. The patient is seen today in room 381. Labs, x-rays, and medications are reviewed. The patient continues on Airvo, with settings of 50 L/min and an FiO2 of 55%. He is not receiving any IV fluids. Labs, x-rays, and all medications are reviewed. The patient continues on albuterol inhaler, as well as corticosteroids. We will continue to follow. Prognosis is guarded. The patient remains a full code. Plan dated March 31, 2024. The patient is seen today in room 381. He is sitting in a chair next to his hospital bed. The patient continues on Airvo. His settings include 50 L/min with an FiO2 of 45%. He is not receiving any IV fluids. We switch his Solu- Medrol to prednisone 40 mg a day. He continues on baricitinib 4 mg a day. Labs, x-rays, and medications are reviewed. Clinically, the patient appears to be improving. We will continue to follow the patient, and make recommendations where appropriate. Plan dated April 01, 2024. The patient appears to be doing relatively well. He continues on Airvo. He is down to 45% oxygen. Labs, x-rays, and medications are reviewed. The patient is overall prognosis remains guarded. His Solu-Medrol was changed to prednisone 40 mg a day. He continues on baricitinib, 4 mg a day. We will continue to follow make recommendations along the way. Prognosis is guarded but clinically, speaking, the patient is doing much better. Plan dated April 02, 2024. The patient is seen again in room 381. Clinically, the patient appears to be doing well. He is sitting in the chair next to his hospital bed. He continues on Airvo at 40 L/min with an FiO2 40%. He is not receiving any IV fluids. When asked how he is feeling, the patient states that he is feeling "very good". Labs, x-rays, and all medications are reviewed. The only lab today was a glucose of 217. We will continue to follow make recommendations. Plan dated April 03, 2024. The patient appears to be doing relatively well. He is currently on high flow nasal O2 at 9 L. Prior to this, he had been on Airvo. He is sitting in the chair next to his hospital bed. He denies any worsening or more severe shortness of breath, cough, wheezing, chest tightness, or phlegm production. All in all, he is feeling generally well. Labs, x-rays, and medications are reviewed. We will continue to follow the patient. Prognosis is still guarded though. Time with Patient: Less than 30
[2024-04-03 16:59] LABS: Glucose,Whole Blood 158 mg/dL (70-110)
[2024-04-03 21:03] LABS: Glucose,Whole Blood 189 mg/dL (70-110)
[2024-04-04 06:30] LABS: Glucose,Whole Blood 102 mg/dL (70-110)
[2024-04-04 11:29] LABS: Glucose,Whole Blood 123 mg/dL (70-110)
--- NOTE | 2024-04-04 12:54 | P.PN ---
Subjective Progress Note Date: 04/04/24 78 year old M with PMH of pulmonary fibrosis, GERD, BPH, HLD, HTN, CAD with stent presented to the ED on 03/16 for URI symptoms. In the ED he underwent extensive evaluation. T 102F, BP 139/70, HR 111, RR 20, 91% on 3L NC. Labs on admission show white blood cell count 7.9, hemoglobin 12.7, hematocrit 39.2, platelet 168, PT 11.4, PTT 25.7, INR 1.0, D-dimer 1.07, sodium 136, potassium 4.9, chloride 102, carbon dioxide 24, BUN 32, creatinine 1.97, glucose 157, troponin less than 0.012. EKG showed sinus tachycardia with a ventricular rate of 102 bpm, QTc interval of 386 ms, possible left atrial enlargement, left axis deviation, right bundle branch block. CXR showed reticulonodular infiltrate throughout the left lung may reflect atypical pneumonia. UA showed 1+ protein, negative for nitrites, trace leukocyte esterase. Initially admitted for sepsis due to atypical PNA, started on Rocephin/Azithromycin. COVID 19 test was positive. Started on Decadron. Pulmonary consulted, started on Baricitinib. Res piratory status worsened and he was transferred to ICU on BiPAP which was eventually transitioned to AirVo. Echo showed EF 50-55% with no regional wall motion abnormalities. CTA chest shows no PE, multifocal airspace opacities. 03/29 Patient was seen and examined. Patient reports improved breathing. He is on 50L NFNC FiO2 60. No new labs done today. 03/30 Patient was seen and examined. Breathing is stable. He is on 50L Airvo FiO2 60%. CBC and CMP significant for WBC 15.1, RBC 3.8, Hg 11.2, Hct 34.5, Na 134, BUN 42, glu 141, Ca 7.7, AST 70, ALT 231, alb 2.6. 03/31 Patient was seen and examined. Breathing is stable. He is on 50L Airvo FiO2 45%. POC glucose 142-284 over the past 24H. No new labs done today. 04/01 Patient was seen and examined. Breathing is stable. He is on 45L Airvo FiO2 45%. POC glucose 123-222 over the past 24H. Renal function is within normal limits. 04/02 Patient was seen and examined. Breathing is stable. He is on 40L Airvo FiO2 40%. POC glucose 123-271 over the past 24H. No new labs done today. 04/03 Patient was seen and examined. Breathing is stable. Currently on 10L HFNC saturating 95%. Feels winded walking short distances. POC glucose 87-228 over the past 24H. No new labs done today. 04/04 Patient was seen and examined. Breathing is stable. Currently on 7L HFNC saturating 91%. Feels winded using the washroom. POC glucose 102-189 over the past 24H. No new labs done today. BP 140/68, HR 87, RR 20, 91% on 7L HFNC. General: not toxic, no distress, appears at stated age Derm: warm, dry Head: atraumatic, normocephalic, symmetric Eyes: EOMI, no lid lag, anicteric sclera Mouth: no lip lesion, mucus membranes moist Cardiovascular: Good distal perfusion in all 4 extremities Lungs: Breathing comfortably Ext: no gross muscle atrophy, no edema, no contractures Neuro: no focal neuro deficits Psych: Alert, oriented, appropriate affect Based on my assessment of this patient, this patient meets a high complexity level of care. Acute hypoxic respiratory failure secondary to COVID 19 PNA with history of pulmonary fibrosis: Completed course of Rocephin/Azithromycin. Albuterol INH QID + Q4H PRN. Completed course of Baricitinib. Robitussin DM 10 cc PO Q6H PRN. Pre dnisone 40 mg PO QD. Pulmonary on board. Sepsis secondary to above Steroid induced hyperglycemia with Pre-DM: A1c 6.2. ISS. Accuchecks ACHS. Hypoglycemic precautions. Transaminitis: Possible related to COVID or use of Baricitinib? Monitor. Recommend outpatient workup. Prerenal azotemia: Improved. Encourage hydration by mouth. Normocytic anemia: Stable with no signs of bleeding. Monitor. GERD: Pepcid 20 mg PO BID. BPH: Proscar 5 mg PO QD. Hypertenion: Amlodipine 2.5 mg PO QD. Losartan 100 mg PO QD. CAD: ASA 81 mg PO QD. Pravastatin 80 mg PO QD. CODE STATUS: FULL CODE DVT Prophylaxis: Lovenox SQ GI Prophylaxis: Pepcid BID Designated medical POA if patient is not able to make medical decisions for themselves: I have reviewed the following admissions consultant notes: Pulmonary note. I have reviewed the results of the following tests: POC glucose. I have ordered the following tests: CBC, CMP, CXR in the AM. I have discussed the care of this patient with the following independent historian: SU. I have independently interpreted the following test below: I have discussed the management of this patient with the following physician: Objective - Vital Signs Vital signs: Vital Signs Temp 98.2 F 04/04/24 08:00 Pulse 87 04/04/24 08:00 Resp 20 04/04/24 12:38 BP 140/68 04/04/24 08:00 Pulse Ox 91 L 04/04/24 08:12 FiO2 40 04/02/24 09:08 Intake & Output 04/03/24 04/04/24 04/04/24 18:59 06:59 18:59 Intake Total 400 Output Total 2100 2200 Balance -1700 -2200 Weight 75.3 kg Intake: Oral 400 Output: Urine 2100 2200 Other: Voiding Method External Catheter External Catheter External Catheter - Labs CBC & Chem 7: 03/30/24 07:12 04/01/24 06:30 Labs: Abnormal Lab Results - Last 24 Hours (Table) 04/03/24 04/03/24 04/04/24 Range/Units 16:58 20:59 11:28 POC Glucose (mg/dL) 158 H 189 H 123 H (70-110) mg/dL
--- NOTE | 2024-04-04 16:28 | P.PN ---
Subjective Progress Note Date: 04/04/24 This is a 78-year-old male patient who is currently hospitalized for an acute hypoxic respiratory failure and COVID-19 related pneumonia. The patient is currently on Airvo at 45 L with an FiO2 of 60%. I reviewed the series of chest x-ray that was done on this patient during this current admission. The patient may have underlying chronic ILD. Nevertheless, the patient developed progressive worsening in the bilateral pulmonary filtrates and the patient has developed some increased hazy opacities bilaterally consistent with COVID-19 related pneumonia. Noted his symptoms started around 2 days prior to his current admission and the patient's is also infected with the same virus. His D-dimer was mildly elevated at 1.07. Doppler of the lower extremities done today was negative. Perfusion scan was up and intermediate probability. He has seen Dr. Terrence Maynard and the patient has undergone a bronchoscopy few months back which I am assuming was done as part of investigation for chronic interstitial lung disease. The patient is on no immunosuppressant. 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 No coronary artery disease. No active smoking. The white cell count of 5.8 with a hemoglobin 12.7 and a platelet count of 154. Sodium is at 139, BUN is 18 with a creatinine of 1.1 and a potassium level of 4.7. The viral screen was positive for COVID-19. His procalcitonin level was at 0.7. His CRP is at 14.5 with an LDH of 600. The patient has received vaccination in the past. No previous history of COVID-19 infection. No reported aspiration. He is currently on IV steroids and the patient is receiving Solu-Medrol 60 mg every 6 hours. The patient is also on Lovenox 40 mg subcu for DVT prophylaxis. Antibiotic coverage is essentially empiric. He is afebrile. No significant tachycardia or tachypnea. On 03/20/2024, the patient is comfortable. Slightly more short of breath. Nevertheless, he is having episodes of oxygen desaturations with limited amount of mobility. Earlier this morning, while having his x-ray, the patient's pulse ox dropped down to the 60s. The chest x-ray showed diffuse interstitial and alveolar opacification consistent with COVID-19 related pneumonia. The patient remains on IV Solu-Medrol. The patient remains on Airvo and this was adjusted t o 60 L and FiO2 of 90%. LDH level was elevated in the 600 range. Doppler of the lower extremities were negative. D-dimer is at 1.07. Electrolytes are all stable and sodium levels at 139, potassium is at 4.7, BUN is 18 with a creatinine of 1.1. The white cell count is currently at 10.1 with a hemoglobin 12.2 and a platelet count is at 162. Hemodynamically stable. Cardiac rhythm is sinus. Denies having any other significant complaints. Awake and alert and communicating. Patient was seen today on 03/21/2024, remains in the icu, remains on Airvo, patient is on 60 L flow 90% FiO2, he is also on baricitinib day #2, patient is marginal at best. O2 saturation is in the 80s and sometimes in the 70s patient is doing well, and I am aware that he may end up requiring intubation mechanical ventilation, I recommended BiPAP 03/04/100% and will transition from Airvo to BiPAP. Chest x-ray shows bilateral interstitial infiltrates. Looking at the previous CT of the chest, patient did have underlying interstitial lung disease which was relatively mild to begin with in 2019. But nonetheless he did have findings of interstitial lung disease and bronchiectasis noted on previous CT of the chest done at [facility]. His labs today WBC is 8.2 hemoglobin is 11.6, electrolytes are normal BUN is 36 creatinine 1.07, last procalcitonin was 0.41 the 1 prior was 0.73. LDH is high 600. Seen today on 03/22/2024, patient is feeling better today compared to yesterday, maintaining adequate O2 saturations he is on 60 L flow and 90% FiO2 he was on BiPAP last night 100%. Chest x-ray is showing improvement O2 saturation is improved he is now in the 90s remains on baricitinib day number 3 out of 14 remains on Solu-Medrol 60 every 6 remains on Lovenox. Chest x-ray is showing slight improvement clinically the patient is slightly improved hence we will continue the same and I will continue to monitor the patient in the ICU. CBC is relatively normal basic metabolic profile is normal BUN is 41 creatinine 1.03 Patient was seen today on 03/23/2024, slight improvement clinically chest x-ray slightly improved remains on 90% FiO2 and 60 L flow via Airvo. Patient has no cough, chest pain no fever no chills no hemoptysis. Improvement clinically and radiographically noted, hence we will titrate his FiO2 down from 90% to the 80% or maybe 70% if possible. CBC is normal basic metabolic profile is normal BUN is 47 creatinine 0.99 Patient was seen today on 03/24/2024, patient remains in the ICU, remains on Airvo at 70% FiO2 and 40 L flow. Remains on Solu-Medrol, he is also on baricitinib and he is on Lovenox. Slight improvement chest x-ray is basically about the same, minimal improvement clinically but nonetheless the patient is not getting any worse WBC count is 10.4 hemoglobin is 12 electrolytes are normal renal profile is normal Patient is was seen today on 03/25/2024, patient remains in the ICU, remains on Airvo at 80% FiO2 45 L flow, patient is noticing some improvement chest x-ray is basically about the same physical examination is about the same. Patient ov erall is about the same. Patient remains on baricitinib and he remains on steroids. WBC count is 12.3 hemoglobin 12.3 basic metabolic profile is normal BUN is 45 creatinine 1.13 Patient seen today , still requiring relatively high FiO2 with Airvo at 75% FiO2 and 50 L flow, patient is about the same, continues to desaturate with any activity. His chest x-ray is showing slight improvement in his atypical pneumonia, hence I am recommending today a CT angiogram on this patient to rule out underlying thromboembolic disease. In the meantime patient remains on baricitinib, remains on steroids, and improvement is rather extremely minimal. Patient was seen today on 03/27/2024, remains in the ICU, remains on Airvo at 70% FiO2 and 50 L flow O2 sat remains in the low 90s up to 95%. IV fluid is now to KVO, CT angiogram of the chest showed no evidence of pulmonary embolism. Patient remains on Solu-Medrol, Lovenox, bosutinib, and his echocardiogram showed good LV function, I plan to transfer the patient out of the ICU today to 3 S. Today showed relatively normal CBC, normal electrolytes, normal renal profile, The patient is seen today March 28, 2024 in follow-up on the selective care unit. He was transferred out of the intensive care unit yesterday. He is currently sitting up in a chair at the bedside. Awake and alert in mild respiratory distress. He is continued on Airvo high flow oxygen at 50 L and 60% FiO2. He is continued on baricitinib. Remains on vitamin supplements. Lovenox for DVT prophylaxis. Remains on bronchodilators and Solu-Medrol. White count 16.2. Hemoglobin 12.1. Platelets 339. Sodium 134. Potassium 3.8. Bicarb 29. BUN 43. Creatinine 1.06. Glucose 133. The patient is seen today March 29, 2024 in follow-up on the selective care unit. He is currently sitting up in a chair. Awake and alert in no acute distress. Feeling a bit better each day. He has been slow to progress. He is still on Airvo high flow oxygen at 50 L and 60% FiO2. He remains on baricitinib. Blood and sputum cultures remained with no growth. Glucose 139. On albuterol and Solu-Medrol. Lovenox for DVT prophylaxis. Progress note dated March 30, 2024. 78-year-old male seen today in room 381. The patient was admitted with the diagnosis of pneumonia. The patient is currently on Airvo, at 50 L/min with an FiO2 of 55%. He is not receiving any IV fluids. He is resting comfortably in the room, sitting in the chair next to his hospital bed. The patient states that he is doing better. He denies any significant or worsening shortness of breath, cough, wheezing, chest tightness, or phlegm production. Current laboratory data includes a white count 15.1, hemoglobin 9.2, hematocrit 34.5, platelet count of 328,000. Sodium 134, potassium 4.6, chlorides 102, CO2 29, BUN 42, creatinine 1.06. Glucose 284. Calcium 7.7. Albumin 2.6. Him and bl ood sampling, has been negative. Progress note dated March 31, 2024. 78-year-old male seen today in room 381. The patient is sitting in a chair next to the hospital bed. He remains on Airvo. He is at 50 L/min with an FiO2 50%. He is not receiving any IV fluids. His Solu-Medrol can be converted to prednisone 40 mg today. He continues on baricitinib at 4 mg a day. No new labs today other than a glucose of 190. Progress note dated April 01, 2024. 78-year-old male who is seen again in room 381. The patient continues on Airvo at 45 L/min, with an FiO2 45%. He is not receiving any IV fluids. Each day when he asked the patient how he is doing, he states that he is doing fine, and feeling better. No new labs today other than a glucose of 123, and a creatinine of 1.14. Progress note dated April 02, 2024. 78-year-old male seen in room 381. The patient continues on Airvo, with settings of 40 L/min, and FiO2 40%. The patient is not receiving any IV fluids. The patient is sitting up in a chair next to his hospital bed. The patient states that he feels great. No new labs today other than a glucose of 217. Progress note dated April 03, 2024. 78-year-old male seen today in room 381. The patient had been on Airvo, but today, he is on 9 L high flow O2. He is not receiving any IV fluids. He is sitting in a chair next to his hospital bed. The patient is feeling much better. Glucose is 113 today. No additional labs are noted. On 04/04/2024, the patient is being seen for a follow-up. The patient is doing well and the patient is gradually improving. Oxygen requirements have aggressively improved and the patient is currently on 8 L of oxygen by nasal cannula with a pulse ox of 93%. The patient completed a course of baricitinib and the patient is currently on prednisone at a dose of 40 mg p.o. daily. Minimal cough. No significant sputum production. No chest tightness. No wheezing. The patient completed a course of baricitinib on 04/02/2024. No new labs from today. No altered mentation. No nausea or emesis. Able to sit up in a chair. Calm and comfortable. No other significant complaints otherwise for now. Objective - Vital Signs Vital signs: Vital Signs Temp 98.2 F 04/04/24 08:00 Pulse 87 04/04/24 08:00 Resp 20 04/04/24 12:38 BP 140/68 04/04/24 08:00 Pulse Ox 91 L 04/04/24 08:12 FiO2 40 04/02/24 09:08 Intake & Output 04/03/24 04/04/24 04/04/24 18:59 06:59 18:59 Intake Total 400 285 Output Total 2100 2200 Balance -1700 -2200 285 Weight 75.3 kg Intake: Oral 400 285 Output: Urine 20990 Other: Voiding Method External Catheter External Catheter External Catheter - Exam The patient appeared well nourished and normally developed. Vital signs as documented. The patient does not demonstrate any significant respiratory distress. The patient is currently on 7 L of oxygen by nasal cannula Head exam is unremarkable. No scleral icterus or corneal arcus noted. Neck is without jugular venous distension, thyromegaly, or carotid bruits. Carotid upstrokes are brisk bilaterally. Lungs show scattered rhonchi and crackles bilaterally.. Cardiac exam reveals the PMI to be normally sized and situated. Rhythm is regular. First and second heart sounds normal. No murmurs, rubs or gallops. Abdominal exam reveals normal bowel sounds, no masses, no organomegaly and no aortic enlargement. Extremities are nonedematous and both femoral and pedal pulses are normal. Examination of the skin revealed no evidence of significant rashes, suspicious appearing nevi or other concerning lesions. Neurologically, the patient is awake and alert and the patient does not have any focal neurological deficit. Cranial nerves are essentially intact. - Labs CBC & Chem 7: 03/30/24 07:12 04/01/24 06:30 Labs: Abnormal Lab Results - Last 24 Hours (Table) 04/03/24 04/03/24 04/04/24 Range/Units 16:58 20:59 11:28 POC Glucose (mg/dL) 158 H 189 H 123 H (70-110) mg/dL Assessment and Plan Plan: Acute hypoxic respiratory failure most likely secondary to COVID-19 related pneumonia. The patient may have an underlying chronic interstitial lung dise ase. The patient is oxygenation gradually improved. The patient is currently off Airvo and FiO2 is being gradually weaned off and currently he is on 7 L of oxygen by nasal cannula. Completed a course of baricitinib on 04/02/2024 and the patient is currently on prednisone 40 mg p.o. daily. Acute COVID-19 infection/pneumonia. He has received previous vaccination. No previous COVID-19 infections. Interstitial lung disease, being worked up on an outpatient basis through [facility] under the care of Dr. Terrence Maynard. He has undergone recent bronchoscopy and bronchial lavage. No biopsies were obtained. The patient was not oxygen dependent. Shortness of breath secondary to above, improving Hypertension Hyperlipidemia History of coronary disease with remote history of myocardial infarction. The patient has 2 coronary stents inserted post [place] back in 2013 Plan titrate oxygen flow to maintain saturation above 90%, currently on 7 L Completed a course of baricitinib on 04/02/2024 Prednisone 40 mg p.o. daily as part of a taper Lovenox 40 mg subcu for DVT prophylaxis Doppler of lower extremities were negative No clinical suspicion for pulmonary embolism Would like to obtain records on his previous ILD workup Reviewed the chest x-ray Increase mobility as tolerated Repeat labs in a.m. Repeat chest x-ray in a.m. will continue to follow.
[2024-04-04 16:39] LABS: Glucose,Whole Blood 225 mg/dL (70-110)
[2024-04-04 20:46] LABS: Glucose,Whole Blood 160 mg/dL (70-110)
[2024-04-05 03:40] LABS: Glucose,Whole Blood 143 mg/dL (70-110)
[2024-04-05 03:40] LABS: Glucose,Whole Blood 357 mg/dL (70-110)
[2024-04-05 03:40] LABS: Glucose,Whole Blood 172 mg/dL (70-110)
[2024-04-05 03:40] LABS: Glucose,Whole Blood 337 mg/dL (70-110)
[2024-04-05 03:40] LABS: Glucose,Whole Blood 211 mg/dL (70-110)
[2024-04-05 03:40] LABS: Glucose,Whole Blood 140 mg/dL (70-110)
[2024-04-05 03:40] LABS: Glucose,Whole Blood 256 mg/dL (70-110)
[2024-04-05 06:15] LABS: Glucose,Whole Blood 88 mg/dL (70-110)
[2024-04-05 08:06] LABS: HCT 36.8 % (39.0-53.0); HGB 11.6 gm/dL (13.0-17.5); MCH 29.1 pg (25.0-35.0); MCHC 31.6 g/dL (31.0-37.0); MCV 92.1 fL (80.0-100.0); Platelet Count 222 k/uL (150-450); RBC 3.99 m/uL (4.30-5.90); RDW 14.1 % (11.5-15.5); WBC 17.7 k/uL (3.8-10.6)
--- NOTE | 2024-04-05 08:15 | XR ---
EXAMINATION TYPE: XR chest 1V DATE OF EXAM: 04/05/2024 CLINICAL HISTORY: COVID pneumonia. TECHNIQUE: Single AP portable upright view of the chest is obtained. COMPARISON: Chest CT and chest x-ray from March 26, 2024 FINDINGS: Diffuse bilateral increased opacities redemonstrated. Cardiac silhouette size is stable an d within normal limits. There is vertebroplasty at 2 levels in the lower thoracic spine again seen. IMPRESSION: Bilateral multifocal acute infiltrates and/or edema on background chronic parenchymal fib rosis remains present. No significant change from most recent studies. [facility], , 04/05/2024 8:13 AM
[2024-04-05 08:28] LABS: ALT 125 U/L (4-49); AST 40 U/L (17-59); African American GFR (CKD) 68 (>60 ml/min/1.73 sqM); Alkaline Phosphatase 110 U/L (38-126); Anion Gap 0 mmol/L; Blood Urea Nitrogen 33 mg/dL (9-20); Calcium 8.6 mg/dL (8.4-10.2); Carbon Dioxide 36 mmol/L (22-30); Chloride 100 mmol/L (98-107); Glucose 78 mg/dL (74-99); Non-African American GFR(CKD) 59 (>60 ml/min/1.73 sqM); Potassium 4.6 mmol/L (3.5-5.1); Sodium 136 mmol/L (137-145); Total Bilirubin 1.2 mg/dL (0.2-1.3); Total Protein 5.6 g/dL (6.3-8.2)
[2024-04-05 11:34] LABS: Glucose,Whole Blood 113 mg/dL (70-110)
--- NOTE | 2024-04-05 16:12 | P.PN ---
Subjective Progress Note Date: 04/05/24 Hospital Course: 78 year old M with PMH of pulmonary fibrosis, GERD, BPH, HLD, HTN, CAD with s tent presented to the ED on 03/16 for URI symptoms. In the ED he underwent extensive evaluation. T 102F, BP 139/70, HR 111, RR 20, 91% on 3L NC. Labs on admission show white blood cell count 7.9, hemoglobin 12.7, hematocrit 39.2, platelet 168, PT 11.4, PTT 25.7, INR 1.0, D-dimer 1.07, sodium 136, potassium 4.9, chloride 102, carbon dioxide 24, BUN 32, creatinine 1.97, glucose 157, troponin less than 0.012. EKG showed sinus tachycardia with a ventricular rate of 102 bpm, QTc interval of 386 ms, possible left atrial enlargement, left axis deviation, right bundle branch block. CXR showed reticulonodular infiltrate throughout the left lung may reflect atypical pneumonia. UA showed 1+ protein, negative for nitrites, trace leukocyte esterase. Initially admitted for sepsis due to atypical PNA, started on Rocephin/Azithromycin. COVID 19 test was positive. Started on Decadron. Pulmonary consulted, started on Baricitinib. Respiratory status worsened and he was transferred to ICU on BiPAP which was eventually transitioned to AirVo. Echo showed EF 50-55% with no regional wall motion abnormalities. CTA chest shows no PE, multifocal airspace opacities. Respiratory function improved, patient now titrated down to 7 L high flow nasal cannula. Subjective: Patient seen and examined at bedside. No acute events overnight. Still getting short of breath when doing any activity. Pertinent positives and negatives as discussed above, a complete review of systems was performed and all other systems are negative. Vitals Signs Reviewed. General: Nontoxic, no distress, appears at stated age Derm: Warm, dry Head: Atraumatic, normocephalic, symmetric Eyes: EOMI, no lid lag, anicteric sclera Mouth: No lip lesion, mucus membranes moist Cardiovascular: S1S2 reg, no murmur Lungs: CTA bilateral, no rhonchi, no rales, no accessory muscle use, supplemental oxygen Abdominal: Soft, nontender to palpation, no guarding, no appreciable organomegaly Ext: No gross muscle atrophy, no edema, no contractures Neuro: CN II-XI grossly intact, no focal neuro deficits Psych: Alert, oriented, appropriate affect Data Reviewed Today: Pertinent Labs: WBC 17.7, hemoglobin 11.6, bicarb 36, creatinine 1.19, blood sugars range between 1 13-1 89 Imaging: Chest x-ray independently interpreted, bilateral interstitial opacities unchanged from prior Assessment and Plan: Patient is severely ill, needs close monitoring. Prognosis guarded. Acute hypoxic respiratory failure secondary to COVID 19 PNA with history of pulmonary fibrosis: Completed course of Rocephin/Azithromycin. Albuterol INH QID + Q4H PRN. Completed course of Baricitinib. Robitussin DM 10 cc PO Q6H PRN. Prednisone 40 mg PO QD. Pulmonary on board. Sepsis secondary to above Steroid induced hyperglycemia with Pre-DM: A1c 6.2. ISS. Accuchecks ACHS. Monitor for hypoglycemia Transaminitis, resolving: Possible related to COVID or use of Baricitinib? Monitor Prerenal azotemia, resolving: Improved. Encourage hydration by mouth Normocytic anemia: Stable with no signs of bleeding. Hemoglobin stable, continue to monitor GERD: Pepcid 20 mg PO BID. BPH: Proscar 5 mg PO QD. Hypertenion: Amlodipine 2.5 mg PO QD. Losartan 100 mg PO QD. CAD: ASA 81 mg PO QD. Pravastatin 80 mg PO QD. DVT ppx: Lovenox Code status: Full code Anticipated discharge place: Pending clinical course Anticipated discharge time: Pending clinical course Objective - Vital Signs Vital signs: Vital Signs Temp 97.5 F L 04/05/24 15:39 Pulse 85 04/05/24 15:39 Resp 20 04/05/24 15:39 BP 132/60 04/05/24 15:39 Pulse Ox 93 L 04/05/24 15:39 FiO2 40 04/02/24 09:08 Intake & Output 04/04/24 04/05/24 04/05/24 18:59 06:59 18:59 Intake Total 535 1060 Output Total 1950 800 Balance 535 -1950 260 Weight 73.4 kg Intake: Oral 535 1060 Output: Urine 1950 800 Other: Voiding Method External Catheter External Catheter Bedside Commode Urinal # Voids 1 # Bowel Movements 1 - Labs CBC & Chem 7: 04/05/24 07:32 04/05/24 07:32 Labs: Abnormal Lab Results - Last 24 Hours (Table) 03/26/24 03/26/24 03/26/24 Range/Units 11:13 11:27 16:15 WBC (3.8-10.6) k/uL RBC (4.30-5.90) m/uL Hgb (13.0-17.5) gm/dL Hct (39.0-53.0) % Sodium (137-145) mmol/L Carbon Dioxide (22-30) mmol/L BUN (9-20) mg/dL POC Glucose (mg/dL) 337 H 357 H 143 H (70-110) mg/dL ALT (4-49) U/L Total Protein (6.3-8.2) g/dL Albumin (3.5-5.0) g/dL 03/26/24 03/26/24 03/27/24 Range/Units 18:15 19:40 06:06 WBC (3.8-10.6) k/uL RBC (4.30-5.90) m/uL Hgb (13.0-17.5) gm/dL Hct (39.0-53.0) % Sodium (137-145) mmol/L Carbon Dioxide (22-30) mmol/L BUN (9-20) mg/dL POC Glucose (mg/dL) 256 H 211 H 172 H (70-110) mg/dL ALT (4-49) U/L Total Protein (6.3-8.2) g/dL Albumin (3.5-5.0) g/dL 03/27/24 04/04/24 04/04/24 Range/Units 11:15 16:38 20:45 WBC (3.8-10.6) k/uL RBC (4.30-5.90) m/uL Hgb (13.0-17.5) gm/dL Hct (39.0-53.0) % Sodium (137-145) mmol/L Carbon Dioxide (22-30) mmol/L BUN (9-20) mg/dL POC Glucose (mg/dL) 140 H 225 H 160 H (70-110) mg/dL ALT (4-49) U/L Total Protein (6.3-8.2) g/dL Albumin (3.5-5.0) g/dL 04/05/24 04/05/24 04/05/24 Range/Units 07:32 07:32 11:31 WBC 17.7 H (3.8-10.6) k/uL RBC 3.99 L (4.30-5.90) m/uL Hgb 11.6 L (13.0-17.5) gm/dL Hct 36.8 L (39.0-53.0) % Sodium 136 L (137-145) mmol/L Carbon Dioxide 36 H (22-30) mmol/L BUN 33 H (9-20) mg/dL POC Glucose (mg/dL) 113 H (70-110) mg/dL ALT 125 H (4-49) U/L Total Protein 5.6 L (6.3-8.2) g/dL Albumin 3.0 L (3.5-5.0) g/dL
[2024-04-05 16:45] LABS: Glucose,Whole Blood 167 mg/dL (70-110)
[2024-04-05 20:26] LABS: Glucose,Whole Blood 152 mg/dL (70-110)
--- NOTE | 2024-04-05 22:08 | P.PN ---
Subjective Progress Note Date: 04/05/24 This is a 78-year-old male patient who is currently hospitalized for an acute hypoxic respiratory failure and COVID-19 related pneumonia. The patient is currently on Airvo at 45 L with an FiO2 of 60%. I reviewed the series of chest x-ray that was done on this patient during this current admission. The patient may have underlying chronic ILD. Nevertheless, the patient developed progressive worsening in the bilateral pulmonary filtrates and the patient has developed some increased hazy opacities bilaterally consistent with COVID-19 related pneumonia. Noted his symptoms started around 2 days prior to his current admission and the patient's is also infected with the same virus. His D-dimer was mildly elevated at 1.07. Doppler of the lower extremities done today was negative. Perfusion scan was up and intermediate probability. He has seen Dr. Terrence Maynard and the patient has undergone a bronchoscopy few months back which I am assuming was done as part of investigation for chronic interstitial lung disease. The patient is on no immunosuppressant. 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 No coronary artery disease. No active smoking. The white cell count of 5.8 with a hemoglobin 12.7 and a platelet count of 154. Sodium is at 139, BUN is 18 with a creatinine of 1.1 and a potassium level of 4.7. The viral screen was positive for COVID-19. His procalcitonin level was at 0.7. His CRP is at 14.5 with an LDH of 600. The patient has received vaccination in the past. No previous history of COVID-19 infection. No reported aspiration. He is currently on IV steroids and the patient is receiving Solu-Medrol 60 mg every 6 hours. The patient is also on Lovenox 40 mg subcu for DVT prophylaxis. Antibiotic coverage is essentially empiric. He is afebrile. No significant tachycardia or tachypnea. On 03/20/2024, the patient is comfortable. Slightly more short of breath. Nevertheless, he is having episodes of oxygen desaturations with limited amount of mobility. Earlier this morning, while having his x-ray, the patient's pulse ox dropped down to the 60s. The chest x-ray showed diffuse interstitial and alveolar opacification consistent with COVID-19 related pneumonia. The patient remains on IV Solu-Medrol. The patient remains on Airvo and this was adjusted t o 60 L and FiO2 of 90%. LDH level was elevated in the 600 range. Doppler of the lower extremities were negative. D-dimer is at 1.07. Electrolytes are all stable and sodium levels at 139, potassium is at 4.7, BUN is 18 with a creatinine of 1.1. The white cell count is currently at 10.1 with a hemoglobin 12.2 and a platelet count is at 162. Hemodynamically stable. Cardiac rhythm is sinus. Denies having any other significant complaints. Awake and alert and communicating. Patient was seen today on 03/21/2024, remains in the icu, remains on Airvo, patient is on 60 L flow 90% FiO2, he is also on baricitinib day #2, patient is marginal at best. O2 saturation is in the 80s and sometimes in the 70s patient is doing well, and I am aware that he may end up requiring intubation mechanical ventilation, I recommended BiPAP 03/04/100% and will transition from Airvo to BiPAP. Chest x-ray shows bilateral interstitial infiltrates. Looking at the previous CT of the chest, patient did have underlying interstitial lung disease which was relatively mild to begin with in 2019. But nonetheless he did have findings of interstitial lung disease and bronchiectasis noted on previous CT of the chest done at [facility]. His labs today WBC is 8.2 hemoglobin is 11.6, electrolytes are normal BUN is 36 creatinine 1.07, last procalcitonin was 0.41 the 1 prior was 0.73. LDH is high 600. Seen today on 03/22/2024, patient is feeling better today compared to yesterday, maintaining adequate O2 saturations he is on 60 L flow and 90% FiO2 he was on BiPAP last night 100%. Chest x-ray is showing improvement O2 saturation is improved he is now in the 90s remains on baricitinib day number 3 out of 14 remains on Solu-Medrol 60 every 6 remains on Lovenox. Chest x-ray is showing slight improvement clinically the patient is slightly improved hence we will continue the same and I will continue to monitor the patient in the ICU. CBC is relatively normal basic metabolic profile is normal BUN is 41 creatinine 1.03 Patient was seen today on 03/23/2024, slight improvement clinically chest x-ray slightly improved remains on 90% FiO2 and 60 L flow via Airvo. Patient has no cough, chest pain no fever no chills no hemoptysis. Improvement clinically and radiographically noted, hence we will titrate his FiO2 down from 90% to the 80% or maybe 70% if possible. CBC is normal basic metabolic profile is normal BUN is 47 creatinine 0.99 Patient was seen today on 03/24/2024, patient remains in the ICU, remains on Airvo at 70% FiO2 and 40 L flow. Remains on Solu-Medrol, he is also on baricitinib and he is on Lovenox. Slight improvement chest x-ray is basically about the same, minimal improvement clinically but nonetheless the patient is not getting any worse WBC count is 10.4 hemoglobin is 12 electrolytes are normal renal profile is normal Patient is was seen today on 03/25/2024, patient remains in the ICU, remains on Airvo at 80% FiO2 45 L flow, patient is noticing some improvement chest x-ray is basically about the same physical examination is about the same. Patient ov erall is about the same. Patient remains on baricitinib and he remains on steroids. WBC count is 12.3 hemoglobin 12.3 basic metabolic profile is normal BUN is 45 creatinine 1.13 Patient seen today , still requiring relatively high FiO2 with Airvo at 75% FiO2 and 50 L flow, patient is about the same, continues to desaturate with any activity. His chest x-ray is showing slight improvement in his atypical pneumonia, hence I am recommending today a CT angiogram on this patient to rule out underlying thromboembolic disease. In the meantime patient remains on baricitinib, remains on steroids, and improvement is rather extremely minimal. Patient was seen today on 03/27/2024, remains in the ICU, remains on Airvo at 70% FiO2 and 50 L flow O2 sat remains in the low 90s up to 95%. IV fluid is now to KVO, CT angiogram of the chest showed no evidence of pulmonary embolism. Patient remains on Solu-Medrol, Lovenox, bosutinib, and his echocardiogram showed good LV function, I plan to transfer the patient out of the ICU today to 3 S. Today showed relatively normal CBC, normal electrolytes, normal renal profile, The patient is seen today March 28, 2024 in follow-up on the selective care unit. He was transferred out of the intensive care unit yesterday. He is currently sitting up in a chair at the bedside. Awake and alert in mild respiratory distress. He is continued on Airvo high flow oxygen at 50 L and 60% FiO2. He is continued on baricitinib. Remains on vitamin supplements. Lovenox for DVT prophylaxis. Remains on bronchodilators and Solu-Medrol. White count 16.2. Hemoglobin 12.1. Platelets 339. Sodium 134. Potassium 3.8. Bicarb 29. BUN 43. Creatinine 1.06. Glucose 133. The patient is seen today March 29, 2024 in follow-up on the selective care unit. He is currently sitting up in a chair. Awake and alert in no acute distress. Feeling a bit better each day. He has been slow to progress. He is still on Airvo high flow oxygen at 50 L and 60% FiO2. He remains on baricitinib. Blood and sputum cultures remained with no growth. Glucose 139. On albuterol and Solu-Medrol. Lovenox for DVT prophylaxis. Progress note dated March 30, 2024. 78-year-old male seen today in room 381. The patient was admitted with the diagnosis of pneumonia. The patient is currently on Airvo, at 50 L/min with an FiO2 of 55%. He is not receiving any IV fluids. He is resting comfortably in the room, sitting in the chair next to his hospital bed. The patient states that he is doing better. He denies any significant or worsening shortness of breath, cough, wheezing, chest tightness, or phlegm production. Current laboratory data includes a white count 15.1, hemoglobin 9.2, hematocrit 34.5, platelet count of 328,000. Sodium 134, potassium 4.6, chlorides 102, CO2 29, BUN 42, creatinine 1.06. Glucose 284. Calcium 7.7. Albumin 2.6. Him and bl ood sampling, has been negative. Progress note dated March 31, 2024. 78-year-old male seen today in room 381. The patient is sitting in a chair next to the hospital bed. He remains on Airvo. He is at 50 L/min with an FiO2 50%. He is not receiving any IV fluids. His Solu-Medrol can be converted to prednisone 40 mg today. He continues on baricitinib at 4 mg a day. No new labs today other than a glucose of 190. Progress note dated April 01, 2024. 78-year-old male who is seen again in room 381. The patient continues on Airvo at 45 L/min, with an FiO2 45%. He is not receiving any IV fluids. Each day when he asked the patient how he is doing, he states that he is doing fine, and feeling better. No new labs today other than a glucose of 123, and a creatinine of 1.14. Progress note dated April 02, 2024. 78-year-old male seen in room 381. The patient continues on Airvo, with settings of 40 L/min, and FiO2 40%. The patient is not receiving any IV fluids. The patient is sitting up in a chair next to his hospital bed. The patient states that he feels great. No new labs today other than a glucose of 217. Progress note dated April 03, 2024. 78-year-old male seen today in room 381. The patient had been on Airvo, but today, he is on 9 L high flow O2. He is not receiving any IV fluids. He is sitting in a chair next to his hospital bed. The patient is feeling much better. Glucose is 113 today. No additional labs are noted. On 04/04/2024, the patient is being seen for a follow-up. The patient is doing well and the patient is gradually improving. Oxygen requirements have aggressively improved and the patient is currently on 8 L of oxygen by nasal cannula with a pulse ox of 93%. The patient completed a course of baricitinib and the patient is currently on prednisone at a dose of 40 mg p.o. daily. Minimal cough. No significant sputum production. No chest tightness. No wheezing. The patient completed a course of baricitinib on 04/02/2024. No new labs from today. No altered mentation. No nausea or emesis. Able to sit up in a chair. Calm and comfortable. No other significant complaints otherwise for now. On 04/05/2024, the patient has no specific complaints. Oxygenation is stable and the patient remains on 7 L of oxygen nasal cannula. White cell count is at 17 with a hemoglobin of 1.6 and a platelet count of 222. Sodium is 136 with a BUN of 33 and a creatinine of 1.1. Chest x-ray from today shows diffuse multifocal pulmonary infiltrates with background pulmonary fibrosis. No nausea. No emesis. No chest pain. No fever. No chills. No other new complaints for now. The patient is currently on 40 mg of prednisone on a daily basis. Objective - Vital Signs Vital signs: Vital Signs Temp 97.5 F L 04/05/24 08:00 Pulse 78 04/05/24 11:33 Resp 22 04/05/24 11:33 BP 142/60 04/05/24 11:33 Pulse Ox 90 L 04/05/24 11:33 FiO2 40 04/02/24 09:08 Intake & Output 04/04/24 04/05/24 04/05/24 18:59 06:59 18:59 Intake Total 535 598 Output Total 1950 500 Balance 535 -1950 98 Weight 73.4 kg Intake: Oral 535 598 Output: Urine 1950 500 Other: Voiding Method External Catheter External Catheter External Catheter - Exam The patient appeared well nourished and normally developed. Vital signs as documented. The patient does not demonstrate any significant respiratory distress. The patient is currently on 7 L of oxygen by nasal cannula Head exam is unremarkable. No scleral icterus or corneal arcus noted. Neck is without jugular venous distension, thyromegaly, or carotid bruits. Carotid upstrokes are brisk bilaterally. Lungs show scattered rhonchi and crackles bilaterally.. Cardiac exam reveals the PMI to be normally sized and situated. Rhythm is regular. First and second heart sounds normal. No murmurs, rubs or gallops. Abdominal exam reveals normal bowel sounds, no masses, no organomegaly and no aortic enlargement. Extremities are nonedematous and both femoral and pedal pulses are normal. Examination of the skin revealed no evidence of significant rashes, suspicious appearing nevi or other concerning lesions. Neurologically, the patient is awake and alert and the patient does not have any focal neurological deficit. Cranial nerves are essentially intact. - Labs CBC & Chem 7: 04/05/24 07:32 04/05/24 07:32 Labs: Abnormal Lab Results - Last 24 Hours (Table) 03/26/24 03/26/24 03/26/24 Range/Units 11:13 11:27 16:15 WBC (3.8-10.6) k/uL RBC (4.30-5.90) m/uL Hgb (13.0-17.5) gm/dL Hct (39.0-53.0) % Sodium (137-145) mmol/L Carbon Dioxide (22-30) mmol/L BUN (9-20) mg/dL POC Glucose (mg/dL) 337 H 357 H 143 H (70-110) mg/dL ALT (4-49) U/L Total Protein (6.3-8.2) g/dL Albumin (3.5-5.0) g/dL 03/26/24 03/26/24 03/27/24 Range/Units 18:15 19:40 06:06 WBC (3.8-10.6) k/uL RBC (4.30-5.90) m/uL Hgb (13.0-17.5) gm/dL Hct (39.0-53.0) % Sodium (137-145) mmol/L Carbon Dioxide (22-30) mmol/L BUN (9-20) mg/dL POC Glucose (mg/dL) 256 H 211 H 172 H (70-110) mg/dL ALT (4-49) U/L Total Protein (6.3-8.2) g/dL Albumin (3.5-5.0) g/dL 03/27/24 04/04/24 04/04/24 Range/Units 11:15 16:38 20:45 WBC (3.8-10.6) k/uL RBC (4.30-5.90) m/uL Hgb (13.0-17.5) gm/dL Hct (39.0-53.0) % Sodium (137-145) mmol/L Carbon Dioxide (22-30) mmol/L BUN (9-20) mg/dL POC Glucose (mg/dL) 140 H 225 H 160 H (70-110) mg/dL ALT (4-49) U/L Total Protein (6.3-8.2) g/dL Albumin (3.5-5.0) g/dL 04/05/24 04/05/24 04/05/24 Range/Units 07:32 07:32 11:31 WBC 17.7 H (3.8-10.6) k/uL RBC 3.99 L (4.30-5.90) m/uL Hgb 11.6 L (13.0-17.5) gm/dL Hct 36.8 L (39.0-53.0) % Sodium 136 L (137-145) mmol/L Carbon Dioxide 36 H (22-30) mmol/L BUN 33 H (9-20) mg/dL POC Glucose (mg/dL) 113 H (70-110) mg/dL ALT 125 H (4-49) U/L Total Protein 5.6 L (6.3-8.2) g/dL Albumin 3.0 L (3.5-5.0) g/dL Assessment and Plan Plan: Acute hypoxic respiratory failure most likely secondary to COVID-19 related pneumonia. The patient may have an underlying chronic interstitial lung disease. The patient is oxygenation gradually improved. The patient is curren tly off Airvo and FiO2 is being gradually weaned off and currently he is on 7 L of oxygen by nasal cannula. Completed a course of baricitinib on 04/02/2024 and the patient is currently on prednisone 40 mg p.o. daily. Acute COVID-19 infection/pneumonia. He has received previous vaccination. No previous COVID-19 infections. Interstitial lung disease, being worked up on an outpatient basis through [facility] under the care of Dr. Terrence Maynard. He has undergone recent bronchoscopy and bronchial lavage. No biopsies were obtained. The patient was not oxygen dependent. Shortness of breath secondary to above, improving Hypertension Hyperlipidemia History of coronary disease with remote history of myocardial infarction. The patient has 2 coronary stents inserted post MT back in 2013 Plan Clinically stable titrate oxygen flow to maintain saturation above 90%, currently on 7 L Completed a course of baricitinib on 04/02/2024 Prednisone to be continued and will cut down the dose of 30 mg p.o. daily Chest x-ray findings were noted Lovenox 40 mg subcu for DVT prophylaxis Doppler of lower extremities were negative No clinical suspicion for pulmonary embolism Maintain adequate mobility Will discharge the patient was oxygen requirements drop under 5 L/min nasal cannula. will continue to follow.
[2024-04-06 05:51] LABS: Glucose,Whole Blood 110 mg/dL (70-110)
[2024-04-06 08:08] LABS: Basophils % (A) 0 %; Eosinophils # (A) 0.2 k/uL (0-0.7); Eosinophils % (A) 1 %; HCT 34.6 % (39.0-53.0); HGB 11.2 gm/dL (13.0-17.5); Lymphocytes # (A) 0.9 k/uL (1.0-4.8); Lymphocytes % (A) 7 %; MCH 29.5 pg (25.0-35.0); MCHC 32.4 g/dL (31.0-37.0); MCV 90.9 fL (80.0-100.0); Mean Platelet Volume 8.3; Monocytes # (A) 0.4 k/uL (0-1.0); Monocytes % (A) 3 %; Neutrophils # (A) 12.2 k/uL (1.3-7.7); Neutrophils % (A) 89 %; Platelet Count 211 k/uL (150-450); RBC 3.81 m/uL (4.30-5.90); RDW 14.4 % (11.5-15.5); WBC 13.7 k/uL (3.8-10.6)
[2024-04-06 08:18] LABS: ALT 102 U/L (4-49); AST 33 U/L (17-59); African American GFR (CKD) 54 (>60 ml/min/1.73 sqM); Albumin 2.8 g/dL (3.5-5.0); Alkaline Phosphatase 104 U/L (38-126); Anion Gap 1 mmol/L; Blood Urea Nitrogen 34 mg/dL (9-20); Calcium 8.5 mg/dL (8.4-10.2); Carbon Dioxide 35 mmol/L (22-30); Chloride 100 mmol/L (98-107); Glucose 90 mg/dL (74-99); Non-African American GFR(CKD) 46 (>60 ml/min/1.73 sqM); Potassium 4.2 mmol/L (3.5-5.1); Sodium 136 mmol/L (137-145); Total Bilirubin 1.1 mg/dL (0.2-1.3); Total Protein 5.2 g/dL (6.3-8.2)
[2024-04-06] MEDS: predniSONE 10 MG TAB PO SCH (08:43)
--- NOTE | 2024-04-06 11:19 | P.PN ---
Subjective Progress Note Date: 04/06/24 Hospital Course: 78 year old M with PMH of pulmonary fibrosis, GERD, BPH, HLD, HTN, CAD with s tent presented to the ED on 03/16 for URI symptoms. In the ED he underwent extensive evaluation. T 102F, BP 139/70, HR 111, RR 20, 91% on 3L NC. Labs on admission show white blood cell count 7.9, hemoglobin 12.7, hematocrit 39.2, platelet 168, PT 11.4, PTT 25.7, INR 1.0, D-dimer 1.07, sodium 136, potassium 4.9, chloride 102, carbon dioxide 24, BUN 32, creatinine 1.97, glucose 157, troponin less than 0.012. EKG showed sinus tachycardia with a ventricular rate of 102 bpm, QTc interval of 386 ms, possible left atrial enlargement, left axis deviation, right bundle branch block. CXR showed reticulonodular infiltrate throughout the left lung may reflect atypical pneumonia. UA showed 1+ protein, negative for nitrites, trace leukocyte esterase. Initially admitted for sepsis due to atypical PNA, started on Rocephin/Azithromycin. COVID 19 test was positive. Started on Decadron. Pulmonary consulted, started on Baricitinib. Respiratory status worsened and he was transferred to ICU on BiPAP which was eventually transitioned to AirVo. Echo showed EF 50-55% with no regional wall motion abnormalities. CTA chest shows no PE, multifocal airspace opacities. Respiratory function improved, patient now titrated down to 7 L high flow nasal cannula. Subjective: Patient seen and examined at bedside. No acute events overnight. Still getting short of breath when doing any activity. Pertinent positives and negatives as discussed above, a complete review of systems was performed and all other systems are negative. Vitals Signs Reviewed. General: Nontoxic, no distress, appears at stated age Derm: Warm, dry Head: Atraumatic, normocephalic, symmetric Eyes: EOMI, no lid lag, anicteric sclera Mouth: No lip lesion, mucus membranes moist Cardiovascular: S1S2 reg, no murmur Lungs: CTA bilateral, no rhonchi, no rales, no accessory muscle use, supplemental oxygen Abdominal: Soft, nontender to palpation, no guarding, no appreciable organomegaly Ext: No gross muscle atrophy, no edema, no contractures Neuro: CN II-XI grossly intact, no focal neuro deficits Psych: Alert, oriented, appropriate affect Data Reviewed Today: Pertinent Labs: WBC 13.7, hemoglobin 11.2, bicarb 35, creatinine 1.45 Imaging: Chest x-ray independently interpreted, bilateral interstitial opacities unchanged from prior Assessment and Plan: Patient is severely ill, needs close monitoring. Prognosis guarded. Acute hypoxic respiratory failure secondary to COVID 19 PNA with history of pulmonary fibrosis: Completed course of Rocephin/Azithromycin. Albuterol INH QID + Q4H PRN. Completed course of Baricitinib. Robitussin DM 10 cc PO Q6H PRN. Prednisone 40 mg PO QD. Pulmonary on board. Wean oxygen Sepsis secondary to above Steroid induced hyperglycemia with Pre-DM: A1c 6.2. ISS. Accuchecks ACHS. Monitor for hypoglycemia Transaminitis, resolving: Possible related to COVID or use of Baricitinib? Monitor Prerenal azotemia, resolving: Improved. Encourage hydration by mouth Normocytic anemia: Stable with no signs of bleeding. Hemoglobin stable, continue to monitor GERD: Pepcid 20 mg PO BID. BPH: Proscar 5 mg PO QD. Hypertenion: Amlodipine 2.5 mg PO QD. Losartan 100 mg PO QD. CAD: ASA 81 mg PO QD. Pravastatin 80 mg PO QD. Creatinine slightly worsened, repeat BMP tomorrow DVT ppx: Lovenox Code status: Full code Anticipated discharge place: Pending clinical course Anticipated discharge time: Pending clinical course Objective - Vital Signs Vital signs: Vital Signs Temp 97.4 F L 04/06/24 08:38 Pulse 88 04/06/24 08:38 Resp 16 04/06/24 08:38 BP 135/60 04/06/24 08:38 Pulse Ox 90 L 04/06/24 08:38 FiO2 40 04/02/24 09:08 Intake & Output 04/05/24 04/06/24 04/06/24 18:59 06:59 18:59 Intake Total 1282 20 240 Output Total 800 1375 300 Balance 482 -8335 -60 Weight 72.5 kg Intake: IV 20 Invasive Line 7 20 Oral 1282 240 Output: Urine 800 1375 300 Other: Voiding Method Bedside Commode Bedside Commode Bedside Commode Urinal Urinal Urinal # Voids 1 # Bowel Movements 1 1 - Labs CBC & Chem 7: 04/06/24 07:15 04/06/24 07:15 Labs: Abnormal Lab Results - Last 24 Hours (Table) 04/05/24 04/05/24 04/05/24 Range/Units 11:31 16:43 20:24 WBC (3.8-10.6) k/uL RBC (4.30-5.90) m/uL Hgb (13.0-17.5) gm/dL Hct (39.0-53.0) % Neutrophils # (1.3-7.7) k/uL Lymphocytes # (1.0-4.8) k/uL Sodium (137-145) mmol/L Carbon Dioxide (22-30) mmol/L BUN (9-20) mg/dL Creatinine (0.66-1.25) mg/dL POC Glucose (mg/dL) 113 H 167 H 152 H (70-110) mg/dL ALT (4-49) U/L Total Protein (6.3-8.2) g/dL Albumin (3.5-5.0) g/dL 04/06/24 04/06/24 Range/Units 07:15 07:15 WBC 13.7 H (3.8-10.6) k/uL RBC 3.81 L (4.30-5.90) m/uL Hgb 11.2 L (13.0-17.5) gm/dL Hct 34.6 L (39.0-53.0) % Neutrophils # 12.2 H (1.3-7.7) k/uL Lymphocytes # 0.9 L (1.0-4.8) k/uL Sodium 136 L (137-145) mmol/L Carbon Dioxide 35 H (22-30) mmol/L BUN 34 H (9-20) mg/dL Creatinine 1.45 H (0.66-1.25) mg/dL POC Glucose (mg/dL) (70-110) mg/dL ALT 102 H (4-49) U/L Total Protein 5.2 L (6.3-8.2) g/dL Albumin 2.8 L (3.5-5.0) g/dL
[2024-04-06 11:50] LABS: Glucose,Whole Blood 196 mg/dL (70-110)
--- NOTE | 2024-04-06 14:06 | P.PN ---
Subjective Progress Note Date: 04/06/24 This is a 78-year-old male patient who is currently hospitalized for an acute hypoxic respiratory failure and COVID-19 related pneumonia. The patient is currently on Airvo at 45 L with an FiO2 of 60%. I reviewed the series of chest x-ray that was done on this patient during this current admission. The patient may have underlying chronic ILD. Nevertheless, the patient developed progressive worsening in the bilateral pulmonary filtrates and the patient has developed some increased hazy opacities bilaterally consistent with COVID-19 related pneumonia. Noted his symptoms started around 2 days prior to his current admission and the patient's is also infected with the same virus. His D-dimer was mildly elevated at 1.07. Doppler of the lower extremities done today was negative. Perfusion scan was up and intermediate probability. He has seen Dr. Terrence Maynard and the patient has undergone a bronchoscopy few months back which I am assuming was done as part of investigation for chronic interstitial lung disease. The patient is on no immunosuppressant. 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 No coronary artery disease. No active smoking. The white cell count of 5.8 with a hemoglobin 12.7 and a platelet count of 154. Sodium is at 139, BUN is 18 with a creatinine of 1.1 and a potassium level of 4.7. The viral screen was positive for COVID-19. His procalcitonin level was at 0.7. His CRP is at 14.5 with an LDH of 600. The patient has received vaccination in the past. No previous history of COVID-19 infection. No reported aspiration. He is currently on IV steroids and the patient is receiving Solu-Medrol 60 mg every 6 hours. The patient is also on Lovenox 40 mg subcu for DVT prophylaxis. Antibiotic coverage is essentially empiric. He is afebrile. No significant tachycardia or tachypnea. On 03/20/2024, the patient is comfortable. Slightly more short of breath. Nevertheless, he is having episodes of oxygen desaturations with limited amount of mobility. Earlier this morning, while having his x-ray, the patient's pulse ox dropped down to the 60s. The chest x-ray showed diffuse interstitial and alveolar opacification consistent with COVID-19 related pneumonia. The patient remains on IV Solu-Medrol. The patient remains on Airvo and this was adjusted t o 60 L and FiO2 of 90%. LDH level was elevated in the 600 range. Doppler of the lower extremities were negative. D-dimer is at 1.07. Electrolytes are all stable and sodium levels at 139, potassium is at 4.7, BUN is 18 with a creatinine of 1.1. The white cell count is currently at 10.1 with a hemoglobin 12.2 and a platelet count is at 162. Hemodynamically stable. Cardiac rhythm is sinus. Denies having any other significant complaints. Awake and alert and communicating. Patient was seen today on 03/21/2024, remains in the icu, remains on Airvo, patient is on 60 L flow 90% FiO2, he is also on baricitinib day #2, patient is marginal at best. O2 saturation is in the 80s and sometimes in the 70s patient is doing well, and I am aware that he may end up requiring intubation mechanical ventilation, I recommended BiPAP 03/04/100% and will transition from Airvo to BiPAP. Chest x-ray shows bilateral interstitial infiltrates. Looking at the previous CT of the chest, patient did have underlying interstitial lung disease which was relatively mild to begin with in 2019. But nonetheless he did have findings of interstitial lung disease and bronchiectasis noted on previous CT of the chest done at [facility]. His labs today WBC is 8.2 hemoglobin is 11.6, electrolytes are normal BUN is 36 creatinine 1.07, last procalcitonin was 0.41 the 1 prior was 0.73. LDH is high 600. Seen today on 03/22/2024, patient is feeling better today compared to yesterday, maintaining adequate O2 saturations he is on 60 L flow and 90% FiO2 he was on BiPAP last night 100%. Chest x-ray is showing improvement O2 saturation is improved he is now in the 90s remains on baricitinib day number 3 out of 14 remains on Solu-Medrol 60 every 6 remains on Lovenox. Chest x-ray is showing slight improvement clinically the patient is slightly improved hence we will continue the same and I will continue to monitor the patient in the ICU. CBC is relatively normal basic metabolic profile is normal BUN is 41 creatinine 1.03 Patient was seen today on 03/23/2024, slight improvement clinically chest x-ray slightly improved remains on 90% FiO2 and 60 L flow via Airvo. Patient has no cough, chest pain no fever no chills no hemoptysis. Improvement clinically and radiographically noted, hence we will titrate his FiO2 down from 90% to the 80% or maybe 70% if possible. CBC is normal basic metabolic profile is normal BUN is 47 creatinine 0.99 Patient was seen today on 03/24/2024, patient remains in the ICU, remains on Airvo at 70% FiO2 and 40 L flow. Remains on Solu-Medrol, he is also on baricitinib and he is on Lovenox. Slight improvement chest x-ray is basically about the same, minimal improvement clinically but nonetheless the patient is not getting any worse WBC count is 10.4 hemoglobin is 12 electrolytes are normal renal profile is normal Patient is was seen today on 03/25/2024, patient remains in the ICU, remains on Airvo at 80% FiO2 45 L flow, patient is noticing some improvement chest x-ray is basically about the same physical examination is about the same. Patient ov erall is about the same. Patient remains on baricitinib and he remains on steroids. WBC count is 12.3 hemoglobin 12.3 basic metabolic profile is normal BUN is 45 creatinine 1.13 Patient seen today , still requiring relatively high FiO2 with Airvo at 75% FiO2 and 50 L flow, patient is about the same, continues to desaturate with any activity. His chest x-ray is showing slight improvement in his atypical pneumonia, hence I am recommending today a CT angiogram on this patient to rule out underlying thromboembolic disease. In the meantime patient remains on baricitinib, remains on steroids, and improvement is rather extremely minimal. Patient was seen today on 03/27/2024, remains in the ICU, remains on Airvo at 70% FiO2 and 50 L flow O2 sat remains in the low 90s up to 95%. IV fluid is now to KVO, CT angiogram of the chest showed no evidence of pulmonary embolism. Patient remains on Solu-Medrol, Lovenox, bosutinib, and his echocardiogram showed good LV function, I plan to transfer the patient out of the ICU today to 3 S. Today showed relatively normal CBC, normal electrolytes, normal renal profile, The patient is seen today March 28, 2024 in follow-up on the selective care unit. He was transferred out of the intensive care unit yesterday. He is currently sitting up in a chair at the bedside. Awake and alert in mild respiratory distress. He is continued on Airvo high flow oxygen at 50 L and 60% FiO2. He is continued on baricitinib. Remains on vitamin supplements. Lovenox for DVT prophylaxis. Remains on bronchodilators and Solu-Medrol. White count 16.2. Hemoglobin 12.1. Platelets 339. Sodium 134. Potassium 3.8. Bicarb 29. BUN 43. Creatinine 1.06. Glucose 133. The patient is seen today March 29, 2024 in follow-up on the selective care unit. He is currently sitting up in a chair. Awake and alert in no acute distress. Feeling a bit better each day. He has been slow to progress. He is still on Airvo high flow oxygen at 50 L and 60% FiO2. He remains on baricitinib. Blood and sputum cultures remained with no growth. Glucose 139. On albuterol and Solu-Medrol. Lovenox for DVT prophylaxis. Progress note dated March 30, 2024. 78-year-old male seen today in room 381. The patient was admitted with the diagnosis of pneumonia. The patient is currently on Airvo, at 50 L/min with an FiO2 of 55%. He is not receiving any IV fluids. He is resting comfortably in the room, sitting in the chair next to his hospital bed. The patient states that he is doing better. He denies any significant or worsening shortness of breath, cough, wheezing, chest tightness, or phlegm production. Current laboratory data includes a white count 15.1, hemoglobin 9.2, hematocrit 34.5, platelet count of 328,000. Sodium 134, potassium 4.6, chlorides 102, CO2 29, BUN 42, creatinine 1.06. Glucose 284. Calcium 7.7. Albumin 2.6. Him and bl ood sampling, has been negative. Progress note dated March 31, 2024. 78-year-old male seen today in room 381. The patient is sitting in a chair next to the hospital bed. He remains on Airvo. He is at 50 L/min with an FiO2 50%. He is not receiving any IV fluids. His Solu-Medrol can be converted to prednisone 40 mg today. He continues on baricitinib at 4 mg a day. No new labs today other than a glucose of 190. Progress note dated April 01, 2024. 78-year-old male who is seen again in room 381. The patient continues on Airvo at 45 L/min, with an FiO2 45%. He is not receiving any IV fluids. Each day when he asked the patient how he is doing, he states that he is doing fine, and feeling better. No new labs today other than a glucose of 123, and a creatinine of 1.14. Progress note dated April 02, 2024. 78-year-old male seen in room 381. The patient continues on Airvo, with settings of 40 L/min, and FiO2 40%. The patient is not receiving any IV fluids. The patient is sitting up in a chair next to his hospital bed. The patient states that he feels great. No new labs today other than a glucose of 217. Progress note dated April 03, 2024. 78-year-old male seen today in room 381. The patient had been on Airvo, but today, he is on 9 L high flow O2. He is not receiving any IV fluids. He is sitting in a chair next to his hospital bed. The patient is feeling much better. Glucose is 113 today. No additional labs are noted. On 04/04/2024, the patient is being seen for a follow-up. The patient is doing well and the patient is gradually improving. Oxygen requirements have aggressively improved and the patient is currently on 8 L of oxygen by nasal cannula with a pulse ox of 93%. The patient completed a course of baricitinib and the patient is currently on prednisone at a dose of 40 mg p.o. daily. Minimal cough. No significant sputum production. No chest tightness. No wheezing. The patient completed a course of baricitinib on 04/02/2024. No new labs from today. No altered mentation. No nausea or emesis. Able to sit up in a chair. Calm and comfortable. No other significant complaints otherwise for now. On 04/05/2024, the patient has no specific complaints. Oxygenation is stable and the patient remains on 7 L of oxygen nasal cannula. White cell count is at 17 with a hemoglobin of 1.6 and a platelet count of 222. Sodium is 136 with a BUN of 33 and a creatinine of 1.1. Chest x-ray from today shows diffuse multifocal pulmonary infiltrates with background pulmonary fibrosis. No nausea. No emesis. No chest pain. No fever. No chills. No other new complaints for now. The patient is currently on 40 mg of prednisone on a daily basis. On 04/06/2023, the patient is being seen for a follow-up. Overall condition is stable and unchanged compared to yesterday. The patient remains on 7 L of oxygen by nasal cannula. No interval worsening shortness of breath. CAT scan of the chest x-ray was performed on 04/05/2024 and the findings are essentially unchanged with chronic ILD and superimposed viral interstitial pneumonia secondary to COVID-19. I have dropped the patient's prednisone down to 20 mg p.o. daily. Patient remains on Lovenox for DVT prophylaxis. Rest of the medications are unchanged. He is sitting up in a chair. No chest pain. No altered mentation. White cell count of 13.7 with a hemoglobin of 11 and a platelet count of 211. BUN 34 with a creatinine of 1.45 and a sodium level is at 136. Objective - Vital Signs Vital signs: Vital Signs Temp 98 F 04/06/24 11:39 Pulse 86 04/06/24 11:39 Resp 14 04/06/24 11:39 BP 121/57 04/06/24 11:39 Pulse Ox 89 L 04/06/24 11:39 FiO2 40 04/02/24 09:08 Intake & Output 04/05/24 04/06/24 04/06/24 18:59 06:59 18:59 Intake Total 1282 20 240 Output Total 800 1375 300 Balance 482 -1355 -60 Weight 72.5 kg Intake: IV 20 Invasive Line 7 20 Oral 1282 240 Output: Urine 800 1375 300 Other: Voiding Method Bedside Commode Bedside Commode Bedside Commode Urinal Urinal Urinal # Voids 1 # Bowel Movements 1 1 - Exam The patient appeared well nourished and normally developed. Vital signs as documented. The patient does not demonstrate any significant respiratory distress. The patient is currently on 7 L of oxygen by nasal cannula Head exam is unremarkable. No scleral icterus or corneal arcus noted. Neck is without jugular venous distension, thyromegaly, or carotid bruits. C arotid upstrokes are brisk bilaterally. Lungs show scattered rhonchi and crackles bilaterally.. Cardiac exam reveals the PMI to be normally sized and situated. Rhythm is regular. First and second heart sounds normal. No murmurs, rubs or gallops. Abdominal exam reveals normal bowel sounds, no masses, no organomegaly and no aortic enlargement. Extremities are nonedematous and both femoral and pedal pulses are normal. Examination of the skin revealed no evidence of significant rashes, suspicious appearing nevi or other concerning lesions. Neurologically, the patient is awake and alert and the patient does not have any focal neurological deficit. Cranial nerves are essentially intact. - Labs CBC & Chem 7: 04/06/24 07:15 04/06/24 07:15 Labs: Abnormal Lab Results - Last 24 Hours (Table) 04/05/24 04/05/24 04/06/24 Range/Units 16:43 20:24 07:15 WBC 13.7 H (3.8-10.6) k/uL RBC 3.81 L (4.30-5.90) m/uL Hgb 11.2 L (13.0-17.5) gm/dL Hct 34.6 L (39.0-53.0) % Neutrophils # 12.2 H (1.3-7.7) k/uL Lymphocytes # 0.9 L (1.0-4.8) k/uL Sodium (137-145) mmol/L Carbon Dioxide (22-30) mmol/L BUN (9-20) mg/dL Creatinine (0.66-1.25) mg/dL POC Glucose (mg/dL) 167 H 152 H (70-110) mg/dL ALT (4-49) U/L Total Protein (6.3-8.2) g/dL Albumin (3.5-5.0) g/dL 04/06/24 04/06/24 Range/Units 07:15 11:48 WBC (3.8-10.6) k/uL RBC (4.30-5.90) m/uL Hgb (13.0-17.5) gm/dL Hct (39.0-53.0) % Neutrophils # (1.3-7.7) k/uL Lymphocytes # (1.0-4.8) k/uL Sodium 136 L (137-145) mmol/L Carbon Dioxide 35 H (22-30) mmol/L BUN 34 H (9-20) mg/dL Creatinine 1.45 H (0.66-1.25) mg/dL POC Glucose (mg/dL) 196 H (70-110) mg/dL ALT 102 H (4-49) U/L Total Protein 5.2 L (6.3-8.2) g/dL Albumin 2.8 L (3.5-5.0) g/dL Assessment and Plan Plan: Acute hypoxic respiratory failure most likely secondary to COVID-19 related p neumonia. The patient may have an underlying chronic interstitial lung disease. The patient is oxygenation gradually improved. The patient is currently off Airvo and FiO2 is being gradually weaned off and currently he is on 7 L of oxygen by nasal cannula. Completed a course of baricitinib on 04/02/2024 and the patient is currently on prednisone 30 mg of prednisone on a daily basis Acute COVID-19 infection/pneumonia. He has received previous vaccination. No previous COVID-19 infections. Interstitial lung disease, being worked up on an outpatient basis through [facility] under the care of Dr. Terrence Maynard. He has undergone recent bronchoscopy and bronchial lavage. No biopsies were obtained. The patient was not oxygen dependent. Shortness of breath secondary to above, improving Hypertension Hyperlipidemia History of coronary disease with remote history of myocardial infarction. The patient has 2 coronary stents inserted post [place] back in 2013 Plan Clinically stable Awaiting further improvement in the patient's oxygenation and the patient is currently on 7 L of oxygen by nasal cannula titrate oxygen flow to maintain saturation above 90%, currently on 7 L Completed a course of baricitinib on 04/02/2024 Prednisone 30 mg p.o. daily as part of a burst taper Chest x-ray findings were noted Lovenox 40 mg subcu for DVT prophylaxis Doppler of lower extremities were negative No clinical suspicion for pulmonary embolism Maintain adequate mobility Will discharge the patient was oxygen requirements drop under 5 L/min nasal cannula. will continue to follow.
[2024-04-06 16:23] LABS: Glucose,Whole Blood 182 mg/dL (70-110)
[2024-04-06 20:13] LABS: Glucose,Whole Blood 254 mg/dL (70-110)
[2024-04-07 06:01] LABS: Glucose,Whole Blood 108 mg/dL (70-110)
[2024-04-07 07:11] LABS: Basophils % (A) 0 %; Eosinophils # (A) 0.2 k/uL (0-0.7); Eosinophils % (A) 2 %; HGB 10.6 gm/dL (13.0-17.5); Lymphocytes # (A) 0.9 k/uL (1.0-4.8); Lymphocytes % (A) 7 %; MCV 90.7 fL (80.0-100.0); Mean Platelet Volume 8.4; Monocytes # (A) 0.3 k/uL (0-1.0); Monocytes % (A) 2 %; Neutrophils # (A) 10.9 k/uL (1.3-7.7); Neutrophils % (A) 88 %; Platelet Count 182 k/uL (150-450); RBC 3.53 m/uL (4.30-5.90); RDW 14.6 % (11.5-15.5); WBC 12.4 k/uL (3.8-10.6)
[2024-04-07 07:31] LABS: ALT 79 U/L (4-49); AST 30 U/L (17-59); African American GFR (CKD) 60 (>60 ml/min/1.73 sqM); Albumin 2.6 g/dL (3.5-5.0); Alkaline Phosphatase 88 U/L (38-126); Anion Gap 1 mmol/L; Blood Urea Nitrogen 39 mg/dL (9-20); Calcium 8.3 mg/dL (8.4-10.2); Carbon Dioxide 32 mmol/L (22-30); Chloride 103 mmol/L (98-107); Glucose 82 mg/dL (74-99); Non-African American GFR(CKD) 52 (>60 ml/min/1.73 sqM); Potassium 4.6 mmol/L (3.5-5.1); Sodium 136 mmol/L (137-145); Total Bilirubin 0.9 mg/dL (0.2-1.3)
--- NOTE | 2024-04-07 11:26 | P.PN ---
Subjective Progress Note Date: 04/07/24 Hospital Course: 78 year old M with PMH of pulmonary fibrosis, GERD, BPH, HLD, HTN, CAD with s tent presented to the ED on 03/16 for URI symptoms. In the ED he underwent extensive evaluation. T 102F, BP 139/70, HR 111, RR 20, 91% on 3L NC. Labs on admission show white blood cell count 7.9, hemoglobin 12.7, hematocrit 39.2, platelet 168, PT 11.4, PTT 25.7, INR 1.0, D-dimer 1.07, sodium 136, potassium 4.9, chloride 102, carbon dioxide 24, BUN 32, creatinine 1.97, glucose 157, troponin less than 0.012. EKG showed sinus tachycardia with a ventricular rate of 102 bpm, QTc interval of 386 ms, possible left atrial enlargement, left axis deviation, right bundle branch block. CXR showed reticulonodular infiltrate throughout the left lung may reflect atypical pneumonia. UA showed 1+ protein, negative for nitrites, trace leukocyte esterase. Initially admitted for sepsis due to atypical PNA, started on Rocephin/Azithromycin. COVID 19 test was positive. Started on Decadron. Pulmonary consulted, started on Baricitinib. Respiratory status worsened and he was transferred to ICU on BiPAP which was eventually transitioned to AirVo. Echo showed EF 50-55% with no regional wall motion abnormalities. CTA chest shows no PE, multifocal airspace opacities. Respiratory function improved, patient now titrated down to 7 L high flow nasal cannula. Subjective: Patient seen and examined at bedside. No acute events overnight. Still getting short of breath when doing any activity. Pertinent positives and negatives as discussed above, a complete review of systems was performed and all other systems are negative. Vitals Signs Reviewed. General: Nontoxic, no distress, appears at stated age Derm: Warm, dry Head: Atraumatic, normocephalic, symmetric Eyes: EOMI, no lid lag, anicteric sclera Mouth: No lip lesion, mucus membranes moist Cardiovascular: S1S2 reg, no murmur Lungs: CTA bilateral, no rhonchi, no rales, no accessory muscle use, supplemental oxygen Abdominal: Soft, nontender to palpation, no guarding, no appreciable organomegaly Ext: No gross muscle atrophy, no edema, no contractures Neuro: CN II-XI grossly intact, no focal neuro deficits Psych: Alert, oriented, appropriate affect Data Reviewed Today: Pertinent Labs: WBC 12.4, hemoglobin 10.6, creatinine 1.33, sodium 136, bicarb 32, glucose range between 82-2 54 Imaging: No new imaging Assessment and Plan: Patient is severely ill, needs close monitoring. Prognosis guarded. Acute hypoxic respiratory failure secondary to COVID 19 PNA with history of pulmonary fibrosis: Completed course of Rocephin/Azithromycin. Albuterol INH QID + Q4H PRN. Completed course of Baricitinib. Robitussin DM 10 cc PO Q6H PRN. Prednisone 40 mg PO QD. Pulmonary on board. Wean oxygen Sepsis secondary to above Steroid induced hyperglycemia with Pre-DM: A1c 6.2. ISS. Accuchecks ACHS. Monitor for hypoglycemia Transaminitis, resolving: Possible related to COVID or use of Baricitinib? Monitor Prerenal azotemia, resolving: Improved. Encourage hydration by mouth Normocytic anemia: Stable with no signs of bleeding. Hemoglobin stable, c ontinue to monitor GERD: Pepcid 20 mg PO BID. BPH: Proscar 5 mg PO QD. Hypertenion: Amlodipine 2.5 mg PO QD. Losartan 100 mg PO QD. CAD: ASA 81 mg PO QD. Pravastatin 80 mg PO QD. DVT ppx: Lovenox Code status: Full code Anticipated discharge place: Pending clinical course Anticipated discharge time: Pending clinical course Objective - Vital Signs Vital signs: Vital Signs Temp 97.9 F 04/07/24 08:48 Pulse 84 04/07/24 08:48 Resp 14 04/07/24 08:48 BP 142/66 04/07/24 08:48 Pulse Ox 85 L 04/07/24 10:43 FiO2 40 04/02/24 09:08 Intake & Output 04/06/24 04/07/24 04/07/24 18:59 06:59 18:59 Intake Total 358 Output Total 700 950 300 Balance -342 -950 -300 Weight 73.8 kg Intake: Oral 358 Output: Urine 700 950 300 Other: Voiding Method Bedside Commode Bedside Commode Urinal Urinal - Labs CBC & Chem 7: 04/07/24 05:41 04/07/24 05:41 Labs: Abnormal Lab Results - Last 24 Hours (Table) 04/06/24 04/06/24 04/06/24 Range/Units 11:48 16:22 20:12 WBC (3.8-10.6) k/uL RBC (4.30-5.90) m/uL Hgb (13.0-17.5) gm/dL Hct (39.0-53.0) % Neutrophils # (1.3-7.7) k/uL Lymphocytes # (1.0-4.8) k/uL Sodium (137-145) mmol/L Carbon Dioxide (22-30) mmol/L BUN (9-20) mg/dL Creatinine (0.66-1.25) mg/dL POC Glucose (mg/dL) 196 H 182 H 254 H (70-110) mg/dL Calcium (8.4-10.2) mg/dL ALT (4-49) U/L Total Protein (6.3-8.2) g/dL Albumin (3.5-5.0) g/dL 04/07/24 04/07/24 Range/Units 05:41 05:41 WBC 12.4 H (3.8-10.6) k/uL RBC 3.53 L (4.30-5.90) m/uL Hgb 10.6 L (13.0-17.5) gm/dL Hct 32.0 L (39.0-53.0) % Neutrophils # 10.9 H (1.3-7.7) k/uL Lymphocytes # 0.9 L (1.0-4.8) k/uL Sodium 136 L (137-145) mmol/L Carbon Dioxide 32 H (22-30) mmol/L BUN 39 H (9-20) mg/dL Creatinine 1.33 H (0.66-1.25) mg/dL POC Glucose (mg/dL) (70-110) mg/dL Calcium 8.3 L (8.4-10.2) mg/dL ALT 79 H (4-49) U/L Total Protein 5.0 L (6.3-8.2) g/dL Albumin 2.6 L (3.5-5.0) g/dL
[2024-04-07 11:46] LABS: Glucose,Whole Blood 121 mg/dL (70-110)
[2024-04-07 12:39] VITALS: BMI 24.7
[2024-04-07 16:49] LABS: Glucose,Whole Blood 189 mg/dL (70-110)
--- NOTE | 2024-04-07 17:29 | P.PN ---
Subjective Progress Note Date: 04/07/24 This is a 78-year-old male patient who is currently hospitalized for an acute hypoxic respiratory failure and COVID-19 related pneumonia. The patient is currently on Airvo at 45 L with an FiO2 of 60%. I reviewed the series of chest x-ray that was done on this patient during this current admission. The patient may have underlying chronic ILD. Nevertheless, the patient developed progressive worsening in the bilateral pulmonary filtrates and the patient has developed some increased hazy opacities bilaterally consistent with COVID-19 related pneumonia. Noted his symptoms started around 2 days prior to his current admission and the patient's is also infected with the same virus. His D-dimer was mildly elevated at 1.07. Doppler of the lower extremities done today was negative. Perfusion scan was up and intermediate probability. He has seen Dr. Terrence Maynard and the patient has undergone a bronchoscopy few months back which I am assuming was done as part of investigation for chronic interstitial lung disease. The patient is on no immunosuppressant. 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 No coronary artery disease. No active smoking. The white cell count of 5.8 with a hemoglobin 12.7 and a platelet count of 154. Sodium is at 139, BUN is 18 with a creatinine of 1.1 and a potassium level of 4.7. The viral screen was positive for COVID-19. His procalcitonin level was at 0.7. His CRP is at 14.5 with an LDH of 600. The patient has received vaccination in the past. No previous history of COVID-19 infection. No reported aspiration. He is currently on IV steroids and the patient is receiving Solu-Medrol 60 mg every 6 hours. The patient is also on Lovenox 40 mg subcu for DVT prophylaxis. Antibiotic coverage is essentially empiric. He is afebrile. No significant tachycardia or tachypnea. On 03/20/2024, the patient is comfortable. Slightly more short of breath. Nevertheless, he is having episodes of oxygen desaturations with limited amount of mobility. Earlier this morning, while having his x-ray, the patient's pulse ox dropped down to the 60s. The chest x-ray showed diffuse interstitial and alveolar opacification consistent with COVID-19 related pneumonia. The patient remains on IV Solu-Medrol. The patient remains on Airvo and this was adjusted t o 60 L and FiO2 of 90%. LDH level was elevated in the 600 range. Doppler of the lower extremities were negative. D-dimer is at 1.07. Electrolytes are all stable and sodium levels at 139, potassium is at 4.7, BUN is 18 with a creatinine of 1.1. The white cell count is currently at 10.1 with a hemoglobin 12.2 and a platelet count is at 162. Hemodynamically stable. Cardiac rhythm is sinus. Denies having any other significant complaints. Awake and alert and communicating. Patient was seen today on 03/21/2024, remains in the icu, remains on Airvo, patient is on 60 L flow 90% FiO2, he is also on baricitinib day #2, patient is marginal at best. O2 saturation is in the 80s and sometimes in the 70s patient is doing well, and I am aware that he may end up requiring intubation mechanical ventilation, I recommended BiPAP 03/04/100% and will transition from Airvo to BiPAP. Chest x-ray shows bilateral interstitial infiltrates. Looking at the previous CT of the chest, patient did have underlying interstitial lung disease which was relatively mild to begin with in 2019. But nonetheless he did have findings of interstitial lung disease and bronchiectasis noted on previous CT of the chest done at [facility]. His labs today WBC is 8.2 hemoglobin is 11.6, electrolytes are normal BUN is 36 creatinine 1.07, last procalcitonin was 0.41 the 1 prior was 0.73. LDH is high 600. Seen today on 03/22/2024, patient is feeling better today compared to yesterday, maintaining adequate O2 saturations he is on 60 L flow and 90% FiO2 he was on BiPAP last night 100%. Chest x-ray is showing improvement O2 saturation is improved he is now in the 90s remains on baricitinib day number 3 out of 14 remains on Solu-Medrol 60 every 6 remains on Lovenox. Chest x-ray is showing slight improvement clinically the patient is slightly improved hence we will continue the same and I will continue to monitor the patient in the ICU. CBC is relatively normal basic metabolic profile is normal BUN is 41 creatinine 1.03 Patient was seen today on 03/23/2024, slight improvement clinically chest x-ray slightly improved remains on 90% FiO2 and 60 L flow via Airvo. Patient has no cough, chest pain no fever no chills no hemoptysis. Improvement clinically and radiographically noted, hence we will titrate his FiO2 down from 90% to the 80% or maybe 70% if possible. CBC is normal basic metabolic profile is normal BUN is 47 creatinine 0.99 Patient was seen today on 03/24/2024, patient remains in the ICU, remains on Airvo at 70% FiO2 and 40 L flow. Remains on Solu-Medrol, he is also on baricitinib and he is on Lovenox. Slight improvement chest x-ray is basically about the same, minimal improvement clinically but nonetheless the patient is not getting any worse WBC count is 10.4 hemoglobin is 12 electrolytes are normal renal profile is normal Patient is was seen today on 03/25/2024, patient remains in the ICU, remains on Airvo at 80% FiO2 45 L flow, patient is noticing some improvement chest x-ray is basically about the same physical examination is about the same. Patient ov erall is about the same. Patient remains on baricitinib and he remains on steroids. WBC count is 12.3 hemoglobin 12.3 basic metabolic profile is normal BUN is 45 creatinine 1.13 Patient seen today , still requiring relatively high FiO2 with Airvo at 75% FiO2 and 50 L flow, patient is about the same, continues to desaturate with any activity. His chest x-ray is showing slight improvement in his atypical pneumonia, hence I am recommending today a CT angiogram on this patient to rule out underlying thromboembolic disease. In the meantime patient remains on baricitinib, remains on steroids, and improvement is rather extremely minimal. Patient was seen today on 03/27/2024, remains in the ICU, remains on Airvo at 70% FiO2 and 50 L flow O2 sat remains in the low 90s up to 95%. IV fluid is now to KVO, CT angiogram of the chest showed no evidence of pulmonary embolism. Patient remains on Solu-Medrol, Lovenox, bosutinib, and his echocardiogram showed good LV function, I plan to transfer the patient out of the ICU today to 3 S. Today showed relatively normal CBC, normal electrolytes, normal renal profile, The patient is seen today March 28, 2024 in follow-up on the selective care unit. He was transferred out of the intensive care unit yesterday. He is currently sitting up in a chair at the bedside. Awake and alert in mild respiratory distress. He is continued on Airvo high flow oxygen at 50 L and 60% FiO2. He is continued on baricitinib. Remains on vitamin supplements. Lovenox for DVT prophylaxis. Remains on bronchodilators and Solu-Medrol. White count 16.2. Hemoglobin 12.1. Platelets 339. Sodium 134. Potassium 3.8. Bicarb 29. BUN 43. Creatinine 1.06. Glucose 133. The patient is seen today March 29, 2024 in follow-up on the selective care unit. He is currently sitting up in a chair. Awake and alert in no acute distress. Feeling a bit better each day. He has been slow to progress. He is still on Airvo high flow oxygen at 50 L and 60% FiO2. He remains on baricitinib. Blood and sputum cultures remained with no growth. Glucose 139. On albuterol and Solu-Medrol. Lovenox for DVT prophylaxis. Progress note dated March 30, 2024. 78-year-old male seen today in room 381. The patient was admitted with the diagnosis of pneumonia. The patient is currently on Airvo, at 50 L/min with an FiO2 of 55%. He is not receiving any IV fluids. He is resting comfortably in the room, sitting in the chair next to his hospital bed. The patient states that he is doing better. He denies any significant or worsening shortness of breath, cough, wheezing, chest tightness, or phlegm production. Current laboratory data includes a white count 15.1, hemoglobin 9.2, hematocrit 34.5, platelet count of 328,000. Sodium 134, potassium 4.6, chlorides 102, CO2 29, BUN 42, creatinine 1.06. Glucose 284. Calcium 7.7. Albumin 2.6. Him and bl ood sampling, has been negative. Progress note dated March 31, 2024. 78-year-old male seen today in room 381. The patient is sitting in a chair next to the hospital bed. He remains on Airvo. He is at 50 L/min with an FiO2 50%. He is not receiving any IV fluids. His Solu-Medrol can be converted to prednisone 40 mg today. He continues on baricitinib at 4 mg a day. No new labs today other than a glucose of 190. Progress note dated April 01, 2024. 78-year-old male who is seen again in room 381. The patient continues on Airvo at 45 L/min, with an FiO2 45%. He is not receiving any IV fluids. Each day when he asked the patient how he is doing, he states that he is doing fine, and feeling better. No new labs today other than a glucose of 123, and a creatinine of 1.14. Progress note dated April 02, 2024. 78-year-old male seen in room 381. The patient continues on Airvo, with settings of 40 L/min, and FiO2 40%. The patient is not receiving any IV fluids. The patient is sitting up in a chair next to his hospital bed. The patient states that he feels great. No new labs today other than a glucose of 217. Progress note dated April 03, 2024. 78-year-old male seen today in room 381. The patient had been on Airvo, but today, he is on 9 L high flow O2. He is not receiving any IV fluids. He is sitting in a chair next to his hospital bed. The patient is feeling much better. Glucose is 113 today. No additional labs are noted. On 04/04/2024, the patient is being seen for a follow-up. The patient is doing well and the patient is gradually improving. Oxygen requirements have aggressively improved and the patient is currently on 8 L of oxygen by nasal cannula with a pulse ox of 93%. The patient completed a course of baricitinib and the patient is currently on prednisone at a dose of 40 mg p.o. daily. Minimal cough. No significant sputum production. No chest tightness. No wheezing. The patient completed a course of baricitinib on 04/02/2024. No new labs from today. No altered mentation. No nausea or emesis. Able to sit up in a chair. Calm and comfortable. No other significant complaints otherwise for now. On 04/05/2024, the patient has no specific complaints. Oxygenation is stable and the patient remains on 7 L of oxygen nasal cannula. White cell count is at 17 with a hemoglobin of 1.6 and a platelet count of 222. Sodium is 136 with a BUN of 33 and a creatinine of 1.1. Chest x-ray from today shows diffuse multifocal pulmonary infiltrates with background pulmonary fibrosis. No nausea. No emesis. No chest pain. No fever. No chills. No other new complaints for now. The patient is currently on 40 mg of prednisone on a daily basis. On 04/06/2023, the patient is being seen for a follow-up. Overall condition is stable and unchanged compared to yesterday. The patient remains on 7 L of oxygen by nasal cannula. No interval worsening shortness of breath. CAT scan of the chest x-ray was performed on 04/05/2024 and the findings are essentially unchanged with chronic ILD and superimposed viral interstitial pneumonia secondary to COVID-19. I have dropped the patient's prednisone down to 20 mg p.o. daily. Patient remains on Lovenox for DVT prophylaxis. Rest of the medications are unchanged. He is sitting up in a chair. No chest pain. No altered mentation. White cell count of 13.7 with a hemoglobin of 11 and a platelet count of 211. BUN 34 with a creatinine of 1.45 and a sodium level is at 136. On 04/07/2024, the patient remains on 7 L of oxygen. Unable to wean down the oxygen and further because of development of hypoxemia. Despite all this, the patient denies having any worsening shortness of breath. His overall respiratory status remains stable. White cell count of 12.5 with a hemoglobin 10.6 and a platelet count of 182. The patient is currently on prednisone at a dose of 30 mg p.o. daily as part of his burst taper. BUN 39 with a creatinine of 1.3 and a sodium levels at 136. Rest of the medications remain unchanged. Remains on Lovenox for DVT prophylaxis 40 mg SQ daily. Remains on IV fluids at KVO. No altered mentation. Using incentive spirometer. Active. Desaturates with minimal amount of activity and sometimes with talking. Objective - Vital Signs Vital signs: Vital Signs Temp 97.9 F 04/07/24 08:48 Pulse 84 04/07/24 08:48 Resp 14 04/07/24 08:48 BP 142/66 04/07/24 08:48 Pulse Ox 85 L 04/07/24 10:43 FiO2 40 04/02/24 09:08 Intake & Output 04/06/24 04/07/24 04/07/24 18:59 06:59 18:59 Intake Total 358 Output Total 700 950 300 Balance -342 -950 -300 Weight 73.8 kg Intake: Oral 358 Output: Urine 700 950 300 Other: Voiding Method Bedside Commode Bedside Commode Urinal Urinal - Exam The patient appeared well nourished and normally developed. Vital signs as documented. The patient does not demonstrate any significant respiratory distress. The patient is currently on 7 L of oxygen by nasal cannula Head exam is unremarkable. No scleral icterus or corneal arcus noted. Neck is without jugular venous distension, thyromegaly, or carotid bruits. Carotid upstrokes are brisk bilaterally. Lungs show scattered rhonchi and crackles bilaterally.. Cardiac exam reveals the PMI to be normally sized and situated. Rhythm is regular. First and second heart sounds normal. No murmurs, rubs or gallops. Abdominal exam reveals normal bowel sounds, no masses, no organomegaly and no aortic enlargement. Extremities are nonedematous and both femoral and pedal pulses are normal. Examination of the skin revealed no evidence of significant rashes, suspicious appearing nevi or other concerning lesions. Neurologically, the patient is awake and alert and the patient does not have any focal neurological deficit. Cranial nerves are essentially intact. - Labs CBC & Chem 7: 04/07/24 05:41 04/07/24 05:41 Labs: Abnormal Lab Results - Last 24 Hours (Table) 04/06/24 04/06/24 04/06/24 Range/Units 11:48 16:22 20:12 WBC (3.8-10.6) k/uL RBC (4.30-5.90) m/uL Hgb (13.0-17.5) gm/dL Hct (39.0-53.0) % Neutrophils # (1.3-7.7) k/uL Lymphocytes # (1.0-4.8) k/uL Sodium (137-145) mmol/L Carbon Dioxide (22-30) mmol/L BUN (9-20) mg/dL Creatinine (0.66-1.25) mg/dL POC Glucose (mg/dL) 196 H 182 H 254 H (70-110) mg/dL Calcium (8.4-10.2) mg/dL ALT (4-49) U/L Total Protein (6.3-8.2) g/dL Albumin (3.5-5.0) g/dL 04/07/24 04/07/24 Range/Units 05:41 05:41 WBC 12.4 H (3.8-10.6) k/uL RBC 3.53 L (4.30-5.90) m/uL Hgb 10.6 L (13.0-17.5) gm/dL Hct 32.0 L (39.0-53.0) % Neutrophils # 10.9 H (1.3-7.7) k/uL Lymphocytes # 0.9 L (1.0-4.8) k/uL Sodium 136 L (137-145) mmol/L Carbon Dioxide 32 H (22-30) mmol/L BUN 39 H (9-20) mg/dL Creatinine 1.33 H (0.66-1.25) mg/dL POC Glucose (mg/dL) (70-110) mg/dL Calcium 8.3 L (8.4-10.2) mg/dL ALT 79 H (4-49) U/L Total Protein 5.0 L (6.3-8.2) g/dL Albumin 2.6 L (3.5-5.0) g/dL Assessment and Plan Plan: Acute hypoxic respiratory failure most likely secondary to COVID-19 related pneumonia. The patient may have an underlying chronic interstitial lung disease. The patient is oxygenation gradually improved. The patient is currently off Airvo and FiO2 is being gradually weaned off and currently he is on 7 L of oxygen by nasal cannula. Completed a course of baricitinib on 04/02/2024 and the patient is currently on prednisone 30 mg of prednisone on a daily basis Acute COVID-19 infection/pneumonia. He has received previous vaccination. No previous COVID-19 infections. Interstitial lung disease, being worked up on an outpatient basis through [facility] under the care of Dr. Terrence Maynard. He has undergone recent bronchoscopy and bronchial lavage. No biopsies were obtained. The patient was not oxygen dependent. Shortness of breath secondary to above, improving Hypertension Hyperlipidemia History of coronary disease with remote history of myocardial infarction. The patient has 2 coronary stents inserted post [place] back in 2013 Plan Clinically stable Continues to have impaired oxygenation and the patient is essentially stuck at 7 L/min nasal cannula, unable to wean any further. Continues incentive spirometer Awaiting further improvement in the patient's oxygenation and the patient is currently on 7 L of oxygen by nasal cannula titrate oxygen flow to maintain saturation above 90%, currently on 7 L Completed a course of baricitinib on 04/02/2024 Prednisone 30 mg p.o. daily as part of a burst taper Chest x-ray findings were noted Lovenox 40 mg subcu for DVT prophylaxis Doppler of lower extremities were negative No clinical suspicion for pulmonary embolism Maintain adequate mobility Will discharge the patient was oxygen requirements drop under 5 L/min nasal cannula. will continue to follow.
[2024-04-07 20:28] LABS: Glucose,Whole Blood 177 mg/dL (70-110)
[2024-04-08 06:07] LABS: Glucose,Whole Blood 91 mg/dL (70-110)
[2024-04-08 07:47] LABS: African American GFR (CKD) 59 (>60 ml/min/1.73 sqM); Anion Gap 1 mmol/L; Blood Urea Nitrogen 38 mg/dL (9-20); Calcium 8.8 mg/dL (8.4-10.2); Carbon Dioxide 33 mmol/L (22-30); Chloride 102 mmol/L (98-107); Glucose 82 mg/dL (74-99); Non-African American GFR(CKD) 51 (>60 ml/min/1.73 sqM); Potassium 4.6 mmol/L (3.5-5.1); Sodium 136 mmol/L (137-145)
[2024-04-08 08:12] LABS: Basophils % (A) 0 %; Eosinophils # (A) 0.3 k/uL (0-0.7); Eosinophils % (A) 3 %; HCT 34.5 % (39.0-53.0); HGB 11.1 gm/dL (13.0-17.5); Lymphocytes # (A) 1.1 k/uL (1.0-4.8); Lymphocytes % (A) 9 %; MCH 29.2 pg (25.0-35.0); MCHC 32.3 g/dL (31.0-37.0); MCV 90.4 fL (80.0-100.0); Mean Platelet Volume 8.2; Monocytes # (A) 0.3 k/uL (0-1.0); Monocytes % (A) 2 %; Neutrophils # (A) 9.9 k/uL (1.3-7.7); Neutrophils % (A) 85 %; Platelet Count 167 k/uL (150-450); RBC 3.82 m/uL (4.30-5.90); RDW 14.8 % (11.5-15.5); WBC 11.7 k/uL (3.8-10.6)
[2024-04-08 11:52] LABS: Glucose,Whole Blood 111 mg/dL (70-110)
--- NOTE | 2024-04-08 14:29 | P.PN ---
Subjective Progress Note Date: 04/08/24 No new complaints. Ongoing titration of O2, presently on 7L NC with plans to d/c once at 5L NC. Gen: In NAD, non-toxic HEENT: normocephalic, atraumatic, hearing acuity is intant, mucous membranes moist CVS: perfusing all extremities well, no pitting edema, Respiratory: symmetric chest expansion, no accessory muscle use, GI: soft, NTTP, ND, : no suprapubic tenderness, no CVA tenderness MSK/Derm: no rashes, cyanosis Neuro: CN II-XII intact, no motor weakness, Psych: cooperative, euthymic mood, judgment and insight is intact Hospital Course: 78 year old M with PMH of pulmonary fibrosis, GERD, BPH, HLD, HTN, CAD with stent presented to the ED on 03/16 for URI symptoms. In the ED he underwent extensive evaluation. T 102F, BP 139/70, HR 111, RR 20, 91% on 3L NC. Labs on admission show white blood cell count 7.9, hemoglobin 12.7, hematocrit 39.2, platelet 168, PT 11.4, PTT 25.7, INR 1.0, D-dimer 1.07, sodium 136, potassium 4.9, chloride 102, carbon dioxide 24, BUN 32, creatinine 1.97, glucose 157, troponin less than 0.012. EKG showed sinus tachycardia with a ventricular rate of 102 bpm, QTc interval of 386 ms, possible left atrial enlargement, left axis deviation, right bundle branch block. CXR showed reticulonodular infiltrate throughout the left lung may reflect atypical pneumonia. UA showed 1+ protein, negative for nitrites, trace leukocyte esterase. Initially admitted for sepsis due to atypical PNA, started on Rocephin/Azithromycin. COVID 19 test was positive. Started on Decadron. Pulmonary consulted, started on Baricitinib. Respiratory status worsened and he was transferred to ICU on BiPAP which was eventually transitioned to AirVo. Echo showed EF 50-55% with no regional wall motion abnormalities. CTA chest shows no PE, multifocal airspace opacities. Respiratory function improved, patient now titrated down to 7 L high flow nasal cannula. Assessment and Plan: Patient is severely ill, needs close monitoring. Prognosis guarded. Acute hypoxic respiratory failure secondary to COVID 19 PNA with history of pulmonary fibrosis: Completed course of Rocephin/Azithromycin. Albuterol INH QID + Q4H PRN. Completed course of Baricitinib. Robitussin DM 10 cc PO Q6H PRN. Prednisone 40 mg PO QD. Pulmonary on board. Wean oxygen Sepsis secondary to above Steroid induced hyperglycemia with Pre-DM: A1c 6.2. ISS. Accuchecks ACHS. Monitor for hypoglycemia Transaminitis, resolving: Possible related to COVID or use of Baricitinib? Monitor Prerenal azotemia, resolving: Improved. Encourage hydration by mouth Normocytic anemia: Stable with no signs of bleeding. Hemoglobin stable, continue to monitor GERD: Pepcid 20 mg PO BID. BPH: Proscar 5 mg PO QD. Hypertenion: Amlodipine 2.5 mg PO QD. Losartan 100 mg PO QD. CAD: ASA 81 mg PO QD. Pravastatin 80 mg PO QD. DVT ppx: Lovenox Code status: Full code Anticipated discharge place: Pending clinical course Anticipated discharge time: Pending clinical course Objective - Vital Signs Vital signs: Vital Signs Temp 97.4 F L 04/08/24 11:22 Pulse 80 04/08/24 11:22 Resp 20 04/08/24 11:22 BP 131/59 04/08/24 11:22 Pulse Ox 100 04/08/24 12:27 FiO2 40 04/02/24 09:08 Intake & Output 04/07/24 04/08/24 04/08/24 18:59 06:59 18:59 Intake Total 220 490 Output Total 1210 600 650 Balance -1210 -380 -160 Weight 73.8 kg Intake: IV 20 10 Invasive Line 7 20 10 Oral 200 480 Output: Urine 1210 600 650 Other: Voiding Method Bedside Commode Bedside Commode Bedside Commode Urinal Urinal Urinal - Labs CBC & Chem 7: 04/08/24 06:55 04/08/24 06:55 Labs: Abnormal Lab Results - Last 24 Hours (Table) 04/07/24 04/07/24 04/08/24 Range/Units 16:47 20:26 06:55 WBC 11.7 H (3.8-10.6) k/uL RBC 3.82 L (4.30-5.90) m/uL Hgb 11.1 L (13.0-17.5) gm/dL Hct 34.5 L (39.0-53.0) % Neutrophils # 9.9 H (1.3-7.7) k/uL Sodium (137-145) mmol/L Carbon Dioxide (22-30) mmol/L BUN (9-20) mg/dL Creatinine (0.66-1.25) mg/dL POC Glucose (mg/dL) 189 H 177 H (70-110) mg/dL 04/08/24 04/08/24 Range/Units 06:55 11:51 WBC (3.8-10.6) k/uL RBC (4.30-5.90) m/uL Hgb (13.0-17.5) gm/dL Hct (39.0-53.0) % Neutrophils # (1.3-7.7) k/uL Sodium 136 L (137-145) mmol/L Carbon Dioxide 33 H (22-30) mmol/L BUN 38 H (9-20) mg/dL Creatinine 1.35 H (0.66-1.25) mg/dL POC Glucose (mg/dL) 111 H (70-110) mg/dL
--- NOTE | 2024-04-08 15:46 | P.PN ---
Subjective Progress Note Date: 04/08/24 This is a 78-year-old male patient who is currently hospitalized for an acute hypoxic respiratory failure and COVID-19 related pneumonia. The patient is currently on Airvo at 45 L with an FiO2 of 60%. I reviewed the series of chest x-ray that was done on this patient during this current admission. The patient may have underlying chronic ILD. Nevertheless, the patient developed progressive worsening in the bilateral pulmonary filtrates and the patient has developed some increased hazy opacities bilaterally consistent with COVID-19 related pneumonia. Noted his symptoms started around 2 days prior to his current admission and the patient's is also infected with the same virus. His D-dimer was mildly elevated at 1.07. Doppler of the lower extremities done today was negative. Perfusion scan was up and intermediate probability. He has seen Dr. Terrence Maynard and the patient has undergone a bronchoscopy few months back which I am assuming was done as part of investigation for chronic interstitial lung disease. The patient is on no immunosuppressant. The patient is a retired [employer]. No coronary artery disease. No active smoking. The white cell count of 5.8 with a hemoglobin 12.7 and a platelet count of 154. Sodium is at 139, BUN is 18 with a creatinine of 1.1 and a potassium level of 4.7. The viral screen was positive for COVID-19. His procalcitonin level was at 0.7. His CRP is at 14.5 with an LDH of 600. The patient has received vaccination in the past. No previous history of COVID-19 infection. No reported aspiration. He is currently on IV steroids and the patient is receiving Solu-Medrol 60 mg every 6 hours. The patient is also on Lovenox 40 mg subcu for DVT prophylaxis. Antibiotic coverage is essentially empiric. He is afebrile. No significant tachycardia or tachypnea. On 03/20/2024, the patient is comfortable. Slightly more short of breath. Nevertheless, he is having episodes of oxygen desaturations with limited amount of mobility. Earlier this morning, while having his x-ray, the patient's pulse ox dropped down to the 60s. The chest x-ray showed diffuse interstitial and alveolar opacification consistent with COVID-19 related pneumonia. The patient remains on IV Solu-Medrol. The patient remains on Airvo and this was adjusted t o 60 L and FiO2 of 90%. LDH level was elevated in the 600 range. Doppler of the lower extremities were negative. D-dimer is at 1.07. Electrolytes are all stable and sodium levels at 139, potassium is at 4.7, BUN is 18 with a creatinine of 1.1. The white cell count is currently at 10.1 with a hemoglobin 12.2 and a platelet count is at 162. Hemodynamically stable. Cardiac rhythm is sinus. Denies having any other significant complaints. Awake and alert and communicating. Patient was seen today on 03/21/2024, remains in the icu, remains on Airvo, patient is on 60 L flow 90% FiO2, he is also on baricitinib day #2, patient is marginal at best. O2 saturation is in the 80s and sometimes in the 70s patient is doing well, and I am aware that he may end up requiring intubation mechanical ventilation, I recommended BiPAP 03/04/100% and will transition from Airvo to BiPAP. Chest x-ray shows bilateral interstitial infiltrates. Looking at the previous CT of the chest, patient did have underlying interstitial lung disease which was relatively mild to begin with in 2019. But nonetheless he did have findings of interstitial lung disease and bronchiectasis noted on previous CT of the chest done at [facility]. His labs today WBC is 8.2 hemoglobin is 11.6, electrolytes are normal BUN is 36 creatinine 1.07, last procalcitonin was 0.41 the 1 prior was 0.73. LDH is high 600. Seen today on 03/22/2024, patient is feeling better today compared to yesterday, maintaining adequate O2 saturations he is on 60 L flow and 90% FiO2 he was on BiPAP last night 100%. Chest x-ray is showing improvement O2 saturation is improved he is now in the 90s remains on baricitinib day number 3 out of 14 remains on Solu-Medrol 60 every 6 remains on Lovenox. Chest x-ray is showing slight improvement clinically the patient is slightly improved hence we will continue the same and I will continue to monitor the patient in the ICU. CBC is relatively normal basic metabolic profile is normal BUN is 41 creatinine 1.03 Patient was seen today on 03/23/2024, slight improvement clinically chest x-ray slightly improved remains on 90% FiO2 and 60 L flow via Airvo. Patient has no cough, chest pain no fever no chills no hemoptysis. Improvement clinically and radiographically noted, hence we will titrate his FiO2 down from 90% to the 80% or maybe 70% if possible. CBC is normal basic metabolic profile is normal BUN is 47 creatinine 0.99 Patient was seen today on 03/24/2024, patient remains in the ICU, remains on Airvo at 70% FiO2 and 40 L flow. Remains on Solu-Medrol, he is also on baricitinib and he is on Lovenox. Slight improvement chest x-ray is basically about the same, minimal improvement clinically but nonetheless the patient is not getting any worse WBC count is 10.4 hemoglobin is 12 electrolytes are normal renal profile is normal Patient is was seen today on 03/25/2024, patient remains in the ICU, remains on Airvo at 80% FiO2 45 L flow, patient is noticing some improvement chest x-ray is basically about the same physical examination is about the same. Patient ov erall is about the same. Patient remains on baricitinib and he remains on steroids. WBC count is 12.3 hemoglobin 12.3 basic metabolic profile is normal BUN is 45 creatinine 1.13 Patient seen today , still requiring relatively high FiO2 with Airvo at 75% FiO2 and 50 L flow, patient is about the same, continues to desaturate with any activity. His chest x-ray is showing slight improvement in his atypical pneumonia, hence I am recommending today a CT angiogram on this patient to rule out underlying thromboembolic disease. In the meantime patient remains on baricitinib, remains on steroids, and improvement is rather extremely minimal. Patient was seen today on 03/27/2024, remains in the ICU, remains on Airvo at 70% FiO2 and 50 L flow O2 sat remains in the low 90s up to 95%. IV fluid is now to KVO, CT angiogram of the chest showed no evidence of pulmonary embolism. Patient remains on Solu-Medrol, Lovenox, bosutinib, and his echocardiogram showed good LV function, I plan to transfer the patient out of the ICU today to 3 S. Today showed relatively normal CBC, normal electrolytes, normal renal profile, The patient is seen today March 28, 2024 in follow-up on the selective care unit. He was transferred out of the intensive care unit yesterday. He is currently sitting up in a chair at the bedside. Awake and alert in mild respiratory distress. He is continued on Airvo high flow oxygen at 50 L and 60% FiO2. He is continued on baricitinib. Remains on vitamin supplements. Lovenox for DVT prophylaxis. Remains on bronchodilators and Solu-Medrol. White count 16.2. Hemoglobin 12.1. Platelets 339. Sodium 134. Potassium 3.8. Bicarb 29. BUN 43. Creatinine 1.06. Glucose 133. The patient is seen today March 29, 2024 in follow-up on the selective care unit. He is currently sitting up in a chair. Awake and alert in no acute distress. Feeling a bit better each day. He has been slow to progress. He is still on Airvo high flow oxygen at 50 L and 60% FiO2. He remains on baricitinib. Blood and sputum cultures remained with no growth. Glucose 139. On albuterol and Solu-Medrol. Lovenox for DVT prophylaxis. Progress note dated March 30, 2024. 78-year-old male seen today in room 381. The patient was admitted with the diagnosis of pneumonia. The patient is currently on Airvo, at 50 L/min with an FiO2 of 55%. He is not receiving any IV fluids. He is resting comfortably in the room, sitting in the chair next to his hospital bed. The patient states that he is doing better. He denies any significant or worsening shortness of breath, cough, wheezing, chest tightness, or phlegm production. Current laboratory data includes a white count 15.1, hemoglobin 9.2, hematocrit 34.5, platelet count of 328,000. Sodium 134, potassium 4.6, chlorides 102, CO2 29, BUN 42, creatinine 1.06. Glucose 284. Calcium 7.7. Albumin 2.6. Him and bl ood sampling, has been negative. Progress note dated March 31, 2024. 78-year-old male seen today in room 381. The patient is sitting in a chair next to the hospital bed. He remains on Airvo. He is at 50 L/min with an FiO2 50%. He is not receiving any IV fluids. His Solu-Medrol can be converted to prednisone 40 mg today. He continues on baricitinib at 4 mg a day. No new labs today other than a glucose of 190. Progress note dated April 01, 2024. 78-year-old male who is seen again in room 381. The patient continues on Airvo at 45 L/min, with an FiO2 45%. He is not receiving any IV fluids. Each day when he asked the patient how he is doing, he states that he is doing fine, and feeling better. No new labs today other than a glucose of 123, and a creatinine of 1.14. Progress note dated April 02, 2024. 78-year-old male seen in room 381. The patient continues on Airvo, with settings of 40 L/min, and FiO2 40%. The patient is not receiving any IV fluids. The patient is sitting up in a chair next to his hospital bed. The patient states that he feels great. No new labs today other than a glucose of 217. Progress note dated April 03, 2024. 78-year-old male seen today in room 381. The patient had been on Airvo, but today, he is on 9 L high flow O2. He is not receiving any IV fluids. He is sitting in a chair next to his hospital bed. The patient is feeling much better. Glucose is 113 today. No additional labs are noted. On 04/04/2024, the patient is being seen for a follow-up. The patient is doing well and the patient is gradually improving. Oxygen requirements have aggressively improved and the patient is currently on 8 L of oxygen by nasal cannula with a pulse ox of 93%. The patient completed a course of baricitinib and the patient is currently on prednisone at a dose of 40 mg p.o. daily. Minimal cough. No significant sputum production. No chest tightness. No wheezing. The patient completed a course of baricitinib on 04/02/2024. No new labs from today. No altered mentation. No nausea or emesis. Able to sit up in a chair. Calm and comfortable. No other significant complaints otherwise for now. On 04/05/2024, the patient has no specific complaints. Oxygenation is stable and the patient remains on 7 L of oxygen nasal cannula. White cell count is at 17 with a hemoglobin of 1.6 and a platelet count of 222. Sodium is 136 with a BUN of 33 and a creatinine of 1.1. Chest x-ray from today shows diffuse multifocal pulmonary infiltrates with background pulmonary fibrosis. No nausea. No emesis. No chest pain. No fever. No chills. No other new complaints for now. The patient is currently on 40 mg of prednisone on a daily basis. On 04/06/2023, the patient is being seen for a follow-up. Overall condition is stable and unchanged compared to yesterday. The patient remains on 7 L of oxygen by nasal cannula. No interval worsening shortness of breath. CAT scan of the chest x-ray was performed on 04/05/2024 and the findings are essentially unchanged with chronic ILD and superimposed viral interstitial pneumonia secondary to COVID-19. I have dropped the patient's prednisone down to 20 mg p.o. daily. Patient remains on Lovenox for DVT prophylaxis. Rest of the medications are unchanged. He is sitting up in a chair. No chest pain. No altered mentation. White cell count of 13.7 with a hemoglobin of 11 and a platelet count of 211. BUN 34 with a creatinine of 1.45 and a sodium level is at 136. On 04/07/2024, the patient remains on 7 L of oxygen. Unable to wean down the oxygen and further because of development of hypoxemia. Despite all this, the patient denies having any worsening shortness of breath. His overall respiratory status remains stable. White cell count of 12.5 with a hemoglobin 10.6 and a platelet count of 182. The patient is currently on prednisone at a dose of 30 mg p.o. daily as part of his burst taper. BUN 39 with a creatinine of 1.3 and a sodium levels at 136. Rest of the medications remain unchanged. Remains on Lovenox for DVT prophylaxis 40 mg SQ daily. Remains on IV fluids at KVO. No altered mentation. Using incentive spirometer. Active. Desaturates with minimal amount of activity and sometimes with talking. On 04/08/2024, patient remains on 7 L of oxygen by nasal cannula. Unable to wean the FiO2 any further. I am looking to the possibility of discharging this pat ient on a concentrator that provides high flow of oxygen. Will talk to case management. Labs are all stable. Hemoglobin 11, white cell count 11, platelet count is 167, BUN is 38 with a creatinine 1.35 and a sodium level is at 136. No other significant events. Tolerating diet. Sitting up in a chair. Remains on Lovenox. Remains on prednisone 30 mg p.o. daily. Objective - Vital Signs Vital signs: Vital Signs Temp 97.4 F L 04/08/24 11:22 Pulse 80 04/08/24 11:22 Resp 20 04/08/24 11:22 BP 131/59 04/08/24 11:22 Pulse Ox 92 L 04/08/24 11:22 FiO2 40 04/02/24 09:08 Intake & Output 04/07/24 04/08/24 04/08/24 18:59 06:59 18:59 Intake Total 220 250 Output Total 1210 600 650 Balance -1210 -380 -400 Weight 73.8 kg Intake: IV 20 10 Invasive Line 7 20 10 Oral 200 240 Output: Urine 1210 600 650 Other: Voiding Method Bedside Commode Bedside Commode Bedside Commode Urinal Urinal Urinal - Exam The patient appeared well nourished and normally developed. Vital signs as documented. The patient does not demonstrate any significant respiratory distress. The patient is currently on 7 L of oxygen by nasal cannula Head exam is unremarkable. No scleral icterus or corneal arcus noted. Neck is without jugular venous distension, thyromegaly, or carotid bruits. Carotid upstrokes are brisk bilaterally. Lungs show scattered rhonchi and crackles bilaterally.. Cardiac exam reveals the PMI to be normally sized and situated. Rhythm is regular. First and second heart sounds normal. No murmurs, rubs or gallops. Abdominal exam reveals normal bowel sounds, no masses, no organomegaly and no aortic enlargement. Extremities are nonedematous and both femoral and pedal pulses are normal. Examination of the skin revealed no evidence of significant rashes, suspicious appearing nevi or other concerning lesions. Neurologically, the patient is awake and alert and the patient does not have any focal neurological deficit. Cranial nerves are essentially intact. - Labs CBC & Chem 7: 04/08/24 06:55 04/08/24 06:55 Labs: Abnormal Lab Results - Last 24 Hours (Table) 04/07/24 04/07/24 04/07/24 Range/Units 11:44 16:47 20:26 WBC (3.8-10.6) k/uL RBC (4.30-5.90) m/uL Hgb (13.0-17.5) gm/dL Hct (39.0-53.0) % Neutrophils # (1.3-7.7) k/uL Sodium (137-145) mmol/L Carbon Dioxide (22-30) mmol/L BUN (9-20) mg/dL Creatinine (0.66-1.25) mg/dL POC Glucose (mg/dL) 121 H 189 H 177 H (70-110) mg/dL 04/08/24 04/08/24 Range/Units 06:55 06:55 WBC 11.7 H (3.8-10.6) k/uL RBC 3.82 L (4.30-5.90) m/uL Hgb 11.1 L (13.0-17.5) gm/dL Hct 34.5 L (39.0-53.0) % Neutrophils # 9.9 H (1.3-7.7) k/uL Sodium 136 L (137-145) mmol/L Carbon Dioxide 33 H (22-30) mmol/L BUN 38 H (9-20) mg/dL Creatinine 1.35 H (0.66-1.25) mg/dL POC Glucose (mg/dL) (70-110) mg/dL Assessment and Plan Plan: Acute hypoxic respiratory failure most likely secondary to COVID-19 related pneumonia. The patient may have an underlying chronic interstitial lung disease. The patient is oxygenation gradually improved. The patient is currently off Airvo and FiO2 is being gradually weaned off and currently he is on 7 L of oxygen by nasal cannula. Completed a course of baricitinib on 04/02/2024 and the patient is currently on prednisone 30 mg of prednisone on a daily basis Acute COVID-19 infection/pneumonia. He has received previous vaccination. No previous COVID-19 infections. Interstitial lung disease, being worked up on an outpatient basis through [facility] under the care of Dr. Terrence Maynard. He has undergone recent bronchoscopy and bronchial lavage. No biopsies were obtained. The patient was not oxygen dependent. Shortness of breath secondary to above, improving Hypertension Hyperlipidemia History of coronary disease with remote history of myocardial infarction. The patient has 2 coronary stents inserted post ND back in 2013 Plan Clinically stable Unable to wean down FiO2 any further currently at 7 L nasal cannula We will look at the possibility of discharging this patient home with a concentrator that delivers higher flow of oxygen up to 10 L titrate oxygen flow to maintain saturation above 90%, currently on 7 L Completed a course of baricitinib on 04/02/2024 Prednisone 30 mg p.o. daily as part of a burst taper Chest x-ray findings were noted Lovenox 40 mg subcu for DVT prophylaxis Doppler of lower extremities were negative No clinical suspicion for pulmonary embolism Maintain adequate mobility will continue to follow.
[2024-04-08 17:10] LABS: Glucose,Whole Blood 148 mg/dL (70-110)
[2024-04-08 21:32] LABS: Glucose,Whole Blood 162 mg/dL (70-110)
[2024-04-09 06:26] LABS: Glucose,Whole Blood 93 mg/dL (70-110)
[2024-04-09 08:14] LABS: Basophils % (A) 0 %; Eosinophils # (A) 0.4 k/uL (0-0.7); Eosinophils % (A) 3 %; HCT 35.4 % (39.0-53.0); HGB 11.3 gm/dL (13.0-17.5); Lymphocytes % (A) 8 %; MCH 29.3 pg (25.0-35.0); MCHC 31.9 g/dL (31.0-37.0); MCV 91.9 fL (80.0-100.0); Mean Platelet Volume 7.4; Monocytes # (A) 0.3 k/uL (0-1.0); Monocytes % (A) 3 %; Neutrophils # (A) 10.6 k/uL (1.3-7.7); Neutrophils % (A) 86 %; Platelet Count 135 k/uL (150-450); RBC 3.85 m/uL (4.30-5.90); RDW 14.7 % (11.5-15.5); WBC 12.4 k/uL (3.8-10.6)
[2024-04-09 08:47] LABS: African American GFR (CKD) 60 (>60 ml/min/1.73 sqM); Anion Gap 4 mmol/L; Blood Urea Nitrogen 42 mg/dL (9-20); Calcium 8.9 mg/dL (8.4-10.2); Carbon Dioxide 30 mmol/L (22-30); Chloride 103 mmol/L (98-107); Glucose 84 mg/dL (74-99); Magnesium 1.8 mg/dL (1.6-2.3); Non-African American GFR(CKD) 52 (>60 ml/min/1.73 sqM); Potassium 4.4 mmol/L (3.5-5.1); Sodium 137 mmol/L (137-145)
[2024-04-09 11:23] LABS: Glucose,Whole Blood 186 mg/dL (70-110)
--- NOTE | 2024-04-09 12:49 | P.PN ---
Subjective Progress Note Date: 04/09/24 This is a 78-year-old male patient who is currently hospitalized for an acute hypoxic respiratory failure and COVID-19 related pneumonia. The patient is currently on Airvo at 45 L with an FiO2 of 60%. I reviewed the series of chest x-ray that was done on this patient during this current admission. The patient may have underlying chronic ILD. Nevertheless, the patient developed progressive worsening in the bilateral pulmonary filtrates and the patient has developed some increased hazy opacities bilaterally consistent with COVID-19 related pneumonia. Noted his symptoms started around 2 days prior to his current admission and the patient's is also infected with the same virus. His D-dimer was mildly elevated at 1.07. Doppler of the lower extremities done today was negative. Perfusion scan was up and intermediate probability. He has seen Dr. Terrence Maynard and the patient has undergone a bronchoscopy few months back which I am assuming was done as part of investigation for chronic interstitial lung disease. The patient is on no immunosuppressant. 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 No coronary artery disease. No active smoking. The white cell count of 5.8 with a hemoglobin 12.7 and a platelet count of 154. Sodium is at 139, BUN is 18 with a creatinine of 1.1 and a potassium level of 4.7. The viral screen was positive for COVID-19. His procalcitonin level was at 0.7. His CRP is at 14.5 with an LDH of 600. The patient has received vaccination in the past. No previous history of COVID-19 infection. No reported aspiration. He is currently on IV steroids and the patient is receiving Solu-Medrol 60 mg every 6 hours. The patient is also on Lovenox 40 mg subcu for DVT prophylaxis. Antibiotic coverage is essentially empiric. He is afebrile. No significant tachycardia or tachypnea. On 03/20/2024, the patient is comfortable. Slightly more short of breath. Nevertheless, he is having episodes of oxygen desaturations with limited amount of mobility. Earlier this morning, while having his x-ray, the patient's pulse ox dropped down to the 60s. The chest x-ray showed diffuse interstitial and alveolar opacification consistent with COVID-19 related pneumonia. The patient remains on IV Solu-Medrol. The patient remains on Airvo and this was adjusted t o 60 L and FiO2 of 90%. LDH level was elevated in the 600 range. Doppler of the lower extremities were negative. D-dimer is at 1.07. Electrolytes are all stable and sodium levels at 139, potassium is at 4.7, BUN is 18 with a creatinine of 1.1. The white cell count is currently at 10.1 with a hemoglobin 12.2 and a platelet count is at 162. Hemodynamically stable. Cardiac rhythm is sinus. Denies having any other significant complaints. Awake and alert and communicating. Patient was seen today on 03/21/2024, remains in the icu, remains on Airvo, patient is on 60 L flow 90% FiO2, he is also on baricitinib day #2, patient is marginal at best. O2 saturation is in the 80s and sometimes in the 70s patient is doing well, and I am aware that he may end up requiring intubation mechanical ventilation, I recommended BiPAP 03/04/100% and will transition from Airvo to BiPAP. Chest x-ray shows bilateral interstitial infiltrates. Looking at the previous CT of the chest, patient did have underlying interstitial lung disease which was relatively mild to begin with in 2019. But nonetheless he did have findings of interstitial lung disease and bronchiectasis noted on previous CT of the chest done at [facility]. His labs today WBC is 8.2 hemoglobin is 11.6, electrolytes are normal BUN is 36 creatinine 1.07, last procalcitonin was 0.41 the 1 prior was 0.73. LDH is high 600. Seen today on 03/22/2024, patient is feeling better today compared to yesterday, maintaining adequate O2 saturations he is on 60 L flow and 90% FiO2 he was on BiPAP last night 100%. Chest x-ray is showing improvement O2 saturation is improved he is now in the 90s remains on baricitinib day number 3 out of 14 remains on Solu-Medrol 60 every 6 remains on Lovenox. Chest x-ray is showing slight improvement clinically the patient is slightly improved hence we will continue the same and I will continue to monitor the patient in the ICU. CBC is relatively normal basic metabolic profile is normal BUN is 41 creatinine 1.03 Patient was seen today on 03/23/2024, slight improvement clinically chest x-ray slightly improved remains on 90% FiO2 and 60 L flow via Airvo. Patient has no cough, chest pain no fever no chills no hemoptysis. Improvement clinically and radiographically noted, hence we will titrate his FiO2 down from 90% to the 80% or maybe 70% if possible. CBC is normal basic metabolic profile is normal BUN is 47 creatinine 0.99 Patient was seen today on 03/24/2024, patient remains in the ICU, remains on Airvo at 70% FiO2 and 40 L flow. Remains on Solu-Medrol, he is also on baricitinib and he is on Lovenox. Slight improvement chest x-ray is basically about the same, minimal improvement clinically but nonetheless the patient is not getting any worse WBC count is 10.4 hemoglobin is 12 electrolytes are normal renal profile is normal Patient is was seen today on 03/25/2024, patient remains in the ICU, remains on Airvo at 80% FiO2 45 L flow, patient is noticing some improvement chest x-ray is basically about the same physical examination is about the same. Patient ov erall is about the same. Patient remains on baricitinib and he remains on steroids. WBC count is 12.3 hemoglobin 12.3 basic metabolic profile is normal BUN is 45 creatinine 1.13 Patient seen today , still requiring relatively high FiO2 with Airvo at 75% FiO2 and 50 L flow, patient is about the same, continues to desaturate with any activity. His chest x-ray is showing slight improvement in his atypical pneumonia, hence I am recommending today a CT angiogram on this patient to rule out underlying thromboembolic disease. In the meantime patient remains on baricitinib, remains on steroids, and improvement is rather extremely minimal. Patient was seen today on 03/27/2024, remains in the ICU, remains on Airvo at 70% FiO2 and 50 L flow O2 sat remains in the low 90s up to 95%. IV fluid is now to KVO, CT angiogram of the chest showed no evidence of pulmonary embolism. Patient remains on Solu-Medrol, Lovenox, bosutinib, and his echocardiogram showed good LV function, I plan to transfer the patient out of the ICU today to 3 S. Today showed relatively normal CBC, normal electrolytes, normal renal profile, The patient is seen today March 28, 2024 in follow-up on the selective care unit. He was transferred out of the intensive care unit yesterday. He is currently sitting up in a chair at the bedside. Awake and alert in mild respiratory distress. He is continued on Airvo high flow oxygen at 50 L and 60% FiO2. He is continued on baricitinib. Remains on vitamin supplements. Lovenox for DVT prophylaxis. Remains on bronchodilators and Solu-Medrol. White count 16.2. Hemoglobin 12.1. Platelets 339. Sodium 134. Potassium 3.8. Bicarb 29. BUN 43. Creatinine 1.06. Glucose 133. The patient is seen today March 29, 2024 in follow-up on the selective care unit. He is currently sitting up in a chair. Awake and alert in no acute distress. Feeling a bit better each day. He has been slow to progress. He is still on Airvo high flow oxygen at 50 L and 60% FiO2. He remains on baricitinib. Blood and sputum cultures remained with no growth. Glucose 139. On albuterol and Solu-Medrol. Lovenox for DVT prophylaxis. Progress note dated March 30, 2024. 78-year-old male seen today in room 381. The patient was admitted with the diagnosis of pneumonia. The patient is currently on Airvo, at 50 L/min with an FiO2 of 55%. He is not receiving any IV fluids. He is resting comfortably in the room, sitting in the chair next to his hospital bed. The patient states that he is doing better. He denies any significant or worsening shortness of breath, cough, wheezing, chest tightness, or phlegm production. Current laboratory data includes a white count 15.1, hemoglobin 9.2, hematocrit 34.5, platelet count of 328,000. Sodium 134, potassium 4.6, chlorides 102, CO2 29, BUN 42, creatinine 1.06. Glucose 284. Calcium 7.7. Albumin 2.6. Him and bl ood sampling, has been negative. Progress note dated March 31, 2024. 78-year-old male seen today in room 381. The patient is sitting in a chair next to the hospital bed. He remains on Airvo. He is at 50 L/min with an FiO2 50%. He is not receiving any IV fluids. His Solu-Medrol can be converted to prednisone 40 mg today. He continues on baricitinib at 4 mg a day. No new labs today other than a glucose of 190. Progress note dated April 01, 2024. 78-year-old male who is seen again in room 381. The patient continues on Airvo at 45 L/min, with an FiO2 45%. He is not receiving any IV fluids. Each day when he asked the patient how he is doing, he states that he is doing fine, and feeling better. No new labs today other than a glucose of 123, and a creatinine of 1.14. Progress note dated April 02, 2024. 78-year-old male seen in room 381. The patient continues on Airvo, with settings of 40 L/min, and FiO2 40%. The patient is not receiving any IV fluids. The patient is sitting up in a chair next to his hospital bed. The patient states that he feels great. No new labs today other than a glucose of 217. Progress note dated April 03, 2024. 78-year-old male seen today in room 381. The patient had been on Airvo, but today, he is on 9 L high flow O2. He is not receiving any IV fluids. He is sitting in a chair next to his hospital bed. The patient is feeling much better. Glucose is 113 today. No additional labs are noted. On 04/04/2024, the patient is being seen for a follow-up. The patient is doing well and the patient is gradually improving. Oxygen requirements have aggressively improved and the patient is currently on 8 L of oxygen by nasal cannula with a pulse ox of 93%. The patient completed a course of baricitinib and the patient is currently on prednisone at a dose of 40 mg p.o. daily. Minimal cough. No significant sputum production. No chest tightness. No wheezing. The patient completed a course of baricitinib on 04/02/2024. No new labs from today. No altered mentation. No nausea or emesis. Able to sit up in a chair. Calm and comfortable. No other significant complaints otherwise for now. On 04/05/2024, the patient has no specific complaints. Oxygenation is stable and the patient remains on 7 L of oxygen nasal cannula. White cell count is at 17 with a hemoglobin of 1.6 and a platelet count of 222. Sodium is 136 with a BUN of 33 and a creatinine of 1.1. Chest x-ray from today shows diffuse multifocal pulmonary infiltrates with background pulmonary fibrosis. No nausea. No emesis. No chest pain. No fever. No chills. No other new complaints for now. The patient is currently on 40 mg of prednisone on a daily basis. On 04/06/2023, the patient is being seen for a follow-up. Overall condition is stable and unchanged compared to yesterday. The patient remains on 7 L of oxygen by nasal cannula. No interval worsening shortness of breath. CAT scan of the chest x-ray was performed on 04/05/2024 and the findings are essentially unchanged with chronic ILD and superimposed viral interstitial pneumonia secondary to COVID-19. I have dropped the patient's prednisone down to 20 mg p.o. daily. Patient remains on Lovenox for DVT prophylaxis. Rest of the medications are unchanged. He is sitting up in a chair. No chest pain. No altered mentation. White cell count of 13.7 with a hemoglobin of 11 and a platelet count of 211. BUN 34 with a creatinine of 1.45 and a sodium level is at 136. On 04/07/2024, the patient remains on 7 L of oxygen. Unable to wean down the oxygen and further because of development of hypoxemia. Despite all this, the patient denies having any worsening shortness of breath. His overall respiratory status remains stable. White cell count of 12.5 with a hemoglobin 10.6 and a platelet count of 182. The patient is currently on prednisone at a dose of 30 mg p.o. daily as part of his burst taper. BUN 39 with a creatinine of 1.3 and a sodium levels at 136. Rest of the medications remain unchanged. Remains on Lovenox for DVT prophylaxis 40 mg SQ daily. Remains on IV fluids at KVO. No altered mentation. Using incentive spirometer. Active. Desaturates with minimal amount of activity and sometimes with talking. On 04/08/2024, patient remains on 7 L of oxygen by nasal cannula. Unable to wean the FiO2 any further. I am looking to the possibility of discharging this pat ient on a concentrator that provides high flow of oxygen. Will talk to case management. Labs are all stable. Hemoglobin 11, white cell count 11, platelet count is 167, BUN is 38 with a creatinine 1.35 and a sodium level is at 136. No other significant events. Tolerating diet. Sitting up in a chair. Remains on Lovenox. Remains on prednisone 30 mg p.o. daily. On 04/09/2024, the patient is being seen for a follow-up. Remains on 7 L of oxygen by nasal cannula. Will try to make arranges for this patient for a home concentrator that delivers higher flow of oxygen. The white cell count of 12 with a hemoglobin on of 11 and a platelet count of 135. BUN is 43 with a creatinine of 1.32. The patient remains on 30 mg of prednisone on a daily basis. Remains on Lovenox for DVT prophylaxis. He has no complaints. Clinically unchanged. Objective - Vital Signs Vital signs: Vital Signs Temp 97.5 F L 04/09/24 09:00 Pulse 99 04/09/24 09:00 Resp 18 04/09/24 09:00 BP 129/56 04/09/24 09:00 Pulse Ox 90 L 04/09/24 09:00 FiO2 40 04/02/24 09:08 Intake & Output 04/08/24 04/09/24 04/09/24 18:59 06:59 18:59 Intake Total 730 236 Output Total 1000 1100 300 Balance -270 -1100 -64 Weight 70.3 kg Intake: IV 10 Invasive Line 7 10 Oral 720 236 Output: Urine 1000 1100 300 Other: Voiding Method Bedside Commode Bedside Commode Urinal Urinal # Voids 1 # Bowel Movements 1 - Exam The patient appeared well nourished and normally developed. Vital signs as documented. The patient does not demonstrate any significant respiratory distress. The patient is currently on 7 L of oxygen by nasal cannula Head exam is unremarkable. No scleral icterus or corneal arcus noted. Neck is without jugular venous distension, thyromegaly, or carotid bruits. Carotid upstrokes are brisk bilaterally. Lungs show scattered rhonchi and crackles bilaterally.. Cardiac exam reveals the PMI to be normally sized and situated. Rhythm is regular. First and second heart sounds normal. No murmurs, rubs or gallops. Abdominal exam reveals normal bowel sounds, no masses, no organomegaly and no aortic enlargement. Extremities are nonedematous and both femoral and pedal pulses are normal. Examination of the skin revealed no evidence of significant rashes, suspicious appearing nevi or other concerning lesions. Neurologically, the patient is awake and alert and the patient does not have any focal neurological deficit. Cranial nerves are essentially intact. - Labs CBC & Chem 7: 04/09/24 07:19 04/09/24 07:19 Labs: Abnormal Lab Results - Last 24 Hours (Table) 04/08/24 04/08/24 04/08/24 Range/Units 11:51 17:09 21:16 WBC (3.8-10.6) k/uL RBC (4.30-5.90) m/uL Hgb (13.0-17.5) gm/dL Hct (39.0-53.0) % Plt Count (150-450) k/uL Neutrophils # (1.3-7.7) k/uL BUN (9-20) mg/dL Creatinine (0.66-1.25) mg/dL POC Glucose (mg/dL) 111 H 148 H 162 H (70-110) mg/dL 04/09/24 04/09/24 Range/Units 07:19 07:19 WBC 12.4 H (3.8-10.6) k/uL RBC 3.85 L (4.30-5.90) m/uL Hgb 11.3 L (13.0-17.5) gm/dL Hct 35.4 L (39.0-53.0) % Plt Count 135 L (150-450) k/uL Neutrophils # 10.6 H (1.3-7.7) k/uL BUN 42 H (9-20) mg/dL Creatinine 1.32 H (0.66-1.25) mg/dL POC Glucose (mg/dL) (70-110) mg/dL Assessment and Plan Plan: Acute hypoxic respiratory failure most likely secondary to COVID-19 related pneumonia. The patient may have an underlying chronic interstitial lung disease. The patient is oxygenation gradually improved. The patient is currently off Airvo and FiO2 is being gradually weaned off and currently he is on 7 L of oxygen by nasal cannula. Completed a course of baricitinib on 04/02/2024 and the patient is currently on prednisone 30 mg of prednisone on a daily basis. Clinically unchanged on today's evaluation of 04/09/2024. Acute COVID-19 infection/pneumonia. He has received previous vaccination. No previous COVID-19 infections. Interstitial lung disease, being worked up on an outpatient basis through [facility] under the care of Dr. Terrence Maynard. He has undergone recent bronchoscopy and bronchial lavage. No biopsies were obtained. The patient was not oxygen dependent. Shortness of breath secondary to above, improving Hypertension Hyperlipidemia History of coronary disease with remote history of myocardial infarction. The patient has 2 coronary stents inserted post AR back in 2013 Plan Clinically stable Unable to wean down FiO2 any further currently at 7 L nasal cannula We will look at the possibility of discharging this patient home with a concentrator that delivers higher flow of oxygen up to 10 L titrate oxygen flow to maintain saturation above 90%, currently on 7 L Completed a course of baricitinib on 04/02/2024 Prednisone 30 mg p.o. daily as part of a burst taper Chest x-ray findings were noted Lovenox 40 mg subcu for DVT prophylaxis Doppler of lower extremities were negative No clinical suspicion for pulmonary embolism Maintain adequate mobility will continue to follow.
--- NOTE | 2024-04-09 15:10 | P.PN ---
Subjective Progress Note Date: 04/09/24 (Deleyed charting seen at 1045) 78-year-old male with prolonged hospitalization secondary to acute COVID 19 pneumonia. Currently hospital day 23. Patient seen and examined at bedside.. Denies any chest pain or shortness of breath. No nausea or vomiting. 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 He notes he is extremely winded when attempting to ambulate. He does think he can survive at home. He is interested in home health. Daughter is able to help with meals. Vital signs reviewed General: Nontoxic, no distress, appears at stated age Cardiovascular: S1S2 reg, no murmur Lungs: Decreased breath sounds bilateral, no rhonchi, no rales, no accessory muscle use Abdominal: Soft, nontender to palpation, no guarding Ext: No gross muscle atrophy, no edema b/l lower extremities, no contractures Neuro: CN II-XI grossly intact, no focal neuro deficits Psych: Alert, oriented, appropriate affect Assessment/Plan: Acute hypoxic respiratory failure secondary to COVID 19 PNA with history of pulmonary fibrosis with sepsis: Completed course of Rocephin/Azithromycin and Baricitinib. Albuterol INH QID + Q4H PRN. Prednisone 30 mg PO QD. Pulmonary following. - Plan is home on Thursday will need concentrator for Oxygen that can do greater than 5L. HH with RN,PT,OT. Consider meals on wheels. Steroid induced hyperglycemia with Pre-DM: A1c 6.2. improved d/c insulin and accuchecks. On steroid wean. Transaminitis, resolving: Repeat as outpatient Prerenal azotemia, resolved. Normocytic anemia: Stable with no signs of bleeding. Hemoglobin stable, continue to monitor GERD: Pepcid 20 mg BID. BPH: Proscar 5 mg QD. Hypertenion: Amlodipine 2.5 mg qd . Losartan 100 mg qd CAD: ASA, statin Imaging: New Data Review: Remarkable for WBC 12.4, hemoglobin 11.3, platelet count 135, BUN 42, creatinine 1.32, magnesium 1.8 DVT prophylaxis: Lovenox Barries to discharge: Needs home O2 at 7L arranged and home health. Anticipate home on 04/11/24 This dictation was prepared using [employer] voice recognition software. Though every attempt is made to correct errors during dictation some may still exist. Objective - Vital Signs Vital signs: Vital Signs Temp 97.5 F L 04/09/24 09:00 Pulse 91 04/09/24 11:53 Resp 18 04/09/24 11:53 BP 111/67 04/09/24 11:53 Pulse Ox 93 L 04/09/24 11:53 FiO2 40 04/02/24 09:08 Intake & Output 04/08/24 04/09/24 04/09/24 18:59 06:59 18:59 Intake Total 730 476 Output Total 1000 1100 900 Balance -270 -1100 -424 Weight 70.3 kg Intake: IV 10 Invasive Line 7 10 Oral 720 476 Output: Urine 1000 1100 900 Other: Voiding Method Bedside Commode Bedside Commode Bedside Commode Urinal Urinal Urinal # Voids 1 # Bowel Movements 1 - Labs CBC & Chem 7: 04/09/24 07:19 04/09/24 07:19 Labs: Abnormal Lab Results - Last 24 Hours (Table) 04/08/24 04/08/24 04/09/24 Range/Units 17:09 21:16 07:19 WBC 12.4 H (3.8-10.6) k/uL RBC 3.85 L (4.30-5.90) m/uL Hgb 11.3 L (13.0-17.5) gm/dL Hct 35.4 L (39.0-53.0) % Plt Count 135 L (150-450) k/uL Neutrophils # 10.6 H (1.3-7.7) k/uL BUN (9-20) mg/dL Creatinine (0.66-1.25) mg/dL POC Glucose (mg/dL) 148 H 162 H (70-110) mg/dL 04/09/24 04/09/24 Range/Units 07:19 11:18 WBC (3.8-10.6) k/uL RBC (4.30-5.90) m/uL Hgb (13.0-17.5) gm/dL Hct (39.0-53.0) % Plt Count (150-450) k/uL Neutrophils # (1.3-7.7) k/uL BUN 42 H (9-20) mg/dL Creatinine 1.32 H (0.66-1.25) mg/dL POC Glucose (mg/dL) 186 H (70-110) mg/dL
[2024-04-09 16:19] LABS: Glucose,Whole Blood 183 mg/dL (70-110)
[2024-04-09 20:57] LABS: Glucose,Whole Blood 141 mg/dL (70-110)
--- NOTE | 2024-04-10 12:24 | P.PN ---
Subjective Progress Note Date: 04/10/24 No new complaints. Ongoing titration of O2, presently on 7L NC, plans to dc on Thursday if no further improvement Gen: In NAD, non-toxic HEENT: normocephalic, atraumatic, hearing acuity is intant, mucous membranes moist CVS: perfusing all extremities well, no pitting edema, Respiratory: symmetric chest expansion, no accessory muscle use, GI: soft, NTTP, ND, : no suprapubic tenderness, no CVA tenderness MSK/Derm: no rashes, cyanosis Neuro: CN II-XII intact, no motor weakness, Psych: cooperative, euthymic mood, judgment and insight is intact Hospital Course: 78 year old M with PMH of pulmonary fibrosis, GERD, BPH, HLD, HTN, CAD with stent presented to the ED on 03/16 for URI symptoms. In the ED he underwent extensive evaluation. T 102F, BP 139/70, HR 111, RR 20, 91% on 3L NC. Labs on admission show white blood cell count 7.9, hemoglobin 12.7, hematocrit 39.2, platelet 168, PT 11.4, PTT 25.7, INR 1.0, D-dimer 1.07, sodium 136, potassium 4.9, chloride 102, carbon dioxide 24, BUN 32, creatinine 1.97, glucose 157, troponin less than 0.012. EKG showed sinus tachycardia with a ventricular rate of 102 bpm, QTc interval of 386 ms, possible left atrial enlargement, left axis deviation, right bundle branch block. CXR showed reticulonodular infiltrate throughout the left lung may reflect atypical pneumonia. UA showed 1+ protein, negative for nitrites, trace leukocyte esterase. Initially admitted for sepsis due to atypical PNA, started on Rocephin/Azithromycin. COVID 19 test was positi ve. Started on Decadron. Pulmonary consulted, started on Baricitinib. Respiratory status worsened and he was transferred to ICU on BiPAP which was eventually transitioned to AirVo. Echo showed EF 50-55% with no regional wall motion abnormalities. CTA chest shows no PE, multifocal airspace opacities. Respiratory function improved, patient now titrated down to 7 L high flow nasal cannula. Assessment and Plan: Patient is severely ill, needs close monitoring. Prognosis guarded. Acute hypoxic respiratory failure secondary to COVID 19 PNA with history of pulmonary fibrosis: Completed course of Rocephin/Azithromycin. Albuterol INH QID + Q4H PRN. Completed course of Baricitinib. Robitussin DM 10 cc PO Q6H PRN. Prednisone 40 mg PO QD. Pulmonary on board. Wean oxygen Sepsis secondary to above Steroid induced hyperglycemia with Pre-DM: A1c 6.2. ISS. Accuchecks ACHS. Monitor for hypoglycemia Transaminitis, resolving: Possible related to COVID or use of Baricitinib? Monitor Prerenal azotemia, resolving: Improved. Encourage hydration by mouth Normocytic anemia: Stable with no signs of bleeding. Hemoglobin stable, continue to monitor GERD: Pepcid 20 mg PO BID. BPH: Proscar 5 mg PO QD. Hypertenion: Amlodipine 2.5 mg PO QD. Losartan 100 mg PO QD. CAD: ASA 81 mg PO QD. Pravastatin 80 mg PO QD. DVT ppx: Lovenox Code status: Full code Anticipated discharge place: Pending clinical course Anticipated discharge time: Pending clinical course Objective - Vital Signs Vital signs: Vital Signs Temp 97.8 F 04/10/24 07:59 Pulse 91 04/10/24 11:52 Resp 20 04/10/24 11:52 BP 123/58 04/10/24 11:52 Pulse Ox 91 L 04/10/24 11:52 FiO2 40 04/02/24 09:08 Intake & Output 04/09/24 04/10/24 04/10/24 18:59 06:59 18:59 Intake Total 716 236 Output Total 900 1000 200 Balance -184 -1000 36 Weight 69.3 kg Intake: Oral 716 236 Output: Urine 900 1000 200 Other: Voiding Method Bedside Commode Bedside Commode Bedside Commode Urinal Urinal Urinal - Labs CBC & Chem 7: 04/09/24 07:19 04/09/24 07:19 Labs: Abnormal Lab Results - Last 24 Hours (Table) 04/09/24 04/09/24 Range/Units 16:16 20:56 POC Glucose (mg/dL) 183 H 141 H (70-110) mg/dL
--- NOTE | 2024-04-10 13:02 | P.PN ---
Subjective Progress Note Date: 04/10/24 This is a 78-year-old male patient who is currently hospitalized for an acute hypoxic respiratory failure and COVID-19 related pneumonia. The patient is currently on Airvo at 45 L with an FiO2 of 60%. I reviewed the series of chest x-ray that was done on this patient during this current admission. The patient may have underlying chronic ILD. Nevertheless, the patient developed progressive worsening in the bilateral pulmonary filtrates and the patient has developed some increased hazy opacities bilaterally consistent with COVID-19 related pneumonia. Noted his symptoms started around 2 days prior to his current admission and the patient's is also infected with the same virus. His D-dimer was mildly elevated at 1.07. Doppler of the lower extremities done today was negative. Perfusion scan was up and intermediate probability. He has seen Dr. Terrence Maynard and the patient has undergone a bronchoscopy few months back which I am assuming was done as part of investigation for chronic interstitial lung disease. The patient is on no immunosuppressant. 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 No coronary artery disease. No active smoking. The white cell count of 5.8 with a hemoglobin 12.7 and a platelet count of 154. Sodium is at 139, BUN is 18 with a creatinine of 1.1 and a potassium level of 4.7. The viral screen was positive for COVID-19. His procalcitonin level was at 0.7. His CRP is at 14.5 with an LDH of 600. The patient has received vaccination in the past. No previous history of COVID-19 infection. No reported aspiration. He is currently on IV steroids and the patient is receiving Solu-Medrol 60 mg every 6 hours. The patient is also on Lovenox 40 mg subcu for DVT prophylaxis. Antibiotic coverage is essentially empiric. He is afebrile. No significant tachycardia or tachypnea. On 03/20/2024, the patient is comfortable. Slightly more short of breath. Nevertheless, he is having episodes of oxygen desaturations with limited amount of mobility. Earlier this morning, while having his x-ray, the patient's pulse ox dropped down to the 60s. The chest x-ray showed diffuse interstitial and alveolar opacification consistent with COVID-19 related pneumonia. The patient remains on IV Solu-Medrol. The patient remains on Airvo and this was adjusted t o 60 L and FiO2 of 90%. LDH level was elevated in the 600 range. Doppler of the lower extremities were negative. D-dimer is at 1.07. Electrolytes are all stable and sodium levels at 139, potassium is at 4.7, BUN is 18 with a creatinine of 1.1. The white cell count is currently at 10.1 with a hemoglobin 12.2 and a platelet count is at 162. Hemodynamically stable. Cardiac rhythm is sinus. Denies having any other significant complaints. Awake and alert and communicating. Patient was seen today on 03/21/2024, remains in the icu, remains on Airvo, patient is on 60 L flow 90% FiO2, he is also on baricitinib day #2, patient is marginal at best. O2 saturation is in the 80s and sometimes in the 70s patient is doing well, and I am aware that he may end up requiring intubation mechanical ventilation, I recommended BiPAP 03/04/100% and will transition from Airvo to BiPAP. Chest x-ray shows bilateral interstitial infiltrates. Looking at the previous CT of the chest, patient did have underlying interstitial lung disease which was relatively mild to begin with in 2019. But nonetheless he did have findings of interstitial lung disease and bronchiectasis noted on previous CT of the chest done at [facility]. His labs today WBC is 8.2 hemoglobin is 11.6, electrolytes are normal BUN is 36 creatinine 1.07, last procalcitonin was 0.41 the 1 prior was 0.73. LDH is high 600. Seen today on 03/22/2024, patient is feeling better today compared to yesterday, maintaining adequate O2 saturations he is on 60 L flow and 90% FiO2 he was on BiPAP last night 100%. Chest x-ray is showing improvement O2 saturation is improved he is now in the 90s remains on baricitinib day number 3 out of 14 remains on Solu-Medrol 60 every 6 remains on Lovenox. Chest x-ray is showing slight improvement clinically the patient is slightly improved hence we will continue the same and I will continue to monitor the patient in the ICU. CBC is relatively normal basic metabolic profile is normal BUN is 41 creatinine 1.03 Patient was seen today on 03/23/2024, slight improvement clinically chest x-ray slightly improved remains on 90% FiO2 and 60 L flow via Airvo. Patient has no cough, chest pain no fever no chills no hemoptysis. Improvement clinically and radiographically noted, hence we will titrate his FiO2 down from 90% to the 80% or maybe 70% if possible. CBC is normal basic metabolic profile is normal BUN is 47 creatinine 0.99 Patient was seen today on 03/24/2024, patient remains in the ICU, remains on Airvo at 70% FiO2 and 40 L flow. Remains on Solu-Medrol, he is also on baricitinib and he is on Lovenox. Slight improvement chest x-ray is basically about the same, minimal improvement clinically but nonetheless the patient is not getting any worse WBC count is 10.4 hemoglobin is 12 electrolytes are normal renal profile is normal Patient is was seen today on 03/25/2024, patient remains in the ICU, remains on Airvo at 80% FiO2 45 L flow, patient is noticing some improvement chest x-ray is basically about the same physical examination is about the same. Patient ov erall is about the same. Patient remains on baricitinib and he remains on steroids. WBC count is 12.3 hemoglobin 12.3 basic metabolic profile is normal BUN is 45 creatinine 1.13 Patient seen today , still requiring relatively high FiO2 with Airvo at 75% FiO2 and 50 L flow, patient is about the same, continues to desaturate with any activity. His chest x-ray is showing slight improvement in his atypical pneumonia, hence I am recommending today a CT angiogram on this patient to rule out underlying thromboembolic disease. In the meantime patient remains on baricitinib, remains on steroids, and improvement is rather extremely minimal. Patient was seen today on 03/27/2024, remains in the ICU, remains on Airvo at 70% FiO2 and 50 L flow O2 sat remains in the low 90s up to 95%. IV fluid is now to KVO, CT angiogram of the chest showed no evidence of pulmonary embolism. Patient remains on Solu-Medrol, Lovenox, bosutinib, and his echocardiogram showed good LV function, I plan to transfer the patient out of the ICU today to 3 S. Today showed relatively normal CBC, normal electrolytes, normal renal profile, The patient is seen today March 28, 2024 in follow-up on the selective care unit. He was transferred out of the intensive care unit yesterday. He is currently sitting up in a chair at the bedside. Awake and alert in mild respiratory distress. He is continued on Airvo high flow oxygen at 50 L and 60% FiO2. He is continued on baricitinib. Remains on vitamin supplements. Lovenox for DVT prophylaxis. Remains on bronchodilators and Solu-Medrol. White count 16.2. Hemoglobin 12.1. Platelets 339. Sodium 134. Potassium 3.8. Bicarb 29. BUN 43. Creatinine 1.06. Glucose 133. The patient is seen today March 29, 2024 in follow-up on the selective care unit. He is currently sitting up in a chair. Awake and alert in no acute distress. Feeling a bit better each day. He has been slow to progress. He is still on Airvo high flow oxygen at 50 L and 60% FiO2. He remains on baricitinib. Blood and sputum cultures remained with no growth. Glucose 139. On albuterol and Solu-Medrol. Lovenox for DVT prophylaxis. Progress note dated March 30, 2024. 78-year-old male seen today in room 381. The patient was admitted with the diagnosis of pneumonia. The patient is currently on Airvo, at 50 L/min with an FiO2 of 55%. He is not receiving any IV fluids. He is resting comfortably in the room, sitting in the chair next to his hospital bed. The patient states that he is doing better. He denies any significant or worsening shortness of breath, cough, wheezing, chest tightness, or phlegm production. Current laboratory data includes a white count 15.1, hemoglobin 9.2, hematocrit 34.5, platelet count of 328,000. Sodium 134, potassium 4.6, chlorides 102, CO2 29, BUN 42, creatinine 1.06. Glucose 284. Calcium 7.7. Albumin 2.6. Him and bl ood sampling, has been negative. Progress note dated March 31, 2024. 78-year-old male seen today in room 381. The patient is sitting in a chair next to the hospital bed. He remains on Airvo. He is at 50 L/min with an FiO2 50%. He is not receiving any IV fluids. His Solu-Medrol can be converted to prednisone 40 mg today. He continues on baricitinib at 4 mg a day. No new labs today other than a glucose of 190. Progress note dated April 01, 2024. 78-year-old male who is seen again in room 381. The patient continues on Airvo at 45 L/min, with an FiO2 45%. He is not receiving any IV fluids. Each day when he asked the patient how he is doing, he states that he is doing fine, and feeling better. No new labs today other than a glucose of 123, and a creatinine of 1.14. Progress note dated April 02, 2024. 78-year-old male seen in room 381. The patient continues on Airvo, with settings of 40 L/min, and FiO2 40%. The patient is not receiving any IV fluids. The patient is sitting up in a chair next to his hospital bed. The patient states that he feels great. No new labs today other than a glucose of 217. Progress note dated April 03, 2024. 78-year-old male seen today in room 381. The patient had been on Airvo, but today, he is on 9 L high flow O2. He is not receiving any IV fluids. He is sitting in a chair next to his hospital bed. The patient is feeling much better. Glucose is 113 today. No additional labs are noted. On 04/04/2024, the patient is being seen for a follow-up. The patient is doing well and the patient is gradually improving. Oxygen requirements have aggressively improved and the patient is currently on 8 L of oxygen by nasal cannula with a pulse ox of 93%. The patient completed a course of baricitinib and the patient is currently on prednisone at a dose of 40 mg p.o. daily. Minimal cough. No significant sputum production. No chest tightness. No wheezing. The patient completed a course of baricitinib on 04/02/2024. No new labs from today. No altered mentation. No nausea or emesis. Able to sit up in a chair. Calm and comfortable. No other significant complaints otherwise for now. On 04/05/2024, the patient has no specific complaints. Oxygenation is stable and the patient remains on 7 L of oxygen nasal cannula. White cell count is at 17 with a hemoglobin of 1.6 and a platelet count of 222. Sodium is 136 with a BUN of 33 and a creatinine of 1.1. Chest x-ray from today shows diffuse multifocal pulmonary infiltrates with background pulmonary fibrosis. No nausea. No emesis. No chest pain. No fever. No chills. No other new complaints for now. The patient is currently on 40 mg of prednisone on a daily basis. On 04/06/2023, the patient is being seen for a follow-up. Overall condition is stable and unchanged compared to yesterday. The patient remains on 7 L of oxygen by nasal cannula. No interval worsening shortness of breath. CAT scan of the chest x-ray was performed on 04/05/2024 and the findings are essentially unchanged with chronic ILD and superimposed viral interstitial pneumonia secondary to COVID-19. I have dropped the patient's prednisone down to 20 mg p.o. daily. Patient remains on Lovenox for DVT prophylaxis. Rest of the medications are unchanged. He is sitting up in a chair. No chest pain. No altered mentation. White cell count of 13.7 with a hemoglobin of 11 and a platelet count of 211. BUN 34 with a creatinine of 1.45 and a sodium level is at 136. On 04/07/2024, the patient remains on 7 L of oxygen. Unable to wean down the oxygen and further because of development of hypoxemia. Despite all this, the patient denies having any worsening shortness of breath. His overall respiratory status remains stable. White cell count of 12.5 with a hemoglobin 10.6 and a platelet count of 182. The patient is currently on prednisone at a dose of 30 mg p.o. daily as part of his burst taper. BUN 39 with a creatinine of 1.3 and a sodium levels at 136. Rest of the medications remain unchanged. Remains on Lovenox for DVT prophylaxis 40 mg SQ daily. Remains on IV fluids at KVO. No altered mentation. Using incentive spirometer. Active. Desaturates with minimal amount of activity and sometimes with talking. On 04/08/2024, patient remains on 7 L of oxygen by nasal cannula. Unable to wean the FiO2 any further. I am looking to the possibility of discharging this pat ient on a concentrator that provides high flow of oxygen. Will talk to case management. Labs are all stable. Hemoglobin 11, white cell count 11, platelet count is 167, BUN is 38 with a creatinine 1.35 and a sodium level is at 136. No other significant events. Tolerating diet. Sitting up in a chair. Remains on Lovenox. Remains on prednisone 30 mg p.o. daily. On 04/09/2024, the patient is being seen for a follow-up. Remains on 7 L of oxygen by nasal cannula. Will try to make arranges for this patient for a home concentrator that delivers higher flow of oxygen. The white cell count of 12 with a hemoglobin on of 11 and a platelet count of 135. BUN is 43 with a creatinine of 1.32. The patient remains on 30 mg of prednisone on a daily basis. Remains on Lovenox for DVT prophylaxis. He has no complaints. Clinically unchanged. On 04/10/2024, the patient remains on 7 L of oxygen by nasal cannula. No new complaints. Current pulse ox is 91 percent and the patient continues to have desaturation with mobility. No new labs are available from today. Overall condition remains stable. Will try to get this patient a concentrator that delivers high flow of oxygen in preparation for discharge. Objective - Vital Signs Vital signs: Vital Signs Temp 97.8 F 04/10/24 07:59 Pulse 100 04/10/24 07:59 Resp 18 04/10/24 07:59 BP 136/73 04/10/24 07:59 Pulse Ox 90 L 04/10/24 07:59 FiO2 40 04/02/24 09:08 Intake & Output 04/09/24 04/10/24 04/10/24 18:59 06:59 18:59 Intake Total 716 236 Output Total 900 1000 200 Balance -184 -1000 36 Weight 69.3 kg Intake: Oral 716 236 Output: Urine 900 1000 200 Other: Voiding Method Bedside Commode Bedside Commode Bedside Commode Urinal Urinal Urinal - Exam The patient appeared well nourished and normally developed. Vital signs as documented. The patient does not demonstrate any significant respiratory distress. The patient is currently on 7 L of oxygen by nasal cannula Head exam is unremarkable. No scleral icterus or corneal arcus noted. Neck is without jugular venous distension, thyromegaly, or carotid bruits. Carotid upstrokes are brisk bilaterally. Lungs show scattered rhonchi and crackles bilaterally.. Cardiac exam reveals the PMI to be normally sized and situated. Rhythm is regular. First and second heart sounds normal. No murmurs, rubs or gallops. Abdominal exam reveals normal bowel sounds, no masses, no organomegaly and no aortic enlargement. Extremities are nonedematous and both femoral and pedal pulses are normal. Examination of the skin revealed no evidence of significant rashes, suspicious appearing nevi or other concerning lesions. Neurologically, the patient is awake and alert and the patient does not have any focal neurological deficit. Cranial nerves are essentially intact. - Labs CBC & Chem 7: 04/09/24 07:19 04/09/24 07:19 Labs: Abnormal Lab Results - Last 24 Hours (Table) 04/09/24 04/09/24 04/09/24 Range/Units 11:18 16:16 20:56 POC Glucose (mg/dL) 186 H 183 H 141 H (70-110) mg/dL Assessment and Plan Plan: Acute hypoxic respiratory failure most likely secondary to COVID-19 related pneumonia. The patient may have an underlying chronic interstitial lung disease. The patient is oxygenation gradually improved. The patient is currently off Airvo and FiO2 is being gradually weaned off and currently he is on 7 L of oxygen by nasal cannula. Completed a course of baricitinib on 04/02/2024 and the patient is currently on prednisone 30 mg of prednisone on a daily basis. Clinically unchanged on today's evaluation of 04/10/2024. Acute COVID-19 infection/pneumonia. He has received previous vaccination. No previous COVID-19 infections. Interstitial lung disease, being worked up on an outpatient basis through [facility] under the care of Dr. Terrence Maynard. He has undergone recent bronchoscopy and bronchial lavage. No biopsies were obtained. The patient was not oxygen dependent. Shortness of breath secondary to above, improving Hypertension Hyperlipidemia History of coronary disease with remote history of myocardial infarction. The patient has 2 coronary stents inserted post IN back in 2013 Plan Clinically stable Unable to wean down FiO2 any further currently at 7 L nasal cannula We will look at the possibility of discharging this patient home with a c oncentrator that delivers higher flow of oxygen up to 10 L titrate oxygen flow to maintain saturation above 90%, currently on 7 L Completed a course of baricitinib on 04/02/2024 Prednisone 30 mg p.o. daily as part of a burst taper Chest x-ray findings were noted Lovenox 40 mg subcu for DVT prophylaxis Doppler of lower extremities were negative No clinical suspicion for pulmonary embolism Maintain adequate mobility will continue to follow.
[2024-04-10 16:47] VITALS: RESP 18
[2024-04-11 11:31] VITALS: PULSE 105
[2024-04-11 11:32] VITALS: BP 129/79; TEMP 97.8
--- NOTE | 2024-04-11 12:22 | P.DS ---
Providers Date of admission: 03/17/24 09:14 Expected date of discharge: 04/11/24 Attending physician: Maximus Junior MD Consults: 03/18/24 13:00 Consult Physician Routine Consulting Provider: John Bay Consult Reason/Comments: covid positive, consider remdesivir Do you want consulting provider notified?: Yes Primary care physician: Gael Serrano Hospital Course: Acute hypoxic respiratory failure secondary to COVID 19 PNA with history of pulmonary fibrosis: Sepsis secondary to above Steroid induced hyperglycemia with Pre-DM: Transaminitis Prerenal azotemia Normocytic anemia: GERD: BPH: Hypertenion: CAD: Gen: In NAD, non-toxic HEENT: normocephalic, atraumatic, hearing acuity is intant, mucous membranes moist CVS: perfusing all extremities well, no pitting edema, Respiratory: symmetric chest expansion, no accessory muscle use, GI: soft, NTTP, ND, : no suprapubic tenderness, no CVA tenderness MSK/Derm: no rashes, cyanosis Neuro: CN II-XII intact, no motor weakness, Psych: cooperative, euthymic mood, judgment and insight is intact Hospital Course: 78 year old M with PMH of pulmonary fibrosis, GERD, BPH, HLD, HTN, CAD with stent presented to the ED on 03/16 for URI symptoms. In the ED he underwent extensive evaluation. T 102F, BP 139/70, HR 111, RR 20, 91% on 3L NC. Labs on admission show white blood cell count 7.9, hemoglobin 12.7, hematocrit 39.2, platelet 168, PT 11.4, PTT 25.7, INR 1.0, D-dimer 1.07, sodium 136, potassium 4.9, chloride 102, carbon dioxide 24, BUN 32, creatinine 1.97, glucose 157, troponin less than 0.012. EKG showed sinus tachycardia with a ventricular rate of 102 bpm, QTc interval of 386 ms, possible left atrial enlargement, left axis deviation, right bundle branch block. CXR showed reticulonodular infiltrate throughout the left lung may reflect atypical pneumonia. UA showed 1+ protein, negative for nitrites, trace leukocyte esterase. Initially admitted for sepsis due to atypical PNA, started on Rocephin/Azithromycin. COVID 19 test was positive. Started on Decadron. Pulmonary consulted, started on Baricitinib. Respiratory status worsened and he was transferred to ICU on BiPAP which was eventually transitioned to AirVo. Echo showed EF 50-55% with no regional wall motion abnormalities. CTA chest shows no PE, multifocal airspace opacities. Respiratory function improved, patient now titrated down to 7 L high flow nasal cannula. Patient had unsuccessful attempts to wean him lower than 7 L of high flow nasal cannula, therefore was discharged with this dose, as well as home nebulizer. Patient should follow-up with primary care physician as well as pulmonology upon discharge. I spent 38 minutes coordinating this discharge Patient Condition at Discharge: Good Plan - Discharge Summary Discharge Rx Participant: No New Discharge Prescriptions: New Albuterol Inhaler [Ventolin Hfa Inhaler] 2 puff INHALATION RT-Q4H PRN #0 each PRN Reason: Shortness Of Breath Or Wheezing Ipratropium-Albuterol Nebulize [Duoneb 0.5 mg-3 mg/3 ml Soln] 3 ml INHALATION QID PRN #90 ml PRN Reason: Dyspnea predniSONE See Rx Instructions .ROUTE .COMPLEX #33 tab Acetaminophen Tab [Tylenol] 1,000 mg PO Q6HR PRN tab PRN Reason: Fever And/ Or Pain Albuterol Inhaler [Ventolin Hfa Inhaler] 2 puff INHALATION RT-QID #2 each Continue amLODIPine [Norvasc] 2.5 mg PO DAILY Calcium Carbonate [Calcium] 600 mg PO DAILY Multivitamins, Thera [Multivitamin (formulary)] 1 tab PO DAILY Cholecalciferol (Vitamin D3) [Vitamin D3 (50 Mcg = 2000 Iu)] 50 mcg PO DAILY Pravastatin Sodium [Pravachol] 80 mg PO DAILY Loratadine [Claritin] 10 mg PO DAILY Famotidine [Pepcid] 40 mg PO BID Aspirin EC [Ecotrin Low Dose] 81 mg PO Q48H Azelastine HCl [Astelin Nasal [place]] 1 - 2 spray EA NOSTRIL BID PRN PRN Reason: Allergy Symptoms Co Q-10 100mg 1 cap PO DAILY Losartan Potassium [Cozaar] 100 mg PO DAILY Finasteride [Proscar] 5 mg PO DAILY Discharge Medication List Aspirin EC [Ecotrin Low Dose] 81 mg PO Q48H 03/17/24 [History] Azelastine HCl [Astelin Nasal [place]] 1 - 2 spray EA NOSTRIL BID PRN 03/17/24 [History] Calcium Carbonate [Calcium] 600 mg PO DAILY 03/17/24 [History] Cholecalciferol (Vitamin D3) [Vitamin D3 (50 Mcg = 2000 Iu)] 50 mcg PO DAILY 03/17/24 [History] Co Q-10 100mg 1 cap PO DAILY 03/17/24 [History] Famotidine [Pepcid] 40 mg PO BID 03/17/24 [History] Finasteride [Proscar] 5 mg PO DAILY 03/17/24 [History] Loratadine [Claritin] 10 mg PO DAILY 03/17/24 [History] Losartan Potassium [Cozaar] 100 mg PO DAILY 03/17/24 [History] Multivitamins, Thera [Multivitamin (formulary)] 1 tab PO DAILY 03/17/24 [H istory] Pravastatin Sodium [Pravachol] 80 mg PO DAILY 03/17/24 [History] amLODIPine [Norvasc] 2.5 mg PO DAILY 03/17/24 [History] Acetaminophen Tab [Tylenol] 1,000 mg PO Q6HR PRN tab 04/11/24 [Rx] Albuterol Inhaler [Ventolin Hfa Inhaler] 2 puff INHALATION RT-Q4H PRN #0 each 04/11/24 [Rx] Albuterol Inhaler [Ventolin Hfa Inhaler] 2 puff INHALATION RT-QID #2 each 04/11/24 [Rx] Ipratropium-Albuterol Nebulize [Duoneb 0.5 mg-3 mg/3 ml Soln] 3 ml INHALATION QID PRN #90 ml 04/11/24 [Rx] predniSONE See Rx Instructions .ROUTE .COMPLEX #33 tab 04/11/24 [Rx] Follow up Appointment(s)/Referral(s): Gael Serrano MD [Primary Care Provider] - 1-2 days John Bay MD [STAFF PHYSICIAN] - 1 Week [facility] Visiting Nurse, [NON-STAFF] - Discharge Disposition: HOME WITH HOME HEALTH SERVICES
--- NOTE | 2024-04-11 16:44 | P.PN ---
Subjective Progress Note Date: 04/11/24 This is a 78-year-old male patient who is currently hospitalized for an acute hypoxic respiratory failure and COVID-19 related pneumonia. The patient is currently on Airvo at 45 L with an FiO2 of 60%. I reviewed the series of chest x-ray that was done on this patient during this current admission. The patient may have underlying chronic ILD. Nevertheless, the patient developed progressive worsening in the bilateral pulmonary filtrates and the patient has developed some increased hazy opacities bilaterally consistent with COVID-19 related pneumonia. Noted his symptoms started around 2 days prior to his current admission and the patient's is also infected with the same virus. His D-dimer was mildly elevated at 1.07. Doppler of the lower extremities done today was negative. Perfusion scan was up and intermediate probability. He has seen Dr. Terrence Maynard and the patient has undergone a bronchoscopy few months back which I am assuming was done as part of investigation for chronic in terstitial lung disease. The patient is on no immunosuppressant. 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 No coronary artery disease. No active smoking. The white cell count of 5.8 with a hemoglobin 12.7 and a platelet count of 154. Sodium is at 139, BUN is 18 with a creatinine of 1.1 and a potassium level of 4.7. The viral screen was positive for COVID-19. His procalcitonin level was at 0.7. His CRP is at 14.5 with an LDH of 600. The patient has received vaccination in the past. No previous history of COVID-19 infection. No reported aspiration. He is currently on IV steroids and the patient is receiving Solu-Medrol 60 mg every 6 hours. The patient is also on Lovenox 40 mg subcu for DVT prophylaxis. Antibiotic coverage is essentially empiric. He is afebrile. No significant tachycardia or tachypnea. On 03/20/2024, the patient is comfortable. Slightly more short of breath. N evertheless, he is having episodes of oxygen desaturations with limited amount of mobility. Earlier this morning, while having his x-ray, the patient's pulse ox dropped down to the 60s. The chest x-ray showed diffuse interstitial and alveolar opacification consistent with COVID-19 related pneumonia. The patient remains on IV Solu-Medrol. The patient remains on Airvo and this was adjusted to 60 L and FiO2 of 90%. LDH level was elevated in the 600 range. Doppler of the lower extremities were negative. D-dimer is at 1.07. Electrolytes are all stable and sodium levels at 139, potassium is at 4.7, BUN is 18 with a creatinine of 1.1. The white cell count is currently at 10.1 with a hemoglobin 12.2 and a platelet count is at 162. Hemodynamically stable. Cardiac rhythm is sinus. Denies having any other significant complaints. Awake and alert and communicating. Patient was seen today on 03/21/2024, remains in the icu, remains on Airvo, patient is on 60 L flow 90% FiO2, he is also on baricitinib day #2, patient is marginal at best. O2 saturation is in the 80s and sometimes in the 70s patient is doing well, and I am aware that he may end up requiring intubation mechanical ventilation, I recommended BiPAP 03/04/100% and will transition from Airvo to BiPAP. Chest x-ray shows bilateral interstitial infiltrates. Looking at the previous CT of the chest, patient did have underlying interstitial lung disease which was relatively mild to begin with in 2019. But nonetheless he did have findings of interstitial lung disease and bronchiectasis noted on previous CT of the chest done at [facility]. His labs today WBC is 8.2 hemoglobin is 11.6, electrolytes are normal BUN is 36 creatinine 1.07, last procalcitonin was 0.41 the 1 prior was 0.73. LDH is high 600. Seen today on 03/22/2024, patient is feeling better today compared to yesterday, maintaining adequate O2 saturations he is on 60 L flow and 90% FiO2 he was on BiPAP last night 03/04/100%. Chest x-ray is showing improvement O2 saturation is improved he is now in the 90s remains on baricitinib day number 3 out of 14 remains on Solu-Medrol 60 every 6 remains on Lovenox. Chest x-ray is showing slight improvement clinically the patient is slightly improved hence we will continue the same and I will continue to monitor the patient in the ICU. CBC is relatively normal basic metabolic profile is normal BUN is 41 creatinine 1.03 Patient was seen today on 03/23/2024, slight improvement clinically chest x-ray slightly improved remains on 90% FiO2 and 60 L flow via Airvo. Patient has no cough, chest pain no fever no chills no hemoptysis. Improvement clinically and radiographically noted, hence we will titrate his FiO2 down from 90% to the 80% or maybe 70% if possible. CBC is normal basic metabolic profile is normal BUN is 47 creatinine 0.99 Patient was seen today on 03/24/2024, patient remains in the ICU, remains on Airvo at 70% FiO2 and 40 L flow. Remains on Solu-Medrol, he is also on russel citinib and he is on Lovenox. Slight improvement chest x-ray is basically about the same, minimal improvement clinically but nonetheless the patient is not getting any worse WBC count is 10.4 hemoglobin is 12 electrolytes are normal renal profile is normal Patient is was seen today on 03/25/2024, patient remains in the ICU, remains on Airvo at 80% FiO2 45 L flow, patient is noticing some improvement chest x-ray is basically about the same physical examination is about the same. Patient overal l is about the same. Patient remains on baricitinib and he remains on steroids. WBC count is 12.3 hemoglobin 12.3 basic metabolic profile is normal BUN is 45 creatinine 1.13 Patient seen today , still requiring relatively high FiO2 with Airvo at 75% FiO2 and 50 L flow, patient is about the same, continues to desaturate with any activity. His chest x-ray is showing slight improvement in his atypical pneumonia, hence I am recommending today a CT angiogram on this patient to rule out underlying thromboembolic disease. In the meantime patient remains on baricitinib, remains on steroids, and improvement is rather extremely minimal. Patient was seen today on 03/27/2024, remains in the ICU, remains on Airvo at 70% FiO2 and 50 L flow O2 sat remains in the low 90s up to 95%. IV fluid is now to KVO, CT angiogram of the chest showed no evidence of pulmonary embolism. Patient remains on Solu-Medrol, Lovenox, bosutinib, and his echocardiogram showed good LV function, I plan to transfer the patient out of the ICU today to 3 S. Today showed relatively normal CBC, normal electrolytes, normal renal profile, The patient is seen today March 28, 2024 in follow-up on the selective care unit. He was transferred out of the intensive care unit yesterday. He is currently sitting up in a chair at the bedside. Awake and alert in mild respiratory distress. He is continued on Airvo high flow oxygen at 50 L and 60% FiO2. He is continued on baricitinib. Remains on vitamin supplements. Lovenox for DVT prophylaxis. Remains on bronchodilators and Solu-Medrol. White count 16.2. Hemoglobin 12.1. Platelets 339. Sodium 134. Potassium 3.8. Bicarb 29. BUN 43. Creatinine 1.06. Glucose 133. The patient is seen today March 29, 2024 in follow-up on the selective care unit. He is currently sitting up in a chair. Awake and alert in no acute distress. Feeling a bit better each day. He has been slow to progress. He is still on Airvo high flow oxygen at 50 L and 60% FiO2. He remains on baricitinib. Blood and sputum cultures remained with no growth. Glucose 139. On albuterol and Solu-Medrol. Lovenox for DVT prophylaxis. The patient is seen today April 11, 2024 in follow-up on the selective care unit. He is awake and alert in no acute distress. He is sitting up in a chair at the bedside. He is maintaining good O2 saturations in the 90s on 7 L high flow nasal cannula. He denies any worsening shortness of breath, cough or congestion. He completed baricitinib. He remains on albuterol. Remains on a prednisone taper. Lovenox for DVT prophylaxis. Blood and sputum cultures revealed no growth. Objective - Vital Signs Vital signs: Vital Signs Temp 97.8 F 04/11/24 11:31 Pulse 105 H 04/11/24 11:30 Resp 18 04/11/24 08:51 BP 129/79 04/11/24 11:31 Pulse Ox 90 L 04/11/24 11:30 FiO2 40 04/02/24 09:08 Intake & Output 04/10/24 04/11/24 04/11/24 18:59 06:59 18:59 Intake Total 712 Output Total 650 500 250 Balance 62 -500 -250 Weight 68.9 kg Intake: Oral 712 Output: Urine 650 500 250 Other: Voiding Method Bedside Commode Bedside Commode Bedside Commode Urinal Urinal Urinal - Exam GENERAL EXAM: Alert, 78-year-old male, up in a chair, on 7 L high flow nasal cannula, comfortable in no apparent distress. HEAD: Normocephalic. EYES: Normal reaction of pupils, equal size. NOSE: Clear with pink turbinates. THROAT: No erythema or exudates. NECK: No masses, no JVD. CHEST: No chest wall deformity. LUNGS: Equal air entry with coarse crackles in the bilateral bases. CVS: S1 and S2 normal with no audible murmur, regular rhythm. ABDOMEN: No hepatosplenomegaly, normal bowel sounds, no guarding or rigidity. SPINE: No scoliosis or deformity SKIN: No rashes CENTRAL NERVOUS SYSTEM: No focal deficits, tone is normal in all 4 extremities. EXTREMITIES: There is no peripheral edema. No clubbing, no cyanosis. Peripheral pulses are intact. - Labs CBC & Chem 7: 04/09/24 07:19 04/09/24 07:19 Assessment and Plan Assessment: Acute hypoxic respiratory failure secondary to COVID-19 related pneumonia significant improvement and currently on 7 L high flow nasal cannula Acute COVID-19 infection/pneumonia. Received baricitinib. On a prednisone taper. Lovenox for DVT prophylaxis Interstitial lung disease, patient had previous CT of the chest from 2019 showing mild interstitial lung disease associated with traction bronchiectasis Shortness of breath secondary to above Hypertension Hyperlipidemia History of coronary disease with remote history of myocardial infarction. The patient has 2 coronary stents inserted post [place] back in 2013 Plan: The patient was seen and evaluated Medications reviewed Currently on 7 L high flow nasal cannula Plan is for home today with oxygen Complete a prednisone taper Albuterol 4 times a day and as needed Continue to titrate down the FiO2 as tolerated Follow-up in our office in 1 week I have personally seen and examined the patient, performed the documentation and the assessment and plan as written. Time: 10 minutes. Dictation was produced using [employer] software. Please excuse any grammatical, word or spelling errors.
== END 2024-04-11 17:52 | disposition home health service (06) | DRG 871 ==
LOC: EC 20:40 → 4SSUR 03-17 00:03 → OBSVTOIN 03-17 09:14 → 4SSUR 03-17 17:27 → 2SICU 03-20 08:44 → 3SCARD 03-27 14:05
PROVIDERS: ADMIT Internal Medicine; ATTEND Internal Medicine
PROC: XW0DXM6 Introduction of Baricitinib into Mouth and Pharynx, External Approach, New Technology Group 6 (ICD-10-PCS; principal; 2024-03-20)
PROC: 5A09357 Assistance with Respiratory Ventilation, Less than 24 Consecutive Hours, Continuous Positive Airway Pressure (ICD-10-PCS; 2024-03-21)
DX: A41.89 Other specified sepsis (principal); J12.82 Pneumonia due to coronavirus disease 2019; U07.1 COVID-19; J96.01 Acute respiratory failure with hypoxia; E87.1 Hypo-osmolality and hyponatremia; N17.8 Other acute kidney failure; J44.0 Chronic obstructive pulmonary disease with (acute) lower respiratory infection; J47.0 Bronchiectasis with acute lower respiratory infection; K21.9 Gastro-esophageal reflux disease without esophagitis; N40.0 Benign prostatic hyperplasia without lower urinary tract symptoms; E55.9 Vitamin D deficiency, unspecified; D64.9 Anemia, unspecified; J84.10 Pulmonary fibrosis, unspecified; G62.9 Polyneuropathy, unspecified; I10 Essential (primary) hypertension; T38.0X5A Adverse effect of glucocorticoids and synthetic analogues, initial encounter; R73.03 Prediabetes; I25.10 Atherosclerotic heart disease of native coronary artery without angina pectoris; R74.01 Elevation of levels of liver transaminase levels; D72.828 Other elevated white blood cell count; E78.5 Hyperlipidemia, unspecified; Z95.5 Presence of coronary angioplasty implant and graft; Z87.891 Personal history of nicotine dependence; Z79.82 Long term (current) use of aspirin; I25.2 Old myocardial infarction; Z79.899 Other long term (current) drug therapy
CPT/HCPCS: 36415; 71045; 71046; 71275; 76770; 78582; 80048; 80053; 80076; 81001; 82565; 82728; 83036; 83605; 83615; 83625; 83735; 83880; 84145; 84484; 85025; 85027; 85379; 85610; 85730; 86140; 86738; 87040; 87070; 87205; 87449; 87636; 93005; 93306; 93970; 94640; 94660; 94760; 96361; 96365; 96372; 99291

== ENCOUNTER 2024-04-17 14:45 | Inpatient (IN) | payer MEDICARE ==
--- NOTE | 2024-04-17 15:27 | ED ---
General Adult HPI - General Chief complaint: Shortness of Breath Stated complaint: LIANNE Time Seen by Provider: 04/17/24 14:52 Source: patient, EMS Mode of arrival: EMS Limitations: no limitations - History of Present Illness Initial comments: Dictation was produced using [employer] dictation software. please excuse any grammatical, word or spelling errors. Chief Complaint: 78-year-old male with pulmonary fibrosis recently discharged for COVID presents to the ER for dyspnea History of Present Illness: Patient 78-year-old male states that he has been hav ing persistent dyspnea and cough. Brought in by EMS patient. Patient allegedly hypoxic to the 80s measured by EMS. Patient states he has a productive cough. States that he short of breath. Denies any chest pain. Denies any numbness ting paresthesias to arms or legs. No history of blood clots. Denies any history of pulmonary embolisms. Denies any calf pain or tenderness. The ROS documented in this emergency department record has been reviewed and confirmed by me. Those systems with pertinent positive or negative responses have been documented in the HPI. All other systems are other negative and/or noncontributory. - Related Data Home Medications Medication Instructions Recorded Confirmed Aspirin EC [Ecotrin Low Dose] 81 mg PO Q48H 03/17/24 04/17/24 Azelastine HCl [Astelin Nasal 2 spray EA NOSTRIL BID PRN 03/17/24 04/17/24 [place]] Calcium Carbonate [Calcium] 600 mg PO DAILY 03/17/24 04/17/24 Cholecalciferol (Vitamin D3) 50 mcg PO DAILY 03/17/24 04/17/24 [Vitamin D3 (50 Mcg = 2000 Iu)] Co Q-10 100mg 1 cap PO DAILY 03/17/24 04/17/24 Famotidine [Pepcid] 40 mg PO BID 03/17/24 04/17/24 Finasteride [Proscar] 5 mg PO DAILY 03/17/24 04/17/24 Loratadine [Claritin] 10 mg PO DAILY 03/17/24 04/17/24 Losartan Potassium [Cozaar] 100 mg PO DAILY 03/17/24 04/17/24 Multivitamins, Thera [Multivitamin 1 tab PO DAILY 03/17/24 04/17/24 (formulary)] Pravastatin Sodium [Pravachol] 80 mg PO DAILY 03/17/24 04/17/24 amLODIPine [Norvasc] 2.5 mg PO DAILY 03/17/24 04/17/24 Ipratropium-Albuterol Nebulize 3 ml INHALATION RT-QID PRN 04/17/24 04/17/24 [Duoneb 0.5 mg-3 mg/3 ml Soln] predniSONE See Taper PO DIRECTED 04/17/24 04/17/24 Previous Rx's Medication Instructions Recorded Acetaminophen Tab [Tylenol] 1,000 mg PO Q6HR PRN tab 04/11/24 Albuterol Inhaler [Ventolin Hfa 2 puff INHALATION RT-Q4H PRN #0 04/11/24 Inhaler] each Albuterol Inhaler [Ventolin Hfa 2 puff INHALATION RT-QID #2 each 04/11/24 Inhaler] Allergies Allergy/AdvReac Type Severity Reaction Status Date / Time No Known Allergies Allergy Verified 04/17/24 16:56 Review of Systems ROS Statement: Those systems with pertinent positive or pertinent negative responses have been documented in the HPI. ROS Other: All systems not noted in ROS Statement are negative. Past Medical History Past Medical History: Asthma, Coronary Artery Disease (CAD), COPD, GERD/Reflux, Hyperlipidemia, Hypertension, Myocardial Infarction (ME), Pneumonia, Renal Disease Additional Past Medical History / Comment(s): Stage 3 kidney disease, stable pulmonary nodules, Abn cat scan w/ interstitial lung dis and traction bronchiectasis w scattered groundglass opacities. mild copd Last Myocardial Infarction Date:: 2013 History of Any Multi-Drug Resistant Organisms: None Reported Past Surgical History: Heart Catheterization With Stent, Orthopedic Surgery Additional Past Surgical History / Comment(s): Stent x2. Date of Last Stent Placement:: 2013 Smoking Status: Former smoker Past Alcohol Use History: Occasional Past Drug Use History: None Reported General Exam - General Exam Comments Initial Comments: PHYSICAL EXAM: General Impression: Alert and oriented x3, dyspneic, BiPAP in place HEENT: Normocephalic atraumatic, extra-ocular movements intact, pupils equal and reactive to light bilaterally, mucous membranes moist. Cardiovascular: Heart regular rate and rhythm Chest: 3 word sentences, no retractions, no tachypnea Abdomen: abdomen soft, non-tender, non-distended, no organomegaly Musculoskeletal: Pulses present and equal in all extremities, no peripheral edema Motor: no focal deficits noted Neurological: CN II-XII grossly intact, no focal motor or sensory deficits noted Skin: Intact with no visualized rashes Psych: Normal affect and mood Limitations: no limitations Course Vital Signs 04/17/24 04/17/24 04/17/24 14:45 14:46 14:49 Temperature Pulse Rate 146 H Respiratory 40 H 40 H Rate Blood Pressure 115/71 O2 Sat by Pulse 87 L Oximetry Fraction of 100 Inspired Oxygen (FIO2) 04/17/24 04/17/24 04/17/24 14:51 15:01 15:05 Temperature 97.8 F Pulse Rate 133 H Respiratory 40 H Rate Blood Pressure 98/55 O2 Sat by Pulse 95 Oximetry Fraction of 100 Inspired Oxygen (FIO2) 04/17/24 04/17/24 04/17/24 15:16 15:56 16:02 Temperature Pulse Rate 121 H Respiratory 22 Rate Blood Pressure 89/47 O2 Sat by Pulse 97 Oximetry Fraction of 90 80 Inspired Oxygen (FIO2) 04/17/24 17:41 Temperature Pulse Rate 107 H Respiratory 22 Rate Blood Pressure 99/54 O2 Sat by Pulse 96 Oximetry Fraction of Inspired Oxygen (FIO2) - Reevaluation(s) Reevaluation #1: 04/17/24 17:41 CT angiography ordered however due to patient's kidney function radiology did not want to take patient and expose him to contrast. VQ scan ordered. Heparin started. EKG Findings - EKG Comments: EKG Findings:: My EKG interpretation: Ventricular rate 135, sinus tachycardia,. 115, QRS 126, QTc 400. No AR prolongation, no QTC prolongation, no ST or T-wave changes noted. EKG compared to March 16, 2024 showing no changes. Overall, this EKG is unremarkable Medical Decision Making - Medical Decision Making Was pt. sent in by a medical professional or institution (, PA, CONDUIT BENDER, urgent care, hospital, or residential...) When possible be specific @ -[No] Did you speak to anyone other than the patient for history (EMS, parent, family, police, friend...)? What history was obtained from this source @ -EMS as described above Did you review nursing and triage notes (agree or disagree)? Why? @ -[I reviewed and agree with nursing and triage notes] Were old charts reviewed (outside hosp., previous admission, EMS record, old EKG, old radiological studies, urgent care reports/EKG's, residential records)? Report findings @ -[No old charts were reviewed] Differential Diagnosis (chest pain, altered mental status, abdominal pain women, abdominal pain men, vaginal bleeding, musculoskeletal, weakness, fever, dyspnea, syncope, headache, dizziness, GI bleed, back pain, seizure, CVA, palpatations, mental health)? @ -Differential Dyspnea: Coronary syndrome, arrhythmia, tamponade, asthma, COPD, pulmonary embolism, pneumonia, pneumothorax, pulmonary effusion, anaphylaxis, diabetic ketoacidosis, flailed chest, pulmonary contusion, diaphragmatic rupture, anemia, neuromuscular, this is not meant to be an all-inclusive list. EKG interpreted by me (3pts min.). @ -See above X-rays interpreted by me (1pt min.). @ -Chest x-ray shows pneumonia and new subcu emphysema CT interpreted by me (1pt min.). @ -CT chest abdomen pelvis shows infiltrates. No acute abdominal processes. There is appear to be pneumonia and subcu emphysema without any obvious source. No pneumothorax U/S interpreted by me (1pt. min.). @ -[None done] What testing was considered but not performed or refused? (CT, X-rays, U/S, labs)? Why? @ -[None] What meds were considered but not given or refused? Why? @ -[None] Was smoking cessation discussed for >3mins.? @ -[No] Were there social determinants of health that impacted care today? How? (Homelessness, low income, unemployed, alcoholism, drug addiction, transportation, low edu. Level, literacy, decrease access to med. care, care home, rehab)? @ -[No] Was there de-escalation of care discussed even if they declined (Discuss DNR or withdrawal of care, Hospice)? DNR status @ -[No] What co-morbidities impacted this encounter? (DM, HTN, Smoking, COPD, CAD, Cancer, CVA, ARF, Chemo, Hep., AIDS, mental health diagnosis, sleep apnea, morbid obesity)? @ -Pulmonary fibrosis Was patient admitted / discharged? Hospital course, mention meds given and route, prescriptions, significant lab abnormalities, going to OR and other pe rtinent info. @ -78-year-old male presents to the emergency department for dyspnea. Patient tachycardic upon arrival he has multiple pulmonary chronic diseases. Patient arrived on CPAP. Transition to BiPAP. Tachycardia improved after several minutes of BiPAP. Blood pressure soft 89 or 47 improved with some IV fluids. Laboratory evaluation obtained. CBC unremarkable. Metabolic panel shows elevated renal function. D-dimer is elevated 9.10. Patient not a candidate to CTA due to kidney issues. Lactic acidosis 4.2. Troponin 0.053 COVID-positive. Imaging studies show pneumonia. Patient pending VQ scan. Started on heparin until VQ scan can be performed. Case discussed with hospitalist for admission. Patient given antibiotics. Did you discuss the management of the patient with other professionals (professionals i.e. , PA, CONDUIT BENDER, lab, RT, psych nurse, social work nurse, graves registration specialist, teacher, executive vice president and chief financial officer, case monitor)? Give summary @ -See above Was critical care preformed (if so, how long)? @ -Yes, 33 minutes for respiratory failure Undiagnosed new problem with uncertain prognosis? @ -[No] Drug Therapy requiring intensive monitoring for toxicity (Heparin, Nitro, Insulin, Cardizem)? @ -[No] Were any procedures done? @ -[No] Diagnosis/symptom? Acute, or Chronic, or Acute on Chronic? Uncomplicated (without systemic symptoms) or Complicated (systemic symptoms)? @ -Pneumonia, respiratory failure Side effects of treatment? @ -[No] Exacerbation, Progression, or Severe Exacerbation? @ -[No] Poses a threat to life or bodily function? How? (Chest pain, USA, ME, pneumonia, PE, COPD, DKA, ARF, appy, cholecystitis, CVA, Diverticulitis, Homicidal, Suicidal, threat to staff... and all critical care pts) @ -Yes - Lab Data Result diagrams: 04/17/24 15:10 04/17/24 15:10 Lab Results 04/17/24 04/17/24 04/17/24 Range/Units 15:10 15:10 15:10 WBC 7.2 (3.8-10.6) k/uL RBC 4.42 (4.30-5.90) m/uL Hgb 13.2 (13.0-17.5) gm/dL Hct 41.0 (39.0-53.0) % MCV 92.8 (80.0-100.0) fL MCH 29.8 (25.0-35.0) pg MCHC 32.1 (31.0-37.0) g/dL RDW 15.8 H (11.5-15.5) % Plt Count 261 (150-450) k/uL MPV 7.7 Neutrophils % 61 % Lymphocytes % 24 % Monocytes % 4 % Eosinophils % 9 % Basophils % 0 % Neutrophils # 4.4 (1.3-7.7) k/uL Lymphocytes # 1.7 (1.0-4.8) k/uL Monocytes # 0.3 (0-1.0) k/uL Eosinophils # 0.7 (0-0.7) k/uL Basophils # 0.0 (0-0.2) k/uL PT (10.0-12.5) sec INR (<1.2) APTT (22.0-30.0) sec D-Dimer (<0.60) mg/L FEU Sodium 137 (137-145) mmol/L Potassium 4.4 (3.5-5.1) mmol/L Chloride 101 (98-107) mmol/L Carbon Dioxide 26 (22-30) mmol/L Anion Gap 10 mmol/L BUN 37 H (9-20) mg/dL Creatinine 1.93 H (0.66-1.25) mg/dL Est GFR (CKD-EPI)AfAm 38 (>60 ml/min/1.73 sqM) Est GFR (CKD-EPI)NonAf 33 (>60 ml/min/1.73 sqM) Glucose 102 H (74-99) mg/dL Lactic Ac Sepsis Rflx Plasma Lactic Acid Pacheco 4.2 H* (0.7-2.0) mmol/L Calcium 9.5 (8.4-10.2) mg/dL Magnesium 1.7 (1.6-2.3) mg/dL Total Bilirubin 0.9 (0.2-1.3) mg/dL AST 34 (17-59) U/L ALT 53 H (4-49) U/L Alkaline Phosphatase 114 (38-126) U/L Troponin I (0.000-0.034) ng/mL Total Protein 6.6 (6.3-8.2) g/dL Albumin 3.4 L (3.5-5.0) g/dL Influenza Type A (PCR) (Not Detectd) Influenza Type B (PCR) (Not Detectd) RSV (PCR) (Not Detectd) SARS-CoV-2 (PCR) (Not Detectd) 04/17/24 04/17/24 04/17/24 Range/Units 15:10 15:10 15:10 WBC (3.8-10.6) k/uL RBC (4.30-5.90) m/uL Hgb (13.0-17.5) gm/dL Hct (39.0-53.0) % MCV (80.0-100.0) fL MCH (25.0-35.0) pg MCHC (31.0-37.0) g/dL RDW (11.5-15.5) % Plt Count (150-450) k/uL MPV Neutrophils % % Lymphocytes % % Monocytes % % Eosinophils % % Basophils % % Neutrophils # (1.3-7.7) k/uL Lymphocytes # (1.0-4.8) k/uL Monocytes # (0-1.0) k/uL Eosinophils # (0-0.7) k/uL Basophils # (0-0.2) k/uL PT 10.8 (10.0-12.5) sec INR 1.0 (<1.2) APTT 19.7 L (22.0-30.0) sec D-Dimer 9.10 H (<0.60) mg/L FEU Sodium (137-145) mmol/L Potassium (3.5-5.1) mmol/L Chloride (98-107) mmol/L Carbon Dioxide (22-30) mmol/L Anion Gap mmol/L BUN (9-20) mg/dL Creatinine (0.66-1.25) mg/dL Est GFR (CKD-EPI)AfAm (>60 ml/min/1.73 sqM) Est GFR (CKD-EPI)NonAf (>60 ml/min/1.73 sqM) Glucose (74-99) mg/dL Lactic Ac Sepsis Rflx Plasma Lactic Acid Pacheco (0.7-2.0) mmol/L Calcium (8.4-10.2) mg/dL Magnesium (1.6-2.3) mg/dL Total Bilirubin (0.2-1.3) mg/dL AST (17-59) U/L ALT (4-49) U/L Alkaline Phosphatase (38-126) U/L Troponin I 0.053 H* (0.000-0.034) ng/mL Total Protein (6.3-8.2) g/dL Albumin (3.5-5.0) g/dL Influenza Type A (PCR) Not Detected (Not Detectd) Influenza Type B (PCR) Not Detected (Not Detectd) RSV (PCR) Not Detected (Not Detectd) SARS-CoV-2 (PCR) Detected A (Not Detectd) 04/17/24 Range/Units 16:18 WBC (3.8-10.6) k/uL RBC (4.30-5.90) m/uL Hgb (13.0-17.5) gm/dL Hct (39.0-53.0) % MCV (80.0-100.0) fL MCH (25.0-35.0) pg MCHC (31.0-37.0) g/dL RDW (11.5-15.5) % Plt Count (150-450) k/uL MPV Neutrophils % % Lymphocytes % % Monocytes % % Eosinophils % % Basophils % % Neutrophils # (1.3-7.7) k/uL Lymphocytes # (1.0-4.8) k/uL Monocytes # (0-1.0) k/uL Eosinophils # (0-0.7) k/uL Basophils # (0-0.2) k/uL PT (10.0-12.5) sec INR (<1.2) APTT (22.0-30.0) sec D-Dimer (<0.60) mg/L FEU Sodium (137-145) mmol/L Potassium (3.5-5.1) mmol/L Chloride (98-107) mmol/L Carbon Dioxide (22-30) mmol/L Anion Gap mmol/L BUN (9-20) mg/dL Creatinine (0.66-1.25) mg/dL Est GFR (CKD-EPI)AfAm (>60 ml/min/1.73 sqM) Est GFR (CKD-EPI)NonAf (>60 ml/min/1.73 sqM) Glucose (74-99) mg/dL Lactic Ac Sepsis Rflx Y Plasma Lactic Acid Pacheco (0.7-2.0) mmol/L Calcium (8.4-10.2) mg/dL Magnesium (1.6-2.3) mg/dL Total Bilirubin (0.2-1.3) mg/dL AST (17-59) U/L ALT (4-49) U/L Alkaline Phosphatase (38-126) U/L Troponin I (0.000-0.034) ng/mL Total Protein (6.3-8.2) g/dL Albumin (3.5-5.0) g/dL Influenza Type A (PCR) (Not Detectd) Influenza Type B (PCR) (Not Detectd) RSV (PCR) (Not Detectd) SARS-CoV-2 (PCR) (Not Detectd) Disposition Clinical Impression: Pneumonia Disposition: ADMITTED IP TO THIS HOSP Condition: Fair Referrals: Gael Serrano MD [Primary Care Provider] - 1-2 days Decision Time: 19:08
[2024-04-17 15:29] LABS: ALT 53 U/L (4-49); AST 34 U/L (17-59); African American GFR (CKD) 38 (>60 ml/min/1.73 sqM); Albumin 3.4 g/dL (3.5-5.0); Alkaline Phosphatase 114 U/L (38-126); Anion Gap 10 mmol/L; Blood Urea Nitrogen 37 mg/dL (9-20); Calcium 9.5 mg/dL (8.4-10.2); Carbon Dioxide 26 mmol/L (22-30); Chloride 101 mmol/L (98-107); Glucose 102 mg/dL (74-99); Magnesium 1.7 mg/dL (1.6-2.3); Non-African American GFR(CKD) 33 (>60 ml/min/1.73 sqM); Potassium 4.4 mmol/L (3.5-5.1); Sodium 137 mmol/L (137-145); Total Bilirubin 0.9 mg/dL (0.2-1.3); Total Protein 6.6 g/dL (6.3-8.2)
[2024-04-17 15:32] LABS: Basophils % (A) 0 %; Eosinophils # (A) 0.7 k/uL (0-0.7); Eosinophils % (A) 9 %; HGB 13.2 gm/dL (13.0-17.5); Lymphocytes # (A) 1.7 k/uL (1.0-4.8); Lymphocytes % (A) 24 %; MCH 29.8 pg (25.0-35.0); MCHC 32.1 g/dL (31.0-37.0); MCV 92.8 fL (80.0-100.0); Mean Platelet Volume 7.7; Monocytes # (A) 0.3 k/uL (0-1.0); Monocytes % (A) 4 %; Neutrophils # (A) 4.4 k/uL (1.3-7.7); Neutrophils % (A) 61 %; Platelet Count 261 k/uL (150-450); RBC 4.42 m/uL (4.30-5.90); RDW 15.8 % (11.5-15.5); WBC 7.2 k/uL (3.8-10.6)
[2024-04-17 15:55] LABS: Influenza A Not Detected (Not Detectd); Influenza B Not Detected (Not Detectd); Prothrombin Time 10.8 sec (10.0-12.5); RSV Not Detected (Not Detectd)
--- NOTE | 2024-04-17 15:58 | XR ---
EXAMINATION TYPE: XR chest 1V portable DATE OF EXAM: 04/17/2024 3:23 PM COMPARISON: Chest radiographs from CLINICAL INDICATION: Male, 78 years old with history of dyspnea; [facility] TECHNIQUE: XR chest 1V portable Frontal view of the chest. FINDINGS: Lungs/Pleura: Prominent interstitial lung markings are seen scattered throughout the lungs. No eviden ce of focal consolidation, pneumothorax or pleural effusion. Pulmonary vascularity: Unremarkable. Heart/mediastinum: Cardiomediastinal silhouette is unremarkable. Musculoskeletal: No acute osseous pathology. Other findings: Subcutaneous emphysema seen in the right axilla and right neck. Lines/Tubes: IMPRESSION: New right axillary and right neck subcutaneous emphysema. The remainder of the lungs is not significa ntly changed from 04/05/2024 with multifocal airspace opacities and reticular opacities. [facility], , 04/17/2024 3:56 PM
[2024-04-17 16:00] LABS: Partial Thromboplastin Time 19.7 sec (22.0-30.0)
[2024-04-17] MEDS: SODIUM CHLORIDE 0.9% 1,000 ML IV STA (16:06)
[2024-04-17] MEDS: FAMOTIDINE 20 MG/2 ML VIAL IV STA (16:37)
[2024-04-17] MEDS: diphenhydrAMINE 50 MG/ML 1 ML VIAL IVP STA (16:37)
[2024-04-17] MEDS: methylPREDNISolone SOD SUCCI 125 MG/2 ML VIAL IV STA (16:37)
[2024-04-17] MEDS ORDERED: HEPARIN SODIUM 1,000 UN/ML (10ML VL) IV PRN (16:42)
[2024-04-17] MEDS: HEPARIN SOD,PORK IN 0.45% NACL 25,000 UNIT in 0.45% NACL 1 250ML.BAG IV SCH (17:39)
[2024-04-17] MEDS: HEPARIN SODIUM 1,000 UN/ML (10ML VL) IV ONE (17:39)
--- NOTE | 2024-04-17 18:31 | CT ---
EXAMINATION TYPE: CT ChestAbdPelvis wo con DATE OF EXAM: 04/17/2024 5:35 PM COMPARISON: Chest radiograph same day. 03/18/2024 CT.. CLINICAL INDICATION: Male, 78 years old with history of abnormal cxr; [facility], pt .co of LIANNE, covid + mar 16 Technique: CT ChestAbdPelvis wo con; Multiple axial images were obtained. Two-dimensional coronal and sagittal reconstructions were obtained. Contrast used: mL of , (None if empty) Oral contrast used: CT DLP: 570.9 mGycm, Automated exposure control for dose reduction was used. Findings: CHEST: LUNGS/ PLEURA: Scattered reticular and airspace opacities throughout the lungs compatible with pneumo rohit. No pleural effusion or pneumothorax. Scarring changes throughout the lungs with increased inters titial lung markings. AIRWAY: Patent and unremarkable. No obvious defect to suggest airway perforatio n. HEART: Size within normal limits.Atherosclerosis of the arterial vasculature. MEDIASTINUM: No gross evidence of adenopathy. VASCULATURE: No aortic aneurysm. MUSCULOSKELETAL: Vertebroplasty changes in the thoracic spine. No evidence for spinal fracture. Disc degeneration changes are present throughout the thoracolumbar spine. SOFT TISSUES/LYMPH NODES: Subcutaneous emphysema tracking along the right neck right upper chest wall and throughout the mediastinum LOWER NECK: No significant findings. ABDOMEN: ABDOMEN LIVER: Unremarkable GALLBLADDER AND BILE DUCTS: Unremarkable. PANCREAS: Unremarkable. SPLEEN: Unremarkable. ADRENAL GLANDS: Unremarkable. KIDNEYS AND URETERS: Nonobstructing right 2 mm calculus in the left renal calculi no hydronephrosis. PELVIS BLADDER: Unremarkable REPRODUCTIVE: Unremarkable. ABDOMEN & PELVIS STOMACH AND BOWEL: No evidence of bowel obstruction. Scattered colonic diverticula PERITONEUM/RETROPERITONEUM: No evidence of pneumoperitoneum or free fluid. VASCULATURE: Mild atherosclerotic calcifications are present throughout the abdominal aorta and its b ranches. No evidence of aortic aneurysm. MUSCULOSKELETAL: No acute osseous abnormalities. Mild disc degeneration changes are present throughou t the thoracolumbar spine. LYMPH NODES: No gross evidence for lymphadenopathy. SOFT TISSUE/ABDOMINAL WALL: Fat-containing umbilical hernia. IMPRESSION: 1. Subcutaneous emphysema throughout the right neck, right anterior chest wall and throughout the me diastinum. No definitive airway defect visualized. 2. Scattered reticular and airspace opacities of the lungs compatible with pneumonia. 3. Colonic diverticulosis. 4. No obstructive or renal calculus. 5. No acute abdominal process. [facility], , 04/17/2024 6:29 PM
[2024-04-17] MEDS ORDERED: PNEUMONIA PROTOCOL UTILIZED 1 EACH MISC PO PRN (18:58)
[2024-04-17] MEDS: AZITHROMYCIN 500 MG in SODIUM CHLORIDE 0.9% 250 ML IVPB STA (20:10)
[2024-04-17] MEDS: cefTRIAXone IN SWFI 1,000 MG/10 ML SYRINGE IVP STA (20:10)
--- NOTE | 2024-04-17 22:39 | P.HPIM ---
History of Present Illness H&P Date: 04/17/24 Chief Complaint: Shortness of breath with desaturations Patient is a 78-year-old male with past medical history of pulmonary fibrosis, hyperlipidemia, hypertension, GERD, BPH, history of CAD with stent placement presents to the emergency room with chief complaint of shortness of breath. Patient states he was recently discharged from the hospital for pneumonia and he has been home about a week. Patient states this morning he went to the restroom and desatted to 70 and then got himself back into a chair when he states his saturations were between 50 and 60 and he was unable to catch his breath. Patient reports that since leaving the hospital he has been on 7 L of home oxygen and he has been using his nebulizer 4 times daily. Patient also endorses a dry cough, chills, subjective fevers. He denies any chest pain, abdominal pain, nausea, vomiting, diarrhea. It is of note that when attempting to reposition the patient and he laid supine his saturations went from 95-85. Vitals on admission temperature 97.8, heart rate 133, respiratory rate 40, satu rating 85% on BiPAP EKG independently interpreted as sinus tachycardia, ventricular rate 135, QTc of 400 CXR shows right axillary and right neck subcutaneous emphysema, remainder is unchanged from prior with multifocal airspace opacities and reticular opacities CT of subcutaneous emphysema throughout the right neck, right anterior chest throughout the mediastinum, scattered reticular and airspace opacities Labs on admission show WBC 7.2, hemoglobin 13.2, platelets 261. PT 10.8, INR 1.0, PTT 19.7, D-dimer 9.1. Sodium 137, potassium 4.4, chloride 101, bicarb 26, BUN 37, creatinine 1.93, glucose 102. Lactate 4.2, repeat 1.3. Troponin 0.053. Cepheid was positive for COVID. Review of systems: Pertinent positives and negatives as discussed in HPI, a complete review of systems was performed and all other systems are negative. Social history: Tobacco: Former, quit in 1979, used to smoke 1.5 packs a day Alcohol: Occasional Recreational drugs: None Travel: None Sick contacts: Physical examination: Vital signs reviewed General: nontoxic, no distress, appears at stated age, exhibits conversational dyspnea Derm: warm, dry, intact Head: atraumatic, normocephalic, symmetric Eyes: anicteric sclera Mouth: no lip lesion, mucus membranes moist Cardiovascular: S1 S2 reg, no murmur Lungs: Bilateral rhonchi noted, no rales, no accessory muscle use Abdominal: soft, non-tender to palpation, nondistended Extremities: No cyanosis, clubbing, or pedal edema. Neuro: Alert, Oriented to person, time and place, Gross neurological examination did not reveal any focal deficits. Cranial nerves II to XII grossly intact. Bilateral upper and lower extremity muscle strength intact and sensation intact. Psych: well appearing, appropriate affect Assessment/Plan: Patient is a 78-year-old male with past medical history of pulmonary fibrosis, hyperlipidemia, hypertension, GERD, BPH, history of CAD presented to the ER with chief complaint of shortness of breath and hypoxia. Case was discussed with the ED physician and patient will be admitted to internal medicine service. Active: COVID-19 pneumonia Acute hypoxic respiratory failure Currently on 15 L high flow nasal cannula Wean oxygen as tolerated to maintain oxygen saturations of greater than 94% DuoNebs 4 times daily and every 2 hours as needed Consult pulmonology Decadron 6 mg po qd Check procalcitonin levels C/w pneumonia coverage with antibiotics for now w/ Azithromycin and Ceftriaxone Sepsis secondary to pneumonia CXR shows right axillary and right neck subcutaneous emphysema, remainder is unchanged from prior with multifocal airspace opacities and reticular opacities CT of subcutaneous emphysema throughout the right neck, right anterior chest throughout the mediastinum, scattered reticular and airspace opacities Continue normal saline at 130 cc an hour Initiate ceftriaxone 2 g IV every 24 hours Continue azithromycin 500 mg p.o. daily Obtain morning CBC Blood cultures, sputum culture, Legionella antigen and culture ordered by ED JUANCARLOS on chronic kidney disease stage II BUN 37, creatinine 1.93, GFR of 33 Continue to monitor Elevated D-dimer, rule out pulmonary embolism CTA not done due to poor renal function Follow-up V/Q scan Continue with empiric heparin infusion Lactic acidosis, resolved Lactate 4.2, repeat 1.2 Chronic: Hypertension Hold losartan 100 mg until kidney function improves Continue amlodipine 2.5 mg Hyperlipidemia Continue pravastatin 80 mg daily GERD Continue famotidine 40 mg twice daily BPH Continue finasteride 5 mg daily F: Normal saline at 130 mL an hour E: Replete as needed N: Heart healthy A: Fall precautions DVT prophylaxis: IV heparin per protocol The patient is admitted with an anticipated more than 2 midnight stay for evaluation of COVID-19 pneumonia and acute hypoxic respiratory failure CODE STATUS: Full code Discussed with: Patient Anticipated discharge place: Pending clinical course Past Medical History Past Medical History: Asthma, Coronary Artery Disease (CAD), COPD, GERD/Reflux, Hyperlipidemia, Hypertension, Myocardial Infarction ([place]), Pneumonia, Renal Disease Additional Past Medical History / Comment(s): Stage 3 kidney disease, stable pulmonary nodules, Abn cat scan w/ interstitial lung dis and traction bronchiectasis w scattered groundglass opacities. mild copd Last Myocardial Infarction Date:: 2013 History of Any Multi-Drug Resistant Organisms: None Reported Past Surgical History: Heart Catheterization With Stent, Orthopedic Surgery Additional Past Surgical History / Comment(s): Stent x2. Date of Last Stent Placement:: 2013 Smoking Status: Former smoker Past Alcohol Use History: Occasional Past Drug Use History: None Reported Medications and Allergies Home Medications Medication Instructions Recorded Confirmed Type Aspirin EC [Ecotrin Low Dose] 81 mg PO Q48H 03/17/24 04/17/24 History Azelastine HCl [Astelin Nasal 2 spray EA NOSTRIL BID PRN 03/17/24 04/17/24 History [place]] Calcium Carbonate [Calcium] 600 mg PO DAILY 03/17/24 04/17/24 History Cholecalciferol (Vitamin D3) 50 mcg PO DAILY 03/17/24 04/17/24 History [Vitamin D3 (50 Mcg = 2000 Iu)] Co Q-10 100mg 1 cap PO DAILY 03/17/24 04/17/24 History Famotidine [Pepcid] 40 mg PO BID 03/17/24 04/17/24 History Finasteride [Proscar] 5 mg PO DAILY 03/17/24 04/17/24 History Loratadine [Claritin] 10 mg PO DAILY 03/17/24 04/17/24 History Losartan Potassium [Cozaar] 100 mg PO DAILY 03/17/24 04/17/24 History Multivitamins, Thera [Multivitamin 1 tab PO DAILY 03/17/24 04/17/24 History (formulary)] Pravastatin Sodium [Pravachol] 80 mg PO DAILY 03/17/24 04/17/24 History amLODIPine [Norvasc] 2.5 mg PO DAILY 03/17/24 04/17/24 History Acetaminophen Tab [Tylenol] 1,000 mg PO Q6HR PRN tab 04/11/24 04/17/24 Rx Albuterol Inhaler [Ventolin Hfa 2 puff INHALATION RT-Q4H PRN #0 04/11/24 04/17/24 Rx Inhaler] each Albuterol Inhaler [Ventolin Hfa 2 puff INHALATION RT-QID #2 each 04/11/24 04/17/24 Rx Inhaler] Ipratropium-Albuterol Nebulize 3 ml INHALATION RT-QID PRN 04/17/24 04/17/24 History [Duoneb 0.5 mg-3 mg/3 ml Soln] predniSONE See Taper PO DIRECTED 04/17/24 04/17/24 History Allergies Allergy/AdvReac Type Severity Reaction Status Date / Time No Known Allergies Allergy Verified 04/17/24 16:56 Physical Exam Vitals: Vital Signs Temp Pulse Resp BP Pulse Ox FiO2 04/17/24 17:41 107 H 22 99/54 96 04/17/24 16:02 121 H 22 89/47 97 04/17/24 15:56 80 04/17/24 15:16 90 04/17/24 15:05 98/55 04/17/24 15:01 100 04/17/24 14:51 97.8 F 133 H 40 H 95 04/17/24 14:49 40 H 04/17/24 14:46 146 H 40 H 115/71 87 L 04/17/24 14:45 100 Intake and Output 04/17/24 04/17/24 04/17/24 06:59 14:59 22:59 Other: Weight 70.307 kg Results CBC & Chem 7: 04/17/24 15:10 04/17/24 15:10 Labs: Abnormal Lab Results - Last 24 Hours (Table) 04/17/24 04/17/24 04/17/24 Range/Units 15:10 15:10 15:10 RDW 15.8 H (11.5-15.5) % APTT (22.0-30.0) sec D-Dimer (<0.60) mg/L FEU BUN 37 H (9-20) mg/dL Creatinine 1.93 H (0.66-1.25) mg/dL Glucose 102 H (74-99) mg/dL Plasma Lactic Acid Pacheco 4.2 H* (0.7-2.0) mmol/L ALT 53 H (4-49) U/L Troponin I (0.000-0.034) ng/mL Albumin 3.4 L (3.5-5.0) g/dL SARS-CoV-2 (PCR) (Not Detectd) 04/17/24 04/17/24 04/17/24 Range/Units 15:10 15:10 15:10 RDW (11.5-15.5) % APTT 19.7 L (22.0-30.0) sec D-Dimer 9.10 H (<0.60) mg/L FEU BUN (9-20) mg/dL Creatinine (0.66-1.25) mg/dL Glucose (74-99) mg/dL Plasma Lactic Acid Pacheco (0.7-2.0) mmol/L ALT (4-49) U/L Troponin I 0.053 H* (0.000-0.034) ng/mL Albumin (3.5-5.0) g/dL SARS-CoV-2 (PCR) Detected A (Not Detectd)
[2024-04-18] MEDS ORDERED: IPRATROPIUM-ALBUTEROL 3 ML NEB INHALATION PRN ×2 (02:24)
[2024-04-18] MEDS ORDERED: ALBUTEROL HFA INHALER INHALATION PRN (02:37)
[2024-04-18] MEDS: SODIUM CHLORIDE 0.9% 1,000 ML IV SCH (03:34)
[2024-04-18] MEDS ORDERED: guaiFENesin-DM 100-10MG/5ML 10 ML CUP PO PRN (04:57)
--- NOTE | 2024-04-18 05:34 | P.CNPUL ---
History of Present Illness Consult date: 04/18/24 Requesting physician: Giancarlo Barker Reason for consult: dyspnea Chief complaint: Shortness of breath and cough History of present illness: Patient is a 78-year-old male with past medical history significant for coronary disease, hypertension, hyperlipidemia, chronic lung disease, and recent h ospitalization for COVID-19 pneumonia. His PCP is Dr. Serrano. His established internal controls manager is a Dr. Terrence Maynard from the [facility]. Of note, patient had a recent prolonged hospitalization March 16 through April 11 secondary to COVID-19 related pneumonia on top of suspected underlying chronic interstitial lung disease. He was ultimately discharged home, with supplemental oxygen in the order of 7 L/min. Patient returns to the emergency department yesterday afternoon complaining of acute on chronic shortness of breath that developed while ambulating to the bathroom. He has a pulse oximeter at home, states he could not get his oxygen levels above 70%, so he called EMS. He has had a persistent nonproductive cough since his hospital discharge. Apparently, was in some respiratory distress in the emergency department, and initially placed on BiPAP. Workup included a chest x-ray showing new right axillary and right neck subcutaneous emphysema. Follow-up nonenhanced CT of the chest/abdomen/pelvis showing subcutaneous emphysema throughout the right neck, right anterior chest wall and throughout the mediastinum. No definitive airway defect visualized. No pneumothoraces. Likely some chronic fibrotic changes particularly at the lung bases. Patient is currently being evaluated in the emergency department. He is on 15 L high flow nasal cannula. Patient denies any trauma or recent surgical procedures. Did have Bronchoscopy with BAL approximately 6 months ago. Denies chest pain. Denies any significant intractable nausea or vomiting, dysphagia, or odynophagia. Denies any voice changes or hoarseness. No airway stridor. Afebrile. CBC: WBC count 7.2, hem oglobin 13.2, hematocrit 41, platelets 261. CMP: Sodium 137, potassium 4.4, chloride 101, serum bicarb 26, BUN 37, creatinine 1.93, glucose 102. Lactic was 4.2 and is down to 1.3. Magnesium 1.7. LFTs unremarkable. Normal saline infusing at 130 mL/h. Troponin 0.053. Patient is again positive for COVID by PCR, likely residual finding from prior infection. Of note, patient's D-dimer was elevated at 9.1. He was started on a high intensity heparin infusion per protocol by the ER provider. There is a VQ scan ordered, which will likely be of indeterminate as the patient has chronic lung disease. No unilateral lower extremity edema. Patient empirically started on antibiotics the ED. Most recent vital signs: Heart rate 66 bpm, blood pressure 104/62 mmHg, nontachypneic, SpO2 is reading 98% on 15 L high flow nasal cannula. BiPAP is off and at the bedside. Review of Systems Constitutional: Denies chills, Denies fatigue, Denies fever, Denies poor appetite, Denies weight gain, Denies weight loss Ears, nose, mouth and throat: Denies ant. neck pain, Denies dysphagia, Denies headache, Denies hoarseness, Denies nasal congestion, Denies nasal discharge, Denies neck fullness/pressure, Denies odynophagia, Denies post-nasal drip, Denies sinus pressure, Denies swelling in throat, Denies sore throat, Denies voice changes Cardiovascular: Reports dyspnea on exertion, Denies chest pain, Denies leg sharath ma, Denies lightheadedness, Denies orthopnea, Denies palpitations, Denies syncope Respiratory: Reports congestion, Reports cough, Reports dyspnea, Reports home oxygen, Denies cough with sputum, Denies excessive sputum, Denies hemoptysis, Denies pain on inspiration, Denies wheezing Gastrointestinal: Denies abdominal pain, Denies diarrhea, Denies nausea, Denies vomiting Genitourinary: Denies dysuria Musculoskeletal: Denies limitation of motion Integumentary: Denies rash Neurological: Denies seizures, Denies syncope Psychiatric: Denies anxiety, Denies depression Past Medical History Past Medical History: Asthma, Coronary Artery Disease (CAD), COPD, GERD/Reflux, Hyperlipidemia, Hypertension, Myocardial Infarction ([place]), Pneumonia, Renal Disease Additional Past Medical History / Comment(s): Stage 3 kidney disease, stable pulmonary nodules, Abn cat scan w/ interstitial lung dis and traction bronchiectasis w scattered groundglass opacities. mild copd Last Myocardial Infarction Date:: 2013 History of Any Multi-Drug Resistant Organisms: None Reported Past Surgical History: Heart Catheterization With Stent, Orthopedic Surgery Additional Past Surgical History / Comment(s): Stent x2. Date of Last Stent Placement:: 2013 Smoking Status: Former smoker Past Alcohol Use History: Occasional Past Drug Use History: None Reported Medications and Allergies Home Medications Medication Instructions Recorded Confirmed Type Aspirin EC [Ecotrin Low Dose] 81 mg PO Q48H 03/17/24 04/17/24 History Azelastine HCl [Astelin Nasal 2 spray EA NOSTRIL BID PRN 03/17/24 04/17/24 History [place]] Calcium Carbonate [Calcium] 600 mg PO DAILY 03/17/24 04/17/24 History Cholecalciferol (Vitamin D3) 50 mcg PO DAILY 03/17/24 04/17/24 History [Vitamin D3 (50 Mcg = 2000 Iu)] Co Q-10 100mg 1 cap PO DAILY 03/17/24 04/17/24 History Famotidine [Pepcid] 40 mg PO BID 03/17/24 04/17/24 History Finasteride [Proscar] 5 mg PO DAILY 03/17/24 04/17/24 History Loratadine [Claritin] 10 mg PO DAILY 03/17/24 04/17/24 History Losartan Potassium [Cozaar] 100 mg PO DAILY 03/17/24 04/17/24 History Multivitamins, Thera [Multivitamin 1 tab PO DAILY 03/17/24 04/17/24 History (formulary)] Pravastatin Sodium [Pravachol] 80 mg PO DAILY 03/17/24 04/17/24 History amLODIPine [Norvasc] 2.5 mg PO DAILY 03/17/24 04/17/24 History Acetaminophen Tab [Tylenol] 1,000 mg PO Q6HR PRN tab 04/11/24 04/17/24 Rx Albuterol Inhaler [Ventolin Hfa 2 puff INHALATION RT-Q4H PRN #0 04/11/24 04/17/24 Rx Inhaler] each Albuterol Inhaler [Ventolin Hfa 2 puff INHALATION RT-QID #2 each 04/11/24 04/17/24 Rx Inhaler] Ipratropium-Albuterol Nebulize 3 ml INHALATION RT-QID PRN 04/17/24 04/17/24 History [Duoneb 0.5 mg-3 mg/3 ml Soln] predniSONE See Taper PO DIRECTED 04/17/24 04/17/24 History Allergies Allergy/AdvReac Type Severity Reaction Status Date / Time No Known Allergies Allergy Verified 04/17/24 16:56 Physical Exam Vitals: Vital Signs Temp Pulse Resp BP Pulse Ox FiO2 04/18/24 02:00 66 16 104/62 98 04/17/24 22:59 94 L 04/17/24 17:41 107 H 22 99/54 96 04/17/24 16:02 121 H 22 89/47 97 04/17/24 15:56 80 04/17/24 15:16 90 04/17/24 15:05 98/55 04/17/24 15:01 100 04/17/24 14:51 97.8 F 133 H 40 H 95 04/17/24 14:49 40 H 04/17/24 14:46 146 H 40 H 115/71 87 L 04/17/24 14:45 100 Intake and Output 04/17/24 04/17/24 04/18/24 14:59 22:59 06:59 Intake Total 118.324 Balance 118.324 Intake: Intake, IV Titration 118.324 Amount Heparin Sod,Pork in 0.45% 118.324 NaCl 25,000 unit In 0.45 % NaCl 1 250ml.bag @ 18 UNITS/KG/HR 12.655 mls/hr IV .[id number] [facility] [place] Rx#: [id number] Other: Weight 70.307 kg GENERAL EXAM: Alert, 78-year-old male, fairly comfortable in no apparent distress. HEAD: Normocephalic and atraumatic EYES: Normal reaction of pupils, equal size. NOSE: Clear with pink turbinates. THROAT: No erythema or exudates. NECK: No masses, no JVD. Subcutaneous emphysema tracking up the right neck down to the right axillae CHEST: No chest wall deformity. Equal chest expansion LUNGS: Equal air entry with bibasilar Velcro crackles. On 15 L high flow nasal cannula, SpO2 is 98%. No conversational dyspnea or accessory muscle use while at rest. BiPAP off and at bedside; settings 14/6 and FiO2 80% CVS: S1 and S2 normal with no audible murmur, regular rhythm. No extra heart sounds ABDOMEN: No hepatosplenomegaly, active bowel sounds, no guarding or rigidity. SPINE: No scoliosis or deformity SKIN: No rashes CENTRAL NERVOUS SYSTEM: No focal deficits, tone is normal in all 4 extremities. EXTREMITIES: There is no peripheral edema, clubbing, or cyanosis. Peripheral pulses are intact. Results - Laboratory Findings CBC and BMP: 04/17/24 15:10 04/17/24 15:10 PT/INR, D-dimer PT 10.8 sec (10.0-12.5) 04/17/24 15:10 INR 1.0 (<1.2) 04/17/24 15:10 D-Dimer 9.10 mg/L FEU (<0.60) H 04/17/24 15:10 Abnormal lab findings: Abnormal Labs 04/17/24 04/17/24 04/17/24 15:10 15:10 15:10 RDW 15.8 H APTT D-Dimer BUN 37 H Creatinine 1.93 H Glucose 102 H Plasma Lactic Acid Pacheco 4.2 H* ALT 53 H Troponin I Albumin 3.4 L SARS-CoV-2 (PCR) 04/17/24 04/17/24 04/17/24 15:10 15:10 15:10 RDW APTT 19.7 L D-Dimer 9.10 H BUN Creatinine Glucose Plasma Lactic Acid Pacheco ALT Troponin I 0.053 H* Albumin SARS-CoV-2 (PCR) Detected A 04/17/24 23:49 RDW APTT >200.0 H* D-Dimer BUN Creatinine Glucose Plasma Lactic Acid Pacheco ALT Troponin I Albumin SARS-CoV-2 (PCR) - Diagnostic Findings Chest x-ray: image reviewed Assessment and Plan Assessment: Pneumomediastinum, possibly secondary to patient's chronic lung disease and recent COVID-19 infection. Originally, presented in a state of respiratory distress in the ED, and was placed on BiPAP. Follow-up nonenhanced CT of the chest/abdomen/pelvis showing subcutaneous emphysema throughout the right neck, right anterior chest wall and throughout the mediastinum. No definitive airway defect visualized. No pneumothoraces. Likely chronic fibrotic changes particula rly at the lung bases. No sign of malignant pneumomediastinum. Acute hypoxemic respiratory failure, currently on 15 L high flow nasal cannula Recent COVID-19 infection/COVID-19 pneumonia, with prolonged hospitalization March 16 through April 11; continues to test positive by PCR for COVID- 19 Suspect underlying chronic interstitial lung disease Elevated D-dimer, patient was started on IV heparin infusion protocol in the ED Lactic acidemia, improved Acute kidney injury, creatinine up to 1.93 Chronic kidney disease stage II Elevated troponin, possibly secondary to type II PA and hypoxia History of coronary artery disease with previous PCI/stents Hypertension History of hyperlipidemia Remote history of tobacco use Plan: Patient's medications, labs, imaging reviewed Continue supplemental oxygen, currently on 15 L high flow nasal cannula. BiPAP is off and on standby Suppress cough with antitussives as needed Patient was empirically placed on antibiotics No signs of malignant pneumomediastinum or mediastinitis Elevated D-dimer in the emergency department, patient was started on IV heparin infusion protocol There is a VQ scan ordered, will likely be of limited value due to patient's chronic lung disease We will continue to follow, additional recommendations forthcoming I have personally seen and examined the patient, performed the documentation and the assessment and plan as written. Number of minutes spent on the visit:20 This dictation was produced using [employer] dictation software please excuse grammatical errors Time with Patient: Greater than 30
--- NOTE | 2024-04-18 07:42 | XR ---
EXAMINATION TYPE: XR chest 1V portable DATE OF EXAM: 04/18/2024 CLINICAL HISTORY: Difficulty breathing and pneumonia progress study. TECHNIQUE: Single AP portable semiupright view of the chest is obtained. COMPARISON: Chest x-ray and CT from one day earlier older studies. FINDINGS: Increased opacities bilaterally remain present. Persistent pneumomediastinum and right-mellissa ed subcutaneous emphysema. Cardiac silhouette size stable and within normal limits. Trachea remains d eviated to left of midline due to ectatic thoracic aorta. There is two-level vertebroplasty in the lo wer thoracic spine redemonstrated. IMPRESSION: Persistent bilateral increased opacities likely reflect bilateral fibrosis. Difficult to exclude areas of acute infiltrate. No significant change from most recent studies. Pneumomediastinum remains present. [facility], , 04/18/2024 7:40 AM
[2024-04-18 07:46] LABS: Anisocytosis Slight; Basophils % (A) 0 %; Eosinophils # (A) 0.2 k/uL (0-0.7); Eosinophils % (A) 3 %; HCT 34.5 % (39.0-53.0); Lymphocytes # (A) 0.8 k/uL (1.0-4.8); Lymphocytes % (A) 16 %; MCH 29.6 pg (25.0-35.0); MCHC 31.8 g/dL (31.0-37.0); Mean Platelet Volume 8.1; Monocytes # (A) 0.3 k/uL (0-1.0); Monocytes % (A) 5 %; Neutrophils # (A) 3.9 k/uL (1.3-7.7); Neutrophils % (A) 74 %; Platelet Count 246 k/uL (150-450); RBC 3.71 m/uL (4.30-5.90); RDW 16.7 % (11.5-15.5); WBC 5.3 k/uL (3.8-10.6)
[2024-04-18 08:06] LABS: African American GFR (CKD) 44 (>60 ml/min/1.73 sqM); Anion Gap 5 mmol/L; Blood Urea Nitrogen 42 mg/dL (9-20); Calcium 8.6 mg/dL (8.4-10.2); Carbon Dioxide 29 mmol/L (22-30); Chloride 104 mmol/L (98-107); Glucose 94 mg/dL (74-99); Non-African American GFR(CKD) 38 (>60 ml/min/1.73 sqM); Potassium 4.6 mmol/L (3.5-5.1); Sodium 138 mmol/L (137-145)
[2024-04-18] MEDS: PRAVASTATIN SODIUM 40 MG TAB PO SCH (09:23)
[2024-04-18] MEDS: AZITHROMYCIN 500 MG TAB PO SCH (09:23)
[2024-04-18] MEDS: amLODIPine 2.5 MG TAB PO SCH (09:23)
[2024-04-18] MEDS: FINASTERIDE 5 MG TAB PO SCH (09:23)
[2024-04-18] MEDS: dexAMETHasone 2 MG TAB PO SCH (09:23)
[2024-04-18] MEDS: FAMOTIDINE 20 MG TAB PO SCH (09:23)
--- NOTE | 2024-04-18 09:34 | NM ---
EXAMINATION TYPE: NM pul perfusion DATE OF EXAM: 04/18/2024 COMPARISON: Prior nuclear medicine VQ study March 17, 2024. Prior chest x-ray earlier today. CLINICAL INDICATION: Male, 78 years old with history of +dimer; Following administration of 5.2 mCi Tc 99m MAA. Images obtained post injection. FINDINGS: Persistent bilateral [id number] size perfusion defects. IMPRESSION: Nondiagnostic (low or intermediate probability). [facility], , 04/18/2024 9:31 AM
[2024-04-18] MEDS ORDERED: AZELASTINE 137MCG/SPRAY EA NOSTRIL PRN (11:13)
[2024-04-18] MEDS: ASPIRIN 81 MG PO SCH (11:25)
--- NOTE | 2024-04-18 16:38 | P.PN ---
Subjective Progress Note Date: 04/18/24 Hospital Course: Patient is a 78-year-old male with past medical history of pulmonary fibrosis, hyperlipidemia, hypertension, GERD, BPH, history of CAD with stent placement presents to the emergency room with chief complaint of shortness of breath. Patient states he was recently discharged from the hospital for pneumonia and he has been home about a week. Patient states this morning he went to the restroom and desatted to 70 and then got himself back into a chair when he states his saturations were between 50 and 60 and he was unable to catch his breath. Patient reports that since leaving the hospital he has been on 7 L of home oxygen and he has been using his nebulizer 4 times daily. Patient also endorses a dry cough, chills, subjective fevers. He denies any chest pain, abdominal pain, nausea, vomiting, diarrhea. It is of note that when attempting to reposition the patient and he laid supine his saturations went from 95-85. Vitals on admission temperature 97.8, heart rate 133, respiratory rate 40, saturating 85% on BiPAP EKG independently interpreted as sinus tachycardia, ventricular rate 135, QTc of 400 CXR shows right axillary and right neck subcutaneous emphysema, remainder is unchanged from prior with multifocal airspace opacities and reticular opacities CT of subcutaneous emphysema throughout the right neck, right anterior chest throughout the mediastinum, scattered reticular and airspace opacities Labs on admission show WBC 7.2, hemoglobin 13.2, platelets 261. PT 10.8, INR 1.0, PTT 19.7, D-dimer 9.1. Sodium 137, potassium 4.4, chloride 101, bicarb 26, BUN 37, creatinine 1.93, glucose 102. Lactate 4.2, repeat 1.3. Troponin 0.053. Cepheid was positive for COVID. Subjective: Patient seen and examined at bedside. No acute events overnight. No acute complaints. Pertinent positives and negatives as discussed above, a complete review of systems was performed and all other systems are negative. Vitals: Signs Reviewed Physical examination: Vital signs reviewed General: nontoxic, no distress, appears at stated age, no acute distress Derm: warm, dry, intact Head: atraumatic, normocephalic, symmetric Eyes: anicteric sclera Mouth: no lip lesion, mucus membranes moist Cardiovascular: S1 S2 reg, no murmur Lungs: Bilateral rhonchi noted, no rales, no accessory muscle use Abdominal: soft, non-tender to palpation, nondistended Extremities: No cyanosis, clubbing, or pedal edema. Neuro: Alert, Oriented to person, time and place, Gross neurological examination did not reveal any focal deficits. Cranial nerves II to XII grossly intact. Bilateral upper and lower extremity muscle strength intact and sensation intact. Psych: well appearing, appropriate affect Data Received Today: Pertinent Labs: Troponin 0.053, 0.085, procalcitonin 2.08 BUN 42, creatinine 1.71, APTT 73.2, Hgb 11.0 Imaging: CXR independently interpreted displaying sinus tachycardia Assessment and Plan: Patient is a 78-year-old male with past medical history of pulmonary fibrosis, hyperlipidemia, hypertension, GERD, BPH, history of CAD presented to the ER with chief complaint of shortness of breath and hypoxia. Active: COVID-19 pneumonia Acute hypoxic respiratory failure Currently on 15 L high flow nasal cannula, attempt to wean down Wean oxygen as tolerated to maintain oxygen saturations of greater than 94% DuoNebs 4 times daily and every 2 hours as needed Decadron 6 mg po qd Procalcitonin elevated at 2.08 C/w pneumonia coverage with antibiotics for now w/ Azithromycin and Ceftriaxone Pulmonology following Elevated troponin, likely type II NSTEMI EKG independently interpreted as sinus tachycardia, ventricular rate 135, QTc of 400 -Troponins 0.053 => 0.085, Continue to trend troponin Sepsis secondary to pneumonia CXR shows right axillary and right neck subcutaneous emphysema, remainder is unchanged from prior with multifocal airspace opacities and reticular opacities CT of subcutaneous emphysema throughout the right neck, right anterior chest throughout the mediastinum, scattered reticular and airspace opacities Continue normal saline at 130 cc an hour Initiate ceftriaxone 2 g IV every 24 hours Continue azithromycin 500 mg p.o. daily Obtain morning CBC Legionella antigen negative Blood cultures, sputum culture pending JUANCARLOS on chronic kidney disease stage II BUN 37, creatinine 1.93, GFR of 33 Continue to monitor Elevated D-dimer, rule out pulmonary embolism CTA not done due to poor renal function VQ scan showing no signs of PE, discontinue heparin infusion Lactic acidosis, resolved Lactate 4.2, repeat 1.2 Chronic: Hypertension Hold losartan 100 mg until kidney function improves Continue amlodipine 2.5 mg Hyperlipidemia Continue pravastatin 80 mg daily GERD Continue famotidine 40 mg twice daily BPH Continue finasteride 5 mg daily F: Normal saline at 130 mL an hour E: Replete as needed N: Heart healthy A: Fall precautions DVT prophylaxis: Heparin 5000 unit SQ every 8 hours Code status: FULL CODE Anticipated discharge place: pending clinical course Anticipated discharge time: pending clinical course Anabell Michaud MD PGY-1 IM Dictation was produced using [employer] dictation software. please excuse any grammatical, word or spelling errors. I have seen and evaluated the patient today. Discussed with the resident and agree with the residents finding and plan as documented in the resident's note. Changes highlighted in blue font. Objective - Vital Signs Vital signs: Vital Signs Temp 97.8 F 04/17/24 14:51 Pulse 71 04/18/24 06:00 Resp 16 04/18/24 06:00 BP 109/60 04/18/24 06:00 Pulse Ox 98 04/18/24 02:00 FiO2 80 04/17/24 15:56 Intake & Output 04/17/24 04/18/24 04/18/24 18:59 06:59 18:59 Intake Total 118.324 Balance 118.324 Weight 70.307 kg Intake: Intake, IV Titration 118.324 Amount Heparin Sod,Pork in 0.45% 118.324 NaCl 25,000 unit In 0.45 % NaCl 1 250ml.bag @ 18 UNITS/KG/HR 12.655 mls/hr IV .[id number] [facility] Rx#: [id number] - Labs CBC & Chem 7: 04/18/24 07:32 04/18/24 07:32 Labs: Abnormal Lab Results - Last 24 Hours (Table) 04/17/24 04/17/24 04/17/24 Range/Units 15:10 15:10 15:10 RBC (4.30-5.90) m/uL Hgb (13.0-17.5) gm/dL Hct (39.0-53.0) % RDW 15.8 H (11.5-15.5) % Lymphocytes # (1.0-4.8) k/uL APTT (22.0-30.0) sec D-Dimer (<0.60) mg/L FEU BUN 37 H (9-20) mg/dL Creatinine 1.93 H (0.66-1.25) mg/dL Glucose 102 H (74-99) mg/dL Plasma Lactic Acid Pacheco 4.2 H* (0.7-2.0) mmol/L ALT 53 H (4-49) U/L Troponin I (0.000-0.034) ng/mL Albumin 3.4 L (3.5-5.0) g/dL SARS-CoV-2 (PCR) (Not Detectd) 04/17/24 04/17/24 04/17/24 Range/Units 15:10 15:10 15:10 RBC (4.30-5.90) m/uL Hgb (13.0-17.5) gm/dL Hct (39.0-53.0) % RDW (11.5-15.5) % Lymphocytes # (1.0-4.8) k/uL APTT 19.7 L (22.0-30.0) sec D-Dimer 9.10 H (<0.60) mg/L FEU BUN (9-20) mg/dL Creatinine (0.66-1.25) mg/dL Glucose (74-99) mg/dL Plasma Lactic Acid Pacheco (0.7-2.0) mmol/L ALT (4-49) U/L Troponin I 0.053 H* (0.000-0.034) ng/mL Albumin (3.5-5.0) g/dL SARS-CoV-2 (PCR) Detected A (Not Detectd) 04/17/24 04/18/24 Range/Units 23:49 07:32 RBC 3.71 L (4.30-5.90) m/uL Hgb 11.0 L (13.0-17.5) gm/dL Hct 34.5 L (39.0-53.0) % RDW 16.7 H (11.5-15.5) % Lymphocytes # 0.8 L (1.0-4.8) k/uL APTT >200.0 H* (22.0-30.0) sec D-Dimer (<0.60) mg/L FEU BUN (9-20) mg/dL Creatinine (0.66-1.25) mg/dL Glucose (74-99) mg/dL Plasma Lactic Acid Pacheco (0.7-2.0) mmol/L ALT (4-49) U/L Troponin I (0.000-0.034) ng/mL Albumin (3.5-5.0) g/dL SARS-CoV-2 (PCR) (Not Detectd)
[2024-04-18] MEDS: ALBUTEROL HFA INHALER INHALATION PRN (20:21)
[2024-04-19] MEDS: HEPARIN SODIUM,PORCINE 5,000 UNIT/ML 1 ML VIAL SQ SCH (02:45)
[2024-04-19] MEDS ORDERED: LOSARTAN-HCTZ 50-12.5 MG 1 EACH TAB PO SCH (09:00)
[2024-04-19] MEDS ORDERED: CO Q10 100 MG PO SCH (09:00)
[2024-04-19] MEDS: CALCIUM CARBONATE 500 MG CHEWABLE PO SCH (09:01)
[2024-04-19] MEDS: LORATADINE 10 MG TAB PO SCH (09:02)
[2024-04-19] MEDS: FAMOTIDINE 20 MG TAB PO SCH (09:02)
[2024-04-19] MEDS: CHOLECALCIFEROL 25 MCG (1000 IU) TABLET PO SCH (09:02)
[2024-04-19 09:55] LABS: Basophils % (A) 0 %; Eosinophils # (A) 0.2 k/uL (0-0.7); Eosinophils % (A) 3 %; HCT 34.2 % (39.0-53.0); HGB 10.8 gm/dL (13.0-17.5); Hypochromasia Slight; Lymphocytes # (A) 0.6 k/uL (1.0-4.8); Lymphocytes % (A) 11 %; MCH 29.7 pg (25.0-35.0); MCHC 31.6 g/dL (31.0-37.0); MCV 94.1 fL (80.0-100.0); Mean Platelet Volume 7.5; Monocytes # (A) 0.3 k/uL (0-1.0); Monocytes % (A) 5 %; Neutrophils # (A) 4.6 k/uL (1.3-7.7); Neutrophils % (A) 80 %; Platelet Count 283 k/uL (150-450); RBC 3.63 m/uL (4.30-5.90); RDW 15.9 % (11.5-15.5); WBC 5.8 k/uL (3.8-10.6)
[2024-04-19 10:20] LABS: ALT 41 U/L (4-49); AST 25 U/L (17-59); African American GFR (CKD) 70 (>60 ml/min/1.73 sqM); Albumin 2.8 g/dL (3.5-5.0); Alkaline Phosphatase 87 U/L (38-126); Anion Gap 6 mmol/L; Blood Urea Nitrogen 34 mg/dL (9-20); Calcium 8.2 mg/dL (8.4-10.2); Carbon Dioxide 30 mmol/L (22-30); Chloride 102 mmol/L (98-107); Glucose 115 mg/dL (74-99); Magnesium 1.8 mg/dL (1.6-2.3); Non-African American GFR(CKD) 60 (>60 ml/min/1.73 sqM); Potassium 4.7 mmol/L (3.5-5.1); Sodium 138 mmol/L (137-145); Total Bilirubin 0.5 mg/dL (0.2-1.3); Total Protein 5.5 g/dL (6.3-8.2)
[2024-04-19] MEDS: guaiFENesin-DM 100-10MG/5ML 10 ML CUP PO SCH (12:15)
--- NOTE | 2024-04-19 12:39 | P.PN ---
Subjective Progress Note Date: 04/19/24 Hospital Course: Patient is a 78-year-old male with past medical history of pulmonary fibrosis, hyperlipidemia, hypertension, GERD, BPH, history of CAD with stent placement presents to the emergency room with chief complaint of shortness of breath. Patient states he was recently discharged from the hospital for pneumonia and he has been home about a week. Patient states this morning he went to the restroom and desatted to 70 and then got himself back into a chair when he states his saturations were between 50 and 60 and he was unable to catch his breath. Patient reports that since leaving the hospital he has been on 7 L of home oxygen and he has been using his nebulizer 4 times daily. Patient also endorses a dry cough, chills, subjective fevers. He denies any chest pain, abdominal pain, nausea, vomiting, diarrhea. It is of note that when attempting to reposition the patient and he laid supine his saturations went from 95-85. Vitals on admission temperature 97.8, heart rate 133, respiratory rate 40, saturating 85% on BiPAP EKG independently interpreted as sinus tachycardia, ventricular rate 135, QTc of 400 CXR shows right axillary and right neck subcutaneous emphysema, remainder is unchanged from prior with multifocal airspace opacities and reticular opacities CT of subcutaneous emphysema throughout the right neck, right anterior chest throughout the mediastinum, scattered reticular and airspace opacities Labs on admission show WBC 7.2, hemoglobin 13.2, platelets 261. PT 10.8, INR 1.0, PTT 19.7, D-dimer 9.1. Sodium 137, potassium 4.4, chloride 101, bicarb 26, BUN 37, creatinine 1.93, glucose 102. Lactate 4.2, repeat 1.3. Troponin 0.053. Cepheid was positive for COVID. Subjective: Patient seen and examined at bedside. No acute events overnight. No acute complaints. This afternoon patient attempted to get up to go to the bathroom and started to desat down to the 50s. Pertinent positives and negatives as discussed above, a complete review of systems was performed and all other systems are negative. Vitals: Signs Reviewed Physical examination: Vital signs reviewed General: nontoxic, no distress, appears at stated age, no acute distress Derm: warm, dry, intact Head: atraumatic, normocephalic, symmetric Eyes: anicteric sclera Mouth: no lip lesion, mucus membranes moist Cardiovascular: S1 S2 reg, no murmur Lungs: Bilateral rhonchi noted, no rales, no accessory muscle use Abdominal: soft, non-tender to palpation, nondistended Extremities: No cyanosis, clubbing, or pedal edema. Neuro: Alert, Oriented to person, time and place, Gross neurological examination did not reveal any focal deficits. Cranial nerves II to XII grossly intact. Bilateral upper and lower extremity muscle strength intact and sensation intact. Psych: well appearing, appropriate affect Data Received Today: Pertinent Labs: WBC 5.8, Hgb 10.8, BUN 34, creatinine 1.17, glucose 115 Imaging: N/A Assessment and Plan: Patient is a 78-year-old male with past medical history of pulmonary fibrosis, hyperlipidemia, hypertension, GERD, BPH, history of CAD presented to the ER with chief complaint of shortness of breath and hypoxia. Active: COVID-19 pneumonia Acute hypoxic respiratory failure Pulmonary fibrosis Currently on 15 L high flow nasal cannula, attempt to wean down Wean oxygen as tolerated to maintain oxygen saturations of greater than 94% Decadron 6 mg po qd Procalcitonin elevated at 2.08 C/w Rocephin 2 g IVPB daily for 2 more days Pulmonology following Elevated troponin, likely type II NSTEMI EKG independently interpreted as sinus tachycardia, ventricular rate 135, QTc of 400 -Troponins 0.053 => 0.085, Continue to trend troponin Sepsis secondary to pneumonia CXR shows right axillary and right neck subcutaneous emphysema, remainder is unchanged from prior with multifocal airspace opacities and reticular opacities CT of subcutaneous emphysema throughout the right neck, right anterior chest throughout the mediastinum, scattered reticular and airspace opacities Discontinue normal saline at 130 cc an hour due to improved renal function Continue with ceftriaxone 2 g IV every 24 hours azithromycin 500 mg p.o. daily discontinued Obtain morning CBC Legionella antigen negative Blood cultures, sputum culture pending JUANCARLOS on chronic kidney disease stage II, resolved Continue to monitor Normal saline at 130 cc/after discontinue Elevated D-dimer, rule out pulmonary embolism, resolved CTA not done due to poor renal function VQ scan showing no signs of PE, discontinue heparin infusion Lactic acidosis, resolved Lactate 4.2, repeat 1.2 Chronic: Hypertension Hold losartan 100 mg until kidney function improves Continue amlodipine 2.5 mg Hyperlipidemia Continue pravastatin 80 mg daily GERD Continue famotidine 40 mg twice daily BPH Continue finasteride 5 mg daily F: P.o. E: Replete as needed N: Heart healthy A: Fall precautions DVT prophylaxis: Heparin 5000 unit SQ every 8 hours Code status: FULL CODE Anticipated discharge place: pending clinical course Anticipated discharge time: pending clinical course Anabell Michaud MD PGY-1 IM Dictation was produced using [email or web address] dictation software. please excuse any grammatical, word or spelling errors. Patient is severely ill, needs close monitoring. Prognosis guarded. I have seen and evaluated the patient today. Discussed with the resident and agree with the residents finding and plan as documented in the resident's note. Changes highlighted in blue font. Objective - Vital Signs Vital signs: Vital Signs Temp 97.8 F 04/19/24 04:00 Pulse 68 04/19/24 04:00 Resp 18 04/19/24 04:00 BP 153/71 04/19/24 04:00 Pulse Ox 98 04/19/24 04:00 FiO2 80 04/17/24 15:56 Intake & Output 04/18/24 04/19/24 04/19/24 18:59 06:59 18:59 Intake Total 61.683 10 Balance 61.683 10 Weight 70.307 kg Intake: IV 10 Invasive Line 1 10 Intake, IV Titration 61.683 Amount Heparin Sod,Pork in 0.45% 61.683 NaCl 25,000 unit In 0.45 % NaCl 1 250ml.bag @ 18 UNITS/KG/HR 12.655 mls/hr IV .[id number] REPLACED BY [facility] Rx#: [id number] Other: Voiding Method Urinal - Labs CBC & Chem 7: 04/19/24 08:52 04/19/24 08:52 Labs: Abnormal Lab Results - Last 24 Hours (Table) 04/18/24 04/18/24 04/18/24 Range/Units 07:32 07:32 07:32 RBC 3.71 L (4.30-5.90) m/uL Hgb 11.0 L (13.0-17.5) gm/dL Hct 34.5 L (39.0-53.0) % RDW 16.7 H (11.5-15.5) % Lymphocytes # 0.8 L (1.0-4.8) k/uL APTT 152.5 H* (22.0-30.0) sec BUN 42 H (9-20) mg/dL Creatinine 1.71 H (0.66-1.25) mg/dL Troponin I (0.000-0.034) ng/mL Procalcitonin (0.02-0.50) ng/mL 04/18/24 04/18/24 04/18/24 Range/Units 07:32 07:32 14:37 RBC (4.30-5.90) m/uL Hgb (13.0-17.5) gm/dL Hct (39.0-53.0) % RDW (11.5-15.5) % Lymphocytes # (1.0-4.8) k/uL APTT 73.2 H (22.0-30.0) sec BUN (9-20) mg/dL Creatinine (0.66-1.25) mg/dL Troponin I 0.085 H* (0.000-0.034) ng/mL Procalcitonin 2.08 H (0.02-0.50) ng/mL 04/18/24 Range/Units 16:31 RBC (4.30-5.90) m/uL Hgb (13.0-17.5) gm/dL Hct (39.0-53.0) % RDW (11.5-15.5) % Lymphocytes # (1.0-4.8) k/uL APTT (22.0-30.0) sec BUN (9-20) mg/dL Creatinine (0.66-1.25) mg/dL Troponin I 0.052 H* (0.000-0.034) ng/mL Procalcitonin (0.02-0.50) ng/mL
--- NOTE | 2024-04-19 14:51 | P.PN ---
Subjective Progress Note Date: 04/19/24 Principal diagnosis: Shortness of breath. Patient is a 78-year-old male with past medical history significant for coronary disease, hypertension, hyperlipidemia, chronic lung disease, and recent hospitalization for COVID-19 pneumonia. His PCP is Dr. Serrano. His established food runner is a Dr. Terrence Maynard from the [facility]. Of note, patient had a recent prolonged hospitalization March 16 through April 11 secondary to COVID-19 related pneumonia on top of suspected underlying chronic interstitial lung disease. He was ultimately discharged home, with supplemental oxygen in the order of 7 L/min. Patient returns to the emergency department yesterday afternoon complaining of acute on chronic shortness of breath that developed while ambulating to the bathroom. He has a pulse oximeter at home, states he could not get his oxygen levels above 70%, so he called EMS. He has had a persistent nonproductive cough since his hospital discharge. Dari meade, was in some respiratory distress in the emergency department, and initially placed on BiPAP. Workup included a chest x-ray showing new right axillary and right neck subcutaneous emphysema. Follow-up nonenhanced CT of the chest/abdomen/pelvis showing subcutaneous emphysema throughout the right neck, right anterior chest wall and throughout the mediastinum. No definitive airway defect visualized. No pneumothoraces. Likely some chronic fibrotic changes particularly at the lung bases. Patient is currently being evaluated in the emergency department. He is on 15 L high flow nasal cannula. Patient denies any trauma or recent surgical procedures. Did have Bronchoscopy with BAL approxim ately 6 months ago. Denies chest pain. Denies any significant intractable nausea or vomiting, dysphagia, or odynophagia. Denies any voice changes or hoarseness. No airway stridor. Afebrile. CBC: WBC count 7.2, hemoglobin 13.2, hematocrit 41, platelets 261. CMP: Sodium 137, potassium 4.4, chloride 101, serum bicarb 26, BUN 37, creatinine 1.93, glucose 102. Lactic was 4.2 and is down to 1.3. Magnesium 1.7. LFTs unremarkable. Normal saline infusing at 130 mL/h. Troponin 0.053. Patient is again positive for COVID by PCR, likely residual finding from prior infection. Of note, patient's D-dimer was elevated at 9.1. He was started on a high intensity heparin infusion per protocol by the ER provider. There is a VQ scan ordered, which will likely be of indeterminate as the patient has chronic lung disease. No unilateral lower extremity edema. Patient empirically started on antibiotics the ED. Most recent vital signs: Heart rate 66 bpm, blood pressure 104/62 mmHg, nontachypneic, SpO2 is reading 98% on 15 L high flow nasal cannula. BiPAP is off and at the bedside. Progress note dated April 19, 2024. 78-year-old male well-known to our service. The patient was in the hospital here, recently with COVID-19 related pneumonia. He spent 3 weeks in the hospital, and was discharged to home. He was discharged to home on 7 L of oxygen. He spent 1 week at home, and came back to the hospital, for increasing shortness of breath. Today he is seen in room 358. He is getting saline at 130 cc an hour, and high flow nasal cannula at 15 L. His procalcitonin level was 2.08. He tested positive for coronavirus infection. His ventilation/perfusion lung scan was nondiagnostic. A family member was on the phone and had a number of questions, all of which I answered. Current labs include a white count 5.8, hemoglobin 10.8, hematocrit 34.2, and a normal platelet count. Sodium 138, potassium 4.7, chlorides 102, CO2 30, BUN 34, creatinine 1.17. Glucose is 115. Calcium 8.2. Troponins were 0.085 and 0.052. Procalcitonin level is mention was 2.08. Objective - Vital Signs Vital signs: Vital Signs Temp 97.8 F 04/19/24 11:38 Pulse 101 H 04/19/24 11:38 Resp 19 04/19/24 12:40 BP 155/70 04/19/24 11:38 Pulse Ox 93 L 04/19/24 12:40 FiO2 80 04/17/24 15:56 Intake & Output 04/18/24 04/19/24 04/19/24 18:59 06:59 18:59 Intake Total 61.683 10 380 Output Total 500 Balance 61.683 10 -120 Weight 70.307 kg Intake: IV 10 20 Invasive Line 1 10 20 Intake, IV Titration 61.683 Amount Heparin Sod,Pork in 0.45% 61.683 NaCl 25,000 unit In 0.45 % NaCl 1 250ml.bag @ 18 UNITS/KG/HR 12.655 mls/hr IV .[id number] [facility] Rx#: [id number] Oral 360 Output: Urine 500 Other: Voiding Method Urinal Urinal - Exam No acute distress, oriented 3. Currently on high flow nasal cannula. HEENT examination is grossly unremarkable. Mucous membranes are moist. No oral lesions. Neck supple. Full range of motion. No adenopathy thyromegaly or neck vein distention. Cardiovascular examination reveals regular rhythm rate. S1-S2 normal. No S3 or S4. No discernible murmur noted. Lungs reveal bibasilar crackles no wheezes or rhonchi. Breath sounds are equal bilaterally. Abdomen soft bowel sounds are heard. No masses or tenderness. Extremities are intact. No cyanosis clubbing or edema. Skin is without rash or lesion. Neurologic examination is brief but nonfocal. - Labs CBC & Chem 7: 04/19/24 08:52 04/19/24 08:52 Labs: Abnormal Lab Results - Last 24 Hours (Table) 04/18/24 04/18/24 04/19/24 Range/Units 14:37 16:31 08:52 RBC 3.63 L (4.30-5.90) m/uL Hgb 10.8 L (13.0-17.5) gm/dL Hct 34.2 L (39.0-53.0) % RDW 15.9 H (11.5-15.5) % Lymphocytes # 0.6 L (1.0-4.8) k/uL APTT 73.2 H (22.0-30.0) sec BUN (9-20) mg/dL Glucose (74-99) mg/dL Calcium (8.4-10.2) mg/dL Troponin I 0.052 H* (0.000-0.034) ng/mL Total Protein (6.3-8.2) g/dL Albumin (3.5-5.0) g/dL 04/19/24 Range/Units 08:52 RBC (4.30-5.90) m/uL Hgb (13.0-17.5) gm/dL Hct (39.0-53.0) % RDW (11.5-15.5) % Lymphocytes # (1.0-4.8) k/uL APTT (22.0-30.0) sec BUN 34 H (9-20) mg/dL Glucose 115 H (74-99) mg/dL Calcium 8.2 L (8.4-10.2) mg/dL Troponin I (0.000-0.034) ng/mL Total Protein 5.5 L (6.3-8.2) g/dL Albumin 2.8 L (3.5-5.0) g/dL Microbiology - Last 24 Hours (Table) 04/17/24 19:29 Blood Culture - Preliminary Blood Assessment and Plan Assessment: Pneumomediastinum, possibly secondary to patient's chronic lung disease and recent COVID-19 infection. Acute hypoxemic respiratory failure, currently on 15 L high flow nasal cannula. Recent COVID-19 infection/COVID-19 pneumonia, with prolonged hospitalization March 16 through April 11. Suspect underlying chronic interstitial lung disease. Elevated D-dimer. Lactic acidemia, improved. Acute kidney injury, creatinine up to 1.93. Chronic kidney disease stage II. Elevated troponin, possibly secondary to type II MN and hypoxia. History of coronary artery disease with previous PCI/stents. Hypertension. History of hyperlipidemia. Remote history of tobacco use. Plan: Plan dated April 19, 2024. The patient is seen today in room 358. The patient is on high flow nasal cannula at 15 L. Patient is also receiving IV fluids, saline, 130 cc an hour. The patient was recently in the hospital, for 3 weeks, with a COVID-19 pneumonia. He was discharged home, and was home for about a week, and then came back into the hospital. At home, he was on 7 L of oxygen. Currently, his procalcitonin level was 2.08. He did test positive for coronavirus again. His ventilation/perfusion study was nondiagnostic. The patient continues on antibiotics, and Decadron. We will continue to follow. All questions by family members, were answered. Time with Patient: Less than 30
[2024-04-20 06:56] LABS: Basophils % (A) 0 %; Eosinophils % (A) 0 %; HCT 33.2 % (39.0-53.0); HGB 10.8 gm/dL (13.0-17.5); Lymphocytes # (A) 0.6 k/uL (1.0-4.8); Lymphocytes % (A) 10 %; MCH 30.4 pg (25.0-35.0); MCHC 32.6 g/dL (31.0-37.0); MCV 93.5 fL (80.0-100.0); Mean Platelet Volume 7.4; Monocytes # (A) 0.3 k/uL (0-1.0); Monocytes % (A) 5 %; Neutrophils # (A) 5.4 k/uL (1.3-7.7); Neutrophils % (A) 83 %; Platelet Count 317 k/uL (150-450); RBC 3.56 m/uL (4.30-5.90); RDW 15.9 % (11.5-15.5); WBC 6.5 k/uL (3.8-10.6)
[2024-04-20 07:15] LABS: African American GFR (CKD) 66 (>60 ml/min/1.73 sqM); Anion Gap 3 mmol/L; Blood Urea Nitrogen 34 mg/dL (9-20); Calcium 8.4 mg/dL (8.4-10.2); Carbon Dioxide 30 mmol/L (22-30); Chloride 103 mmol/L (98-107); Glucose 131 mg/dL (74-99); Magnesium 1.7 mg/dL (1.6-2.3); Non-African American GFR(CKD) 58 (>60 ml/min/1.73 sqM); Potassium 5.1 mmol/L (3.5-5.1); Sodium 136 mmol/L (137-145)
--- NOTE | 2024-04-20 11:31 | P.PN ---
Subjective Progress Note Date: 04/20/24 Hospital Course: Patient is a 78-year-old male with past medical history of pulmonary fibrosis, hyperlipidemia, hypertension, GERD, BPH, history of CAD with stent placement presents to the emergency room with chief complaint of shortness of breath. Patient states he was recently discharged from the hospital for pneumonia and he has been home about a week. Patient states this morning he went to the restroom and desatted to 70 and then got himself back into a chair when he states his saturations were between 50 and 60 and he was unable to catch his breath. Patient reports that since leaving the hospital he has been on 7 L of home oxygen and he has been using his nebulizer 4 times daily. Patient also endorses a dry cough, chills, subjective fevers. He denies any chest pain, abdominal pain, nausea, vomiting, diarrhea. It is of note that when attempting to reposition the patient and he laid supine his saturations went from 95-85. Vitals on admission temperature 97.8, heart rate 133, respiratory rate 40, saturating 85% on BiPAP EKG independently interpreted as sinus tachycardia, ventricular rate 135, QTc of 400 CXR shows right axillary and right neck subcutaneous emphysema, remainder is unchanged from prior with multifocal airspace opacities and reticular opacities CT of subcutaneous emphysema throughout the right neck, right anterior chest throughout the mediastinum, scattered reticular and airspace opacities Labs on admission show WBC 7.2, hemoglobin 13.2, platelets 261. PT 10.8, INR 1.0, PTT 19.7, D-dimer 9.1. Sodium 137, potassium 4.4, chloride 101, bicarb 26, BUN 37, creatinine 1.93, glucose 102. Lactate 4.2, repeat 1.3. Troponin 0.053. Cepheid was positive for COVID. Subjective: 04/19/2024: patient seen and examined at bedside. No acute events overnight. No acute complaints. This afternoon patient attempted to get up to go to the [facility] hroom and started to desat down to the 50s. 04/20/2024: Patient seen examined bedside. No acute events overnight. No acute complaint. Pertinent positives and negatives as discussed above, a complete review of systems was performed and all other systems are negative. Vitals: Signs Reviewed Physical examination: Vital signs reviewed General: nontoxic, no distress, appears at stated age, no acute distress Derm: warm, dry, intact Head: atraumatic, normocephalic, symmetric Eyes: anicteric sclera Mouth: no lip lesion, mucus membranes moist Cardiovascular: S1 S2 reg, no murmur Lungs: Bilateral rhonchi noted, no rales, no accessory muscle use Abdominal: soft, non-tender to palpation, nondistended Extremities: No cyanosis, clubbing, or pedal edema. Neuro: Alert, Oriented to person, time and place, Gross neurological examination did not reveal any focal deficits. Cranial nerves II to XII grossly intact. Bilateral upper and lower extremity muscle strength intact and sensation intact. Psych: well appearing, appropriate affect Data Received Today: Pertinent Labs: WBC 10.8, sodium 136, BUN 34, creatinine 1.22 Imaging: N/A Assessment and Plan: Patient is a 78-year-old male with past medical history of pulmonary fibrosis, hyperlipidemia, hypertension, GERD, BPH, history of CAD presented to the ER with chief complaint of shortness of breath and hypoxia. Active: COVID-19 pneumonia Acute hypoxic respiratory failure Pulmonary fibrosis Currently on 13 L high flow nasal cannula, attempt to wean down as tolerated > 88% Decadron 6 mg po qd Procalcitonin elevated at 2.08 C/w Rocephin 2 g IVPB daily for 1 more day Pulmonology following Spoke with daughter regarding patient's prognosis type II NSTEMI EKG independently interpreted as sinus tachycardia, ventricular rate 135, QTc of 400 -Troponins 0.053 => 0.085 => 0.052 Likely from COVID-pneumonia Sepsis secondary to pneumonia, improved CXR shows right axillary and right neck subcutaneous emphysema, remainder is unchanged from prior with multifocal airspace opacities and reticular opacities CT of subcutaneous emphysema throughout the right neck, right anterior chest throughout the mediastinum, scattered reticular and airspace opacities Discontinue normal saline at 130 cc an hour due to improved renal function Continue with ceftriaxone 2 g IV every 24 hours azithromycin 500 mg p.o. daily discontinued Obtain morning CBC Legionella antigen negative Blood cultures, sputum culture pending JUANCARLOS on chronic kidney disease stage II, resolved Continue to monitor Normal saline at 130 cc/hr discontinued Elevated D-dimer, rule out pulmonary embolism, resolved CTA not done due to poor renal function VQ scan showing no signs of PE, discontinue heparin infusion Lactic acidosis, resolved Lactate 4.2, repeat 1.2 Chronic: Hypertension Hold losartan 100 mg until kidney function improves Continue amlodipine 2.5 mg Hyperlipidemia Continue pravastatin 80 mg daily GERD Continue famotidine 40 mg twice daily BPH Continue finasteride 5 mg daily F: PO E: Replete as needed N: Heart healthy A: Fall precautions DVT prophylaxis: Heparin 5000 unit SQ every 8 hours Code status: FULL CODE Anticipated discharge place: pending clinical course Anticipated discharge time: pending clinical course Prognosis is guarded. I have seen and evaluated the patient today. Discussed with the resident and agree with the residents finding and plan as documented in the resident's note. Changes highlighted in blue font. Objective - Vital Signs Vital signs: Vital Signs Temp 97.6 F 04/20/24 03:49 Pulse 72 04/20/24 03:49 Resp 17 04/20/24 03:49 BP 139/75 04/20/24 03:49 Pulse Ox 94 L 04/20/24 03:49 FiO2 80 04/17/24 15:56 Intake & Output 04/19/24 04/20/24 04/20/24 18:59 06:59 18:59 Intake Total 560 20 240 Output Total 500 300 600 Balance 60 -280 -360 Weight 62.5 kg Intake: IV 20 20 Invasive Line 1 20 20 Oral 540 240 Output: Urine 500 300 600 Other: Voiding Method Urinal Urinal - Labs CBC & Chem 7: 04/20/24 06:16 04/20/24 06:16 Labs: Abnormal Lab Results - Last 24 Hours (Table) 04/19/24 04/19/24 04/20/24 Range/Units 08:52 08:52 06:16 RBC 3.63 L 3.56 L (4.30-5.90) m/uL Hgb 10.8 L 10.8 L (13.0-17.5) gm/dL Hct 34.2 L 33.2 L (39.0-53.0) % RDW 15.9 H 15.9 H (11.5-15.5) % Lymphocytes # 0.6 L 0.6 L (1.0-4.8) k/uL Sodium (137-145) mmol/L BUN 34 H (9-20) mg/dL Glucose 115 H (74-99) mg/dL Calcium 8.2 L (8.4-10.2) mg/dL Total Protein 5.5 L (6.3-8.2) g/dL Albumin 2.8 L (3.5-5.0) g/dL 04/20/24 Range/Units 06:16 RBC (4.30-5.90) m/uL Hgb (13.0-17.5) gm/dL Hct (39.0-53.0) % RDW (11.5-15.5) % Lymphocytes # (1.0-4.8) k/uL Sodium 136 L (137-145) mmol/L BUN 34 H (9-20) mg/dL Glucose 131 H (74-99) mg/dL Calcium (8.4-10.2) mg/dL Total Protein (6.3-8.2) g/dL Albumin (3.5-5.0) g/dL Microbiology - Last 24 Hours (Table) 04/17/24 19:29 Blood Culture - Preliminary Blood
--- NOTE | 2024-04-20 13:05 | P.PN ---
Subjective Progress Note Date: 04/20/24 Principal diagnosis: Shortness of breath. Patient is a 78-year-old male with past medical history significant for coronary disease, hypertension, hyperlipidemia, chronic lung disease, and recent hospitalization for COVID-19 pneumonia. His PCP is Dr. Serrano. His established supervisor slate splitting is a Dr. Terrence Maynard from the [facility]. Of note, patient had a recent prolonged hospitalization March 16 through April 11 secondary to COVID-19 related pneumonia on top of suspected underlying chronic interstitial lung disease. He was ultimately discharged home, with supplemental oxygen in the order of 7 L/min. Patient returns to the emergency department yesterday afternoon complaining of acute on chronic shortness of breath that developed while ambulating to the bathroom. He has a pulse oximeter at home, states he could not get his oxygen levels above 70%, so he called EMS. He has had a persistent nonproductive cough since his hospital discharge. Dari meade, was in some respiratory distress in the emergency department, and initially placed on BiPAP. Workup included a chest x-ray showing new right axillary and right neck subcutaneous emphysema. Follow-up nonenhanced CT of the chest/abdomen/pelvis showing subcutaneous emphysema throughout the right neck, right anterior chest wall and throughout the mediastinum. No definitive airway defect visualized. No pneumothoraces. Likely some chronic fibrotic changes particularly at the lung bases. Patient is currently being evaluated in the emergency department. He is on 15 L high flow nasal cannula. Patient denies any trauma or recent surgical procedures. Did have Bronchoscopy with BAL approxim ately 6 months ago. Denies chest pain. Denies any significant intractable nausea or vomiting, dysphagia, or odynophagia. Denies any voice changes or hoarseness. No airway stridor. Afebrile. CBC: WBC count 7.2, hemoglobin 13.2, hematocrit 41, platelets 261. CMP: Sodium 137, potassium 4.4, chloride 101, serum bicarb 26, BUN 37, creatinine 1.93, glucose 102. Lactic was 4.2 and is down to 1.3. Magnesium 1.7. LFTs unremarkable. Normal saline infusing at 130 mL/h. Troponin 0.053. Patient is again positive for COVID by PCR, likely residual finding from prior infection. Of note, patient's D-dimer was elevated at 9.1. He was started on a high intensity heparin infusion per protocol by the ER provider. There is a VQ scan ordered, which will likely be of indeterminate as the patient has chronic lung disease. No unilateral lower extremity edema. Patient empirically started on antibiotics the ED. Most recent vital signs: Heart rate 66 bpm, blood pressure 104/62 mmHg, nontachypneic, SpO2 is reading 98% on 15 L high flow nasal cannula. BiPAP is off and at the bedside. Progress note dated April 19, 2024. 78-year-old male well-known to our service. The patient was in the hospital here, recently with COVID-19 related pneumonia. He spent 3 weeks in the hospital, and was discharged to home. He was discharged to home on 7 L of oxygen. He spent 1 week at home, and came back to the hospital, for increasing shortness of breath. Today he is seen in room 358. He is getting saline at 130 cc an hour, and high flow nasal cannula at 15 L. His procalcitonin level was 2.08. He tested positive for coronavirus infection. His ventilation/perfusion lung scan was nondiagnostic. A family member was on the phone and had a number of questions, all of which I answered. Current labs include a white count 5.8, hemoglobin 10.8, hematocrit 34.2, and a normal platelet count. Sodium 138, potassium 4.7, chlorides 102, CO2 30, BUN 34, creatinine 1.17. Glucose is 115. Calcium 8.2. Troponins were 0.085 and 0.052. Procalcitonin level is mention was 2.08. Progress note dated April 20, 2024. 78-year-old male seen today in room 358. The patient continues on high flow nasal cannula at 8 L. His procalcitonin level was 2.08. He is not receiving any IV fluids. He continues on Rocephin, and Decadron. White count 6.5, hemoglobin 10.8, hematocrit 33.2, platelet count 317,000. Sodium 136, potassium 5.1, chlorides 103, CO2 30, BUN 34, and creatinine 1.22. Objective - Vital Signs Vital signs: Vital Signs Temp 98.2 F 04/20/24 11:13 Pulse 80 04/20/24 12:42 Resp 24 04/20/24 12:42 BP 134/65 04/20/24 11:13 Pulse Ox 94 L 04/20/24 12:28 FiO2 80 04/17/24 15:56 Intake & Output 04/19/24 04/20/24 04/20/24 18:59 06:59 18:59 Intake Total 560 20 480 Output Total 500 300 600 Balance 60 -280 -120 Weight 62.5 kg Intake: IV 20 20 Invasive Line 1 20 20 Oral 540 480 Output: Urine 500 300 600 Other: Voiding Method Urinal Urinal Urinal - Exam No acute distress, oriented 3. Currently on high flow nasal cannula. HEENT examination is grossly unremarkable. Mucous membranes are moist. No oral lesions. Neck supple. Full range of motion. No adenopathy thyromegaly or neck vein dist ention. Cardiovascular examination reveals regular rhythm rate. S1-S2 normal. No S3 or S4. No discernible murmur noted. Lungs reveal bibasilar crackles no wheezes or rhonchi. Breath sounds are equal bilaterally. Abdomen soft bowel sounds are heard. No masses or tenderness. Extremities are intact. No cyanosis clubbing or edema. Skin is without rash or lesion. Neurologic examination is brief but nonfocal. - Labs CBC & Chem 7: 04/20/24 06:16 04/20/24 06:16 Labs: Abnormal Lab Results - Last 24 Hours (Table) 04/20/24 04/20/24 Range/Units 06:16 06:16 RBC 3.56 L (4.30-5.90) m/uL Hgb 10.8 L (13.0-17.5) gm/dL Hct 33.2 L (39.0-53.0) % RDW 15.9 H (11.5-15.5) % Lymphocytes # 0.6 L (1.0-4.8) k/uL Sodium 136 L (137-145) mmol/L BUN 34 H (9-20) mg/dL Glucose 131 H (74-99) mg/dL Microbiology - Last 24 Hours (Table) 04/17/24 19:29 Blood Culture - Preliminary Blood Assessment and Plan Assessment: Pneumomediastinum, possibly secondary to patient's chronic lung disease and recent COVID-19 infection. Acute hypoxemic respiratory failure, currently on 8 L high flow nasal cannula. Recent COVID-19 infection/COVID-19 pneumonia, with prolonged hospitalization Dec through April 11. Suspect underlying chronic interstitial lung disease. Elevated D-dimer. Lactic acidemia, improved. Acute kidney injury, creatinine up to 1.93. Chronic kidney disease stage II. Elevated troponin, possibly secondary to type II NC and hypoxia. History of coronary artery disease with previous PCI/stents. Hypertension. History of hyperlipidemia. Remote history of tobacco use. Plan: Plan dated April 19, 2024. The patient is seen today in room 358. The patient is on high flow nasal cannula at 15 L. Patient is also receiving IV fluids, saline, 130 cc an hour. The patient was recently in the hospital, for 3 weeks, with a COVID-19 pneumoni a. He was discharged home, and was home for about a week, and then came back into the hospital. At home, he was on 7 L of oxygen. Currently, his procalcitonin level was 2.08. He did test positive for coronavirus again. His ventilation/perfusion study was nondiagnostic. The patient continues on antibiotics, and Decadron. We will continue to follow. All questions by family members, were answered. Plan dated April 20, 2024. The patient is seen today in room 358. The patient is nasal cannula, high flow is at 8 L/min. Yesterday, he was on 15 L high flow nasal cannula. The patient continues on Rocephin and Decadron. His procalcitonin level was 2.08. He is not receiving any IV fluids. He seems a bit more comfortable today. We will continue to follow make recommendations along the way. Prognosis is certainly guarded. I did speak to his daughter yesterday, and answered a number of questions, and concerns that she had. Additional conversation between her, and the primary service, should take place. Time with Patient: Less than 30
[2024-04-21 07:12] LABS: Basophils # (A) 0.1 k/uL (0-0.2); Basophils % (A) 1 %; Eosinophils # (A) 0.1 k/uL (0-0.7); Eosinophils % (A) 1 %; HCT 33.2 % (39.0-53.0); HGB 10.9 gm/dL (13.0-17.5); Lymphocytes # (A) 0.9 k/uL (1.0-4.8); Lymphocytes % (A) 12 %; MCH 30.4 pg (25.0-35.0); MCHC 32.9 g/dL (31.0-37.0); MCV 92.4 fL (80.0-100.0); Mean Platelet Volume 7.1; Monocytes # (A) 0.5 k/uL (0-1.0); Monocytes % (A) 6 %; Neutrophils # (A) 6.4 k/uL (1.3-7.7); Neutrophils % (A) 79 %; Platelet Count 346 k/uL (150-450); RBC 3.59 m/uL (4.30-5.90); WBC 8.1 k/uL (3.8-10.6)
[2024-04-21 07:26] LABS: ALT 77 U/L (4-49); AST 38 U/L (17-59); African American GFR (CKD) 72 (>60 ml/min/1.73 sqM); Albumin 2.8 g/dL (3.5-5.0); Alkaline Phosphatase 76 U/L (38-126); Anion Gap 2 mmol/L; Blood Urea Nitrogen 34 mg/dL (9-20); Calcium 8.4 mg/dL (8.4-10.2); Carbon Dioxide 30 mmol/L (22-30); Chloride 102 mmol/L (98-107); Glucose 103 mg/dL (74-99); Magnesium 1.7 mg/dL (1.6-2.3); Non-African American GFR(CKD) 63 (>60 ml/min/1.73 sqM); Potassium 4.5 mmol/L (3.5-5.1); Sodium 134 mmol/L (137-145); Total Bilirubin 0.6 mg/dL (0.2-1.3); Total Protein 5.3 g/dL (6.3-8.2)
--- NOTE | 2024-04-21 11:04 | XR ---
EXAMINATION TYPE: XR chest 1V portable DATE OF EXAM: 04/21/2024 CLINICAL HISTORY: ILD AND COVID progress study. TECHNIQUE: Single AP portable upright view of the chest is obtained. COMPARISON: Chest x-ray from 3 days earlier FINDINGS: Increased reticular markings bilaterally remain present. Pneumomediastinum in right-sided subcutaneous emphysema less well-seen. Cardiac silhouette size stable and within normal limits. Trach ea remains deviated to right of midline due to ectatic thoracic aorta. There is two-level vertebropla sty in the lower thoracic spine redemonstrated. IMPRESSION: Persistent bilateral reticular increased opacities likely reflect bilateral fibrosis. The re are likely additional areas of acute infiltrate on background chronic change. Findings slightly mo re prominent versus most recent prior. Improving and/or resolved pneumomediastinum and right-sided lawrence bcutaneous emphysema noted. [facility], , 04/21/2024 11:02 AM
--- NOTE | 2024-04-21 12:48 | P.PN ---
Subjective Progress Note Date: 04/21/24 Principal diagnosis: Shortness of breath. Patient is a 78-year-old male with past medical history significant for coronary disease, hypertension, hyperlipidemia, chronic lung disease, and recent hospitalization for COVID-19 pneumonia. His PCP is Dr. Serrano. His established information systems planner is a Dr. Terrence Maynard from the [facility]. Of note, patient had a recent prolonged hospitalization March 16 through April 11 secondary to COVID-19 related pneumonia on top of suspected underlying chronic interstitial lung disease. He was ultimately discharged home, with supplemental oxygen in the order of 7 L/min. Patient returns to the emergency department yesterday afternoon complaining of acute on chronic shortness of breath that developed while ambulating to the bathroom. He has a pulse oximeter at home, states he could not get his oxygen levels above 70%, so he called EMS. He has had a persistent nonproductive cough since his hospital discharge. Dari meade, was in some respiratory distress in the emergency department, and initially placed on BiPAP. Workup included a chest x-ray showing new right axillary and right neck subcutaneous emphysema. Follow-up nonenhanced CT of the chest/abdomen/pelvis showing subcutaneous emphysema throughout the right neck, right anterior chest wall and throughout the mediastinum. No definitive airway defect visualized. No pneumothoraces. Likely some chronic fibrotic changes particularly at the lung bases. Patient is currently being evaluated in the emergency department. He is on 15 L high flow nasal cannula. Patient denies any trauma or recent surgical procedures. Did have Bronchoscopy with BAL approxim ately 6 months ago. Denies chest pain. Denies any significant intractable nausea or vomiting, dysphagia, or odynophagia. Denies any voice changes or hoarseness. No airway stridor. Afebrile. CBC: WBC count 7.2, hemoglobin 13.2, hematocrit 41, platelets 261. CMP: Sodium 137, potassium 4.4, chloride 101, serum bicarb 26, BUN 37, creatinine 1.93, glucose 102. Lactic was 4.2 and is down to 1.3. Magnesium 1.7. LFTs unremarkable. Normal saline infusing at 130 mL/h. Troponin 0.053. Patient is again positive for COVID by PCR, likely residual finding from prior infection. Of note, patient's D-dimer was elevated at 9.1. He was started on a high intensity heparin infusion per protocol by the ER provider. There is a VQ scan ordered, which will likely be of indeterminate as the patient has chronic lung disease. No unilateral lower extremity edema. Patient empirically started on antibiotics the ED. Most recent vital signs: Heart rate 66 bpm, blood pressure 104/62 mmHg, nontachypneic, SpO2 is reading 98% on 15 L high flow nasal cannula. BiPAP is off and at the bedside. Progress note dated April 19, 2024. 78-year-old male well-known to our service. The patient was in the hospital here, recently with COVID-19 related pneumonia. He spent 3 weeks in the hospital, and was discharged to home. He was discharged to home on 7 L of oxygen. He spent 1 week at home, and came back to the hospital, for increasing shortness of breath. Today he is seen in room 358. He is getting saline at 130 cc an hour, and high flow nasal cannula at 15 L. His procalcitonin level was 2.08. He tested positive for coronavirus infection. His ventilation/perfusion lung scan was nondiagnostic. A family member was on the phone and had a number of questions, all of which I answered. Current labs include a white count 5.8, hemoglobin 10.8, hematocrit 34.2, and a normal platelet count. Sodium 138, potassium 4.7, chlorides 102, CO2 30, BUN 34, creatinine 1.17. Glucose is 115. Calcium 8.2. Troponins were 0.085 and 0.052. Procalcitonin level is mention was 2.08. Progress note dated April 20, 2024. 78-year-old male seen today in room 358. The patient continues on high flow nasal cannula at 8 L. His procalcitonin level was 2.08. He is not receiving any IV fluids. He continues on Rocephin, and Decadron. White count 6.5, hemoglobin 10.8, hematocrit 33.2, platelet count 317,000. Sodium 136, potassium 5.1, chlorides 103, CO2 30, BUN 34, and creatinine 1.22. Progress note dated April 21, 2024. 78-year-old male seen today in room 358. He is sitting at the side of the bed, and continues on high flow nasal O2 at 8 L. His saturations, just moving from the supine position, to the seated position, dropped precipitously. The patient is getting saline at 20 cc an hour. The patient did complete Rocephin. We will order chest x-ray today. Current labs include a white count 8.1, hemoglobin 10.9, hematocrit 33.2, and a platelet count of 246,000. Sodium 134, potassium 4.5, chlorides 102, CO2 30, BUN 34, and creatinine 1.14. Glucose is 103. Blood cultures are currently negative. The patient's chest x-ray shows persistent bilateral reticular opacities, likely representing pulmonary fibrosis. In addition, the pneumomediastinum, and subcutaneous emphysema, are improved. Objective - Vital Signs Vital signs: Vital Signs Temp 97.1 F L 04/21/24 08:35 Pulse 79 04/21/24 11:40 Resp 16 04/21/24 11:40 BP 152/76 04/21/24 11:40 Pulse Ox 92 L 04/21/24 11:40 FiO2 80 04/17/24 15:56 Intake & Output 04/20/24 04/21/24 04/21/24 18:59 06:59 18:59 Intake Total 480 240 Output Total 900 225 Balance -420 -225 240 Weight 69.5 kg Intake: Oral 480 240 Output: Urine 900 225 Other: Voiding Method Urinal Urinal Urinal - Exam No acute distress, oriented 3. Currently on high flow nasal cannula. HEENT examination is grossly unremarkable. Mucous membranes are moist. No oral lesions. Neck supple. Full range of motion. No adenopathy thyromegaly or neck vein distention. Cardiovascular examination reveals regular rhythm rate. S1-S2 normal. No S3 or S4. No discernible murmur noted. Lungs reveal bibasilar crackles no wheezes or rhonchi. Breath sounds are equal bilaterally. Abdomen soft bowel sounds are heard. No masses or tenderness. Extremities are intact. No cyanosis clubbing or edema. Skin is without rash or lesion. Neurologic examination is brief but nonfocal. - Labs CBC & Chem 7: 04/21/24 06:51 04/21/24 06:51 Labs: Abnormal Lab Results - Last 24 Hours (Table) 04/21/24 04/21/24 Range/Units 06:51 06:51 RBC 3.59 L (4.30-5.90) m/uL Hgb 10.9 L (13.0-17.5) gm/dL Hct 33.2 L (39.0-53.0) % RDW 16.0 H (11.5-15.5) % Lymphocytes # 0.9 L (1.0-4.8) k/uL Sodium 134 L (137-145) mmol/L BUN 34 H (9-20) mg/dL Glucose 103 H (74-99) mg/dL ALT 77 H (4-49) U/L Total Protein 5.3 L (6.3-8.2) g/dL Albumin 2.8 L (3.5-5.0) g/dL Microbiology - Last 24 Hours (Table) 04/17/24 19:29 Blood Culture - Preliminary Blood Assessment and Plan Assessment: Pneumomediastinum, possibly secondary to patient's chronic lung disease and recent COVID-19 infection. Acute hypoxemic respiratory failure, currently on 8 L high flow nasal cannula. Recent COVID-19 infection/COVID-19 pneumonia, with prolonged hospitalization March 16 through April 11. 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 Elevated D-dimer. Lactic acidemia, improved. Acute kidney injury, creatinine up to 1.93. Chronic kidney disease stage II. Elevated troponin, possibly secondary to type II [place] and hypoxia. History of coronary artery disease with previous PCI/stents. Hypertension. History of hyperlipidemia. Remote history of tobacco use. Plan: Plan dated April 19, 2024. The patient is seen today in room 358. The patient is on high flow nasal can nula at 15 L. Patient is also receiving IV fluids, saline, 130 cc an hour. The patient was recently in the hospital, for 3 weeks, with a COVID-19 pneumonia. He was discharged home, and was home for about a week, and then came back into the hospital. At home, he was on 7 L of oxygen. Currently, his procalcitonin level was 2.08. He did test positive for coronavirus again. His ventilation/perfusion study was nondiagnostic. The patient continues on antibiotics, and Decadron. We will continue to follow. All questions by family members, were answered. Plan dated April 20, 2024. The patient is seen today in room 358. The patient is nasal cannula, high flow is at 8 L/min. Yesterday, he was on 15 L high flow nasal cannula. The patient continues on Rocephin and Decadron. His procalcitonin level was 2.08. He is not receiving any IV fluids. He seems a bit more comfortable today. We will continue to follow make recommendations along the way. Prognosis is certainly guarded. I did speak to his daughter yesterday, and answered a number of questions, and concerns that she had. Additional conversation between her, and the primary service, should take place. Plan dated April 21, 2024. The patient is seen today in room 358. The patient continues on 8 L high flow nasal cannula. He is very short of breath with any activity. Just getting from the lying position to the seating position, at the side of the bed, saturations are in the low 80s. I suspect the patient has underlying interstitial lung disease, for which she was seeing an outside information systems planner. In addition, the patient may have postinflammatory pulmonary fibrosis, from his recent coronavirus associated pneumonia, complicating his interstitial disease. The patient did complete his Rocephin. We will continue to follow. Prognosis is guarded. All labs, x-rays, and medications are reviewed. Time with Patient: Less than 30
--- NOTE | 2024-04-21 14:33 | P.PN ---
Subjective Progress Note Date: 04/21/24 Hospital Course: Patient is a 78-year-old male with past medical history of pulmonary fibrosis, hyperlipidemia, hypertension, GERD, BPH, history of CAD with stent placement presents to the emergency room with chief complaint of shortness of breath. Patient states he was recently discharged from the hospital for pneumonia and he has been home about a week. Patient states this morning he went to the restroom and desatted to 70 and then got himself back into a chair when he states his saturations were between 50 and 60 and he was unable to catch his breath. Patient reports that since leaving the hospital he has been on 7 L of home oxygen and he has been using his nebulizer 4 times daily. Patient also endorses a dry cough, chills, subjective fevers. He denies any chest pain, abdominal pain, nausea, vomiting, diarrhea. It is of note that when attempting to reposition the patient and he laid supine his saturations went from 95-85. Vitals on admission temperature 97.8, heart rate 133, respiratory rate 40, saturating 85% on BiPAP EKG independently interpreted as sinus tachycardia, ventricular rate 135, QTc of 400 CXR shows right axillary and right neck subcutaneous emphysema, remainder is unchanged from prior with multifocal airspace opacities and reticular opacities CT of subcutaneous emphysema throughout the right neck, right anterior chest throughout the mediastinum, scattered reticular and airspace opacities Labs on admission show WBC 7.2, hemoglobin 13.2, platelets 261. PT 10.8, INR 1.0, PTT 19.7, D-dimer 9.1. Sodium 137, potassium 4.4, chloride 101, bicarb 26, BUN 37, creatinine 1.93, glucose 102. Lactate 4.2, repeat 1.3. Troponin 0.053. Cepheid was positive for COVID. Subjective: 04/19/2024: patient seen and examined at bedside. No acute events overnight. No acute complaints. This afternoon patient attempted to get up to go to the ba throom and started to desat down to the 50s. 04/20/2024: Patient seen examined bedside. No acute events overnight. No acute complaint. 04/21/2024: Patient seen and examined at bedside. No acute events overnight. Patient reports of shortness of breath with any activity he does. Currently on 8 L high flow nasal cannula. Pertinent positives and negatives as discussed above, a complete review of systems was performed and all other systems are negative. Vitals: Signs Reviewed Physical examination: Vital signs reviewed General: nontoxic, no distress, appears at stated age, no acute distress Derm: warm, dry, intact Head: atraumatic, normocephalic, symmetric Eyes: anicteric sclera Mouth: no lip lesion, mucus membranes moist Cardiovascular: S1 S2 reg, no murmur Lungs: Bilateral basilar rhonchi noted, no rales, no accessory muscle use Abdominal: soft, non-tender to palpation, nondistended Extremities: No cyanosis, clubbing, or pedal edema. Neuro: Alert, Oriented to person, time and place, Gross neurological examination did not reveal any focal deficits. Cranial nerves II to XII grossly intact. Bilateral upper and lower extremity muscle strength intact and sensation intact. Psych: well appearing, appropriate affect Data Received Today: Pertinent Labs: WBC 8.1, Hgb 10.9, NA 134, BUN 34, creatinine 1.14 Imaging: N/A Assessment and Plan: Patient is a 78-year-old male with past medical history of pulmonary fibrosis, hyperlipidemia, hypertension, GERD, BPH, history of CAD presented to the ER with chief complaint of shortness of breath and hypoxia. Active: COVID-19 pneumonia Acute hypoxic respiratory failure Pulmonary fibrosis Currently on 8 L high flow nasal cannula, attempt to wean down as tolerated > 88% Decadron 6 mg po qd Procalcitonin elevated at 2.08 Rocephin has been discontinued Pulmonology following Spoke with daughter regarding patient's prognosis, wants to see if he can go to assisted living care facility Patient confirmed order of SNF choice with case management type II NSTEMI EKG independently interpreted as sinus tachycardia, ventricular rate 135, QTc of 400 -Troponins 0.053 => 0.085 => 0.052 Likely from COVID-pneumonia Sepsis secondary to pneumonia, improved CXR shows right axillary and right neck subcutaneous emphysema, remainder is unchanged from prior with multifocal airspace opacities and reticular opacities CT of subcutaneous emphysema throughout the right neck, right anterior chest throughout the mediastinum, scattered reticular and airspace opacities Ceftriaxone discontinued azithromycin 500 mg p.o. daily discontinued Obtain morning CBC Legionella antigen negative Blood cultures, sputum culture pending JUANCARLOS on chronic kidney disease stage II, resolved Continue to monitor Normal saline at 130 cc/hr discontinued Elevated D-dimer, rule out pulmonary embolism, resolved CTA not done due to poor renal function VQ scan showing no signs of PE, discontinue heparin infusion Lactic acidosis, resolved Lactate 4.2, repeat 1.2 Chronic: Hypertension Hold losartan 100 mg until kidney function improves Continue amlodipine 2.5 mg Hyperlipidemia Continue pravastatin 80 mg daily GERD Continue famotidine 40 mg twice daily BPH Continue finasteride 5 mg daily F: PO E: Replete as needed N: Heart healthy A: Fall precautions DVT prophylaxis: Heparin 5000 unit SQ every 8 hours Code status: FULL CODE Anticipated discharge place: pending clinical course Anticipated discharge time: pending clinical course Prognosis is guarded. I have seen and evaluated the patient today. Discussed with the resident and agree with the residents finding and plan as documented in the resident's note. Changes highlighted in blue font. Objective - Vital Signs Vital signs: Vital Signs Temp 97.1 F L 04/21/24 08:35 Pulse 79 04/21/24 11:40 Resp 16 04/21/24 11:40 BP 152/76 04/21/24 11:40 Pulse Ox 92 L 04/21/24 11:40 FiO2 80 04/17/24 15:56 Intake & Output 04/20/24 04/21/24 04/21/24 18:59 06:59 18:59 Intake Total 480 240 Output Total 900 225 Balance -420 -225 240 Weight 69.5 kg Intake: Oral 480 240 Output: Urine 900 225 Other: Voiding Method Urinal Urinal Urinal - Labs CBC & Chem 7: 04/21/24 06:51 04/21/24 06:51 Labs: Abnormal Lab Results - Last 24 Hours (Table) 04/21/24 04/21/24 Range/Units 06:51 06:51 RBC 3.59 L (4.30-5.90) m/uL Hgb 10.9 L (13.0-17.5) gm/dL Hct 33.2 L (39.0-53.0) % RDW 16.0 H (11.5-15.5) % Lymphocytes # 0.9 L (1.0-4.8) k/uL Sodium 134 L (137-145) mmol/L BUN 34 H (9-20) mg/dL Glucose 103 H (74-99) mg/dL ALT 77 H (4-49) U/L Total Protein 5.3 L (6.3-8.2) g/dL Albumin 2.8 L (3.5-5.0) g/dL Microbiology - Last 24 Hours (Table) 04/17/24 19:29 Blood Culture - Preliminary Blood
[2024-04-21] MEDS: DOCUSATE 100 MG CAP PO PRN (20:07)
[2024-04-22 06:32] LABS: Anisocytosis Slight; Basophils # (A) 0.1 k/uL (0-0.2); Basophils % (A) 1 %; Eosinophils % (A) 0 %; HCT 34.1 % (39.0-53.0); HGB 10.8 gm/dL (13.0-17.5); Lymphocytes # (A) 1.1 k/uL (1.0-4.8); Lymphocytes % (A) 10 %; MCH 29.4 pg (25.0-35.0); MCHC 31.7 g/dL (31.0-37.0); MCV 92.8 fL (80.0-100.0); Mean Platelet Volume 7.2; Monocytes # (A) 0.7 k/uL (0-1.0); Monocytes % (A) 7 %; Neutrophils # (A) 8.7 k/uL (1.3-7.7); Neutrophils % (A) 81 %; Platelet Count 347 k/uL (150-450); RBC 3.67 m/uL (4.30-5.90); RDW 16.1 % (11.5-15.5); WBC 10.8 k/uL (3.8-10.6)
[2024-04-22 07:08] LABS: ALT 118 U/L (4-49); AST 51 U/L (17-59); African American GFR (CKD) 57 (>60 ml/min/1.73 sqM); Albumin 2.9 g/dL (3.5-5.0); Alkaline Phosphatase 94 U/L (38-126); Anion Gap 6 mmol/L; Blood Urea Nitrogen 34 mg/dL (9-20); Calcium 8.7 mg/dL (8.4-10.2); Carbon Dioxide 28 mmol/L (22-30); Chloride 101 mmol/L (98-107); Glucose 99 mg/dL (74-99); Magnesium 1.6 mg/dL (1.6-2.3); Non-African American GFR(CKD) 49 (>60 ml/min/1.73 sqM); Potassium 4.8 mmol/L (3.5-5.1); Sodium 135 mmol/L (137-145); Total Bilirubin 0.5 mg/dL (0.2-1.3); Total Protein 5.6 g/dL (6.3-8.2)
[2024-04-22 11:49] VITALS: BMI 24.0
--- NOTE | 2024-04-22 13:25 | P.PN ---
Subjective Progress Note Date: 04/22/24 Principal diagnosis: Shortness of breath. Patient is a 78-year-old male with past medical history significant for coronary disease, hypertension, hyperlipidemia, chronic lung disease, and recent hospitalization for COVID-19 pneumonia. His PCP is Dr. Serrano. His established cleat maker is a Dr. Terrence Maynard from the [facility]. Of note, patient had a recent prolonged hospitalization March 16 through April 11 secondary to COVID-19 related pneumonia on top of suspected underlying chronic interstitial lung disease. He was ultimately discharged home, with supplemental oxygen in the order of 7 L/min. Patient returns to the emergency department yesterday afternoon complaining of acute on chronic shortness of breath that developed while ambulating to the bathroom. He has a pulse oximeter at home, states he could not get his oxygen levels above 70%, so he called EMS. He has had a persistent nonproductive cough since his hospital discharge. Dari meade, was in some respiratory distress in the emergency department, and initially placed on BiPAP. Workup included a chest x-ray showing new right axillary and right neck subcutaneous emphysema. Follow-up nonenhanced CT of the chest/abdomen/pelvis showing subcutaneous emphysema throughout the right neck, right anterior chest wall and throughout the mediastinum. No definitive airway defect visualized. No pneumothoraces. Likely some chronic fibrotic changes particularly at the lung bases. Patient is currently being evaluated in the emergency department. He is on 15 L high flow nasal cannula. Patient denies any trauma or recent surgical procedures. Did have Bronchoscopy with BAL approxim ately 6 months ago. Denies chest pain. Denies any significant intractable nausea or vomiting, dysphagia, or odynophagia. Denies any voice changes or hoarseness. No airway stridor. Afebrile. CBC: WBC count 7.2, hemoglobin 13.2, hematocrit 41, platelets 261. CMP: Sodium 137, potassium 4.4, chloride 101, serum bicarb 26, BUN 37, creatinine 1.93, glucose 102. Lactic was 4.2 and is down to 1.3. Magnesium 1.7. LFTs unremarkable. Normal saline infusing at 130 mL/h. Troponin 0.053. Patient is again positive for COVID by PCR, likely residual finding from prior infection. Of note, patient's D-dimer was elevated at 9.1. He was started on a high intensity heparin infusion per protocol by the ER provider. There is a VQ scan ordered, which will likely be of indeterminate as the patient has chronic lung disease. No unilateral lower extremity edema. Patient empirically started on antibiotics the ED. Most recent vital signs: Heart rate 66 bpm, blood pressure 104/62 mmHg, nontachypneic, SpO2 is reading 98% on 15 L high flow nasal cannula. BiPAP is off and at the bedside. Progress note dated April 19, 2024. 78-year-old male well-known to our service. The patient was in the hospital here, recently with COVID-19 related pneumonia. He spent 3 weeks in the hospital, and was discharged to home. He was discharged to home on 7 L of oxygen. He spent 1 week at home, and came back to the hospital, for increasing shortness of breath. Today he is seen in room 358. He is getting saline at 130 cc an hour, and high flow nasal cannula at 15 L. His procalcitonin level was 2.08. He tested positive for coronavirus infection. His ventilation/perfusion lung scan was nondiagnostic. A family member was on the phone and had a number of questions, all of which I answered. Current labs include a white count 5.8, hemoglobin 10.8, hematocrit 34.2, and a normal platelet count. Sodium 138, potassium 4.7, chlorides 102, CO2 30, BUN 34, creatinine 1.17. Glucose is 115. Calcium 8.2. Troponins were 0.085 and 0.052. Procalcitonin level is mention was 2.08. Progress note dated April 20, 2024. 78-year-old male seen today in room 358. The patient continues on high flow nasal cannula at 8 L. His procalcitonin level was 2.08. He is not receiving any IV fluids. He continues on Rocephin, and Decadron. White count 6.5, hemoglobin 10.8, hematocrit 33.2, platelet count 317,000. Sodium 136, potassium 5.1, chlorides 103, CO2 30, BUN 34, and creatinine 1.22. Progress note dated April 21, 2024. 78-year-old male seen today in room 358. He is sitting at the side of the bed, and continues on high flow nasal O2 at 8 L. His saturations, just moving from the supine position, to the seated position, dropped precipitously. The patient is getting saline at 20 cc an hour. The patient did complete Rocephin. We will order chest x-ray today. Current labs include a white count 8.1, hemoglobin 10.9, hematocrit 33.2, and a platelet count of 246,000. Sodium 134, potassium 4.5, chlorides 102, CO2 30, BUN 34, and creatinine 1.14. Glucose is 103. Blood cultures are currently negative. The patient's chest x-ray shows persistent bilateral reticular opacities, likely representing pulmonary fibrosis. In addition, the pneumomediastinum, and subcutaneous emphysema, are improved. Progress note dated April 22, 2024. 78-year-old male seen today in room 358. The patient continues on high flow nasal O2, at 7 L/min. The patient is not receiving any IV fluids. The patient has underlying interstitial lung disease, which might be complicated by coronavirus associated postinflammatory pulmonary fibrosis. The patient feels about the same. White count 10.8, hemoglobin 10.8, hematocrit 34.1, and platelet count 347,000. Sodium 135, potassium 4.8, chlorides 101, CO2 28, BUN 34, and creatinine 1.38. Chest x-ray done yesterday, has been reviewed. Objective - Vital Signs Vital signs: Vital Signs Temp 97.5 F L 04/22/24 11:47 Pulse 79 04/22/24 11:47 Resp 18 04/22/24 11:47 BP 131/64 04/22/24 11:47 Pulse Ox 90 L 04/22/24 11:47 FiO2 80 04/17/24 15:56 Intake & Output 04/21/24 04/22/24 04/22/24 18:59 06:59 18:59 Intake Total 600 540 480 Output Total 500 950 Balance 100 -410 480 Weight 69.5 kg Intake: Oral 600 540 480 Output: Urine 500 950 Other: Voiding Method Urinal Urinal # Voids 2 2 - Exam No acute distress, oriented 3. Currently on high flow nasal cannula, at 7 L/ min. HEENT examination is grossly unremarkable. Mucous membranes are moist. No oral lesions. Neck supple. Full range of motion. No adenopathy thyromegaly or neck vein distention. Cardiovascular examination reveals regular rhythm rate. S1-S2 normal. No S3 or S4. No discernible murmur noted. Lungs reveal bibasilar crackles no wheezes or rhonchi. Breath sounds are equal bilaterally. Abdomen soft bowel sounds are heard. No masses or tenderness. Extremities are intact. No cyanosis clubbing or edema. Skin is without rash or lesion. Neurologic examination is brief but nonfocal. - Labs CBC & Chem 7: 04/22/24 05:40 04/22/24 05:40 Labs: Abnormal Lab Results - Last 24 Hours (Table) 04/22/24 04/22/24 Range/Units 05:40 05:40 WBC 10.8 H (3.8-10.6) k/uL RBC 3.67 L (4.30-5.90) m/uL Hgb 10.8 L (13.0-17.5) gm/dL Hct 34.1 L (39.0-53.0) % RDW 16.1 H (11.5-15.5) % Neutrophils # 8.7 H (1.3-7.7) k/uL Sodium 135 L (137-145) mmol/L BUN 34 H (9-20) mg/dL Creatinine 1.38 H (0.66-1.25) mg/dL ALT 118 H (4-49) U/L Total Protein 5.6 L (6.3-8.2) g/dL Albumin 2.9 L (3.5-5.0) g/dL Microbiology - Last 24 Hours (Table) 04/17/24 19:29 Blood Culture - Preliminary Blood Assessment and Plan Assessment: Pneumomediastinum, possibly secondary to patient's chronic lung disease and recent COVID-19 infection. Acute hypoxemic respiratory failure, currently on 7 L high flow nasal cannula. Recent COVID-19 infection/COVID-19 pneumonia, with prolonged hospitalization March 16 through April 11. 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 Elevated D-dimer. Lactic acidemia, improved. Acute kidney injury, creatinine up to 1.93. Chronic kidney disease stage II. Elevated troponin, possibly secondary to type II RI and hypoxia. History of coronary artery disease with previous PCI/stents. Hypertension. History of hyperlipidemia. Remote history of tobacco use. Plan: Plan dated April 19, 2024. The patient is seen today in room 358. The patient is on high flow nasal cannula at 15 L. Patient is also receiving IV fluids, saline, 130 cc an hour. The patient was recently in the hospital, for 3 weeks, with a COVID-19 pneumonia . He was discharged home, and was home for about a week, and then came back into the hospital. At home, he was on 7 L of oxygen. Currently, his procalcitonin level was 2.08. He did test positive for coronavirus again. His ventilation/perfusion study was nondiagnostic. The patient continues on antibiotics, and Decadron. We will continue to follow. All questions by family members, were answered. Plan dated April 20, 2024. The patient is seen today in room 358. The patient is nasal cannula, high flow is at 8 L/min. Yesterday, he was on 15 L high flow nasal cannula. The patient continues on Rocephin and Decadron. His procalcitonin level was 2.08. He is not receiving any IV fluids. He seems a bit more comfortable today. We will continue to follow make recommendations along the way. Prognosis is certainly guarded. I did speak to his daughter yesterday, and answered a number of questions, and concerns that she had. Additional conversation between her, and the primary service, should take place. Plan dated April 21, 2024. The patient is seen today in room 358. The patient continues on 8 L high flow nasal cannula. He is very short of breath with any activity. Just getting from the lying position to the seating position, at the side of the bed, saturations are in the low 80s. I suspect the patient has underlying interstitial lung disease, for which she was seeing an outside cleat maker. In addition, the patient may have postinflammatory pulmonary fibrosis, from his recent coronavirus associated pneumonia, complicating his interstitial disease. The cassidy cardenas did complete his Rocephin. We will continue to follow. Prognosis is guarded. All labs, x-rays, and medications are reviewed. Plan dated April 22, 2024. The patient's overall prognosis remains poor. With any activity, the patient desaturates. Yesterday, moving in bed, from a supine position, to a seated position, at the edge of the bed, causing saturations to drop into the high 70s, and low 80s. Labs, x-rays, and all medications are reviewed. We will continue to follow the patient, make recommendations along the way. The patient is currently on high flow nasal O2, at 7 L. We will continue to follow make recommendations. Prognosis is poor. Time with Patient: Less than 30
--- NOTE | 2024-04-22 15:04 | P.PN ---
Subjective Progress Note Date: 04/22/24 Hospital Course: Patient is a 78-year-old male with past medical history of pulmonary fibrosis, hyperlipidemia, hypertension, GERD, BPH, history of CAD with stent placement presents to the emergency room with chief complaint of shortness of breath. Patient states he was recently discharged from the hospital for pneumonia and he has been home about a week. Patient states this morning he went to the restroom and desatted to 70 and then got himself back into a chair when he states his saturations were between 50 and 60 and he was unable to catch his breath. Patient reports that since leaving the hospital he has been on 7 L of home oxygen and he has been using his nebulizer 4 times daily. Patient also endorses a dry cough, chills, subjective fevers. He denies any chest pain, abdominal pain, nausea, vomiting, diarrhea. It is of note that when attempting to reposition the patient and he laid supine his saturations went from 95-85. Vitals on admission temperature 97.8, heart rate 133, respiratory rate 40, saturating 85% on BiPAP EKG independently interpreted as sinus tachycardia, ventricular rate 135, QTc of 400 CXR shows right axillary and right neck subcutaneous emphysema, remainder is unchanged from prior with multifocal airspace opacities and reticular opacities CT of subcutaneous emphysema throughout the right neck, right anterior chest throughout the mediastinum, scattered reticular and airspace opacities Labs on admission show WBC 7.2, hemoglobin 13.2, platelets 261. PT 10.8, INR 1.0, PTT 19.7, D-dimer 9.1. Sodium 137, potassium 4.4, chloride 101, bicarb 26, BUN 37, creatinine 1.93, glucose 102. Lactate 4.2, repeat 1.3. Troponin 0.053. Cepheid was positive for COVID. Subjective: Patient seen and examined at bedside. No acute events overnight. Patient reports of shortness of breath with any activity he does. Currently on 8 L high flow nasal cannula. Pertinent positives and negatives as discussed above, a complete review of systems was performed and all other systems are negative. Vitals: Signs Reviewed Physical examination: Vital signs reviewed General: nontoxic, no distress, appears at stated age, no acute distress Derm: warm, dry, intact Head: atraumatic, normocephalic, symmetric Eyes: anicteric sclera Mouth: no lip lesion, mucus membranes moist Cardiovascular: S1 S2 reg, no murmur Lungs: Bilateral basilar rhonchi noted, no rales, no accessory muscle use Abdominal: soft, non-tender to palpation, nondistended Extremities: No cyanosis, clubbing, or pedal edema. Neuro: Alert, Oriented to person, time and place, Gross neurological examination did not reveal any focal deficits. Cranial nerves II to XII grossly intact. Bilateral upper and lower extremity muscle strength intact and sensation intact. Psych: well appearing, appropriate affect Data Received Today: Pertinent Labs: WBC 10.8, Hgb 10.8, sodium 135 34, creatinine 1.38 Imaging: N/A Assessment and Plan: Patient is a 78-year-old male with past medical history of pulmonary fibrosis, hyperlipidemia, hypertension, GERD, BPH, history of CAD presented to the ER with chief complaint of shortness of breath and hypoxia. Active: COVID-19 pneumonia Acute hypoxic respiratory failure Pulmonary fibrosis Currently on 8 L high flow nasal cannula, attempt to wean down as tolerated > 88% Dexamethasone 6 mg po qd Procalcitonin elevated at 2.08 Rocephin has been discontinued Pulmonology note reviewed, continue with current management Spoke with daughter regarding patient's prognosis, wants to see if he can go to assisted living care facility, will try to contact her tomorrow to discuss goals of care Patient confirmed order of SNF choice with case management, [facility] declined type II NSTEMI EKG independently interpreted as sinus tachycardia, ventricular rate 135, QTc of 400 -Troponins 0.053 => 0.085 => 0.052 Likely from COVID-pneumonia Sepsis secondary to pneumonia, improved CXR shows right axillary and right neck subcutaneous emphysema, remainder is unchanged from prior with multifocal airspace opacities and reticular opacities CT of subcutaneous emphysema throughout the right neck, right anterior chest throughout the mediastinum, scattered reticular and airspace opacities Ceftriaxone discontinued azithromycin 500 mg p.o. daily discontinued Obtain morning CBC Legionella antigen negative Blood cultures, sputum culture pending JUANCARLOS on chronic kidney disease stage II, resolved Continue to monitor Normal saline at 130 cc/hr discontinued Elevated D-dimer, rule out pulmonary embolism, resolved CTA not done due to poor renal function VQ scan showing no signs of PE, discontinue heparin infusion Lactic acidosis, resolved Lactate 4.2, repeat 1.2 Chronic: Hypertension Hold losartan 100 mg until kidney function improves Continue amlodipine 2.5 mg Hyperlipidemia Continue pravastatin 80 mg daily GERD Continue famotidine 40 mg twice daily BPH Continue finasteride 5 mg daily F: PO E: Replete as needed N: Heart healthy A: Fall precautions DVT prophylaxis: Heparin 5000 unit SQ every 8 hours Code status: FULL CODE Anticipated discharge place: pending clinical course Anticipated discharge time: pending clinical course Prognosis is guarded. I saw and evaluated the patient during the ness and critical portions of this encounter, and discussed the case in detail with the resident author of this note, I agree with the Assessment and Plan, and my changes, if any, are highlighted in blue. Objective - Vital Signs Vital signs: Vital Signs Temp 98.3 F 04/22/24 03:17 Pulse 69 04/22/24 03:17 Resp 16 04/22/24 03:17 BP 144/72 04/22/24 03:17 Pulse Ox 93 L 04/22/24 03:17 FiO2 80 04/17/24 15:56 Intake & Output 04/21/24 04/22/24 04/22/24 18:59 06:59 18:59 Intake Total 600 540 Output Total 500 950 Balance 100 -410 Intake: Oral 600 540 Output: Urine 500 950 Other: Voiding Method Urinal Urinal # Voids 2 2 - Labs CBC & Chem 7: 04/22/24 05:40 04/22/24 05:40 Labs: Abnormal Lab Results - Last 24 Hours (Table) 04/22/24 04/22/24 Range/Units 05:40 05:40 WBC 10.8 H (3.8-10.6) k/uL RBC 3.67 L (4.30-5.90) m/uL Hgb 10.8 L (13.0-17.5) gm/dL Hct 34.1 L (39.0-53.0) % RDW 16.1 H (11.5-15.5) % Neutrophils # 8.7 H (1.3-7.7) k/uL Sodium 135 L (137-145) mmol/L BUN 34 H (9-20) mg/dL Creatinine 1.38 H (0.66-1.25) mg/dL ALT 118 H (4-49) U/L Total Protein 5.6 L (6.3-8.2) g/dL Albumin 2.9 L (3.5-5.0) g/dL Microbiology - Last 24 Hours (Table) 04/17/24 19:29 Blood Culture - Preliminary Blood
--- NOTE | 2024-04-23 11:26 | P.PN ---
Subjective Progress Note Date: 04/23/24 Principal diagnosis: Shortness of breath. Patient is a 78-year-old male with past medical history significant for coronary disease, hypertension, hyperlipidemia, chronic lung disease, and recent hospitalization for COVID-19 pneumonia. His PCP is Dr. Serrano. His established floor covering printer is a Dr. Terrence Maynard from the [facility]. Of note, patient had a recent prolonged hospitalization March 16 through April 11 secondary to COVID-19 related pneumonia on top of suspected underlying chronic interstitial lung disease. He was ultimately discharged home, with supplemental oxygen in the order of 7 L/min. Patient returns to the emergency department yesterday afternoon complaining of acute on chronic shortness of breath that developed while ambulating to the bathroom. He has a pulse oximeter at home, states he could not get his oxygen levels above 70%, so he called EMS. He has had a persistent nonproductive cough since his hospital discharge. Dari meade, was in some respiratory distress in the emergency department, and initially placed on BiPAP. Workup included a chest x-ray showing new right axillary and right neck subcutaneous emphysema. Follow-up nonenhanced CT of the chest/abdomen/pelvis showing subcutaneous emphysema throughout the right neck, right anterior chest wall and throughout the mediastinum. No definitive airway defect visualized. No pneumothoraces. Likely some chronic fibrotic changes particularly at the lung bases. Patient is currently being evaluated in the emergency department. He is on 15 L high flow nasal cannula. Patient denies any trauma or recent surgical procedures. Did have Bronchoscopy with BAL approxim ately 6 months ago. Denies chest pain. Denies any significant intractable nausea or vomiting, dysphagia, or odynophagia. Denies any voice changes or hoarseness. No airway stridor. Afebrile. CBC: WBC count 7.2, hemoglobin 13.2, hematocrit 41, platelets 261. CMP: Sodium 137, potassium 4.4, chloride 101, serum bicarb 26, BUN 37, creatinine 1.93, glucose 102. Lactic was 4.2 and is down to 1.3. Magnesium 1.7. LFTs unremarkable. Normal saline infusing at 130 mL/h. Troponin 0.053. Patient is again positive for COVID by PCR, likely residual finding from prior infection. Of note, patient's D-dimer was elevated at 9.1. He was started on a high intensity heparin infusion per protocol by the ER provider. There is a VQ scan ordered, which will likely be of indeterminate as the patient has chronic lung disease. No unilateral lower extremity edema. Patient empirically started on antibiotics the ED. Most recent vital signs: Heart rate 66 bpm, blood pressure 104/62 mmHg, nontachypneic, SpO2 is reading 98% on 15 L high flow nasal cannula. BiPAP is off and at the bedside. Progress note dated April 19, 2024. 78-year-old male well-known to our service. The patient was in the hospital here, recently with COVID-19 related pneumonia. He spent 3 weeks in the hospital, and was discharged to home. He was discharged to home on 7 L of oxygen. He spent 1 week at home, and came back to the hospital, for increasing shortness of breath. Today he is seen in room 358. He is getting saline at 130 cc an hour, and high flow nasal cannula at 15 L. His procalcitonin level was 2.08. He tested positive for coronavirus infection. His ventilation/perfusion lung scan was nondiagnostic. A family member was on the phone and had a number of questions, all of which I answered. Current labs include a white count 5.8, hemoglobin 10.8, hematocrit 34.2, and a normal platelet count. Sodium 138, potassium 4.7, chlorides 102, CO2 30, BUN 34, creatinine 1.17. Glucose is 115. Calcium 8.2. Troponins were 0.085 and 0.052. Procalcitonin level is mention was 2.08. Progress note dated April 20, 2024. 78-year-old male seen today in room 358. The patient continues on high flow nasal cannula at 8 L. His procalcitonin level was 2.08. He is not receiving any IV fluids. He continues on Rocephin, and Decadron. White count 6.5, hemoglobin 10.8, hematocrit 33.2, platelet count 317,000. Sodium 136, potassium 5.1, chlorides 103, CO2 30, BUN 34, and creatinine 1.22. Progress note dated April 21, 2024. 78-year-old male seen today in room 358. He is sitting at the side of the bed, and continues on high flow nasal O2 at 8 L. His saturations, just moving from the supine position, to the seated position, dropped precipitously. The patient is getting saline at 20 cc an hour. The patient did complete Rocephin. We will order chest x-ray today. Current labs include a white count 8.1, hemoglobin 10.9, hematocrit 33.2, and a platelet count of 246,000. Sodium 134, potassium 4.5, chlorides 102, CO2 30, BUN 34, and creatinine 1.14. Glucose is 103. Blood cultures are currently negative. The patient's chest x-ray shows persistent bilateral reticular opacities, likely representing pulmonary fibrosis. In addition, the pneumomediastinum, and subcutaneous emphysema, are improved. Progress note dated April 22, 2024. 78-year-old male seen today in room 358. The patient continues on high flow nasal O2, at 7 L/min. The patient is not receiving any IV fluids. The patient has underlying interstitial lung disease, which might be complicated by coronavirus associated postinflammatory pulmonary fibrosis. The patient feels about the same. White count 10.8, hemoglobin 10.8, hematocrit 34.1, and platelet count 347,000. Sodium 135, potassium 4.8, chlorides 101, CO2 28, BUN 34, and creatinine 1.38. Chest x-ray done yesterday, has been reviewed. Progress note April 23 2024. The patient is seen today, in room 358. The respiratory therapist is in the room with the patient, and states that on 8 L high flow nasal cannula, his sats are 89 to 91%. The patient is not receiving any IV fluids. Clinically, he is doing about the same. With any movement or exertion, he becomes very short of breath. The patient has a history of underlying interstitial lung disease, and may have a component of the postinflammatory pulmonary fibrosis, during her recent episode of COVID pneumonia. Current laboratory data is all from yesterday, nothing from today as yet. Objective - Vital Signs Vital signs: Vital Signs Temp 97.7 F 04/23/24 08:50 Pulse 79 04/23/24 08:50 Resp 18 04/23/24 08:50 BP 148/70 04/23/24 08:50 Pulse Ox 95 04/23/24 09:00 FiO2 80 04/17/24 15:56 Intake & Output 04/22/24 04/23/2425 18:59 06:59 18:59 Intake Total 720 10 240 Output Total 480 800 400 Balance 240 -790 -160 Weight 69.5 kg 65.5 kg Intake: IV 10 0.9 10 Oral 720 240 Output: Urine 480 800 400 Other: Voiding Method Urinal - Exam No acute distress, oriented 3. Currently on high flow nasal cannula, at 8 L/min. HEENT examination is grossly unremarkable. Mucous membranes are moist. No oral lesions. Neck supple. Full range of motion. No adenopathy thyromegaly or neck vein distention. Cardiovascular examination reveals regular rhythm rate. S1-S2 normal. No S3 or S4. No discernible murmur noted. Lungs reveal bibasilar crackles no wheezes or rhonchi. Breath sounds are equal bilaterally. Abdomen soft bowel sounds are heard. No masses or tenderness. Extremities are intact. No cyanosis clubbing or edema. Skin is without rash or lesion. Neurologic examination is brief but nonfocal. - Labs CBC & Chem 7: 04/22/24 05:40 04/22/24 05:40 Assessment and Plan Assessment: Pneumomediastinum, possibly secondary to patient's chronic lung disease and recent COVID-19 infection. Acute hypoxemic respiratory failure, currently on 8 L high flow nasal cannula. Recent COVID-19 infection/COVID-19 pneumonia, with prolonged hospitalization March 16 through April 11. 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 Elevated D-dimer. Lactic acidemia, improved. Acute kidney injury, creatinine up to 1.93. Chronic kidney disease stage II. Elevated troponin, possibly secondary to type II OR and hypoxia. History of coronary artery disease with previous PCI/stents. Hypertension. History of hyperlipidemia. Remote history of tobacco use. Plan: Plan dated April 19, 2024. The patient is seen today in room 358. The patient is on high flow nasal cannula at 15 L. Patient is also receiving IV fluids, saline, 130 cc an hour. The patient was recently in the hospital, for 3 weeks, with a COVID-19 pneumonia. He was discharged home, and was home for about a week, and then came back into the hospital. At home, he was on 7 L of oxygen. Currently, his procalcitonin level was 2.08. He did test positive for coronavirus again. His ventilation/perfusion study was nondiagnostic. The patient continues on antibiotics, and Decadron. We will continue to follow. All questions by family members, were answered. Plan dated April 20, 2024. The patient is seen today in room 358. The patient is nasal cannula, high flow is at 8 L/min. Yesterday, he was on 15 L high flow nasal cannula. The patient continues on Rocephin and Decadron. His procalcitonin level was 2.08. He is not receiving any IV fluids. He seems a bit more comfortable today. We will continue to follow make recommendations along the way. Prognosis is certainly guarded. I did speak to his daughter yesterday, and answered a number of questions, and concerns that she had. Additional conversation between her, and the primary service, should take place. Plan dated April 21, 2024. The patient is seen today in room 358. The patient continues on 8 L high flow nasal cannula. He is very short of breath with any activity. Just getting from the lying position to the seating position, at the side of the bed, saturations are in the low 80s. I suspect the patient has underlying interstitial lung disease, for which she was seeing an outside floor covering printer. In addition, the patient may have postinflammatory pulmonary fibrosis, from his recent coronavirus associated pneumonia, complicating his interstitial disease. The patient did complete his Rocephin. We will continue to follow. Prognosis is guarded. All labs, x-rays, and medications are reviewed. Plan dated April 22, 2024. The patient's overall prognosis remains poor. With any activity, the patient desaturates. Yesterday, moving in bed, from a supine position, to a seated position, at the edge of the bed, causing saturations to drop into the high 70s, and low 80s. Labs, x-rays, and all medications are reviewed. We will continue to follow the patient, make recommendations along the way. The patient is currently on high flow nasal O2, at 7 L. We will continue to follow make recommendations. Prognosis is poor. Plan dated April 23, 2024. The patient's overall condition remains about the same. He is on 8 L high flow nasal cannula, with saturations between 89 and 91%. He is not receiving any IV fluids. The patient is currently on Decadron 6 mg a day. He is getting albuterol inhaler. Additional recommendations and suggestions are forthcoming. He has completed his antibiotics. Prognosis is guarded. Time with Patient: Less than 30
--- NOTE | 2024-04-23 12:55 | P.PN ---
Subjective Progress Note Date: 04/23/24 Hospital Course: Patient is a 78-year-old male with past medical history of pulmonary fibrosis, hyperlipidemia, hypertension, GERD, BPH, history of CAD with stent placement presents to the emergency room with chief complaint of shortness of breath. Patient states he was recently discharged from the hospital for pneumonia and he has been home about a week. Patient states this morning he went to the restroom and desatted to 70 and then got himself back into a chair when he states his saturations were between 50 and 60 and he was unable to catch his breath. Patient reports that since leaving the hospital he has been on 7 L of home oxygen and he has been using his nebulizer 4 times daily. Patient also endorses a dry cough, chills, subjective fevers. He denies any chest pain, abdominal pain, nausea, vomiting, diarrhea. It is of note that when attempting to reposition the patient and he laid supine his saturations went from 95-85. Vitals on admission temperature 97.8, heart rate 133, respiratory rate 40, saturating 85% on BiPAP EKG independently interpreted as sinus tachycardia, ventricular rate 135, QTc of 400 CXR shows right axillary and right neck subcutaneous emphysema, remainder is unchanged from prior with multifocal airspace opacities and reticular opacities CT of subcutaneous emphysema throughout the right neck, right anterior chest throughout the mediastinum, scattered reticular and airspace opacities Labs on admission show WBC 7.2, hemoglobin 13.2, platelets 261. PT 10.8, INR 1.0, PTT 19.7, D-dimer 9.1. Sodium 137, potassium 4.4, chloride 101, bicarb 26, BUN 37, creatinine 1.93, glucose 102. Lactate 4.2, repeat 1.3. Troponin 0.053. Cepheid was positive for COVID. Subjective: Patient seen and examined at bedside. No acute events overnight. Patient reports of shortness of breath with any activity he does. Currently on 8 L high flow nasal cannula. Pertinent positives and negatives as discussed above, a complete review of systems was performed and all other systems are negative. Vitals: Signs Reviewed Physical examination: Vital signs reviewed General: nontoxic, no distress, appears at stated age, no acute distress Derm: warm, dry, intact Head: atraumatic, normocephalic, symmetric Eyes: anicteric sclera Mouth: no lip lesion, mucus membranes moist Cardiovascular: S1 S2 reg, no murmur Lungs: Bilateral basilar rhonchi noted, no rales, no accessory muscle use Abdominal: soft, non-tender to palpation, nondistended Extremities: No cyanosis, clubbing, or pedal edema. Neuro: Alert, Oriented to person, time and place, Gross neurological examination did not reveal any focal deficits. Cranial nerves II to XII grossly intact. Bilateral upper and lower extremity muscle strength intact and sensation intact. Psych: well appearing, appropriate affect Data Received Today: Pertinent Labs: WBC 10.8, Hgb 10.8, sodium 135 34, creatinine 1.38 Imaging: N/A Assessment and Plan: Patient is a 78-year-old male with past medical history of pulmonary fibrosis, hyperlipidemia, hypertension, GERD, BPH, history of CAD presented to the ER with chief complaint of shortness of breath and hypoxia. Active: COVID-19 pneumonia Acute hypoxic respiratory failure Pulmonary fibrosis Currently on 8 L high flow nasal cannula, attempt to wean down as tolerated > 88% Dexamethasone 6 mg po qd Procalcitonin elevated at 2.08 Rocephin has been discontinued Pulmonology note reviewed, continue with current management Spoke with daughter regarding patient's prognosis, wants to see if he can go to assisted living care facility, will try to contact her tomorrow to discuss goals of care Patient confirmed order of SNF choice with case management, [facility] declined type II NSTEMI EKG independently interpreted as sinus tachycardia, ventricular rate 135, QTc of 400 -Troponins 0.053 => 0.085 => 0.052 Likely from COVID-pneumonia Sepsis secondary to pneumonia, improved CXR shows right axillary and right neck subcutaneous emphysema, remainder is unchanged from prior with multifocal airspace opacities and reticular opacities CT of subcutaneous emphysema throughout the right neck, right anterior chest throughout the mediastinum, scattered reticular and airspace opacities Ceftriaxone discontinued azithromycin 500 mg p.o. daily discontinued Obtain morning CBC Legionella antigen negative Blood cultures, sputum culture pending JUANCARLOS on chronic kidney disease stage II, resolved Continue to monitor Normal saline at 130 cc/hr discontinued Elevated D-dimer, rule out pulmonary embolism, resolved CTA not done due to poor renal function VQ scan showing no signs of PE, discontinue heparin infusion Lactic acidosis, resolved Lactate 4.2, repeat 1.2 Chronic: Hypertension Hold losartan 100 mg until kidney function improves Continue amlodipine 2.5 mg Hyperlipidemia Continue pravastatin 80 mg daily GERD Continue famotidine 40 mg twice daily BPH Continue finasteride 5 mg daily F: PO E: Replete as needed N: Heart healthy A: Fall precautions DVT prophylaxis: Heparin 5000 unit SQ every 8 hours Code status: FULL CODE Anticipated discharge place: pending clinical course Anticipated discharge time: pending clinical course Prognosis is guarded. Objective - Vital Signs Vital signs: Vital Signs Temp 97.7 F 04/23/24 08:50 Pulse 79 04/23/24 08:50 Resp 18 04/23/24 08:50 BP 148/70 04/23/24 08:50 Pulse Ox 95 04/23/24 09:00 FiO2 80 04/17/24 15:56 Intake & Output 04/22/24 04/23/24 04/23/24 18:59 06:59 18:59 Intake Total 720 10 240 Output Total 480 800 400 Balance 240 -790 -160 Weight 69.5 kg 65.5 kg Intake: IV 10 0.9 10 Oral 720 240 Output: Urine 480 800 400 Other: Voiding Method Urinal - Labs CBC & Chem 7: 04/22/24 05:40 04/22/24 05:40
[2024-04-24 06:39] LABS: Anisocytosis Slight; Basophils # (A) 0.1 k/uL (0-0.2); Basophils % (A) 1 %; Eosinophils % (A) 0 %; HCT 36.8 % (39.0-53.0); HGB 11.8 gm/dL (13.0-17.5); Lymphocytes # (A) 1.5 k/uL (1.0-4.8); Lymphocytes % (A) 11 %; MCH 29.7 pg (25.0-35.0); MCV 92.9 fL (80.0-100.0); Mean Platelet Volume 7.1; Monocytes # (A) 1.1 k/uL (0-1.0); Monocytes % (A) 8 %; Neutrophils # (A) 10.8 k/uL (1.3-7.7); Neutrophils % (A) 78 %; Platelet Count 411 k/uL (150-450); RBC 3.96 m/uL (4.30-5.90); RDW 16.4 % (11.5-15.5); WBC 13.8 k/uL (3.8-10.6)
[2024-04-24 06:52] LABS: ALT 175 U/L (4-49); AST 54 U/L (17-59); African American GFR (CKD) 67 (>60 ml/min/1.73 sqM); Albumin 3.1 g/dL (3.5-5.0); Alkaline Phosphatase 105 U/L (38-126); Anion Gap 3 mmol/L; Blood Urea Nitrogen 35 mg/dL (9-20); Calcium 8.8 mg/dL (8.4-10.2); Carbon Dioxide 31 mmol/L (22-30); Chloride 99 mmol/L (98-107); Glucose 107 mg/dL (74-99); Magnesium 1.7 mg/dL (1.6-2.3); Non-African American GFR(CKD) 58 (>60 ml/min/1.73 sqM); Sodium 133 mmol/L (137-145); Total Bilirubin 0.6 mg/dL (0.2-1.3); Total Protein 5.8 g/dL (6.3-8.2)
--- NOTE | 2024-04-24 11:25 | P.PN ---
Subjective Progress Note Date: 04/24/24 Principal diagnosis: Shortness of breath. Patient is a 78-year-old male with past medical history significant for coronary disease, hypertension, hyperlipidemia, chronic lung disease, and recent hospitalization for COVID-19 pneumonia. His PCP is Dr. Serrano. His established general warehouse worker is a Dr. Terrence Maynard from the [facility]. Of note, patient had a recent prolonged hospitalization March 16 through April 11 secondary to COVID-19 related pneumonia on top of suspected underlying chronic interstitial lung disease. He was ultimately discharged home, with supplemental oxygen in the order of 7 L/min. Patient returns to the emergency department yesterday afternoon complaining of acute on chronic shortness of breath that developed while ambulating to the bathroom. He has a pulse oximeter at home, states he could not get his oxygen levels above 70%, so he called EMS. He has had a persistent nonproductive cough since his hospital discharge. Dari meade, was in some respiratory distress in the emergency department, and initially placed on BiPAP. Workup included a chest x-ray showing new right axillary and right neck subcutaneous emphysema. Follow-up nonenhanced CT of the chest/abdomen/pelvis showing subcutaneous emphysema throughout the right neck, right anterior chest wall and throughout the mediastinum. No definitive airway defect visualized. No pneumothoraces. Likely some chronic fibrotic changes particularly at the lung bases. Patient is currently being evaluated in the emergency department. He is on 15 L high flow nasal cannula. Patient denies any trauma or recent surgical procedures. Did have Bronchoscopy with BAL approxim ately 6 months ago. Denies chest pain. Denies any significant intractable nausea or vomiting, dysphagia, or odynophagia. Denies any voice changes or hoarseness. No airway stridor. Afebrile. CBC: WBC count 7.2, hemoglobin 13.2, hematocrit 41, platelets 261. CMP: Sodium 137, potassium 4.4, chloride 101, serum bicarb 26, BUN 37, creatinine 1.93, glucose 102. Lactic was 4.2 and is down to 1.3. Magnesium 1.7. LFTs unremarkable. Normal saline infusing at 130 mL/h. Troponin 0.053. Patient is again positive for COVID by PCR, likely residual finding from prior infection. Of note, patient's D-dimer was elevated at 9.1. He was started on a high intensity heparin infusion per protocol by the ER provider. There is a VQ scan ordered, which will likely be of indeterminate as the patient has chronic lung disease. No unilateral lower extremity edema. Patient empirically started on antibiotics the ED. Most recent vital signs: Heart rate 66 bpm, blood pressure 104/62 mmHg, nontachypneic, SpO2 is reading 98% on 15 L high flow nasal cannula. BiPAP is off and at the bedside. Progress note dated April 19, 2024. 78-year-old male well-known to our service. The patient was in the hospital here, recently with COVID-19 related pneumonia. He spent 3 weeks in the hospital, and was discharged to home. He was discharged to home on 7 L of oxygen. He spent 1 week at home, and came back to the hospital, for increasing shortness of breath. Today he is seen in room 358. He is getting saline at 130 cc an hour, and high flow nasal cannula at 15 L. His procalcitonin level was 2.08. He tested positive for coronavirus infection. His ventilation/perfusion lung scan was nondiagnostic. A family member was on the phone and had a number of questions, all of which I answered. Current labs include a white count 5.8, hemoglobin 10.8, hematocrit 34.2, and a normal platelet count. Sodium 138, potassium 4.7, chlorides 102, CO2 30, BUN 34, creatinine 1.17. Glucose is 115. Calcium 8.2. Troponins were 0.085 and 0.052. Procalcitonin level is mention was 2.08. Progress note dated April 20, 2024. 78-year-old male seen today in room 358. The patient continues on high flow nasal cannula at 8 L. His procalcitonin level was 2.08. He is not receiving any IV fluids. He continues on Rocephin, and Decadron. White count 6.5, hemoglobin 10.8, hematocrit 33.2, platelet count 317,000. Sodium 136, potassium 5.1, chlorides 103, CO2 30, BUN 34, and creatinine 1.22. Progress note dated April 21, 2024. 78-year-old male seen today in room 358. He is sitting at the side of the bed, and continues on high flow nasal O2 at 8 L. His saturations, just moving from the supine position, to the seated position, dropped precipitously. The patient is getting saline at 20 cc an hour. The patient did complete Rocephin. We will order chest x-ray today. Current labs include a white count 8.1, hemoglobin 10.9, hematocrit 33.2, and a platelet count of 246,000. Sodium 134, potassium 4.5, chlorides 102, CO2 30, BUN 34, and creatinine 1.14. Glucose is 103. Blood cultures are currently negative. The patient's chest x-ray shows persistent bilateral reticular opacities, likely representing pulmonary fibrosis. In addition, the pneumomediastinum, and subcutaneous emphysema, are improved. Progress note dated April 22, 2024. 78-year-old male seen today in room 358. The patient continues on high flow nasal O2, at 7 L/min. The patient is not receiving any IV fluids. The patient has underlying interstitial lung disease, which might be complicated by coronavirus associated postinflammatory pulmonary fibrosis. The patient feels about the same. White count 10.8, hemoglobin 10.8, hematocrit 34.1, and platelet count 347,000. Sodium 135, potassium 4.8, chlorides 101, CO2 28, BUN 34, and creatinine 1.38. Chest x-ray done yesterday, has been reviewed. Progress note April 23 2024. The patient is seen today, in room 358. The respiratory therapist is in the room with the patient, and states that on 8 L high flow nasal cannula, his sats are 89 to 91%. The patient is not receiving any IV fluids. Clinically, he is doing about the same. With any movement or exertion, he becomes very short of breath. The patient has a history of underlying interstitial lung disease, and may have a component of the pos Progress note dated April 24, 2024. The patient is seen today in room 358. The patient remains on high flow nasal O2 at 8 L/min. The patient is not receiving any IV fluids. When asked how he is doing, the patient states that he is no better, but no worse. He feels like with any activity he becomes very short of breath. He also is having a dry non productive cough, which is unchanged. Current labs include a white count 13.8, hemoglobin 11.8, macro 36.8, and a platelet count is normal. Sodium 133, potassium 5, chloride 99, CO2 31, BUN 35, and creatinine 1.21. Blood cultures are negative. Objective - Vital Signs Vital signs: Vital Signs Temp 97.6 F 04/24/24 04:00 Pulse 65 04/24/24 04:00 Resp 20 04/24/24 04:00 BP 163/80 04/24/24 04:00 Pulse Ox 98 04/24/24 04:00 FiO2 80 04/17/24 15:56 Intake & Output 04/23/24 04/24/24 04/24/24 18:59 06:59 18:59 Intake Total 600 240 Output Total 800 850 300 Balance -200 -850 -60 Intake: Oral 600 240 Output: Urine 800 850 300 Other: Voiding Method Urinal # Bowel Movements 1 - Exam No acute distress, oriented 3. Currently on high flow nasal cannula, at 8 L/min. HEENT examination is grossly unremarkable. Mucous membranes are moist. No oral lesions. Neck supple. Full range of motion. No adenopathy thyromegaly or neck vein distention. Cardiovascular examination reveals regular rhythm rate. S1-S2 normal. No S3 or S4. No discernible murmur noted. Lungs reveal bibasilar crackles no wheezes or rhonchi. Breath sounds are equal bilaterally. Abdomen soft bowel sounds are heard. No masses or tenderness. Extremities are intact. No cyanosis clubbing or edema. Skin is without rash or lesion. Neurologic examination is brief but nonfocal. - Labs CBC & Chem 7: 04/24/24 05:55 04/24/24 05:55 Labs: Abnormal Lab Results - Last 24 Hours (Table) 04/24/24 04/24/24 Range/Units 05:55 05:55 WBC 13.8 H (3.8-10.6) k/uL RBC 3.96 L (4.30-5.90) m/uL Hgb 11.8 L (13.0-17.5) gm/dL Hct 36.8 L (39.0-53.0) % RDW 16.4 H (11.5-15.5) % Neutrophils # 10.8 H (1.3-7.7) k/uL Monocytes # 1.1 H (0-1.0) k/uL Sodium 133 L (137-145) mmol/L Carbon Dioxide 31 H (22-30) mmol/L BUN 35 H (9-20) mg/dL Glucose 107 H (74-99) mg/dL ALT 175 H (4-49) U/L Total Protein 5.8 L (6.3-8.2) g/dL Albumin 3.1 L (3.5-5.0) g/dL Microbiology - Last 24 Hours (Table) 04/17/24 19:29 Blood Culture - Final Blood Assessment and Plan Assessment: Pneumomediastinum, possibly secondary to patient's chronic lung disease and recent COVID-19 infection. Acute hypoxemic respiratory failure, currently on 8 L high flow nasal cannula. Recent COVID-19 infection/COVID-19 pneumonia, with prolonged hospitalization March 16 through April 11. 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 Elevated D-dimer. Lactic acidemia, improved. Acute kidney injury, creatinine up to 1.93. Chronic kidney disease stage II. Elevated troponin, possibly secondary to type II OR and hypoxia. History of coronary artery disease with previous PCI/stents. Hypertension. History of hyperlipidemia. Remote history of tobacco use. Plan: Plan dated April 19, 2024. The patient is seen today in room 358. The patient is on high flow nasal cannula at 15 L. Patient is also receiving IV fluids, saline, 130 cc an hour. The patient was recently in the hospital, for 3 weeks, with a COVID-19 pneumonia. He was discharged home, and was home for about a week, and then came back into the hospital. At home, he was on 7 L of oxygen. Currently, his procalcitonin level was 2.08. He did test positive for coronavirus again. His ventilation/perfusion study was nondiagnostic. The patient continues on antibiotics, and Decadron. We will continue to follow. All questions by family members, were answered. Plan dated April 20, 2024. The patient is seen today in room 358. The patient is nasal cannula, high flow is at 8 L/min. Yesterday, he was on 15 L high flow nasal cannula. The patient continues on Rocephin and Decadron. His procalcitonin level was 2.08. He is not receiving any IV fluids. He seems a bit more comfortable today. We will continue to follow make recommendations along the way. Prognosis is certainly guarded. I did speak to his daughter yesterday, and answered a number of questions, and concerns that she had. Additional conversation between her, and the primary service, should take place. Plan dated April 21, 2024. The patient is seen today in room 358. The patient continues on 8 L high flow nasal cannula. He is very short of breath with any activity. Just getting from the lying position to the seating position, at the side of the bed, saturations are in the low 80s. I suspect the patient has underlying interstitial lung disease, for which she was seeing an outside general warehouse worker. In addition, the patient may have postinflammatory pulmonary fibrosis, from his recent coronavirus associated pneumonia, complicating his interstitial disease. The patient did complete his Rocephin. We will continue to follow. Prognosis is guarded. All labs, x-rays, and medications are reviewed. Plan dated April 22, 2024. The patient's overall prognosis remains poor. With any activity, the patient desaturates. Yesterday, moving in bed, from a supine position, to a seated position, at the edge of the bed, causing saturations to drop into the high 70s, and low 80s. Labs, x-rays, and all medications are reviewed. We will continue to follow the patient, make recommendations along the way. The patient is currently on high flow nasal O2, at 7 L. We will continue to follow make recommendations. Prognosis is poor. Plan dated April 23, 2024. The patient's overall condition remains about the same. He is on 8 L high flow nasal cannula, with saturations between 89 and 91%. He is not receiving any IV fluids. The patient is currently on Decadron 6 mg a day. He is getting albuterol inhaler. Additional recommendations and suggestions are forthcoming. He has completed his antibiotics. Prognosis is guarded. Plan dated April 24, 2024. The patient's overall condition remains about the same. He continues on a liter high flow nasal O2. He states that with any activity he becomes very short of breath. His saturations are anywhere from 88 to 92%. The patient is currently on Decadron 6 mg a day, but I am going to discontinue that, in favor of Solu- Medrol, 60 mg every 6, to see whether or not that makes any improvement, and his breathing, and oxygenation. All labs, x-rays, and medications are reviewed. We will continue to follow. Prognosis is guarded. Time with Patient: Less than 30
[2024-04-24] MEDS: methylPREDNISolone SOD SUCCI 125 MG/2 ML VIAL IV SCH (12:06)
--- NOTE | 2024-04-24 12:13 | P.PN ---
Subjective Progress Note Date: 04/24/24 Hospital Course: Patient is a 78-year-old male with past medical history of pulmonary fibrosis, hyperlipidemia, hypertension, GERD, BPH, history of CAD with stent placement presents to the emergency room with chief complaint of shortness of breath. Patient states he was recently discharged from the hospital for pneumonia and he has been home about a week. Patient states this morning he went to the restroom and desatted to 70 and then got himself back into a chair when he states his saturations were between 50 and 60 and he was unable to catch his breath. Patient reports that since leaving the hospital he has been on 7 L of home oxygen and he has been using his nebulizer 4 times daily. Patient also endorses a dry cough, chills, subjective fevers. He denies any chest pain, abdominal pain, nausea, vomiting, diarrhea. It is of note that when attempting to reposition the patient and he laid supine his saturations went from 95-85. Vitals on admission temperature 97.8, heart rate 133, respiratory rate 40, saturating 85% on BiPAP EKG independently interpreted as sinus tachycardia, ventricular rate 135, QTc of 400 CXR shows right axillary and right neck subcutaneous emphysema, remainder is unchanged from prior with multifocal airspace opacities and reticular opacities CT of subcutaneous emphysema throughout the right neck, right anterior chest throughout the mediastinum, scattered reticular and airspace opacities Labs on admission show WBC 7.2, hemoglobin 13.2, platelets 261. PT 10.8, INR 1.0, PTT 19.7, D-dimer 9.1. Sodium 137, potassium 4.4, chloride 101, bicarb 26, BUN 37, creatinine 1.93, glucose 102. Lactate 4.2, repeat 1.3. Troponin 0.053. Cepheid was positive for COVID. Subjective: Patient seen and examined at bedside. No acute events overnight. Patient reports of shortness of breath with any activity he does. Currently on 8 L high flow nasal cannula. Spoke with him this morning regarding CODE STATUS. Patient agreeable to no code. Trying to get him down to 7 L high flow nasal cannula and to get him out of his chair and moving around. Pertinent positives and negatives as discussed above, a complete review of systems was performed and all other systems are negative. Vitals: Signs Reviewed Physical examination: Vital signs reviewed General: nontoxic, no distress, appears at stated age, no acute distress Derm: warm, dry, intact Head: atraumatic, normocephalic, symmetric Eyes: anicteric sclera Mouth: no lip lesion, mucus membranes moist Cardiovascular: S1 S2 reg, no murmur Lungs: Bilateral basilar rhonchi noted, no rales, no accessory muscle use Abdominal: soft, non-tender to palpation, nondistended Extremities: No cyanosis, clubbing, or pedal edema. Neuro: Alert, Oriented to person, time and place, Gross neurological examination did not reveal any focal deficits. Cranial nerves II to XII grossly intact. Bilateral upper and lower extremity muscle strength intact and sensation intact. Psych: well appearing, appropriate affect Data Received Today: Pertinent Labs: WBC 13.8, Hgb 11.8, sodium 133, potassium 5.0, BUN 35, creatinine 1.21 Imaging: N/A Assessment and Plan: Patient is a 78-year-old male with past medical history of pulmonary fibrosis, hyperlipidemia, hypertension, GERD, BPH, history of CAD presented to the ER with chief complaint of shortness of breath and hypoxia. Active: COVID-19 pneumonia Acute hypoxic respiratory failure Pulmonary fibrosis Currently on 8 L high flow nasal cannula, attempt to wean down as tolerated > 88%, goal is to get him down to 7 L Decadron 6 mg po qd Procalcitonin elevated at 2.08 Rocephin has been discontinued Pulmonology note reviewed, continue with current management Spoke with daughter regarding patient's prognosis, wants to see if he can go to assisted living care facility, will try to contact her tomorrow to discuss goals of care Patient confirmed order of SNF choice with case management, [facility] declined type II NSTEMI EKG independently interpreted as sinus tachycardia, ventricular rate 135, QTc of 400 -Troponins 0.053 => 0.085 => 0.052 Likely from COVID-pneumonia Sepsis secondary to pneumonia, improved CXR shows right axillary and right neck subcutaneous emphysema, remainder is unchanged from prior with multifocal airspace opacities and reticular opacities CT of subcutaneous emphysema throughout the right neck, right anterior chest throughout the mediastinum, scattered reticular and airspace opacities Ceftriaxone discontinued azithromycin 500 mg p.o. daily discontinued Obtain morning CBC Legionella antigen negative Blood cultures, sputum culture pending JUANCARLOS on chronic kidney disease stage II, resolved Continue to monitor Normal saline at 130 cc/hr discontinued Elevated D-dimer, rule out pulmonary embolism, resolved CTA not done due to poor renal function VQ scan showing no signs of PE, discontinue heparin infusion Lactic acidosis, resolved Lactate 4.2, repeat 1.2 Chronic: Hypertension Hold losartan 100 mg until kidney function improves Continue amlodipine 2.5 mg Hyperlipidemia Continue pravastatin 80 mg daily GERD Continue famotidine 40 mg twice daily BPH Continue finasteride 5 mg daily F: PO E: Replete as needed N: Heart healthy A: Fall precautions DVT prophylaxis: Heparin 5000 unit SQ every 8 hours Code status: DNR/DNI per our discussion 04/24, RANDALL to help with providing advance directive paperwork on thursday Anticipated discharge place: pending clinical course Anticipated discharge time: pending clinical course Prognosis is guarded. I saw and evaluated the patient during the ness and critical portions of this encounter, and discussed the case in detail with the resident author of this note, I agree with the Assessment and Plan, and my changes, if any, are highlighted in blue. Objective - Vital Signs Vital signs: Vital Signs Temp 97.6 F 04/24/24 04:00 Pulse 65 04/24/24 04:00 Resp 20 04/24/24 04:00 BP 163/80 04/24/24 04:00 Pulse Ox 98 04/24/24 04:00 FiO2 80 04/17/24 15:56 Intake & Output 04/23/24 04/24/24 04/24/24 18:59 06:59 18:59 Intake Total 600 Output Total 800 850 Balance -200 -850 Intake: Oral 600 Output: Urine 800 850 Other: Voiding Method Urinal # Bowel Movements 1 - Labs CBC & Chem 7: 04/24/24 05:55 04/24/24 05:55 Labs: Abnormal Lab Results - Last 24 Hours (Table) 04/24/24 04/24/24 Range/Units 05:55 05:55 WBC 13.8 H (3.8-10.6) k/uL RBC 3.96 L (4.30-5.90) m/uL Hgb 11.8 L (13.0-17.5) gm/dL Hct 36.8 L (39.0-53.0) % RDW 16.4 H (11.5-15.5) % Neutrophils # 10.8 H (1.3-7.7) k/uL Monocytes # 1.1 H (0-1.0) k/uL Sodium 133 L (137-145) mmol/L Carbon Dioxide 31 H (22-30) mmol/L BUN 35 H (9-20) mg/dL Glucose 107 H (74-99) mg/dL ALT 175 H (4-49) U/L Total Protein 5.8 L (6.3-8.2) g/dL Albumin 3.1 L (3.5-5.0) g/dL Microbiology - Last 24 Hours (Table) 04/17/24 19:29 Blood Culture - Final Blood
[2024-04-25 06:38] LABS: Potassium 5.3 mmol/L (3.5-5.1)
[2024-04-25 06:39] LABS: ALT 209 U/L (4-49); AST 66 U/L (17-59); African American GFR (CKD) 55 (>60 ml/min/1.73 sqM); Albumin 3.2 g/dL (3.5-5.0); Alkaline Phosphatase 109 U/L (38-126); Anion Gap 5 mmol/L; Blood Urea Nitrogen 39 mg/dL (9-20); Calcium 8.8 mg/dL (8.4-10.2); Carbon Dioxide 32 mmol/L (22-30); Chloride 96 mmol/L (98-107); Glucose 148 mg/dL (74-99); Magnesium 1.9 mg/dL (1.6-2.3); Non-African American GFR(CKD) 48 (>60 ml/min/1.73 sqM); Sodium 133 mmol/L (137-145); Total Bilirubin 0.6 mg/dL (0.2-1.3); Total Protein 5.9 g/dL (6.3-8.2)
[2024-04-25 06:45] LABS: Anisocytosis Slight; HGB 12.4 gm/dL (13.0-17.5); MCH 30.2 pg (25.0-35.0); MCHC 32.7 g/dL (31.0-37.0); MCV 92.3 fL (80.0-100.0); Mean Platelet Volume 7.7; Platelet Count 405 k/uL (150-450); RBC 4.11 m/uL (4.30-5.90); RDW 17.1 % (11.5-15.5)
[2024-04-25 07:37] LABS: Anisocytosis (M) Present; Band Neutrophils % 3 %; Lymphocytes # (M) 0.69 k/uL (1.0-4.8); Metamyelocytes # (M) 0.12 k/uL (0); Metamyelocytes % 1 %; Monocytes # (M) 0.35 k/uL (0-1.0); Myelocytes # (M) 0.23 k/uL (0); Myelocytes % 2 %; Neutrophils % (M) 86 %; Nucleated Red Blood Cells 1 /100 WBC (0-0); Poikilocytosis (M) Present; Total Cells Counted 200; WBC 11.5 k/uL (3.8-10.6)
--- NOTE | 2024-04-25 09:47 | P.PN ---
Subjective Progress Note Date: 04/25/24 Hospital Course: Patient is a 78-year-old male with past medical history of pulmonary fibrosis, hyperlipidemia, hypertension, GERD, BPH, history of CAD with stent placement presents to the emergency room with chief complaint of shortness of breath. Patient states he was recently discharged from the hospital for pneumonia and he has been home about a week. Patient states this morning he went to the restroom and desatted to 70 and then got himself back into a chair when he states his saturations were between 50 and 60 and he was unable to catch his breath. Patient reports that since leaving the hospital he has been on 7 L of home oxygen and he has been using his nebulizer 4 times daily. Patient also endorses a dry cough, chills, subjective fevers. He denies any chest pain, abdominal pain, nausea, vomiting, diarrhea. It is of note that when attempting to reposition the patient and he laid supine his saturations went from 95-85. Vitals on admission temperature 97.8, heart rate 133, respiratory rate 40, saturating 85% on BiPAP EKG independently interpreted as sinus tachycardia, ventricular rate 135, QTc of 400 CXR shows right axillary and right neck subcutaneous emphysema, remainder is unchanged from prior with multifocal airspace opacities and reticular opacities CT of subcutaneous emphysema throughout the right neck, right anterior chest throughout the mediastinum, scattered reticular and airspace opacities Labs on admission show WBC 7.2, hemoglobin 13.2, platelets 261. PT 10.8, INR 1.0, PTT 19.7, D-dimer 9.1. Sodium 137, potassium 4.4, chloride 101, bicarb 26, BUN 37, creatinine 1.93, glucose 102. Lactate 4.2, repeat 1.3. Troponin 0.053. Cepheid was positive for COVID. Subjective: Patient seen and examined at bedside. No acute events overnight. Patient reports of shortness of breath with any activity he does. Currently on 8 L high flow nasal cannula. Trying to get him down to 7 L high flow nasal cannula and to get him out of his chair and moving around. Pertinent positives and negatives as discussed above, a complete review of systems was performed and all other systems are negative. Vitals: Signs Reviewed Physical examination: Vital signs reviewed General: nontoxic, no distress, appears at stated age, no acute distress Derm: warm, dry, intact Head: atraumatic, normocephalic, symmetric Eyes: anicteric sclera Mouth: no lip lesion, mucus membranes moist Cardiovascular: S1 S2 reg, no murmur Lungs: Bilateral basilar rhonchi noted, no rales, no accessory muscle use Abdominal: soft, non-tender to palpation, nondistended Extremities: No cyanosis, clubbing, or pedal edema. Neuro: Alert, Oriented to person, time and place, Gross neurological examination did not reveal any focal deficits. Cranial nerves II to XII grossly intact. Bilateral upper and lower extremity muscle strength intact and sensation intact. Psych: well appearing, appropriate affect Data Received Today: Pertinent Labs: WBC 11.5, Hgb 12.4, sodium 133, potassium 5.3, BUN 39, creatinine 1.43 Imaging: N/A Assessment and Plan: Patient is a 78-year-old male with past medical history of pulmonary fibrosis, hyperlipidemia, hypertension, GERD, BPH, history of CAD presented to the ER with chief complaint of shortness of breath and hypoxia. Active: COVID-19 pneumonia Acute hypoxic respiratory failure Pulmonary fibrosis Currently on 8 L high flow nasal cannula, attempt to wean down as tolerated > 88%, goal is to get him down to 7 L Decadron switched to IV Solu-Medrol 60 mg q6hr Procalcitonin elevated at 2.08 Rocephin has been discontinued Pulmonology following Spoke with daughter regarding patient's prognosis, wants to see if he can go to assisted living care facility, will try to contact her tomorrow to discuss goals of care Patient confirmed order of SNF choice with case management, [facility] declined type II NSTEMI EKG independently interpreted as sinus tachycardia, ventricular rate 135, QTc of 400 -Troponins 0.053 => 0.085 => 0.052 Likely from COVID-pneumonia Sepsis secondary to pneumonia, improved CXR shows right axillary and right neck subcutaneous emphysema, remainder is unchanged from prior with multifocal airspace opacities and reticular opacities CT of subcutaneous emphysema throughout the right neck, right anterior chest throughout the mediastinum, scattered reticular and airspace opacities Ceftriaxone discontinued azithromycin 500 mg p.o. daily discontinued Obtain morning CBC Legionella antigen negative Blood cultures, sputum culture pending JUANCARLOS on chronic kidney disease stage II, resolved Continue to monitor Normal saline at 130 cc/hr discontinued Elevated D-dimer, rule out pulmonary embolism, resolved CTA not done due to poor renal function VQ scan showing no signs of PE, discontinue heparin infusion Lactic acidosis, resolved Lactate 4.2, repeat 1.2 Chronic: Hypertension Hold losartan 100 mg until kidney function improves Continue amlodipine 2.5 mg Hyperlipidemia Continue pravastatin 80 mg daily GERD Continue famotidine 40 mg twice daily BPH Continue finasteride 5 mg daily F: PO E: Replete as needed N: Heart healthy A: Fall precautions DVT prophylaxis: Heparin 5000 unit SQ every 8 hours Code status: No code (DNR, DNI) I saw and evaluated the patient during the ness and critical portions of this encounter, and discussed the case in detail with the resident author of this note, I agree with the Assessment and Plan, and my changes, if any, are highlighted in blue. Objective - Vital Signs Vital signs: Vital Signs Temp 97.8 F 04/24/24 20:35 Pulse 68 04/25/24 04:09 Resp 18 04/25/24 04:09 BP 142/74 04/25/24 04:09 Pulse Ox 98 04/25/24 04:09 FiO2 80 04/17/24 15:56 Intake & Output 04/24/24 04/25/24 04/25/24 18:59 06:59 18:59 Intake Total 600 Output Total 1100 475 Balance -500 -475 Intake: Oral 600 Output: Urine 1100 475 Other: Voiding Method Urinal Urinal - Labs CBC & Chem 7: 04/25/24 05:44 04/25/24 05:44 Labs: Abnormal Lab Results - Last 24 Hours (Table) 04/25/24 04/25/24 Range/Units 05:44 05:44 WBC 11.6 H (3.8-10.6) k/uL RBC 4.11 L (4.30-5.90) m/uL Hgb 12.4 L (13.0-17.5) gm/dL Hct 38.0 L (39.0-53.0) % RDW 17.1 H (11.5-15.5) % Sodium 133 L (137-145) mmol/L Potassium 5.3 H (3.5-5.1) mmol/L Chloride 96 L (98-107) mmol/L Carbon Dioxide 32 H (22-30) mmol/L BUN 39 H (9-20) mg/dL Creatinine 1.43 H (0.66-1.25) mg/dL Glucose 148 H (74-99) mg/dL AST 66 H (17-59) U/L ALT 209 H (4-49) U/L Total Protein 5.9 L (6.3-8.2) g/dL Albumin 3.2 L (3.5-5.0) g/dL
--- NOTE | 2024-04-25 13:59 | P.PN ---
Subjective Progress Note Date: 04/25/24 Shortness of breath. Patient is a 78-year-old male with past medical history significant for coronary disease, hypertension, hyperlipidemia, chronic lung disease, and recent hospitalization for COVID-19 pneumonia. His PCP is Dr. Serrano. 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 Terrence Maynard from the [facility]. Of note, patient had a recent prolonged hospitalization March 16 through April 11 secondary to COVID-19 related pneumonia on top of suspected underlying chronic interstitial lung disease. He was ultimately discharged home, with supplemental oxygen in the order of 7 L/min. Patient returns to the emergency department yesterday afternoon complaining of acute on chronic shortness of breath that developed while ambulating to the bathroom. He has a pulse oximeter at home, states he could not get his oxygen levels above 70%, so he called EMS. He has had a persistent nonproductive cough since his hospital discharge. Apparently, was in some respiratory distress in the emergency department, and initially placed on BiPAP. Workup included a chest x-ray showing new right axillary and right neck subcutaneous emphysema. Follow-up nonenhanced CT of the chest/abdomen/pelvis showing subcutaneous emphysema throughout the right neck, right anterior chest wall and throughout the mediastinum. No definitive airway defect visualized. No pneumothoraces. Likely some chronic fibrotic changes particularly at the lung bases. Patient is currently being evaluated in the [facility] department. He is on 15 L high flow nasal cannula. Patient denies any trauma or recent surgical procedures. Did have Bronchoscopy with BAL approximately 6 months ago. Denies chest pain. Denies any significant intractable nausea or vomiting, dysphagia, or odynophagia. Denies any voice changes or hoarseness. No airway stridor. Afebrile. CBC: WBC count 7.2, hemoglobin 13.2, hematocrit 41, platelets 261. CMP: Sodium 137, potassium 4.4, chloride 101, serum bicarb 26, BUN 37, creatinine 1.93, glucose 102. Lactic was 4.2 and is down to 1.3. Magnesium 1.7. LFTs unremarkable. Normal saline infusing at 130 mL/h. Troponin 0.053. Patient is again positive for COVID by PCR, likely residual finding from prior infection. Of note, patient's D-dimer was elevated at 9.1. He was started on a high intensity heparin infusion per protocol by the ER provider. There is a VQ scan ordered, which will likely be of indeterminate as the patient has chronic lung disease. No unilateral lower ext remity edema. Patient empirically started on antibiotics the ED. Most recent vital signs: Heart rate 66 bpm, blood pressure 104/62 mmHg, nontachypneic, SpO2 is reading 98% on 15 L high flow nasal cannula. BiPAP is off and at the bedside. Progress note dated April 19, 2024. 78-year-old male well-known to our service. The patient was in the hospital here, recently with COVID-19 related pneumonia. He spent 3 weeks in the hospital, and was discharged to home. He was discharged to home on 7 L of oxygen. He spent 1 week at home, and came back to the hospital, for increasing shortness of breath. Today he is seen in room 358. He is getting saline at 130 cc an hour, and high flow nasal cannula at 15 L. His procalcitonin level was 2.08. He tested positive for coronavirus infection. His ventilation/perfusion lung scan was nondiagnostic. A family member was on the phone and had a number of questions, all of which I answered. Current labs include a white count 5.8, hemoglobin 10.8, hematocrit 34.2, and a normal platelet count. Sodium 138, potassium 4.7, chlorides 102, CO2 30, BUN 34, creatinine 1.17. Glucose is 115. Calcium 8.2. Troponins were 0.085 and 0.052. Procalcitonin level is mention was 2.08. Progress note dated April 20, 2024. 78-year-old male seen today in room 358. The patient continues on high flow nasal cannula at 8 L. His procalcitonin level was 2.08. He is not receiving any IV fluids. He continues on Rocephin, and Decadron. White count 6.5, h emoglobin 10.8, hematocrit 33.2, platelet count 317,000. Sodium 136, potassium 5.1, chlorides 103, CO2 30, BUN 34, and creatinine 1.22. Progress note dated April 21, 2024. 78-year-old male seen today in room 358. He is sitting at the side of the bed, and continues on high flow nasal O2 at 8 L. His saturations, just moving from the supine position, to the seated position, dropped precipitously. The patient is getting saline at 20 cc an hour. The patient did complete Rocephin. We will order chest x-ray today. Current labs include a white count 8.1, hemoglobin 10.9, hematocrit 33.2, and a platelet count of 246,000. Sodium 134, potassium 4.5, chlorides 102, CO2 30, BUN 34, and creatinine 1.14. Glucose is 103. Blood cultures are currently negative. The patient's chest x-ray shows persistent bilateral reticular opacities, likely representing pulmonary fibrosis. In addition, the pneumomediastinum, and subcutaneous emphysema, are improved. Progress note dated April 22, 2024. 78-year-old male seen today in room 358. The patient continues on high flow nasal O2, at 7 L/min. The patient is not receiving any IV fluids. The patient has underlying interstitial lung disease, which might be complicated by coronavirus associated postinflammatory pulmonary fibrosis. The patient feels about the same. White count 10.8, hemoglobin 10.8, hematocrit 34.1, and platelet count 347,000. Sodium 135, potassium 4.8, chlorides 101, CO2 28, BUN 34, and creatinine 1.38. Chest x-ray done yesterday, has been reviewed. Progress note April 23 2024. The patient is seen today, in room 358. The respiratory therapist is in the room with the patient, and states that on 8 L high flow nasal cannula, his sats are 89 to 91%. The patient is not receiving any IV fluids. Clinically, he is doing about the same. With any movement or exertion, he becomes very short of breath. The patient has a history of underlying interstitial lung disease, and may have a component of the pos Progress note dated April 24, 2024. The patient is seen today in room 358. The patient remains on high flow nasal O2 at 8 L/min. The patient is not receiving any IV fluids. When asked how he is doing, the patient states that he is no better, but no worse. He feels like with any activity he becomes very short of breath. He also is having a dry nonproductive cough, which is unchanged. Current labs include a white count 13.8, hemoglobin 11.8, macro 36.8, and a platelet count is normal. Sodium 133, potassium 5, chloride 99, CO2 31, BUN 35, and creatinine 1.21. Blood cultures are negative. On 04/25/2024, the patient is being seen for a follow-up. The patient remains on oxygen at 8 L/min nasal cannula. He is having some shortness of breath with talking and minimal amount of activity and he continues to have episode of desaturation. Nevertheless, while at rest at 8 L, the patient's oxygenation is stable with a pulse ox ranging between 88 to 98%. Most recent chest x-ray from 04/21/2024 shows persistent bilateral extraocular opacities with ILD and fibrosis in lung base bilaterally. There is also improving pneumomediastinum and right- sided subcutaneous emphysema. The same findings are also noted on the CAT scan of the chest. The white cell count is 11.5 with a hemoglobin 12.4 and a platelet count of 405. Sodium is at 133, potassium is at 5.3, bicarb is at 32, BUN 39 with a creatinine of 1.4. The AST is up to 66 with an ALT of 219 and alkaline phosphatase of 109. The patient remains on steroids at 60 mg of IV Solu-Medrol every 6 hours. Remains on albuterol HFA, as needed. Rest of the medication remains unchanged. Blood cultures have been negative from this [facility] admission. Objective - Vital Signs Vital signs: Vital Signs Temp 98.1 F 04/25/24 10:00 Pulse 93 04/25/24 10:00 Resp 18 04/25/24 10:00 BP 155/74 04/25/24 10:00 Pulse Ox 90 L 04/25/24 10:00 FiO2 80 04/17/24 15:56 Intake & Output 04/24/24 04/25/24 04/25/24 18:59 06:59 18:59 Intake Total 600 480 Output Total 1100 475 300 Balance -500 -475 180 Intake: Oral 600 480 Output: Urine 1100 475 300 Other: Voiding Method Urinal Urinal - Exam No acute distress, oriented 3. Currently on high flow nasal cannula, at 8 L/min. HEENT examination is grossly unremarkable. Mucous membranes are moist. No oral lesions. Neck supple. Full range of motion. No adenopathy thyromegaly or neck vein distention. Cardiovascular examination reveals regular rhythm rate. S1-S2 normal. No S3 or S4. No discernible murmur noted. Lungs reveal bibasilar crackles no wheezes or rhonchi. Breath sounds are equal bilaterally. Abdomen soft bowel sounds are heard. No masses or tenderness. Extremities are intact. No cyanosis clubbing or edema. Skin is without rash or lesion. Neurologic examination is brief but nonfocal. - Labs CBC & Chem 7: 04/25/24 05:44 04/25/24 05:44 Labs: Abnormal Lab Results - Last 24 Hours (Table) 04/25/24 04/25/24 Range/Units 05:44 05:44 WBC 11.5 H (3.8-10.6) k/uL RBC 4.11 L (4.30-5.90) m/uL Hgb 12.4 L (13.0-17.5) gm/dL Hct 38.0 L (39.0-53.0) % RDW 17.1 H (11.5-15.5) % Neutrophils # (Manual) 10.20 H (1.3-7.7) k/uL Lymphocytes # (Manual) 0.69 L (1.0-4.8) k/uL Metamyelocytes # (Man) 0.12 H (0) k/uL Myelocytes # (Manual) 0.23 H (0) k/uL Nucleated RBCs 1 H (0-0) /100 WBC Sodium 133 L (137-145) mmol/L Potassium 5.3 H (3.5-5.1) mmol/L Chloride 96 L (98-107) mmol/L Carbon Dioxide 32 H (22-30) mmol/L BUN 39 H (9-20) mg/dL Creatinine 1.43 H (0.66-1.25) mg/dL Glucose 148 H (74-99) mg/dL AST 66 H (17-59) U/L ALT 209 H (4-49) U/L Total Protein 5.9 L (6.3-8.2) g/dL Albumin 3.2 L (3.5-5.0) g/dL Assessment and Plan Plan: Acute hypoxic respiratory failure and the patient remains on 8 L of oxygen by nasal cannula. Cause for the acute hypoxic respiratory failure is multifactorial. The patient is known to have chronic ILD and subsequent the patient was infected with COVID-19 and developed COVID-19 related pneumonia. He had a prolonged hospitalization with slow but ongoing improvement his oxygenation and ultimately was discharged home on 7 L of O2 nasal cannula. He was readmitted with pneumomediastinum and right-sided subcutaneous emphysema probably combination of his post COVID-19 pneumonia with baseline ILD. Pneumomediastinum, possibly secondary to patient's chronic lung disease and recent COVID-19 infection., Currently stable. Follow-up chest x-ray to be obtained tomorrow Acute hypoxemic respiratory failure, currently on 8 L high flow nasal cannula. 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 Elevated D-dimer. Lactic acidemia, improved. Acute kidney injury, creatinine up to 1.93, improving Chronic kidney disease stage II. Elevated troponin, possibly secondary to type II AL and hypoxia. History of coronary artery disease with previous PCI/stents. Hypertension. History of hyperlipidemia. Remote history of tobacco use. Plan: Titrate oxygen flow to maintain saturation above 90% Monitor subcutaneous emphysema and no mediastinal. Repeat chest x-ray to be obtained tomorrow Oxygenation is improved during this current admission. The patient initially was on 15 L and he was weaned down to 8 L/min nasal cannula. Patient remains on IV Solu-Medrol and this will be continued Incentive spirometer No need for antibiotics Will continue to follow
--- NOTE | 2024-04-26 08:31 | XR ---
EXAMINATION TYPE: XR chest 1V DATE OF EXAM: 04/26/2024 COMPARISON: 04/21/2024 CLINICAL INDICATION: Male, 78 years old with history of ILD; TECHNIQUE: Single frontal view of the chest is obtained. FINDINGS: Low lung volumes with diffuse medium and coarse reticular opacities persist without change. Vertebrop lasty change at 2 levels in the lower thoracic spine. IMPRESSION: Ongoing diffuse interstitial lung disease and/or infiltrates without significant change. [facility], Workstation: [id number], 04/26/2024 8:29 AM
[2024-04-26 08:44] LABS: Anisocytosis Slight; HCT 39.5 % (39.0-53.0); HGB 12.4 gm/dL (13.0-17.5); MCH 29.4 pg (25.0-35.0); MCHC 31.4 g/dL (31.0-37.0); MCV 93.7 fL (80.0-100.0); Platelet Count 402 k/uL (150-450); RBC 4.22 m/uL (4.30-5.90); RDW 16.8 % (11.5-15.5)
[2024-04-26 09:00] LABS: ALT 252 U/L (4-49); AST 94 U/L (17-59); African American GFR (CKD) 66 (>60 ml/min/1.73 sqM); Albumin 3.5 g/dL (3.5-5.0); Alkaline Phosphatase 117 U/L (38-126); Anion Gap 9 mmol/L; Blood Urea Nitrogen 48 mg/dL (9-20); Calcium 8.8 mg/dL (8.4-10.2); Carbon Dioxide 29 mmol/L (22-30); Chloride 95 mmol/L (98-107); Glucose 166 mg/dL (74-99); Magnesium 1.9 mg/dL (1.6-2.3); Non-African American GFR(CKD) 57 (>60 ml/min/1.73 sqM); Potassium 4.5 mmol/L (3.5-5.1); Sodium 133 mmol/L (137-145); Total Bilirubin 0.7 mg/dL (0.2-1.3); Total Protein 6.3 g/dL (6.3-8.2)
[2024-04-26 09:22] LABS: Band Neutrophils % 10 %; Lymphocytes # (M) 2.11 k/uL (1.0-4.8); Metamyelocytes # (M) 0.19 k/uL (0); Metamyelocytes % 1 %; Monocytes # (M) 0.19 k/uL (0-1.0); Myelocytes # (M) 0.19 k/uL (0); Myelocytes % 1 %; Neutrophils % (M) 78 %; Nucleated Red Blood Cells 2 /100 WBC (0-0); Total Cells Counted 200; WBC 19.2 k/uL (3.8-10.6)
--- NOTE | 2024-04-26 13:38 | P.PN ---
Subjective Progress Note Date: 04/26/24 Hospital Course: Patient is a 78-year-old male with past medical history of pulmonary fibrosis, hyperlipidemia, hypertension, GERD, BPH, history of CAD with stent placement presents to the emergency room with chief complaint of shortness of breath. Patient states he was recently discharged from the hospital for pneumonia and he has been home about a week. Patient states this morning he went to the restroom and desatted to 70 and then got himself back into a chair when he states his saturations were between 50 and 60 and he was unable to catch his breath. Patient reports that since leaving the hospital he has been on 7 L of home oxygen and he has been using his nebulizer 4 times daily. Patient also endorses a dry cough, chills, subjective fevers. He denies any chest pain, abdominal pain, nausea, vomiting, diarrhea. It is of note that when attempting to reposition the patient and he laid supine his saturations went from 95-85. Vitals on admission temperature 97.8, heart rate 133, respiratory rate 40, saturating 85% on BiPAP EKG independently interpreted as sinus tachycardia, ventricular rate 135, QTc of 400 CXR shows right axillary and right neck subcutaneous emphysema, remainder is unchanged from prior with multifocal airspace opacities and reticular opacities CT of subcutaneous emphysema throughout the right neck, right anterior chest throughout the mediastinum, scattered reticular and airspace opacities Labs on admission show WBC 7.2, hemoglobin 13.2, platelets 261. PT 10.8, INR 1.0, PTT 19.7, D-dimer 9.1. Sodium 137, potassium 4.4, chloride 101, bicarb 26, BUN 37, creatinine 1.93, glucose 102. Lactate 4.2, repeat 1.3. Troponin 0.053. Cepheid was positive for COVID. Subjective: Patient seen and examined at bedside. No acute events overnight. Patient currently on 7 L high flow nasal cannula. Discussed goals of care with patient and daughter. They are weighing options between acute/long-term rehab facilities, going home on 7 L, or possibly hospice in the future:. Pertinent positives and negatives as discussed above, a complete review of systems was performed and all other systems are negative. Vitals: Signs Reviewed Physical examination: Vital signs reviewed General: nontoxic, no distress, appears at stated age, no acute distress Derm: warm, dry, intact Head: atraumatic, normocephalic, symmetric Eyes: anicteric sclera Mouth: no lip lesion, mucus membranes moist Cardiovascular: S1 S2 reg, no murmur Lungs: Bilateral basilar rhonchi noted, no rales, no accessory muscle use Abdominal: soft, non-tender to palpation, nondistended Extremities: No cyanosis, clubbing, or pedal edema. Neuro: Alert, Oriented to person, time and place, Gross neurological examination did not reveal any focal deficits. Cranial nerves II to XII grossly intact. Bilateral upper and lower extremity muscle strength intact and sensation intact. Psych: well appearing, appropriate affect Data Received Today: Pertinent Labs: WBC 19.2, Hgb 12.4, NA 130 Imaging: CXR independently interpreted showing diffuse interstitial lung disease Assessment and Plan: Patient is a 78-year-old male with past medical history of pulmonary fibrosis, hyperlipidemia, hypertension, GERD, BPH, history of CAD presented to the ER with chief complaint of shortness of breath and hypoxia. Active: COVID-19 pneumonia Acute hypoxic respiratory failure Pulmonary fibrosis Currently on 7 L high flow nasal cannula, try to maintain at 7L IV Solu-Medrol 60 mg q6hr switch to prednisone 30 mg p.o. daily Procalcitonin elevated at 2.08 Rocephin has been discontinued Pulmonology following Goals of care: Discussion at length with patient and daughter who is at bedside, patient does not envision living long-term in the hospital, therefore would not want to be discharged to LTACH, ideally he wants to be discharged to rehab with the opportunity to participate in physical therapy, otherwise he would entertain home with home care and home PT, lastly there is consideration of home with hospice if patient does not have any further improvement of oxygen requirement over the coming months. Patient confirmed order of SNF choice with case management, [facility] Discussed goals of care with patient and daughter today (04/26), looking into possible placement in acute/possibly long-term facility type II NSTEMI EKG independently interpreted as sinus tachycardia, ventricular rate 135, QTc of 400 -Troponins 0.053 => 0.085 => 0.052 Likely from COVID-pneumonia Sepsis secondary to pneumonia, improved CXR shows right axillary and right neck subcutaneous emphysema, remainder is unchanged from prior with multifocal airspace opacities and reticular opacities CT of subcutaneous emphysema throughout the right neck, right anterior chest throughout the mediastinum, scattered reticular and airspace opacities Ceftriaxone discontinued azithromycin 500 mg p.o. daily discontinued Obtain morning CBC Legionella antigen negative Blood cultures, sputum culture pending JUANCARLOS on chronic kidney disease stage II, resolved Continue to monitor Normal saline at 130 cc/hr discontinued Elevated D-dimer, rule out pulmonary embolism, resolved CTA not done due to poor renal function VQ scan showing no signs of PE, discontinue heparin infusion Lactic acidosis, resolved Lactate 4.2, repeat 1.2 Chronic: Hypertension Hold losartan 100 mg until kidney function improves Continue amlodipine 2.5 mg Hyperlipidemia Continue pravastatin 80 mg daily GERD Continue famotidine 40 mg twice daily BPH Continue finasteride 5 mg daily F: PO E: Replete as needed N: Heart healthy A: Fall precautions DVT prophylaxis: Heparin 5000 unit SQ every 8 hours Code status: No code (DNR, DNI) I saw and evaluated the patient during the ness and critical portions of this e ncounter, and discussed the case in detail with the resident author of this note, I agree with the Assessment and Plan, and my changes, if any, are highlighted in blue. Objective - Vital Signs Vital signs: Vital Signs Temp 97.9 F 04/26/24 13:17 Pulse 92 04/26/24 13:17 Resp 22 04/26/24 13:17 BP 150/72 04/26/24 09:51 Pulse Ox 94 L 04/26/24 13:17 FiO2 80 04/17/24 15:56 Intake & Output 04/25/24 04/26/24 04/26/24 18:59 06:59 18:59 Intake Total 960 420 Output Total 600 425 500 Balance 360 -425 -80 Weight 63 kg Intake: Oral 960 420 Output: Urine 600 425 500 Other: Voiding Method Urinal Urinal Urinal - Labs CBC & Chem 7: 04/26/24 08:22 04/26/24 08:22 Labs: Abnormal Lab Results - Last 24 Hours (Table) 04/26/24 04/26/24 Range/Units 08:22 08:22 WBC 19.2 H (3.8-10.6) k/uL RBC 4.22 L (4.30-5.90) m/uL Hgb 12.4 L (13.0-17.5) gm/dL RDW 16.8 H (11.5-15.5) % Neutrophils # (Manual) 16.80 H (1.3-7.7) k/uL Metamyelocytes # (Man) 0.19 H (0) k/uL Myelocytes # (Manual) 0.19 H (0) k/uL Nucleated RBCs 2 H (0-0) /100 WBC Sodium 133 L (137-145) mmol/L Chloride 95 L (98-107) mmol/L BUN 48 H (9-20) mg/dL Glucose 166 H (74-99) mg/dL AST 94 H (17-59) U/L ALT 252 H (4-49) U/L
--- NOTE | 2024-04-26 14:08 | P.PN ---
Subjective Progress Note Date: 04/26/24 Shortness of breath. Patient is a 78-year-old male with past medical history significant for coronary disease, hypertension, hyperlipidemia, chronic lung disease, and recent hospitalization for COVID-19 pneumonia. His PCP is Dr. Serrano. His established piping supervisor is a Dr. Terrence Maynard from the [facility]. Of note, patient had a recent prolonged hospitalization March 16 through April 11 secondary to COVID-19 related pneumonia on top of suspected underlying chronic interstitial lung disease. He was ultimately discharged home, with supplemental oxygen in the order of 7 L/min. Patient returns to the emergency department yesterday afternoon complaining of acute on chronic shortness of breath that developed while ambulating to the bathroom. He has a pulse oximeter at home, states he could not get his oxygen levels above 70%, so he called EMS. He has had a persistent nonproductive cough since his hospital discharge. Apparently, was in some respiratory distress in the emergency department, and initially placed on BiPAP. Workup included a chest x-ray showing new right axillary and right neck subcutaneous emphysema. Follow-up nonenhanced CT of the chest/abdomen/pelvis showing subcutaneous emphysema throughout the right neck, right anterior chest wall and throughout the mediastinum. No definitive airway defect visualized. No pneumothoraces. Likely some chronic fibrotic changes particularly at the lung bases. Patient is currently being evaluated in the [facility] department. He is on 15 L high flow nasal cannula. Patient denies any trauma or recent surgical procedures. Did have Bronchoscopy with BAL approximately 6 months ago. Denies chest pain. Denies any significant intractable nausea or vomiting, dysphagia, or odynophagia. Denies any voice changes or hoarseness. No airway stridor. Afebrile. CBC: WBC count 7.2, hemoglobin 13.2, hematocrit 41, platelets 261. CMP: Sodium 137, potassium 4.4, chloride 101, serum bicarb 26, BUN 37, creatinine 1.93, glucose 102. Lactic was 4.2 and is down to 1.3. Magnesium 1.7. LFTs unremarkable. Normal saline infusing at 130 mL/h. Troponin 0.053. Patient is again positive for COVID by PCR, likely residual finding from prior infection. Of note, patient's D-dimer was elevated at 9.1. He was started on a high intensity heparin infusion per protocol by the ER provider. There is a VQ scan ordered, which will likely be of indeterminate as the patient has chronic lung disease. No unilateral lower ext remity edema. Patient empirically started on antibiotics the ED. Most recent vital signs: Heart rate 66 bpm, blood pressure 104/62 mmHg, nontachypneic, SpO2 is reading 98% on 15 L high flow nasal cannula. BiPAP is off and at the bedside. Progress note dated April 19, 2024. 78-year-old male well-known to our service. The patient was in the hospital here, recently with COVID-19 related pneumonia. He spent 3 weeks in the hospital, and was discharged to home. He was discharged to home on 7 L of oxygen. He spent 1 week at home, and came back to the hospital, for increasing shortness of breath. Today he is seen in room 358. He is getting saline at 130 cc an hour, and high flow nasal cannula at 15 L. His procalcitonin level was 2.08. He tested positive for coronavirus infection. His ventilation/perfusion lung scan was nondiagnostic. A family member was on the phone and had a number of questions, all of which I answered. Current labs include a white count 5.8, hemoglobin 10.8, hematocrit 34.2, and a normal platelet count. Sodium 138, potassium 4.7, chlorides 102, CO2 30, BUN 34, creatinine 1.17. Glucose is 115. Calcium 8.2. Troponins were 0.085 and 0.052. Procalcitonin level is mention was 2.08. Progress note dated April 20, 2024. 78-year-old male seen today in room 358. The patient continues on high flow nasal cannula at 8 L. His procalcitonin level was 2.08. He is not receiving any IV fluids. He continues on Rocephin, and Decadron. White count 6.5, h emoglobin 10.8, hematocrit 33.2, platelet count 317,000. Sodium 136, potassium 5.1, chlorides 103, CO2 30, BUN 34, and creatinine 1.22. Progress note dated April 21, 2024. 78-year-old male seen today in room 358. He is sitting at the side of the bed, and continues on high flow nasal O2 at 8 L. His saturations, just moving from the supine position, to the seated position, dropped precipitously. The patient is getting saline at 20 cc an hour. The patient did complete Rocephin. We will order chest x-ray today. Current labs include a white count 8.1, hemoglobin 10.9, hematocrit 33.2, and a platelet count of 246,000. Sodium 134, potassium 4.5, chlorides 102, CO2 30, BUN 34, and creatinine 1.14. Glucose is 103. Blood cultures are currently negative. The patient's chest x-ray shows persistent bilateral reticular opacities, likely representing pulmonary fibrosis. In addition, the pneumomediastinum, and subcutaneous emphysema, are improved. Progress note dated April 22, 2024. 78-year-old male seen today in room 358. The patient continues on high flow nasal O2, at 7 L/min. The patient is not receiving any IV fluids. The patient has underlying interstitial lung disease, which might be complicated by coronavirus associated postinflammatory pulmonary fibrosis. The patient feels about the same. White count 10.8, hemoglobin 10.8, hematocrit 34.1, and platelet count 347,000. Sodium 135, potassium 4.8, chlorides 101, CO2 28, BUN 34, and creatinine 1.38. Chest x-ray done yesterday, has been reviewed. Progress note April 23 2024. The patient is seen today, in room 358. The respiratory therapist is in the room with the patient, and states that on 8 L high flow nasal cannula, his sats are 89 to 91%. The patient is not receiving any IV fluids. Clinically, he is doing about the same. With any movement or exertion, he becomes very short of breath. The patient has a history of underlying interstitial lung disease, and may have a component of the pos Progress note dated April 24, 2024. The patient is seen today in room 358. The patient remains on high flow nasal O2 at 8 L/min. The patient is not receiving any IV fluids. When asked how he is doing, the patient states that he is no better, but no worse. He feels like with any activity he becomes very short of breath. He also is having a dry nonproductive cough, which is unchanged. Current labs include a white count 13.8, hemoglobin 11.8, macro 36.8, and a platelet count is normal. Sodium 133, potassium 5, chloride 99, CO2 31, BUN 35, and creatinine 1.21. Blood cultures are negative. On 04/25/2024, the patient is being seen for a follow-up. The patient remains on oxygen at 8 L/min nasal cannula. He is having some shortness of breath with talking and minimal amount of activity and he continues to have episode of desaturation. Nevertheless, while at rest at 8 L, the patient's oxygenation is stable with a pulse ox ranging between 88 to 98%. Most recent chest x-ray from 04/21/2024 shows persistent bilateral extraocular opacities with ILD and fibrosis in lung base bilaterally. There is also improving pneumomediastinum and right- sided subcutaneous emphysema. The same findings are also noted on the CAT scan of the chest. The white cell count is 11.5 with a hemoglobin 12.4 and a platelet count of 405. Sodium is at 133, potassium is at 5.3, bicarb is at 32, BUN 39 with a creatinine of 1.4. The AST is up to 66 with an ALT of 219 and alkaline phosphatase of 109. The patient remains on steroids at 60 mg of IV Solu-Medrol every 6 hours. Remains on albuterol HFA, as needed. Rest of the medication remains unchanged. Blood cultures have been negative from this [facility] admission. On 04/18/2024, the patient is on 7 L of oxygen by nasal cannula. Resting comfortably in bed. No chest pain. No subcutaneous emphysema involving the chest shoulder or neck. A follow-up chest x-ray was done and showed ongoing diffuse interstitial lung disease. No evidence of any significant subcutaneous emphysema or pneumomediastinum noted. No evidence of any pneumothorax. The w karri cell count of 19.2 edema 12.4 and platelet count of 402. Sodium is at 133 with a BUN of 48 and a creatinine of 1.2. Chloride is 95. No other significant events otherwise for now. No altered mentation. Tolerating diet. No fever or chills. Objective - Vital Signs Vital signs: Vital Signs Temp 98.0 F 04/26/24 09:51 Pulse 79 04/26/24 09:51 Resp 20 04/26/24 09:51 BP 150/72 04/26/24 09:51 Pulse Ox 93 L 04/26/24 09:51 FiO2 80 04/17/24 15:56 Intake & Output 04/25/24 04/26/24 04/26/24 18:59 06:59 18:59 Intake Total 960 240 Output Total 600 425 Balance 360 -425 240 Weight 63 kg Intake: Oral 960 240 Output: Urine 600 425 Other: Voiding Method Urinal Urinal - Exam No acute distress, oriented 3. Currently on high flow nasal cannula, at 7 L/min. HEENT examination is grossly unremarkable. Mucous membranes are moist. No oral lesions. Neck supple. Full range of motion. No adenopathy thyromegaly or neck vein distention. Cardiovascular examination reveals regular rhythm rate. S1-S2 normal. No S3 or S4. No discernible murmur noted. Lungs reveal bibasilar crackles no wheezes or rhonchi. Breath sounds are equal bilaterally. Abdomen soft bowel sounds are heard. No masses or tenderness. Extremities are intact. No cyanosis clubbing or edema. Skin is without rash or lesion. Neurologic examination is brief but nonfocal. - Labs CBC & Chem 7: 04/26/24 08:22 04/26/24 08:22 Labs: Abnormal Lab Results - Last 24 Hours (Table) 04/26/24 04/26/24 Range/Units 08:22 08:22 WBC 19.2 H (3.8-10.6) k/uL RBC 4.22 L (4.30-5.90) m/uL Hgb 12.4 L (13.0-17.5) gm/dL RDW 16.8 H (11.5-15.5) % Neutrophils # (Manual) 16.80 H (1.3-7.7) k/uL Metamyelocytes # (Man) 0.19 H (0) k/uL Myelocytes # (Manual) 0.19 H (0) k/uL Nucleated RBCs 2 H (0-0) /100 WBC Sodium 133 L (137-145) mmol/L Chloride 95 L (98-107) mmol/L BUN 48 H (9-20) mg/dL Glucose 166 H (74-99) mg/dL AST 94 H (17-59) U/L ALT 252 H (4-49) U/L Assessment and Plan Plan: Acute hypoxic respiratory failure and the patient remains on 7 L of oxygen by nasal cannula. Cause for the acute hypoxic respiratory failure is multifactorial. The patient is known to have chronic ILD and subsequent the patient was infected with COVID-19 and developed COVID-19 related pneumonia. He had a prolonged hospitalization with slow but ongoing improvement his oxy genation and ultimately was discharged home on 7 L of O2 nasal cannula. He was readmitted with pneumomediastinum and right-sided subcutaneous emphysema probably combination of his post COVID-19 pneumonia with baseline ILD. Follow- up chest x-ray from 04/26/2024 shows no evidence of any pneumothorax, no subcutaneous emphysema. No active pneumomediastinum. Pneumomediastinum, possibly secondary to patient's chronic lung disease and recent COVID-19 infection., Currently stable. Follow-up chest x-ray to be obtained from 04/26/2024 are stable findings. Acute hypoxemic respiratory failure, currently on 7 L high flow nasal cannula. 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 Elevated D-dimer. Lactic acidemia, improved. Acute kidney injury, creatinine up to 1.93, improving and the creatinine is down to 1.2 Chronic kidney disease stage II. Elevated troponin, possibly secondary to type II MT and hypoxia. History of coronary artery disease with previous PCI/stents. Hypertension. History of hyperlipidemia. Remote history of tobacco use. Plan: Titrate oxygen flow to maintain saturation above 90% Monitor subcutaneous emphysema and no mediastinal. Chest x-ray findings from 04/26/2024 are stable without any pneumothorax or pneumomediastinum Oxygenation is improved during this current admission. The patient initially was on 15 L and he was weaned down to 7 L/min nasal cannula. Discontinue IV Solu-Medrol and put the patient on 30 mg of prednisone Incentive spirometer No need for antibiotics Will continue to follow Consider transfer to LTAC Involved physical therapy
[2024-04-26] MEDS ORDERED: ZINC OXIDE PASTE (Z-GUARD) 1 APPLIC TOPICAL PRN (16:19)
[2024-04-27 07:07] LABS: Anisocytosis Slight; Basophils # (A) 0.1 k/uL (0-0.2); Basophils % (A) 0 %; Eosinophils # (A) 0.1 k/uL (0-0.7); Eosinophils % (A) 0 %; HCT 39.1 % (39.0-53.0); HGB 12.6 gm/dL (13.0-17.5); Lymphocytes # (A) 1.1 k/uL (1.0-4.8); Lymphocytes % (A) 6 %; MCH 30.4 pg (25.0-35.0); MCHC 32.3 g/dL (31.0-37.0); Macrocytosis Slight; Mean Platelet Volume 7.4; Monocytes # (A) 0.8 k/uL (0-1.0); Monocytes % (A) 4 %; Neutrophils # (A) 16.3 k/uL (1.3-7.7); Neutrophils % (A) 89 %; Platelet Count 348 k/uL (150-450); RBC 4.16 m/uL (4.30-5.90); RDW 17.4 % (11.5-15.5); WBC 18.5 k/uL (3.8-10.6)
[2024-04-27 07:24] LABS: African American GFR (CKD) 65 (>60 ml/min/1.73 sqM); Anion Gap 5 mmol/L; Blood Urea Nitrogen 50 mg/dL (9-20); Calcium 8.6 mg/dL (8.4-10.2); Carbon Dioxide 27 mmol/L (22-30); Chloride 100 mmol/L (98-107); Glucose 134 mg/dL (74-99); Non-African American GFR(CKD) 57 (>60 ml/min/1.73 sqM); Potassium 4.7 mmol/L (3.5-5.1); Sodium 132 mmol/L (137-145)
[2024-04-27] MEDS: predniSONE 10 MG TAB PO SCH (08:39)
--- NOTE | 2024-04-27 10:46 | P.PN ---
Subjective Progress Note Date: 04/27/24 Hospital Course: Patient is a 78-year-old male with past medical history of pulmonary fibrosis, hyperlipidemia, hypertension, GERD, BPH, history of CAD with stent placement presents to the emergency room with chief complaint of shortness of breath. Patient states he was recently discharged from the hospital for pneumonia and he has been home about a week. Patient states this morning he went to the restroom and desatted to 70 and then got himself back into a chair when he states his saturations were between 50 and 60 and he was unable to catch his breath. Patient reports that since leaving the hospital he has been on 7 L of home oxygen and he has been using his nebulizer 4 times daily. Patient also endorses a dry cough, chills, subjective fevers. He denies any chest pain, abdominal pain, nausea, vomiting, diarrhea. It is of note that when attempting to reposition the patient and he laid supine his saturations went from 95-85. Vitals on admission temperature 97.8, heart rate 133, respiratory rate 40, saturating 85% on BiPAP EKG independently interpreted as sinus tachycardia, ventricular rate 135, QTc of 400 CXR shows right axillary and right neck subcutaneous emphysema, remainder is unchanged from prior with multifocal airspace opacities and reticular opacities CT of subcutaneous emphysema throughout the right neck, right anterior chest throughout the mediastinum, scattered reticular and airspace opacities Labs on admission show WBC 7.2, hemoglobin 13.2, platelets 261. PT 10.8, INR 1.0, PTT 19.7, D-dimer 9.1. Sodium 137, potassium 4.4, chloride 101, bicarb 26, BUN 37, creatinine 1.93, glucose 102. Lactate 4.2, repeat 1.3. Troponin 0.053. Cepheid was positive for COVID. Subjective: Patient seen and examined at bedside. No acute events overnight. Patient currently on 7 L high flow nasal cannula. Discussed the possibility of discharging him home with home care tomorrow. Pertinent positives and negatives as discussed above, a complete review of systems was performed and all other systems are negative. Vitals: Signs Reviewed Physical examination: Vital signs reviewed General: nontoxic, no distress, appears at stated age, no acute distress Derm: warm, dry, intact Head: atraumatic, normocephalic, symmetric Eyes: anicteric sclera Mouth: no lip lesion, mucus membranes moist Cardiovascular: S1 S2 reg, no murmur Lungs: Bilateral basilar rhonchi noted, no rales, no accessory muscle use Abdominal: soft, non-tender to palpation, nondistended Extremities: No cyanosis, clubbing, or pedal edema. Neuro: Alert, Oriented to person, time and place, Gross neurological examination did not reveal any focal deficits. Cranial nerves II to XII grossly intact. Bilateral upper and lower extremity muscle strength intact and sensation intact. Psych: well appearing, appropriate affect Data Received Today: Pertinent Labs: WBC 18.5, Hgb 12.6, sodium 132, BUN 50, creatinine 1.24 Imaging: N/A Assessment and Plan: Patient is a 78-year-old male with past medical history of pulmonary fibrosis, hyperlipidemia, hypertension, GERD, BPH, history of CAD presented to the ER with chief complaint of shortness of breath and hypoxia. Active: COVID-19 pneumonia Acute hypoxic respiratory failure Pulmonary fibrosis Currently on 7 L high flow nasal cannula, try to maintain at 7L prednisone 30 mg p.o. daily Procalcitonin elevated at 2.08 Rocephin has been discontinued Pulmonology following Goals of care: Discussion at length with patient and daughter who is at bedside, patient does not envision living long-term in the hospital, therefore would not want to be discharged to [facility]ACH, ideally he wants to be discharged to rehab with the opportunity to participate in physical therapy, otherwise he would entertain home with home care and home PT, lastly there is consideration of home with hospice if patient does not have any further improvement of oxygen requirement over the coming months. type II NSTEMI EKG independently interpreted as sinus tachycardia, ventricular rate 135, QTc of 400 -Troponins 0.053 => 0.085 => 0.052 Likely from COVID-pneumonia Sepsis secondary to pneumonia, improved CXR shows right axillary and right neck subcutaneous emphysema, remainder is unchanged from prior with multifocal airspace opacities and reticular opacities CT of subcutaneous emphysema throughout the right neck, right anterior chest throughout the mediastinum, scattered reticular and airspace opacities Ceftriaxone discontinued azithromycin 500 mg p.o. daily discontinued Obtain morning CBC Legionella antigen negative Blood cultures, sputum culture pending JUANCARLOS on chronic kidney disease stage II, resolved Continue to monitor Normal saline at 130 cc/hr discontinued Elevated D-dimer, rule out pulmonary embolism, resolved CTA not done due to poor renal function VQ scan showing no signs of PE, discontinue heparin infusion Lactic acidosis, resolved Lactate 4.2, repeat 1.2 Chronic: Hypertension Hold losartan 100 mg until kidney function improves Continue amlodipine 2.5 mg Hyperlipidemia Continue pravastatin 80 mg daily GERD Continue famotidine 40 mg twice daily BPH Continue finasteride 5 mg daily F: PO E: Replete as needed N: Heart healthy A: Fall precautions DVT prophylaxis: Heparin 5000 unit SQ every 8 hours Code status: No code (DNR, DNI) I saw and evaluated the patient during the ness and critical portions of this encounter, and discussed the case in detail with the resident author of this note, I agree with the Assessment and Plan, and my changes, if any, are highlighted below. On 7L HFNC. Plans for hopeful discharge home tomorrow. Discussed hospice. CBC and BMP significant for WBC 18.5, RBC 4.16, Hg 12.6, Na 32, BUN 50, glu 134. Objective - Vital Signs Vital signs: Vital Signs Temp 97.7 F 04/27/24 08:35 Pulse 82 04/27/24 08:35 Resp 22 04/27/24 08:35 BP 138/74 04/27/24 08:35 Pulse Ox 91 L 04/27/24 08:35 FiO2 80 04/17/24 15:56 Intake & Output 04/26/24 04/27/24 04/27/24 18:59 06:59 18:59 Intake Total 600 180 Output Total 500 450 500 Balance 100 -450 -320 Weight 63 kg Intake: Oral 600 180 Output: Urine 500 450 500 Other: Voiding Method Urinal Urinal Urinal # Bowel Movements 1 - Labs CBC & Chem 7: 04/27/24 06:53 04/27/24 06:53 Labs: Abnormal Lab Results - Last 24 Hours (Table) 04/27/24 04/27/24 Range/Units 06:53 06:53 WBC 18.5 H (3.8-10.6) k/uL RBC 4.16 L (4.30-5.90) m/uL Hgb 12.6 L (13.0-17.5) gm/dL RDW 17.4 H (11.5-15.5) % Neutrophils # 16.3 H (1.3-7.7) k/uL Sodium 132 L (137-145) mmol/L BUN 50 H (9-20) mg/dL Glucose 134 H (74-99) mg/dL
--- NOTE | 2024-04-27 16:13 | P.PN ---
Subjective Progress Note Date: 04/27/24 Shortness of breath. Patient is a 78-year-old male with past medical history significant for coronary disease, hypertension, hyperlipidemia, chronic lung disease, and recent hospitalization for COVID-19 pneumonia. His PCP is Dr. Serrano. His established transportation planning engineer is a Dr. Terrence Maynard from the [facility]. Of note, patient had a recent prolonged hospitalization March 16 through April 11 secondary to COVID-19 related pneumonia on top of suspected underlying chronic interstitial lung disease. He was ultimately discharged home, with supplemental oxygen in the order of 7 L/min. Patient returns to the emergency department yesterday afternoon complaining of acute on chronic shortness of breath that developed while ambulating to the bathroom. He has a pulse oximeter at home, states he could not get his oxygen levels above 70%, so he called EMS. He has had a persistent nonproductive cough since his hospital discharge. Apparently, was in some respiratory distress in the emergency department, and initially placed on BiPAP. Workup included a chest x-ray showing new right axillary and right neck subcutaneous emphysema. Follow-up nonenhanced CT of the chest/abdomen/pelvis showing subcutaneous emphysema throughout the right neck, right anterior chest wall and throughout the mediastinum. No definitive airway defect visualized. No pneumothoraces. Likely some chronic fibrotic changes particularly at the lung bases. Patient is currently being evaluated in the [facility] department. He is on 15 L high flow nasal cannula. Patient denies any trauma or recent surgical procedures. Did have Bronchoscopy with BAL approximately 6 months ago. Denies chest pain. Denies any significant intractable nausea or vomiting, dysphagia, or odynophagia. Denies any voice changes or hoarseness. No airway stridor. Afebrile. CBC: WBC count 7.2, hemoglobin 13.2, hematocrit 41, platelets 261. CMP: Sodium 137, potassium 4.4, chloride 101, serum bicarb 26, BUN 37, creatinine 1.93, glucose 102. Lactic was 4.2 and is down to 1.3. Magnesium 1.7. LFTs unremarkable. Normal saline infusing at 130 mL/h. Troponin 0.053. Patient is again positive for COVID by PCR, likely residual finding from prior infection. Of note, patient's D-dimer was elevated at 9.1. He was started on a high intensity heparin infusion per protocol by the ER provider. There is a VQ scan ordered, which will likely be of indeterminate as the patient has chronic lung disease. No unilateral lower ext remity edema. Patient empirically started on antibiotics the ED. Most recent vital signs: Heart rate 66 bpm, blood pressure 104/62 mmHg, nontachypneic, SpO2 is reading 98% on 15 L high flow nasal cannula. BiPAP is off and at the bedside. Progress note dated April 19, 2024. 78-year-old male well-known to our service. The patient was in the hospital here, recently with COVID-19 related pneumonia. He spent 3 weeks in the hospital, and was discharged to home. He was discharged to home on 7 L of oxygen. He spent 1 week at home, and came back to the hospital, for increasing shortness of breath. Today he is seen in room 358. He is getting saline at 130 cc an hour, and high flow nasal cannula at 15 L. His procalcitonin level was 2.08. He tested positive for coronavirus infection. His ventilation/perfusion lung scan was nondiagnostic. A family member was on the phone and had a number of questions, all of which I answered. Current labs include a white count 5.8, hemoglobin 10.8, hematocrit 34.2, and a normal platelet count. Sodium 138, potassium 4.7, chlorides 102, CO2 30, BUN 34, creatinine 1.17. Glucose is 115. Calcium 8.2. Troponins were 0.085 and 0.052. Procalcitonin level is mention was 2.08. Progress note dated April 20, 2024. 78-year-old male seen today in room 358. The patient continues on high flow nasal cannula at 8 L. His procalcitonin level was 2.08. He is not receiving any IV fluids. He continues on Rocephin, and Decadron. White count 6.5, h emoglobin 10.8, hematocrit 33.2, platelet count 317,000. Sodium 136, potassium 5.1, chlorides 103, CO2 30, BUN 34, and creatinine 1.22. Progress note dated April 21, 2024. 78-year-old male seen today in room 358. He is sitting at the side of the bed, and continues on high flow nasal O2 at 8 L. His saturations, just moving from the supine position, to the seated position, dropped precipitously. The patient is getting saline at 20 cc an hour. The patient did complete Rocephin. We will order chest x-ray today. Current labs include a white count 8.1, hemoglobin 10.9, hematocrit 33.2, and a platelet count of 246,000. Sodium 134, potassium 4.5, chlorides 102, CO2 30, BUN 34, and creatinine 1.14. Glucose is 103. Blood cultures are currently negative. The patient's chest x-ray shows persistent bilateral reticular opacities, likely representing pulmonary fibrosis. In addition, the pneumomediastinum, and subcutaneous emphysema, are improved. Progress note dated April 22, 2024. 78-year-old male seen today in room 358. The patient continues on high flow nasal O2, at 7 L/min. The patient is not receiving any IV fluids. The patient has underlying interstitial lung disease, which might be complicated by coronavirus associated postinflammatory pulmonary fibrosis. The patient feels about the same. White count 10.8, hemoglobin 10.8, hematocrit 34.1, and platelet count 347,000. Sodium 135, potassium 4.8, chlorides 101, CO2 28, BUN 34, and creatinine 1.38. Chest x-ray done yesterday, has been reviewed. Progress note April 23 2024. The patient is seen today, in room 358. The respiratory therapist is in the room with the patient, and states that on 8 L high flow nasal cannula, his sats are 89 to 91%. The patient is not receiving any IV fluids. Clinically, he is doing about the same. With any movement or exertion, he becomes very short of breath. The patient has a history of underlying interstitial lung disease, and may have a component of the pos Progress note dated April 24, 2024. The patient is seen today in room 358. The patient remains on high flow nasal O2 at 8 L/min. The patient is not receiving any IV fluids. When asked how he is doing, the patient states that he is no better, but no worse. He feels like with any activity he becomes very short of breath. He also is having a dry nonproductive cough, which is unchanged. Current labs include a white count 13.8, hemoglobin 11.8, macro 36.8, and a platelet count is normal. Sodium 133, potassium 5, chloride 99, CO2 31, BUN 35, and creatinine 1.21. Blood cultures are negative. On 04/25/2024, the patient is being seen for a follow-up. The patient remains on oxygen at 8 L/min nasal cannula. He is having some shortness of breath with talking and minimal amount of activity and he continues to have episode of desaturation. Nevertheless, while at rest at 8 L, the patient's oxygenation is stable with a pulse ox ranging between 88 to 98%. Most recent chest x-ray from 04/21/2024 shows persistent bilateral extraocular opacities with ILD and fibrosis in lung base bilaterally. There is also improving pneumomediastinum and right- sided subcutaneous emphysema. The same findings are also noted on the CAT scan of the chest. The white cell count is 11.5 with a hemoglobin 12.4 and a platelet count of 405. Sodium is at 133, potassium is at 5.3, bicarb is at 32, BUN 39 with a creatinine of 1.4. The AST is up to 66 with an ALT of 219 and alkaline phosphatase of 109. The patient remains on steroids at 60 mg of IV Solu-Medrol every 6 hours. Remains on albuterol HFA, as needed. Rest of the medication remains unchanged. Blood cultures have been negative from this formerly [facility] admission. On 04/18/2024, the patient is on 7 L of oxygen by nasal cannula. Resting comfortably in bed. No chest pain. No subcutaneous emphysema involving the chest shoulder or neck. A follow-up chest x-ray was done and showed ongoing diffuse interstitial lung disease. No evidence of any significant subcutaneous emphysema or pneumomediastinum noted. No evidence of any pneumothorax. The w karri cell count of 19.2 edema 12.4 and platelet count of 402. Sodium is at 133 with a BUN of 48 and a creatinine of 1.2. Chloride is 95. No other significant events otherwise for now. No altered mentation. Tolerating diet. No fever or chills. On 04/27/2024, the patient is being seen for a follow-up. Remains in 70s of oxygen by nasal cannula. Has no new complaints. Oxygenation remained stable. Overall clinical condition is unchanged. The patient was taken off the IV Solu- Medrol yesterday and the patient is currently on prednisone 30 mg p.o. daily. No new complaints for now. Objective - Vital Signs Vital signs: Vital Signs Temp 97.7 F 04/27/24 08:35 Pulse 82 04/27/24 08:35 Resp 22 04/27/24 08:35 BP 138/74 04/27/24 08:35 Pulse Ox 91 L 04/27/24 08:35 FiO2 80 04/17/24 15:56 Intake & Output 04/26/24 04/27/24 04/27/24 18:59 06:59 18:59 Intake Total 600 180 Output Total 500 450 500 Balance 100 -450 -320 Weight 63 kg Intake: Oral 600 180 Output: Urine 500 450 500 Other: Voiding Method Urinal Urinal Urinal # Bowel Movements 1 - Exam No acute distress, oriented 3. Currently on high flow nasal cannula, at 7 L/min. HEENT examination is grossly unremarkable. Mucous membranes are moist. No oral lesions. Neck supple. Full range of motion. No adenopathy thyromegaly or neck vein distention. Cardiovascular examination reveals regular rhythm rate. S1-S2 normal. No S3 or S4. No discernible murmur noted. Lungs reveal bibasilar crackles no wheezes or rhonchi. Breath sounds are equal bilaterally. Abdomen soft bowel sounds are heard. No masses or tenderness. Extremities are intact. No cyanosis clubbing or edema. Skin is without rash or lesion. Neurologic examination is brief but nonfocal. - Labs CBC & Chem 7: 04/27/24 06:53 04/27/24 06:53 Labs: Abnormal Lab Results - Last 24 Hours (Table) 04/27/24 04/27/24 Range/Units 06:53 06:53 WBC 18.5 H (3.8-10.6) k/uL RBC 4.16 L (4.30-5.90) m/uL Hgb 12.6 L (13.0-17.5) gm/dL RDW 17.4 H (11.5-15.5) % Neutrophils # 16.3 H (1.3-7.7) k/uL Sodium 132 L (137-145) mmol/L BUN 50 H (9-20) mg/dL Glucose 134 H (74-99) mg/dL Assessment and Plan Plan: Acute hypoxic respiratory failure and the patient remains on 7 L of oxygen by nasal cannula. Cause for the acute hypoxic respiratory failure is multifactorial. The patient is known to have chronic ILD and subsequent the bella garnica was infected with COVID-19 and developed COVID-19 related pneumonia. He had a prolonged hospitalization with slow but ongoing improvement his oxygenation and ultimately was discharged home on 7 L of O2 nasal cannula. He was readmitted with pneumomediastinum and right-sided subcutaneous emphysema probably combination of his post COVID-19 pneumonia with baseline ILD. Follow- up chest x-ray from 04/26/2024 shows no evidence of any pneumothorax, no subcutaneous emphysema. No active pneumomediastinum. Pneumomediastinum, possibly secondary to patient's chronic lung disease and recent COVID-19 infection., Currently stable. Follow-up chest x-ray to be obtained from 04/26/2024 are stable findings. Acute hypoxemic respiratory failure, currently on 7 L high flow nasal cannula. 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 Elevated D-dimer. Lactic acidemia, improved. Acute kidney injury, creatinine up to 1.93, improving and the creatinine is down to 1.2 Chronic kidney disease stage II. Elevated troponin, possibly secondary to type II TN and hypoxia. History of coronary artery disease with previous PCI/stents. Hypertension. History of hyperlipidemia. Remote history of tobacco use. Plan: Titrate oxygen flow to maintain saturation above 90%, remains on 7 L of oxygen by nasal cannula Monitor subcutaneous emphysema and no mediastinal. Chest x-ray findings from 04/26/2024 are stable without any pneumothorax or pneumomediastinum Repeat chest x-ray in the morning Oxygenation is improved during this current admission. The patient initially was on 15 L and he was weaned down to 7 L/min nasal cannula. Continue steroids and the patient is currently on 30 mg of prednisone Incentive spirometer No need for antibiotics Will continue to follow Involved physical therapy Possible home in a.m.
[2024-04-28 07:33] LABS: Anisocytosis Slight; Basophils # (A) 0.1 k/uL (0-0.2); Basophils % (A) 1 %; Eosinophils # (A) 0.1 k/uL (0-0.7); Eosinophils % (A) 0 %; HCT 38.5 % (39.0-53.0); HGB 12.1 gm/dL (13.0-17.5); Hypochromasia Slight; Lymphocytes # (A) 1.7 k/uL (1.0-4.8); Lymphocytes % (A) 10 %; MCH 29.7 pg (25.0-35.0); MCHC 31.4 g/dL (31.0-37.0); MCV 94.4 fL (80.0-100.0); Mean Platelet Volume 7.4; Monocytes # (A) 0.8 k/uL (0-1.0); Monocytes % (A) 4 %; Neutrophils # (A) 14.6 k/uL (1.3-7.7); Neutrophils % (A) 85 %; Platelet Count 293 k/uL (150-450); RBC 4.08 m/uL (4.30-5.90); WBC 17.3 k/uL (3.8-10.6)
[2024-04-28 08:19] LABS: African American GFR (CKD) 72 (>60 ml/min/1.73 sqM); Albumin 3.1 g/dL (3.5-5.0); Anion Gap 3 mmol/L; Blood Urea Nitrogen 46 mg/dL (9-20); Calcium 8.6 mg/dL (8.4-10.2); Carbon Dioxide 33 mmol/L (22-30); Chloride 99 mmol/L (98-107); Glucose 82 mg/dL (74-99); Non-African American GFR(CKD) 62 (>60 ml/min/1.73 sqM); Potassium 4.8 mmol/L (3.5-5.1); Sodium 135 mmol/L (137-145); Total Protein 5.7 g/dL (6.3-8.2)
[2024-04-28 08:20] LABS: ALT 385 U/L (4-49); AST 105 U/L (17-59); Alkaline Phosphatase 120 U/L (38-126); Magnesium 2.1 mg/dL (1.6-2.3); Total Bilirubin 0.7 mg/dL (0.2-1.3)
[2024-04-28 13:50] VITALS: BP 132/66; PULSE 85; RESP 22; TEMP 98
--- NOTE | 2024-04-28 14:56 | P.DS ---
Providers Date of admission: 04/17/24 19:00 Discharge Diagnosis: COVID-19 pneumonia Acute hypoxic respiratory failure Pulmonary fibrosis Type II NSTEMI Sepsis secondary to pneumonia JUANCARLOS on chronic kidney disease stage II Elevated D-dimer Lactic acidosis Hypertension Hyperlipidemia GERD BPH Hospital Course: Patient is a 78-year-old male with past medical history of pulmonary fibrosis, hyperlipidemia, hypertension, GERD, BPH, history of CAD with stent placement presents to the emergency room with chief complaint of shortness of breath. Patient states he was recently discharged from the hospital for pneumonia and he has been home about a week. Patient states this morning he went to the restroom and desatted to 70 and then got himself back into a chair when he states his saturations were between 50 and 60 and he was unable to catch his breath. Patient reports that since leaving the hospital he has been on 7 L of home oxygen and he has been using his nebulizer 4 times daily. Patient also endorses a dry cough, chills, subjective fevers. He denies any chest pain, abdominal pain, nausea, vomiting, diarrhea. It is of note that when attempting to reposition the patient and he laid supine his saturations went from 95-85. Vitals on admission temperature 97.8, heart rate 133, respiratory rate 40, saturating 85% on BiPAP EKG independently interpreted as sinus tachycardia, ventricular rate 135, QTc of 400 CXR shows right axillary and right neck subcutaneous emphysema, remainder is unchanged from prior with multifocal airspace opacities and reticular opacities CT of subcutaneous emphysema throughout the right neck, right anterior chest throughout the mediastinum, scattered reticular and airspace opacities Labs on admission show WBC 7.2, hemoglobin 13.2, platelets 261. PT 10.8, INR 1.0, PTT 19.7, D-dimer 9.1. Sodium 137, potassium 4.4, chloride 101, bicarb 26, BUN 37, creatinine 1.93, glucose 102. Lactate 4.2, repeat 1.3. Troponin 0.053. Cepheid was positive for COVID. Patient was admitted to internal medicine service for further evaluation of sepsis secondary to COVID-19 pneumonia. While admitted patient was on 15 L of high flow nasal cannula. Checks x-rays on admission showing worsening of pulmonary fibrosis likely due to his COVID 19 pneumonia. Over time we were able to wean him down to his baseline of 7 L of oxygen. Placed on the proper antibiotics for his pneumonia and most of his symptoms also resolved. Discussion at length with patient and daughter who is at bedside, patient does not envision living long-term in the hospital, therefore would not want to be discharged to [facility], ideally he wants to be discharged to rehab with the opportunity to participate in physical therapy, otherwise he would entertain home with home care and home PT, lastly there is consideration of home with hospice if patient does not have any further improvement of oxygen requirement over the coming months. Patient being discharged on 7 L high flow nasal cannula, which is the same oxygen levels he was discharged with last time he was here. Being discharged with prednisone taper. He is to follow-up with his PCP and pulmonology. He is being discharged home with home care. Vital signs reviewed and stable. Physical examination: Vital signs reviewed General: non toxic, no distress, appears at stated age, normal weight Derm: no unusual rashes/lesions, warm Head: atraumatic, normocephalic, symmetric Eyes: EOMI, anicteric sclera, pupils equal round reactive to light ENT: Nose and ears atraumatic Neck: No cervical lymphadenopathy, trachea midline, supple Mouth: no lip lesion, mucus membranes moist Cardiovascular: S1S2 reg, no murmur, positive dorsalis pedis pulse bilateral, no edema Lungs: Bilateral basilar crackles l, no rhonchi, no rales, no accessory muscle use Abdominal: soft, nontender to palpation, no guarding Ext: muscle strength 5 out of 5 in all 4 extremities grossly, no gross muscle atrophy Neuro: CN II-XI grossly intact, no gross focal neuro deficits Psych: Alert, oriented to person, place, and time A total of greater than 30 minutes of time were spent preparing this complex discharge summary. Patient was discharge on April 28, 2024 at 12:07 PM. Anabell Michaud MD PGY-1 IM Dictation was produced using [employer] dictation software. please excuse any grammatical, word or spelling errors. I saw and evaluated the patient during the ness and critical portions of this encounter, and discussed the case in detail with the resident author of this note, I agree with the Assessment and Plan, and my changes, if any, are highlighted below. On 7L HFNC. Plans for discharge today on slow Prednisone taper. CBC and BMP significant for WBC 17.3, RBC 4.08, Hg 12.1, Hct 38.5, Na 135, bicarb 33, BUN 46, AST 105, ALT 385, alb 3.1. Expected date of discharge: 04/28/24 Attending physician: Temo Brito Consults: 04/17/24 19:00 Consult Physician Routine Consulting Provider: Supriya Pena Reason/Comments: respiratory failure Do you want consulting provider notified?: Yes Primary care physician: Gael Serrano Patient Condition at Discharge: Fair Plan - Discharge Summary Discharge Rx Participant: No New Discharge Prescriptions: New predniSONE See Taper PO DAILY 25 Days #50 tab Continue amLODIPine [Norvasc] 2.5 mg PO DAILY Calcium Carbonate [Calcium] 600 mg PO DAILY Multivitamins, Thera [Multivitamin (formulary)] 1 tab PO DAILY Cholecalciferol (Vitamin D3) [Vitamin D3 (50 Mcg = 2000 Iu)] 50 mcg PO DAILY Pravastatin Sodium [Pravachol] 80 mg PO DAILY Loratadine [Claritin] 10 mg PO DAILY Famotidine [Pepcid] 40 mg PO BID Aspirin EC [Ecotrin Low Dose] 81 mg PO Q48H Azelastine HCl [Astelin Nasal [place]] 2 spray EA NOSTRIL BID PRN PRN Reason: Allergy Symptoms Albuterol Inhaler [Ventolin Hfa Inhaler] 2 puff INHALATION RT-Q4H PRN #0 each PRN Reason: Shortness Of Breath Or Wheezing Ipratropium-Albuterol Nebulize [Duoneb 0.5 mg-3 mg/3 ml Soln] 3 ml INHALATION RT-QID PRN PRN Reason: Dyspnea Co Q-10 100mg 1 cap PO DAILY Losartan Potassium [Cozaar] 100 mg PO DAILY Finasteride [Proscar] 5 mg PO DAILY Acetaminophen Tab [Tylenol] 1,000 mg PO Q6HR PRN tab PRN Reason: Fever And/ Or Pain Albuterol Inhaler [Ventolin Hfa Inhaler] 2 puff INHALATION RT-QID #2 each Discontinued predniSONE See Taper PO DIRECTED Discharge Medication List Aspirin EC [Ecotrin Low Dose] 81 mg PO Q48H 03/17/24 [History] Azelastine HCl [Astelin Nasal [place]] 2 spray EA NOSTRIL BID PRN 03/17/24 [ History] Calcium Carbonate [Calcium] 600 mg PO DAILY 03/17/24 [History] Cholecalciferol (Vitamin D3) [Vitamin D3 (50 Mcg = 2000 Iu)] 50 mcg PO DAILY 03/17/24 [History] Co Q-10 100mg 1 cap PO DAILY 03/17/24 [History] Famotidine [Pepcid] 40 mg PO BID 03/17/24 [History] Finasteride [Proscar] 5 mg PO DAILY 03/17/24 [History] Loratadine [Claritin] 10 mg PO DAILY 03/17/24 [History] Losartan Potassium [Cozaar] 100 mg PO DAILY 03/17/24 [History] Multivitamins, Thera [Multivitamin (formulary)] 1 tab PO DAILY 03/17/24 [History] Pravastatin Sodium [Pravachol] 80 mg PO DAILY 03/17/24 [History] amLODIPine [Norvasc] 2.5 mg PO DAILY 03/17/24 [History] Acetaminophen Tab [Tylenol] 1,000 mg PO Q6HR PRN tab 04/11/24 [Rx] Albuterol Inhaler [Ventolin Hfa Inhaler] 2 puff INHALATION RT-Q4H PRN #0 each 04/11/24 [Rx] Albuterol Inhaler [Ventolin Hfa Inhaler] 2 puff INHALATION RT-QID #2 each 04/11/24 [Rx] Ipratropium-Albuterol Nebulize [Duoneb 0.5 mg-3 mg/3 ml Soln] 3 ml INHALATION RT-QID PRN 04/17/24 [History] predniSONE See Taper PO DAILY 25 Days #50 tab 04/28/24 [Rx] Follow up Appointment(s)/Referral(s): Gael Serrano MD [Primary Care Provider] - 1-2 days John Bay MD [STAFF PHYSICIAN] - 1 Week [facility] Visiting Nurse, [NON-STAFF] - Patient Instructions/Handouts: Pulmonary Fibrosis (DC) Activity/Diet/Wound Care/Special Instructions: Patient requires a transport chair at time of discharge to assist with ADLS that cannot be performed with a cane or walker due to unsteady gait/COVID-19. Patient cannot self propel the chair and will have caregivers to assist him Discharge Disposition: HOME WITH HOME HEALTH SERVICES
--- NOTE | 2024-04-28 19:09 | P.PN ---
Subjective Progress Note Date: 04/28/24 Shortness of breath. Patient is a 78-year-old male with past medical history significant for coronary disease, hypertension, hyperlipidemia, chronic lung disease, and recent hospitalization for COVID-19 pneumonia. His PCP is Dr. Serrano. 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 Terrence Maynard from the [facility]. Of note, patient had a recent prolonged hospitalization March 16 through April 11 secondary to COVID-19 related pneumonia on top of suspected underlying chronic interstitial lung disease. He was ultimately discharged home, with supplemental oxygen in the order of 7 L/min. Patient returns to the emergency department yesterday afternoon complaining of acute on chronic shortness of breath that developed while ambulating to the bathroom. He has a pulse oximeter at home, states he could not get his oxygen levels above 70%, so he called EMS. He has had a persistent nonproductive cough since his hospital discharge. Apparently, was in some respiratory distress in the emergency department, and initially placed on BiPAP. Workup included a chest x-ray showing new right axillary and right neck subcutaneous emphysema. Follow-up nonenhanced CT of the chest/abdomen/pelvis showing subcutaneous emphysema throughout the right neck, right anterior chest wall and throughout the mediastinum. No definitive airway defect visualized. No pneumothoraces. Likely some chronic fibrotic changes particularly at the lung bases. Patient is currently being evaluated in the [facility] department. He is on 15 L high flow nasal cannula. Patient denies any trauma or recent surgical procedures. Did have Bronchoscopy with BAL approximately 6 months ago. Denies chest pain. Denies any significant intractable nausea or vomiting, dysphagia, or odynophagia. Denies any voice changes or hoarseness. No airway stridor. Afebrile. CBC: WBC count 7.2, hemoglobin 13.2, hematocrit 41, platelets 261. CMP: Sodium 137, potassium 4.4, chloride 101, serum bicarb 26, BUN 37, creatinine 1.93, glucose 102. Lactic was 4.2 and is down to 1.3. Magnesium 1.7. LFTs unremarkable. Normal saline infusing at 130 mL/h. Troponin 0.053. Patient is again positive for COVID by PCR, likely residual finding from prior infection. Of note, patient's D-dimer was elevated at 9.1. He was started on a high intensity heparin infusion per protocol by the ER provider. There is a VQ scan ordered, which will likely be of indeterminate as the patient has chronic lung disease. No unilateral lower ext remity edema. Patient empirically started on antibiotics the ED. Most recent vital signs: Heart rate 66 bpm, blood pressure 104/62 mmHg, nontachypneic, SpO2 is reading 98% on 15 L high flow nasal cannula. BiPAP is off and at the bedside. Progress note dated April 19, 2024. 78-year-old male well-known to our service. The patient was in the hospital here, recently with COVID-19 related pneumonia. He spent 3 weeks in the hospital, and was discharged to home. He was discharged to home on 7 L of oxygen. He spent 1 week at home, and came back to the hospital, for increasing shortness of breath. Today he is seen in room 358. He is getting saline at 130 cc an hour, and high flow nasal cannula at 15 L. His procalcitonin level was 2.08. He tested positive for coronavirus infection. His ventilation/perfusion lung scan was nondiagnostic. A family member was on the phone and had a number of questions, all of which I answered. Current labs include a white count 5.8, hemoglobin 10.8, hematocrit 34.2, and a normal platelet count. Sodium 138, potassium 4.7, chlorides 102, CO2 30, BUN 34, creatinine 1.17. Glucose is 115. Calcium 8.2. Troponins were 0.085 and 0.052. Procalcitonin level is mention was 2.08. Progress note dated April 20, 2024. 78-year-old male seen today in room 358. The patient continues on high flow nasal cannula at 8 L. His procalcitonin level was 2.08. He is not receiving any IV fluids. He continues on Rocephin, and Decadron. White count 6.5, h emoglobin 10.8, hematocrit 33.2, platelet count 317,000. Sodium 136, potassium 5.1, chlorides 103, CO2 30, BUN 34, and creatinine 1.22. Progress note dated April 21, 2024. 78-year-old male seen today in room 358. He is sitting at the side of the bed, and continues on high flow nasal O2 at 8 L. His saturations, just moving from the supine position, to the seated position, dropped precipitously. The patient is getting saline at 20 cc an hour. The patient did complete Rocephin. We will order chest x-ray today. Current labs include a white count 8.1, hemoglobin 10.9, hematocrit 33.2, and a platelet count of 246,000. Sodium 134, potassium 4.5, chlorides 102, CO2 30, BUN 34, and creatinine 1.14. Glucose is 103. Blood cultures are currently negative. The patient's chest x-ray shows persistent bilateral reticular opacities, likely representing pulmonary fibrosis. In addition, the pneumomediastinum, and subcutaneous emphysema, are improved. Progress note dated April 22, 2024. 78-year-old male seen today in room 358. The patient continues on high flow nasal O2, at 7 L/min. The patient is not receiving any IV fluids. The patient has underlying interstitial lung disease, which might be complicated by coronavirus associated postinflammatory pulmonary fibrosis. The patient feels about the same. White count 10.8, hemoglobin 10.8, hematocrit 34.1, and platelet count 347,000. Sodium 135, potassium 4.8, chlorides 101, CO2 28, BUN 34, and creatinine 1.38. Chest x-ray done yesterday, has been reviewed. Progress note April 23 2024. The patient is seen today, in room 358. The respiratory therapist is in the room with the patient, and states that on 8 L high flow nasal cannula, his sats are 89 to 91%. The patient is not receiving any IV fluids. Clinically, he is doing about the same. With any movement or exertion, he becomes very short of breath. The patient has a history of underlying interstitial lung disease, and may have a component of the pos Progress note dated April 24, 2024. The patient is seen today in room 358. The patient remains on high flow nasal O2 at 8 L/min. The patient is not receiving any IV fluids. When asked how he is doing, the patient states that he is no better, but no worse. He feels like with any activity he becomes very short of breath. He also is having a dry nonproductive cough, which is unchanged. Current labs include a white count 13.8, hemoglobin 11.8, macro 36.8, and a platelet count is normal. Sodium 133, potassium 5, chloride 99, CO2 31, BUN 35, and creatinine 1.21. Blood cultures are negative. On 04/25/2024, the patient is being seen for a follow-up. The patient remains on oxygen at 8 L/min nasal cannula. He is having some shortness of breath with talking and minimal amount of activity and he continues to have episode of desaturation. Nevertheless, while at rest at 8 L, the patient's oxygenation is stable with a pulse ox ranging between 88 to 98%. Most recent chest x-ray from 04/21/2024 shows persistent bilateral extraocular opacities with ILD and fibrosis in lung base bilaterally. There is also improving pneumomediastinum and right- sided subcutaneous emphysema. The same findings are also noted on the CAT scan of the chest. The white cell count is 11.5 with a hemoglobin 12.4 and a platelet count of 405. Sodium is at 133, potassium is at 5.3, bicarb is at 32, BUN 39 with a creatinine of 1.4. The AST is up to 66 with an ALT of 219 and alkaline phosphatase of 109. The patient remains on steroids at 60 mg of IV Solu-Medrol every 6 hours. Remains on albuterol HFA, as needed. Rest of the medication remains unchanged. Blood cultures have been negative from this [facility] admission. On 04/18/2024, the patient is on 7 L of oxygen by nasal cannula. Resting comfortably in bed. No chest pain. No subcutaneous emphysema involving the chest shoulder or neck. A follow-up chest x-ray was done and showed ongoing diffuse interstitial lung disease. No evidence of any significant subcutaneous emphysema or pneumomediastinum noted. No evidence of any pneumothorax. The w karri cell count of 19.2 edema 12.4 and platelet count of 402. Sodium is at 133 with a BUN of 48 and a creatinine of 1.2. Chloride is 95. No other significant events otherwise for now. No altered mentation. Tolerating diet. No fever or chills. On 04/27/2024, the patient is being seen for a follow-up. Remains in 70s of oxygen by nasal cannula. Has no new complaints. Oxygenation remained stable. Overall clinical condition is unchanged. The patient was taken off the IV Solu- Medrol yesterday and the patient is currently on prednisone 30 mg p.o. daily. No new complaints for now. On 04/28/2024, the patient is stable on 7 L of oxygen by nasal cannula. Pulse ox 91%. Denies having any specific complaints. White cell count 17 with a hemoglobin 12 and a platelet count of 293. INR is at 1.1 with a BUN of 46. Electrolytes are all within normal limits. No other new complaints otherwise for now. Objective - Vital Signs Vital signs: Vital Signs Temp 97.6 F 04/28/24 04:59 Pulse 75 04/28/24 04:59 Resp 20 04/28/24 04:59 BP 120/77 04/28/24 04:59 Pulse Ox 97 04/28/24 04:59 FiO2 80 04/17/24 15:56 Intake & Output 04/27/24 04/28/24 04/28/24 18:59 06:59 18:59 Intake Total 600 118 Output Total 900 350 Balance -300 -350 118 Intake: Oral 600 118 Output: Urine 900 350 Other: Voiding Method Urinal Urinal # Bowel Movements 1 - Exam No acute distress, oriented 3. Currently on high flow nasal cannula, at 7 L /min. HEENT examination is grossly unremarkable. Mucous membranes are moist. No oral lesions. Neck supple. Full range of motion. No adenopathy thyromegaly or neck vein distention. Cardiovascular examination reveals regular rhythm rate. S1-S2 normal. No S3 or S4. No discernible murmur noted. Lungs reveal bibasilar crackles no wheezes or rhonchi. Breath sounds are equal bilaterally. Abdomen soft bowel sounds are heard. No masses or tenderness. Extremities are intact. No cyanosis clubbing or edema. Skin is without rash or lesion. Neurologic examination is brief but nonfocal. - Labs CBC & Chem 7: 04/28/24 07:14 04/28/24 07:14 Labs: Abnormal Lab Results - Last 24 Hours (Table) 04/28/24 04/28/24 Range/Units 07:14 07:14 WBC 17.3 H (3.8-10.6) k/uL RBC 4.08 L (4.30-5.90) m/uL Hgb 12.1 L (13.0-17.5) gm/dL Hct 38.5 L (39.0-53.0) % RDW 17.0 H (11.5-15.5) % Neutrophils # 14.6 H (1.3-7.7) k/uL Sodium 135 L (137-145) mmol/L Carbon Dioxide 33 H (22-30) mmol/L BUN 46 H (9-20) mg/dL AST 105 H (17-59) U/L ALT 385 H (4-49) U/L Total Protein 5.7 L (6.3-8.2) g/dL Albumin 3.1 L (3.5-5.0) g/dL Assessment and Plan Plan: Acute hypoxic respiratory failure and the patient remains on 7 L of oxygen by nasal cannula. Cause for the acute hypoxic respiratory failure is multifactorial. The patient is known to have chronic ILD and subsequent the patient was infected with COVID-19 and developed COVID-19 related pneumonia. He had a prolonged hospitalization with slow but ongoing improvement his oxygenation and ultimately was discharged home on 7 L of O2 nasal cannula. He was readmitted with pneumomediastinum and right-sided subcutaneous emphysema probably combination of his post COVID-19 pneumonia with baseline ILD. Follow- up chest x-ray from 04/26/2024 shows no evidence of any pneumothorax, no subcutaneous emphysema. No active pneumomediastinum. Pneumomediastinum, possibly secondary to patient's chronic lung disease and recent COVID-19 infection., Currently stable. Follow-up chest x-ray to be obtained from 04/26/2024 are stable findings. Acute hypoxemic respiratory failure, currently on 7 L high flow nasal cannula. 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 Elevated D-dimer. Lactic acidemia, improved. Acute kidney injury, creatinine up to 1.93, improving and the creatinine is down to 1.2 Chronic kidney disease stage II. Elevated troponin, possibly secondary to type II NH and hypoxia. History of coronary artery disease with previous PCI/stents. Hypertension. History of hyperlipidemia. Remote history of tobacco use. Plan: The patient will likely go home today. Titrate oxygen flow to maintain saturation above 90%, remains on 7 L of oxygen by nasal cannula Monitor subcutaneous emphysema and no mediastinal. Chest x-ray findings from 04/26/2024 are stable without any pneumothorax or pneumomediastinum Continue steroids and the patient is currently on 30 mg of prednisone, this will be tapered gradually on an outpatient basis Incentive spirometer No need for antibiotics Will continue to follow Involved physical therapy Possible home today
== END 2024-04-28 17:01 | disposition home health service (06) | DRG 871 ==
LOC: EC 14:45 → 3SCARD 19:00
PROVIDERS: ADMIT Student in an Organized Health Care Education/Training Program; ATTEND Student in an Organized Health Care Education/Training Program
PROC: 5A09357 Assistance with Respiratory Ventilation, Less than 24 Consecutive Hours, Continuous Positive Airway Pressure (ICD-10-PCS; principal; 2024-04-17)
DX: A41.89 Other specified sepsis (principal); I21.A1 Myocardial infarction type 2; U07.1 COVID-19; J12.82 Pneumonia due to coronavirus disease 2019; J96.01 Acute respiratory failure with hypoxia; E87.20 Acidosis, unspecified; I47.20 Ventricular tachycardia, unspecified; J84.10 Pulmonary fibrosis, unspecified; J44.0 Chronic obstructive pulmonary disease with (acute) lower respiratory infection; I12.9 Hypertensive chronic kidney disease with stage 1 through stage 4 chronic kidney disease, or unspecified chronic kidney disease; N17.9 Acute kidney failure, unspecified; J43.8 Other emphysema; N18.2 Chronic kidney disease, stage 2 (mild); Z86.16 Personal history of COVID-19; Z87.891 Personal history of nicotine dependence; N40.0 Benign prostatic hyperplasia without lower urinary tract symptoms; E78.5 Hyperlipidemia, unspecified; K21.9 Gastro-esophageal reflux disease without esophagitis; I25.10 Atherosclerotic heart disease of native coronary artery without angina pectoris; Z66 Do not resuscitate; Z95.5 Presence of coronary angioplasty implant and graft; I25.2 Old myocardial infarction; Z79.899 Other long term (current) drug therapy; Z87.01 Personal history of pneumonia (recurrent)
CPT/HCPCS: 36415; 71045; 71250; 74176; 78580; 80048; 80053; 83605; 83735; 84145; 84484; 85025; 85379; 85610; 85730; 87040; 87449; 87636; 93005; 94640; 94660; 94760; 96361; 96365; 96366; 96367; 96375; 99291